=== PATIENT | female | born 1955 | race Caucasian/White ===

== ENCOUNTER 2018-05-15 15:24 | Observation (INO) ==
[2018-05-15 15:41] LABS: Appearance,Urine CLEAR (Clear); Bilirubin,Urine Negative (Negative); Blood, Urine Negative (Negative); Color,Urine YELLOW (Yellow); Glucose,Urine (UA) Negative (Negative); Ketones,Urine Negative (Negative); Leukocyte Esterase,Urine Negative (Negative); Microscopic, Urine URINE MICROSCOPIC (MICROSCOPIC); Protein,Urine Negative (Negative); Specific Gravity, Urine 1.015 (1.005-1.030); Urobilinogen,Urine 0.2 EU/dl (0.2)
[2018-05-15 15:47] LABS: Basophils % 0.1 % (0.1-2.0); Eosinophils % 0.2 % (0.1-12.0); Hematocrit 32.5 % (37.0-47.0); Hemoglobin 9.1 g/dL (12.2-16.2); Lymphocytes # 0.6 K/mm3 (0.7-4.5); Lymphocytes % 2.9 K/mm3 (10-50); Mean Corpuscular HGB Conc 27.9 g/dL (31.8-35.4); Mean Corpuscular Volume 71.8 fl (81-99); Mean Platelet Volume 7.3 fl (7.4-10.4); Monocytes # 0.7 K/mm3 (0.1-1.0); Monocytes % 3.6 % (1.7-9.3); Neutrophils # 17.9 K/mm3 (1.8-7.8); Neutrophils % 93.2 % (37.0-80.0); Platelet Count 335 K/mm3 (142-424); Red Blood Count 4.53 M/mm3 (4.20-5.40); Red Cell Distribution Width 16.5 % (11.5-17.5); White Blood Count 19.2 K/mm3 (4.8-10.8)
[2018-05-15 15:48] LABS: Bacteria,Urine Trace /lpf
[2018-05-15 16:02] LABS: Lymphocytes % 5 % (10-50); Monocytes % 3 % (2-9); Neutrophils % 88 % (42-76); Ovalocytes 1+; Tear Drop Cells 1+; Total Cells Counted 100
[2018-05-15 16:04] LABS: Carbon Dioxide 23 mmol/L (21.0-32.0); Chloride 102 mmol/L (98-107); Creatine Kinase 139 U/L (26-192); Potassium 3.4 mmoL/L (3.5-5.1); Sodium 138 mmol/L (136-145)
[2018-05-15 16:05] LABS: Alanine Aminotransferase 33 U/L (12-78); Albumin Level 4.1 gm/dL (3.4-5.0); Albumin/Globulin Ratio 1.4 (1.1-1.8); Alkaline Phosphatase 112 U/L (46-116); Anion Gap 12.8 mEq/L (5-15); Aspartate Amino Transferase 18 U/L (15-37); Bilirubin,Total 0.6 mg/dL (0.2-1.0); Blood Urea Nitrogen 32 mg/dL (7-18); Calcium 9.4 mg/dL (8.5-10.1); Glucose 183 mg/dL (74-106); Total Protein,Serum 7.1 gm/dL (6.4-8.2)
[2018-05-15 16:20] LABS: Amylase 143 U/L (25-125); Lipase 76 u/L (73-393)
--- NOTE | 2018-05-15 16:56 | Emergency Department Note ---
ED Disposition Clinical Impression: Proctitis, Hypokalemia, Fecal impaction in rectum Anemia Qualifiers: Anemia type: other cause Other causes of anemia: other cause, not classified Qualified Code(s): D64.89 - Other specified anemias Disposition: Admitted As Inpatient Condition on Discharge: Good Time of Disposition: 16:52 - Critical Care Critical Care Time: No Attestation: On 05/15/18, the high probability of a clinically significant, sudden or life threatening deterioration of the following system(s) required my full and direct attention, intervention and personal management. The time I documented below is in addition to time spent performing reported procedures but includes the following listed in this critical care notation. Medical Decision Making - Medical Records Medical records reviewed: Yes: I reviewed the patient's medical records. - Alfred Inquiry Pt receiving controlled substance: No Vital Signs: 05/15/18 15:25 05/15/18 16:54 05/15/18 17:00 Temperature 98.6 F Temperature Source Oral Pulse Rate Pulse Rate [Right Brachial] 103 H 74 69 Respiratory Rate 22 18 18 Blood Pressure Blood Pressure [Right Arm] 128/71 134/84 135/80 Blood Pressure Mean [Right Arm] 90 100 98 Blood Pressure Source Blood Pressure Source [Right Arm] Automatic Cuff Automatic Cuff Automatic Cuff Blood Pressure Position Blood Pressure Position [Right Arm] Sitting Sitting Sitting 02 Sat by Pulse Oximetry 98 98 98 Oxygen Delivery Method Room Air Room Air Room Air 05/15/18 17:21 05/15/18 17:45 05/15/18 18:00 Temperature Temperature Source Pulse Rate Pulse Rate [Right Brachial] 72 70 Respiratory Rate 16 18 Blood Pressure Blood Pressure [Right Arm] 145/89 146/83 Blood Pressure Mean [Right Arm] 107 104 Blood Pressure Source Blood Pressure Source [Right Arm] Automatic Cuff Automatic Cuff Blood Pressure Position Blood Pressure Position [Right Arm] Sitting Supine 02 Sat by Pulse Oximetry 97 97 Oxygen Delivery Method Room Air Room Air Room Air 05/15/18 18:09 Temperature 97.9 F Temperature Source Oral Pulse Rate 72 Pulse Rate [Right Brachial] Respiratory Rate 20 Blood Pressure 169/106 Blood Pressure [Right Arm] Blood Pressure Mean [Right Arm] Blood Pressure Source Automatic Cuff Blood Pressure Source [Right Arm] Blood Pressure Position Sitting Blood Pressure Position [Right Arm] 02 Sat by Pulse Oximetry Oxygen Delivery Method Room Air - Lab Data Lab results reviewed: Yes: I reviewed the patient's lab results. Lab Results 05/15/18 15:38: Urine Color Yellow, Urine Appearance Clear, Urine pH 6.0, Ur Specific [place] 1.015, Urine Protein Negative, Urine Glucose (UA) Negative, Urine Ketones Negative, Urine Blood Negative, Urine Nitrate Negative, Urine Bilirubin Negative, Urine Urobilinogen 0.2, Ur Leukocyte Esterase Negative, Urine Bacteria Trace 05/15/18 15:40: WBC 19.2 H, RBC 4.53, Hgb 9.1 L, Hct 32.5 L, MCV 71.8 L, MCH 20.0 L, MCHC 27.9 L, RDW 16.5, Plt Count 335, MPV 7.3 L, Neut % (Auto) 93.2 H, Lymph % (Auto) 2.9 L, [place] % (Auto) 3.6, Eos % (Auto) 0.2, Baso % (Auto) 0.1, Neut # (Auto) 17.9 H, Lymph # (Auto) 0.6 L, [place] # (Auto) 0.7, Eos # (Auto) 0.0 , Baso # (Auto) 0.0, Total Counted 100, Neutrophils % (Manual) 88 H, Band Neutrophils % 4.0, Lymphocytes % (Manual) 5 L, Monocytes % (Manual) 3, Platelet Estimate Normal, Tear Drop Cells 1+, Ovalocytes 1+, Acanthocytes (Spur) 1+ 05/15/18 15:40: Sodium 138, Potassium 3.4 L, Chloride 102, Carbon Dioxide 23, Anion Gap 12.8, BUN 32 H, Creatinine 1.12 H, Estimated Creat Clear 65, Estimated GFR 49 L, Est GFR ( Amer) 59, Glucose 183 H, Calcium 9.4, Total Bilirubin 0.6, AST 18, ALT 33, Alkaline Phosphatase 112, Total Creatine Kinase 139, CK-MB (CK-2) 5.1 H, CK-MB (CK-2) Rel Index 3.7, Troponin I < 0.02, Total Protein 7.1, Albumin 4.1, Globulin 3.0, Albumin/Globulin Ratio 1.4 05/15/18 15:40: B-Natriuretic Peptide 152 H 05/15/18 15:40: Lactic Acid 4.2 H 05/15/18 15:40: Amylase 143 H, Lipase 76 Result diagrams: 05/15/18 15:40 05/15/18 15:40 Orders (Tests/Meds): ED MEDICATIONS Generic Name Dose Route Start Last Admin Trade Name Bunny PRN Reason Stop Dose Admin Aspirin 81 mg 05/16/18 09:00 Aspirin 81mg Enteric Coated Tablet PO 06/15/18 08:59 DAILY [facility] Clopidogrel Bisulfate 75 mg 05/16/18 09:00 Plavix 75mg Tablet PO 06/15/18 08:59 DAILY [facility] Docusate Sodium 100 mg 05/16/18 09:00 Docusate Sodium 100mg Cap PO 06/15/18 08:59 DAILY MARGARETTE Lactated Ringer's 1,000 mls @ 75 mls/hr 05/15/18 18:59 05/15/18 21:18 Lactated Ringer's 1000 Ml Bag IV 06/14/18 17:15 75 mls/hr .[id number] MARGARETTE Administration Levofloxacin/Dextrose 750 mg in 150 mls @ 100 mls/hr 05/16/18 16:30 Levofloxacin 750mg/150ml Premix IV 05/29/18 16:29 Q24H MARGARETTE Protocol Metronidazole 100 mls @ 100 mls/hr 05/16/18 00:30 05/16/18 00:18 Flagyl 500mg/100ml Ivpb IV 05/29/18 16:29 100 mls/hr Q8H MARGARETTE Administration Protocol Ketorolac Tromethamine 30 mg 05/15/18 19:21 05/15/18 19:22 Toradol 30mg/Ml Vial IV 05/20/18 19:20 30 mg Q6HP PRN Administration .PAIN Lisinopril 10 mg 05/16/18 09:00 Zestril 10mg Tablet PO 06/15/18 08:59 DAILY [facility] Metoprolol Succinate 25 mg 05/15/18 21:00 05/15/18 21:19 Toprol Xl 25mg Tablet PO 06/14/18 20:59 25 mg BID MARGARETTE Administration Niacin 500 mg 05/16/18 09:00 Niacin Xr 500mg Capsule PO 06/15/18 08:59 DAILY [facility] Non-Formulary Medication 80 mg 05/16/18 09:00 Atorvastatin Calcium [Atorvastatin 80mg Tab] PO 06/15/18 08:59 DAILY [facility] Non-Formulary Medication 25 mcg 05/16/18 09:00 Levothyroxine Sodium [Tirosint] PO 06/15/18 08:59 DAILY [facility] Pantoprazole Sodium 40 mg 05/16/18 09:00 Protonix 40mg Tablet PO 06/15/18 08:59 DAILY [facility]TE Potassium Chloride 40 meq 05/15/18 18:59 05/15/18 19:25 Klor-Con 20meq Tablet PO 05/15/18 19:00 40 meq ONCE ONE Administration Sertraline HCl 100 mg 05/16/18 09:00 Zoloft 100mg Tablet PO 06/15/18 08:59 DAILY [facility]ARGAR[facility]TE Discontinued Medications Generic Name Dose Route Start Last Admin Trade Name Freq PRN Reason Stop Dose Admin Levofloxacin/Dextrose 750 mg in 150 mls @ 100 mls/hr 05/15/18 16:30 05/15/18 17:11 Levofloxacin 750mg/150ml Premix IV 05/29/18 16:29 100 mls/hr Q24H MARGARETTE Administration Protocol Metronidazole 100 mls @ 100 mls/hr 05/15/18 16:30 05/15/18 18:02 Flagyl 500mg/100ml Ivpb IV 05/29/18 16:29 100 mls/hr Q8H MARGARETTE Administration Protocol Levofloxacin/Dextrose 750 mg in 150 mls @ 100 mls/hr 05/16/18 16:30 Levofloxacin 750mg/150ml Premix IV 05/29/18 16:29 Q24H MARGARETTE Protocol Metronidazole 100 mls @ 100 mls/hr 05/16/18 00:30 Flagyl 500mg/100ml Ivpb IV 05/29/18 16:29 Q8H MARGARETTE Protocol Lactated Ringer's 1,000 mls @ 75 mls/hr 05/15/18 17:16 Lactated Ringer's 1000 Ml Bag IV 06/14/18 17:15 .[id number] MARGARETTE Sodium Chloride 1,000 mls @ 999 mls/hr 05/15/18 18:00 05/15/18 19:04 Sod Chlor 0.9% 1000ml Bag IV 05/15/18 19:00 999 mls/hr .Q1H1M MARGARETTE Administration Sodium Chloride 1,000 mls @ 999 mls/hr 05/15/18 18:00 05/15/18 19:00 Sod Chlor 0.9% 1000ml Bag IV 05/15/18 19:00 999 mls/hr .Q1H1M MARGARETTE Administration Sodium Phosphate 133 ml 05/15/18 17:26 05/15/18 18:45 Fleet Enema 133ml RC 05/15/18 17:27 Not Given ONCE ONE ORDERS Category Date Time Status Consult to On-Call Gen'l Surgeon [CONS] Routine Cons 05/15/18 17:16 Ordered Blood Culture Stat Micro 05/15/18 15:40 Received - CT Data CT Scan: Abdomen, Pelvis Time Received: 16:[address] Reviewed: Yes: I have reviewed the patient's CT results, I discussed the CT results w/the radiologist, I have viewed the radiologist's interpretation Preliminary Findings: Abnormal Findings Narrative: [address] [facility] [address] [place] [address] [place] Scan Report Signed Patient: Michelle Bauer MR#: [id number] : 1955 Acct:[id number] Age/Sex: 62 / F ADM Date: 05/15/18 Loc: ER Attending Dr: Ordering Physician: Magno Vital MD Date of Service: 05/15/18 Procedure(s): CT abdomen pelvis wo con Accession Number(s): [id number] cc: Blanco Boudreaux ~ CT abdomen pelvis wo con CLINICAL HISTORY: Abdominal pain with symptoms of constipation TECHNIQUE: Axial images obtained with sagittal and coronal reformats. All CT scans at this facility use one or more dose reduction techniques, viz.: automated exposure control; ma/kV adjustment per patient size (including targeted exams where dose is matched to indication; i.e. head) or iterative reconstruction technique. COMPARISON: CT scan abdomen without and with contrast 10/23/2008 PROCEDURE: No oral or IV contrast was used. FINDINGS: Lung bases: Clear, there is no pleural fluid ABDOMEN: Liver: There is a hypodense lesion midportion the right lobe of the liver measuring 2.2 x 2.5 x 1.8 cm. This has somewhat irregular borders and may be a liver cyst but recommend a follow-up ultrasound liver for better evaluation.. Gallbladder: Nondistended. No radio opaque stones. Pancreas: There are few scattered calcifications within the pancreas, is there history of previous pancreatitis? There are no findings to suggest acute pancreatitis.. Spleen: Unremarkable. Adrenals: There is a hypodense mass left adrenal gland with a CT number suggesting an adrenal cyst or possibly adenoma. The right adrenal gland appears normal. Kidneys/ureters: The kidneys are normal size and there are nonobstructing calculi in each kidney. The small hypodense lesion lower pole left kidney measuring 1.6 x 1.7 x 1.5 cm likely a small cortical cyst. PELVIS: Reproductive: The uterus is somewhat small but in the midline. Bladder: A Brady catheter seen in the urinary bladder which is decompressed.. Appendix: I do not definitely identify the appendix but there are no pericecal inflammatory changes. ABDOMEN & PELVIS: Stomach bowel: Nondistended. No obvious mass or thickening. There are surgical clips at the gastroesophageal junction likely for repair previous hiatal hernia. The small bowel appears normal. There is large amount stool in the rectum with uniform thickening of the rectal wall and is prominent perirectal edematous changes the appearance suggesting stercoral proctitis with possible fecal impaction. There is diffuse subcutaneous edematous changes in the perianal region and perineum. Lymph nodes: No enlarged lymph nodes apparent. Vasculature: No evidence of abdominal aortic aneurysm. No retroperitoneal hemorrhage evident. Bones: Unremarkable appearing bony structures. No lytic or blastic changes. No obvious fractures. IMPRESSION: 1. Probable fecal impaction with prominent perirectal edematous and/or inflammatory changes with the findings suggesting stercoral proctitis 2. Hypodense liver lesion as described along with a small hypodense lesion lower pole left kidney and for both reason I would suggest a nonemergent ultrasound the upper abdomen for better evaluation. Dictated By: Blanco Boudreaux Signed By: <Electronically signed by Blanco Boudreaux in OV> 05/15/18 1635 DD/ 1617 - Physician Consults Physician Consulted: Dr De Leon Time: 17:00 Reason -: Admission, Pt condition Comment/Response: Advise of patient's presentation findings, agreeable with admission, plan to continue patient IV antibiotics and consultation with general surgery. Additional Consult: Dr Perdomo Time: 17:10 Reason -: Admission, Pt condition, Gastroenterolgy Eval/Care, Surgical Eval/Care Comment/Response: Advise of the above, agreeable with consultation. Manual disimpaction appears unsafe at this time given the degree of infection in patient's rectum, plan is to try gentle fleets enemas, if that is unsuccessful the next option might be manual disimpaction in the operating room under general anesthesia. General Adult HPI - General Chief complaint: Urogenital-Female Stated complaint: ACUTE ON CHRONIC CONSTIPATION Time Seen by Provider: 05/15/18 15:30 Mode of Arrival: Wheelchair Source of Information: Patient Limitations: No Limitations Description of Symptoms (Recalled from ER Triage Doc. by RN): CONSTIPATION FOR 4 DAYS; NO UOP FOR 4 HOURS - History of Present Illness HPI narrative: Patient is a 62-year-old female patient presented emergency room with pressure in the perineum, stating that she feels like she is "again impacted". Patient is a lifelong history of constipation and fecal impaction, however at this time she feels "different", and thinks she may worse than ever before. Patient has had urinary retention over the past 6 hours, as well. Denies any fever, chills, nausea, vomiting. She has not had any bowel movements in 4 days. Onset (ago): day(s) (4) Location: abdomen Severity: moderate Severity scale (1-10): 5 Quality: stabbing Consistency: constant Relieving factors: none Exacerbating factors: movement Associated symptoms: denies other symptoms Treatments prior to arrival: none - Related Data Home Medications Medication Instructions Recorded Confirmed Aspirin [Aspir 81] 81 mg PO DAILY 05/15/18 05/15/18 Atorvastatin Calcium [Atorvastatin 80 mg PO DAILY 05/15/18 05/15/18 80mg Tab] Clopidogrel Bisulfate [Plavix 75mg 75 mg PO DAILY 05/15/18 05/15/18 Tab] Docusate Sodium 100 mg PO DAILY 05/15/18 05/15/18 Levothyroxine Sodium [Tirosint] 25 mcg PO DAILY 05/15/18 05/15/18 Lisinopril [Lisinopril 10mg Tab] 10 mg PO DAILY 05/15/18 05/15/18 Metoprolol Succinate 25 mg PO BID 05/15/18 05/15/18 Niacin [Niacin Xr 500mg Capsule] 500 mg PO DAILY 05/15/18 05/15/18 Pantoprazole Sodium [Protonix 40mg 40 mg PO DAILY 05/15/18 05/15/18 tablet] Sertraline HCl [Zoloft 100mg 100 mg PO DAILY 05/15/18 05/15/18 tablet] hydroCHLOROthiazide [HCTZ 12.5mg 12.5 mg PO DAILY 05/15/18 05/15/18 cap] Allergies Allergy/AdvReac Type Severity Reaction Status Date / Time No Known Allergies Allergy Unverified 10/19/17 14:26 [facility] History I have reviewed the patient's past medical history: Yes Other Medical History: Reports: Other (Hx of constipation) Amputation: No Fractures: No - Social History Educational Level: Completed High School Smoking Status: Never smoker Alcohol Intake: never - Psychiatric History Expresses thoughts of harming self/others: None Suicide Plan Description: No Plan ROS Obtained: Yes All systems reviewed & no additional complaints, Yes Systems reviewed as appropriate & no additional complaints - Gastrointestinal Gastrointestingal: Reports: system reviewed and no additional complaints, except as docu, as per HPI, abdominal pain (rectal pain) - Genitourinary Female Genitourinary: Reports system reviewed and no additional complaints, except as docu, Reports as per HPI, Reports other (pain in the perineal area) Physical Exam - General General appearance: alert, in distress (moderate) - Head Head exam: atraumatic, normocephalic, normal inspection - Neck Neck exam: Present: normal inspection, full ROM, trachea midline. Absent: meningismus, lymphadenopathy - Chest Chest inspection: Present: normal inspection, symmetric chest wall rise. Absent : tenderness - Respiratory Respiratory exam: Present: normal lung sounds bilaterally. Absent: respiratory distress - Cardiovascular Cardiovascular exam: Present: regular rate, normal rhythm. Absent: JVD - Abdominal Exam Abdominal exam: Present: soft, tenderness (perineal area), normal bowel sounds. Absent: distention, guarding - Extremities Exam Extremities exam: Present: normal inspection, full ROM, normal capillary refill. Absent: calf tenderness - Back Exam Back exam: Present: normal inspection. Absent: tenderness - Neurological Exam Neurological exam: Present: alert, oriented X3 - Psychiatric Psychiatric exam: Present: normal affect, normal mood - Skin Skin exam: Present: warm, dry, intact, normal color - Lymphatic Lymphatic Findings: no adenopathy
--- NOTE | 2018-05-16 08:23 | Consult Report ---
*Admission Date: 05/15/18 *Chief complaint: CONSTIPATION *History of present illness: Patient is a 62-year-old pleasant white female. She does have somewhat of a long-standing history of apparent functional constipation. She states that she had not had a bowel movement over the past 4 days. She began developing some pressure in the perineum and had strained for several hours yesterday an attempt to have a bowel movement without success. She became quite uncomfortable. He had tried some home [id number] regimen without success. She presented to the emergency department. She underwent CT scan of the abdomen pelvis without any contrast whatsoever. This revealed findings of probable fecal impaction within the rectum with some thickening of the rectum and perineal edema. She was admitted for inpatient management and surgical consultation was obtained for potential need for disimpaction under anesthesia. This morning patient states that she has had a good bowel movement. She feels much better. She is essentially without any complaints. Patient does state that she has a history of anemia and she has been taking iron as well as magnesium citrate. She has had previous colonoscopies including colonoscopy about 5 years ago at [facility]. Review of Systems - Review of Systems Review of systems:: pertinent systems reviewed and negative unless documented below [facility] History Medical History: Denies:: Cancer, Diabetes Mellitus Type 1, Diabetes Mellitus Type 2, Internal Pacemaker, MRSA Other Medical History: Reports: Other (Hx of constipation) Other Surgeries: Yes: Cardiac Catheterization. No: Pacemaker Amputation: No Fractures: No - *Social History Educational Level: Completed High School Smoking Status: Never smoker Tobacco Type: cigarettes Alcohol Intake: never Occupational Status: employed Housing: house Household Members: spouse - Psychiatric History Expresses thoughts of harming self/others: None Suicide Plan Description: No Plan *Family Hx:: Coronary Artery Disease, Heart Attack, Hyperlipidemia, Hypertension , Stroke Meds Home Medications Medication Instructions Recorded Confirmed Type Aspirin [Aspir 81] 81 mg PO DAILY 05/15/18 05/15/18 History Atorvastatin Calcium [Atorvastatin 80 mg PO DAILY 05/15/18 05/15/18 History 80mg Tab] Clopidogrel Bisulfate [Plavix 75mg 75 mg PO DAILY 05/15/18 05/15/18 History Tab] Docusate Sodium 100 mg PO DAILY 05/15/18 05/15/18 History Levothyroxine Sodium [Tirosint] 25 mcg PO DAILY 05/15/18 05/15/18 History Lisinopril [Lisinopril 10mg Tab] 10 mg PO DAILY 05/15/18 05/15/18 History Metoprolol Succinate 25 mg PO BID 05/15/18 05/15/18 History Niacin [Niacin Xr 500mg Capsule] 500 mg PO DAILY 05/15/18 05/15/18 History Pantoprazole Sodium [Protonix 40mg 40 mg PO DAILY 05/15/18 05/15/18 History tablet] Sertraline HCl [Zoloft 100mg 100 mg PO DAILY 05/15/18 05/15/18 History tablet] hydroCHLOROthiazide [HCTZ 12.5mg 12.5 mg PO DAILY 05/15/18 05/15/18 History cap] Allergies Allergy/AdvReac Type Severity Reaction Status Date / Time No Known Allergies Allergy Unverified 10/19/17 14:26 Exam Vital signs and Labs for Last 24 Hours: Temp Pulse Resp BP Pulse Ox 98.2 F 75 16 125/71 97 05/16/18 07:48 05/16/18 07:48 05/16/18 07:48 05/16/18 07:48 05/16/18 07:48 Laboratory Results - last 24 hr 05/15/18 15:38: Urine Color Yellow, Urine Appearance Clear, Urine pH 6.0, Ur Specific [place] 1.015, Urine Protein Negative, Urine Glucose (UA) Negative, Urine Ketones Negative, Urine Blood Negative, Urine Nitrate Negative, Urine Bilirubin Negative, Urine Urobilinogen 0.2, Ur Leukocyte Esterase Negative, Urine Bacteria Trace 05/15/18 15:40: WBC 19.2 H, RBC 4.53, Hgb 9.1 L, Hct 32.5 L, MCV 71.8 L, MCH 20.0 L, MCHC 27.9 L, RDW 16.5, Plt Count 335, MPV 7.3 L, Neut % (Auto) 93.2 H, Lymph % (Auto) 2.9 L, [place] % (Auto) 3.6, Eos % (Auto) 0.2, Baso % (Auto) 0.1, Neut # (Auto) 17.9 H, Lymph # (Auto) 0.6 L, [place] # (Auto) 0.7, Eos # (Auto) 0.0 , Baso # (Auto) 0.0, Total Counted 100, Neutrophils % (Manual) 88 H, Band Neutrophils % 4.0, Lymphocytes % (Manual) 5 L, Monocytes % (Manual) 3, Platelet Estimate Normal, Tear Drop Cells 1+, Ovalocytes 1+, Acanthocytes (Spur) 1+ 05/15/18 15:40: Sodium 138, Potassium 3.4 L, Chloride 102, Carbon Dioxide 23, Anion Gap 12.8, BUN 32 H, Creatinine 1.12 H, Estimated Creat Clear 65, Estimated GFR 49 L, Est GFR ( Amer) 59, Glucose 183 H, Calcium 9.4, Total Bilirubin 0.6, AST 18, ALT 33, Alkaline Phosphatase 112, Total Creatine Kinase 139, CK-MB (CK-2) 5.1 H, CK-MB (CK-2) Rel Index 3.7, Troponin I < 0.02, Total Protein 7.1, Albumin 4.1, Globulin 3.0, Albumin/Globulin Ratio 1.4 05/15/18 15:40: B-Natriuretic Peptide 152 H 05/15/18 15:40: Lactic Acid 4.2 H 05/15/18 15:40: Amylase 143 H, Lipase 76 05/15/18 19:45: Lactic Acid Fup @ 4Hr 1.9 I & O for Last 24 hours: Intake & Output 05/13/18 05/14/18 05/15/18 05/16/18 11:59 11:59 11:59 11:59 Intake Total 983 / 983 Output Total 1600 / 1600 Balance -617 / -617 Weight 157 lb 8 oz - Constitutional no acute distress - *Routine Respiratory Exam Present: CTA bilaterally - *Routine Cardiovascular Exam Present: RRR - *Routine Abdominal Exam Present: soft. Absent: tenderness Results - Labs 05/15/18 15:40 05/15/18 15:40 Laboratory Results - last 24 hr 05/15/18 15:38: Urine Color Yellow, Urine Appearance Clear, Urine pH 6.0, Ur Specific [place] 1.015, Urine Protein Negative, Urine Glucose (UA) Negative, Urine Ketones Negative, Urine Blood Negative, Urine Nitrate Negative, Urine Bilirubin Negative, Urine Urobilinogen 0.2, Ur Leukocyte Esterase Negative, Urine Bacteria Trace 05/15/18 15:40: WBC 19.2 H, RBC 4.53, Hgb 9.1 L, Hct 32.5 L, MCV 71.8 L, MCH 20.0 L, MCHC 27.9 L, RDW 16.5, Plt Count 335, MPV 7.3 L, Neut % (Auto) 93.2 H, Lymph % (Auto) 2.9 L, [place] % (Auto) 3.6, Eos % (Auto) 0.2, Baso % (Auto) 0.1, Neut # (Auto) 17.9 H, Lymph # (Auto) 0.6 L, [place] # (Auto) 0.7, Eos # (Auto) 0.0 , Baso # (Auto) 0.0, Total Counted 100, Neutrophils % (Manual) 88 H, Band Neutrophils % 4.0, Lymphocytes % (Manual) 5 L, Monocytes % (Manual) 3, Platelet Estimate Normal, Tear Drop Cells 1+, Ovalocytes 1+, Acanthocytes (Spur) 1+ 05/15/18 15:40: Sodium 138, Potassium 3.4 L, Chloride 102, Carbon Dioxide 23, Anion Gap 12.8, BUN 32 H, Creatinine 1.12 H, Estimated Creat Clear 65, Estimated GFR 49 L, Est GFR ( Amer) 59, Glucose 183 H, Calcium 9.4, Total Bilirubin 0.6, AST 18, ALT 33, Alkaline Phosphatase 112, Total Creatine Kinase 139, CK-MB (CK-2) 5.1 H, CK-MB (CK-2) Rel Index 3.7, Troponin I < 0.02, Total Protein 7.1, Albumin 4.1, Globulin 3.0, Albumin/Globulin Ratio 1.4 05/15/18 15:40: B-Natriuretic Peptide 152 H 05/15/18 15:40: Lactic Acid 4.2 H 05/15/18 15:40: Amylase 143 H, Lipase 76 05/15/18 19:45: Lactic Acid Fup @ 4Hr 1.9 Assessment and Plan - Assessment and plan all Dx Assessment and Plan for all problems:: Symptoms seem to have improved with good bowel function this morning. I will go ahead and start a limited diet at this time. Recommend bowel regimen.
[2018-05-16 08:33] LABS: Basophils % 0.2 % (0.1-2.0); Eosinophils % 0.3 % (0.1-12.0); Lymphocytes # 0.5 K/mm3 (0.7-4.5); Lymphocytes % 5.3 K/mm3 (10-50); Mean Corpuscular HGB Conc 27.7 g/dL (31.8-35.4); Mean Corpuscular Hemoglobin 19.7 pg (27.0-31.2); Mean Corpuscular Volume 71.2 fl (81-99); Mean Platelet Volume 8.6 fl (7.4-10.4); Monocytes # 0.4 K/mm3 (0.1-1.0); Neutrophils # 7.6 K/mm3 (1.8-7.8); Neutrophils % 89.2 % (37.0-80.0); Red Blood Count 3.63 M/mm3 (4.20-5.40); Red Cell Distribution Width 16.6 % (11.5-17.5)
[2018-05-16 08:40] LABS: Anion Gap 10.5 mEq/L (5-15); Potassium 3.5 mmoL/L (3.5-5.1)
[2018-05-16 08:45] LABS: Calcium 8.2 mg/dL (8.5-10.1)
[2018-05-16 08:46] LABS: Hemoglobin 7.3 g/dL (12.2-16.2)
[2018-05-16 08:47] LABS: Platelet Count 234 K/mm3 (142-424); White Blood Count 9.1 K/mm3 (4.8-10.8)
--- NOTE | 2018-05-16 09:09 | History & Physical Report ---
*Admission Date: 05/15/18 *Chief complaint: abdominal pain and constipation *History of present illness: Ms Bauer is a 62-year-old female with a history of cardiac disease, hypertension, and long-standing problems with constipation. She presented to the emergency room yesterday with abdominal pain and inability to get her bowels to move. She also with had been unable to void. Problems began about 4 days ago. She restarted her MiraLAX and quit taking her iron. Yesterday when her bowels have not moved abdominal pain increased she took for glycerin suppositories and gave herself a saline enema. She said the bathroom for 4 hours straining at which time the abdominal pain increased. She thus had her bring her to the emergency room. She denies fever, chest pain, shortness of breath, nausea and vomiting. She describes the pain as more of a pressure which was relieved with pain medicine in the emergency room. With evaluation in the emergency room she underwent CT scan of the abdomen/ pelvis without any contrast. This revealed findings of probable fecal impaction within the rectum with some thickening of the rectum and perineal edema. She was then admitted for inpatient management and surgical consultation was obtained for potential need for disimpaction under anesthesia. This morning patient states that she has had a good bowel movement. She feels much better. She states the pain is gone and is without any complaints. Patient does state that she has a history of anemia and she has been taking iron as well as magnesium citrate. She continues with a Escobar catheter and is n.p.o. for surgical consult. She has had previous colonoscopies including colonoscopy about 5 years ago at [facility]. To note patient has been on 2 different diets for weight loss. She started with high-protein diet and then the Atkins diet. She has been walking 2 miles a day. States she drinks a lot of water daily. [facility] History Medical History: Reports:: Atherosclerotic Heart Disease, Coronary Artery Disease, Depression, Gastroesophageal Reflux Disease(GERD), Hyperlipidemia, Hypertension Denies:: Cancer, Diabetes Mellitus Type 1, Diabetes Mellitus Type 2, Gastrointestinal Bleed, Internal Pacemaker, MRSA Other Medical History: Reports: Anemia, Hypothyroidism, Other (Hx of constipation) Other Surgeries: Yes: Cardiac Catheterization, Coronary Stent. No: Pacemaker Amputation: No Fractures: No - *Social History Educational Level: Completed High School Smoking Status: Never smoker Alcohol Intake: former Occupational Status: employed Housing: house Household Members: spouse - Psychiatric History Expresses thoughts of harming self/others: None Suicide Plan Description: No Plan *Family Hx:: Coronary Artery Disease, Heart Attack, Hyperlipidemia, Hypertension , Stroke Review of Systems - Constitutional Denies chills, Denies fever(s), Denies headache(s) - ENT Denies ear pain, Denies sore throat - *Cardiovascular Denies chest pain, Denies shortness of breath - *Respiratory Denies chest congestion, Denies cough, Denies shortness of breath - *Gastrointestinal Reports abdominal pain, Reports change in bowel habits, Reports change in stools , Reports constipation, Reports nausea, Reports vomiting, Denies coffee ground vomit, Denies heartburn, Denies bright, red blood in stools, Denies black, tarry stools - *Genitourinary Reports difficulty urinating, Denies painful urination - *Musculoskeletal Denies abnormal walking, Denies joint pain - *Neurologic Denies abnormal walking, Denies headache(s) Meds Home Medications Medication Instructions Recorded Confirmed Type Aspirin [Aspir 81] 81 mg PO DAILY 05/15/18 05/15/18 History Atorvastatin Calcium [Atorvastatin 80 mg PO DAILY 05/15/18 05/15/18 History 80mg Tab] Clopidogrel Bisulfate [Plavix 75mg 75 mg PO DAILY 05/15/18 05/15/18 History Tab] Docusate Sodium 100 mg PO DAILY 05/15/18 05/15/18 History Levothyroxine Sodium [Tirosint] 25 mcg PO DAILY 05/15/18 05/15/18 History Niacin [Niacin Xr 500mg Capsule] 500 mg PO DAILY 05/15/18 05/15/18 History Pantoprazole Sodium [Protonix 40mg 40 mg PO DAILY 05/15/18 05/15/18 History tablet] Sertraline HCl [Zoloft 100mg 100 mg PO DAILY 05/15/18 05/15/18 History tablet] hydroCHLOROthiazide [HCTZ 12.5mg 12.5 mg PO DAILY 05/15/18 05/15/18 History cap] Lisinopril [Lisinopril 20mg Tab] 20 mg PO BID 05/16/18 05/16/18 History Metoprolol Tartrate [Lopressor 25 mg PO BID 05/16/18 05/16/18 History 25mg tablet] Potassium Gluconate 99 mg PO DAILY 05/16/18 05/16/18 History Allergies Allergy/AdvReac Type Severity Reaction Status Date / Time No Known Allergies Allergy Unverified 10/19/17 14:26 Exam Vital signs and Labs for Last 24 Hours: Temp Pulse Resp BP Pulse Ox 98.2 F 75 16 125/71 97 05/16/18 07:48 05/16/18 07:48 05/16/18 07:48 05/16/18 07:48 05/16/18 07:48 Laboratory Results - last 24 hr 05/15/18 15:38: Urine Color Yellow, Urine Appearance Clear, Urine pH 6.0, Ur Specific Wallace 1.015, Urine Protein Negative, Urine Glucose (UA) Negative, Urine Ketones Negative, Urine Blood Negative, Urine Nitrate Negative, Urine Bilirubin Negative, Urine Urobilinogen 0.2, Ur Leukocyte Esterase Negative, Urine Bacteria Trace 05/15/18 15:40: WBC 19.2 H, RBC 4.53, Hgb 9.1 L, Hct 32.5 L, MCV 71.8 L, MCH 20.0 L, MCHC 27.9 L, RDW 16.5, Plt Count 335, MPV 7.3 L, Neut % (Auto) 93.2 H, Lymph % (Auto) 2.9 L, [place] % (Auto) 3.6, Eos % (Auto) 0.2, Baso % (Auto) 0.1, Neut # (Auto) 17.9 H, Lymph # (Auto) 0.6 L, [place] # (Auto) 0.7, Eos # (Auto) 0.0 , Baso # (Auto) 0.0, Total Counted 100, Neutrophils % (Manual) 88 H, Band Neutrophils % 4.0, Lymphocytes % (Manual) 5 L, Monocytes % (Manual) 3, Platelet Estimate Normal, Tear Drop Cells 1+, Ovalocytes 1+, Acanthocytes (Spur) 1+ 05/15/18 15:40: Sodium 138, Potassium 3.4 L, Chloride 102, Carbon Dioxide 23, Anion Gap 12.8, BUN 32 H, Creatinine 1.12 H, Estimated Creat Clear 65, Estimated GFR 49 L, Est GFR ( Amer) 59, Glucose 183 H, Calcium 9.4, Total Bilirubin 0.6, AST 18, ALT 33, Alkaline Phosphatase 112, Total Creatine Kinase 139, CK-MB (CK-2) 5.1 H, CK-MB (CK-2) Rel Index 3.7, Troponin I < 0.02, Total Protein 7.1, Albumin 4.1, Globulin 3.0, Albumin/Globulin Ratio 1.4 05/15/18 15:40: B-Natriuretic Peptide 152 H 05/15/18 15:40: Lactic Acid 4.2 H 05/15/18 15:40: Amylase 143 H, Lipase 76 05/15/18 19:45: Lactic Acid Fup @ 4Hr 1.9 05/16/18 08:25: WBC 9.1 D, RBC 3.63 L, Hgb 7.3 L*, Hct 26.0 L, MCV 71.2 L, MCH 19.7 L, MCHC 27.7 L, RDW 16.6, Plt Count 234 D, MPV 8.6, Neut % (Auto) 89.2 H, Lymph % (Auto) 5.3 L, [place] % (Auto) 5.0, Eos % (Auto) 0.3, Baso % (Auto) 0.2, Neut # (Auto) 7.6, Lymph # (Auto) 0.5 L, [place] # (Auto) 0.4, Eos # (Auto) 0.0, Baso # (Auto) 0.0 05/16/18 08:25: Sodium 141, Potassium 3.5, Chloride 109 H, Carbon Dioxide 25, Anion Gap 10.5, BUN 15 D, Creatinine 0.78 D, Estimated Creat Clear 64, Estimated GFR 74, Est GFR ( Amer) 90 D, Glucose 131 H D, Calcium 8.2 L D , Lipase 44 L 05/16/18 08:25: Amylase 35 D I & O for Last 24 hours: Intake & Output 05/13/18 05/14/18 05/15/18 05/16/18 11:59 11:59 11:59 11:59 Intake Total 1083 / 1083 Output Total 1600 / 1600 Balance -517 / -517 Weight 157 lb 8 oz - Constitutional no acute distress Comments: Appears comfortable - *Routine HEENT Exam Eye: Present: PERRL. Absent: conjunctival icterus, scleral injection ENT: Present: mucous membranes moist, oropharynx clear - *Routine Neck Exam Present: supple. Absent: carotid bruit, lymphadenopathy, thyromegaly - *Routine Respiratory Exam Present: CTA bilaterally (Anteriorly and posteriorly) - *Routine Cardiovascular Exam Present: RRR - *Routine Abdominal Exam Present: soft, normoactive bowel sounds. Absent: tenderness, distended, guarding - *Routine Rectal Exam Patient deferred: visual exam, digital exam Visual: Absent: black stool, bloody stool Digital: Present: external hemorrhoid. Absent: mass Comments: watery stool - *Routine Extremities Exam Present: full ROM. Absent: clubbing, edema - *Routine Neurological Exam Present: alert, oriented X3 H&P: Result - Labs Labs: Short CBC 05/15/18 05/16/18 Range/Units 15:40 08:25 WBC 19.2 H 9.1 D (4.8-10.8) K/mm3 Hgb 9.1 L 7.3 L* (12.2-16.2) g/dL Hct 32.5 L 26.0 L (37.0-47.0) % Plt Count 335 234 D (142-424) K/mm3 BMP 05/15/18 05/16/18 15:40 08:25 Sodium 138 141 Potassium 3.4 L 3.5 Chloride 102 109 H Carbon Dioxide 23 25 BUN 32 H 15 D Creatinine 1.12 H 0.78 D Glucose 183 H 131 H D Calcium 9.4 8.2 L D Cardiac Enzymes 05/15/18 Range/Units 15:40 Total Creatine Kinase 139 (26-192) U/L CK-MB (CK-2) 5.1 H (0.0-3.6) ng/ml Troponin I < 0.02 (0.00-0.06) ng/ml Liver Function 05/15/18 Range/Units 15:40 Total Bilirubin 0.6 (0.2-1.0) mg/dL AST 18 (15-37) U/L ALT 33 (12-78) U/L Alkaline Phosphatase 112 (46-116) U/L Albumin 4.1 (3.4-5.0) gm/dL Urine 05/15/18 Range/Units 15:38 Urine Color Yellow (Yellow) Urine Appearance Clear (Clear) Urine pH 6.0 (5.0-8.5) Ur Specific Wallace 1.015 (1.005-1.030) Urine Protein Negative (Negative) Urine Glucose (UA) Negative (Negative) Assessment and Plan (1) Anemia Current visit: Yes Status: Acute Qualifiers: Anemia type: other cause Other causes of anemia: other cause, not classified Qualified Code(s): D64.89 - Other specified anemias Category: Medical Code(s): D64.9 - Anemia, unspecified (2) Fecal impaction in rectum Current visit: Yes Status: Acute Category: Medical Code(s): K56.41 - Fecal impaction (3) Hypokalemia Current visit: Yes Status: Acute Category: Medical Code(s): E87.6 - Hypokalemia (4) Proctitis Current visit: Yes Status: Acute Category: Medical Code(s): K62.89 - Other specified diseases of anus and rectum - Assessment and plan all Dx Assessment and Plan for all problems:: She has had a surgical consult; diet will be advanced; encourage OOB activity; remove escobar
[2018-05-16 09:26] LABS: Lymphocytes % 2 % (10-50); Monocytes % 7 % (2-9); Neutrophils % 88 % (42-76); Total Cells Counted 100
[2018-05-16 09:27] LABS: Ovalocytes 1+
--- NOTE | 2018-05-16 09:28 | Pharmacy Consult Notes ---
[facility] Pharmacy VTE Monitoring - Patient Demographics Admission date: 05/15/18 Report Date: 05/16/18 Time: 09:28 Allergies/Adverse Reactions: Patient Allergies No Known Allergies Allergy (Unverified 10/19/17 14:26) Height: 1.68 m Weight: 71.441 kg Patient Problems: Current Active Problems Proctitis (Acute) Anemia (Acute) Hypokalemia (Acute) Fecal impaction in rectum (Acute) - VTE Risk Labs: VTE Related Lab Results Hgb 7.3 g/dL (12.2-16.2) L* 05/16/18 08:25 Hct 26.0 % (37.0-47.0) L 05/16/18 08:25 Plt Count 234 K/mm3 (142-424) D 05/16/18 08:25 BUN 15 mg/dL (7-18) D 05/16/18 08:25 Creatinine 0.78 mg/dL (0.55-1.02) D 05/16/18 08:25 Estimated Creat Clear 64 mL/min (0-300) 05/16/18 08:25 Was VTE Risk Assessment Performed: Yes VTE Score: 1 VTE Risk Level: Very Low Risk - Prophylaxis VTE Prophylaxis Ordered?: Yes Types of VTE Prophylaxis: TEDS Knee High Location of Applied Device: Bilateral Lower Extremeties - VTE Diagnosis Confirmed Treatment or plan recommended: Continue Current Treatment
[2018-05-16 09:31] LABS: Hypochromasia 3+
[2018-05-16 09:32] LABS: Anisocytosis 1+
--- NOTE | 2018-05-17 07:04 | Progress Note ---
Subjective Patient reports: feels better Narrative: Still without appreciable bowel movements but feels better. Less pressure. No bleeding. Wants some prune juice. Exam Vital signs and Labs for Last 24 Hours: Temp Pulse Resp BP Pulse Ox 98.3 F 69 18 126/77 97 05/17/18 04:00 05/17/18 04:00 05/17/18 04:00 05/17/18 04:00 05/17/18 04:00 Laboratory Results - last 24 hr 05/16/18 08:25: WBC 9.1 D, RBC 3.63 L, Hgb 7.3 L*, Hct 26.0 L, MCV 71.2 L, MCH 19.7 L, MCHC 27.7 L, RDW 16.6, Plt Count 234 D, MPV 8.6, Neut % (Auto) 89.2 H, Lymph % (Auto) 5.3 L, [place] % (Auto) 5.0, Eos % (Auto) 0.3, Baso % (Auto) 0.2, Neut # (Auto) 7.6, Lymph # (Auto) 0.5 L, [place] # (Auto) 0.4, Eos # (Auto) 0.0, Baso # (Auto) 0.0, Total Counted 100, Neutrophils % (Manual) 88 H, Band Neutrophils % 1.0, Lymphocytes % (Manual) 2 L, Monocytes % (Manual) 7, Metamyelocytes % 2.0 H, Differential Comment , Platelet Estimate Normal, Hypochromasia 3+, Anisocytosis 1+, Microcytosis 2+, Ovalocytes 1+ 05/16/18 08:25: Sodium 141, Potassium 3.5, Chloride 109 H, Carbon Dioxide 25, Anion Gap 10.5, BUN 15 D, Creatinine 0.78 D, Estimated Creat Clear 64, Estimated GFR 74, Est GFR ( Amer) 90 D, Glucose 131 H D, Calcium 8.2 L D , Lipase 44 L 05/16/18 08:25: Amylase 35 D I & O for Last 24 hours: Intake & Output 05/14/18 05/15/18 05/16/18 05/17/18 11:59 11:59 11:59 11:59 Intake Total 1183 / 1183 700 / 700 Output Total 1600 / 1600 Balance -417 / -417 700 / 700 Weight 157 lb 8 oz 157 lb 8.007 oz Progress Note: A&P (1) Anemia Status: Acute Current Visit: Yes (2) Fecal impaction in rectum Status: Acute Assessment and plan: Resolving impaction with conservative management. Monitor H&H. Could require transfusion. Would not pursue colonoscopy urgently due to perineal edema and inflammation from straining. Reassuring patient had unremarkable colonoscopy a few years ago in [facility]. Will advance diet. Current Visit: Yes (3) Hypokalemia Status: Acute Current Visit: Yes (4) Proctitis Status: Acute Current Visit: Yes
[2018-05-17 07:44] LABS: Basophils % 0.2 % (0.1-2.0); Eosinophils # 0.1 K/mm3 (0.0-0.4); Eosinophils % 1.3 % (0.1-12.0); Lymphocytes # 0.6 K/mm3 (0.7-4.5); Lymphocytes % 10.1 K/mm3 (10-50); Mean Corpuscular HGB Conc 27.2 g/dL (31.8-35.4); Mean Corpuscular Hemoglobin 19.5 pg (27.0-31.2); Mean Corpuscular Volume 71.8 fl (81-99); Mean Platelet Volume 8.1 fl (7.4-10.4); Monocytes # 0.3 K/mm3 (0.1-1.0); Monocytes % 4.4 % (1.7-9.3); Neutrophils # 5.1 K/mm3 (1.8-7.8); Neutrophils % 83.9 % (37.0-80.0); Platelet Count 228 K/mm3 (142-424); Red Blood Count 3.62 M/mm3 (4.20-5.40); Red Cell Distribution Width 16.5 % (11.5-17.5)
[2018-05-17 08:13] LABS: Hemoglobin 7.1 g/dL (12.2-16.2)
--- NOTE | 2018-05-17 09:00 | Progress Note ---
Internal Medicine - PN: Subj *Date: 05/17/18 *Time: 08:57 Interval history: Patient is feeling better this a.m. States she had several diarrhea stools. She is voiding frequently. She did eat full liquids yesterday without problems. She denies abdominal pain, shortness of breath, and chest pain. She is ambulating to the bathroom without any difficulty. She has discomfort around the rectum. Hemoglobin has decreased to 7.1 today. Exam Vital signs and Labs for Last 24 Hours: Temp Pulse Resp BP Pulse Ox 97.8 F 74 18 135/79 96 05/17/18 08:00 05/17/18 08:00 05/17/18 08:00 05/17/18 08:00 05/17/18 08:00 Laboratory Results - last 24 hr 05/16/18 08:25: Total Counted 100, Neutrophils % (Manual) 88 H, Band Neutrophils % 1.0, Lymphocytes % (Manual) 2 L, Monocytes % (Manual) 7, Metamyelocytes % 2.0 H, Differential Comment , Platelet Estimate Normal, Hypochromasia 3+, Anisocytosis 1+, Microcytosis 2+, Ovalocytes 1+ 05/17/18 07:26: WBC 6.0 D, RBC 3.62 L, Hgb 7.1 L*, Hct 26.0 L, MCV 71.8 L, MCH 19.5 L, MCHC 27.2 L, RDW 16.5, Plt Count 228, MPV 8.1, Neut % (Auto) 83.9 H, Lymph % (Auto) 10.1, [place] % (Auto) 4.4, Eos % (Auto) 1.3, Baso % (Auto) 0.2, Neut # (Auto) 5.1, Lymph # (Auto) 0.6 L, [place] # (Auto) 0.3, Eos # (Auto) 0.1, Baso # (Auto) 0.0 I & O for Last 24 hours: Intake & Output 05/14/18 05/15/18 05/16/18 05/17/18 11:59 11:59 11:59 11:59 Intake Total 1183 / 1183 700 / 700 Output Total 1600 / 1600 480 / 480 Balance -417 / -417 220 / 220 Weight 157 lb 8 oz 157 lb 8.007 oz - Constitutional no acute distress - *Routine Respiratory Exam Present: CTA bilaterally (Anteriorly and posteriorly) - *Routine Cardiovascular Exam Present: RRR - *Routine Abdominal Exam Present: soft, normoactive bowel sounds. Absent: tenderness, distended, guarding - *Routine Extremities Exam Present: full ROM. Absent: edema, calf tenderness - *Routine Neurological Exam Present: alert, oriented X3 Assessment and Plan (1) Anemia Current visit: Yes Status: Acute Qualifiers: Anemia type: other cause Other causes of anemia: other cause, not classified Qualified Code(s): D64.89 - Other specified anemias Category: Medical Code(s): D64.9 - Anemia, unspecified (2) Fecal impaction in rectum Current visit: Yes Status: Acute Category: Medical Code(s): K56.41 - Fecal impaction (3) Hypokalemia Current visit: Yes Status: Acute Category: Medical Code(s): E87.6 - Hypokalemia (4) Proctitis Current visit: Yes Status: Acute Category: Medical Code(s): K62.89 - Other specified diseases of anus and rectum - Assessment and plan all Dx Assessment and Plan for all problems:: We will give her 2 units of packed red blood cells. We will do anemia studies. We will order medication for rectal discomfort.
[2018-05-17 11:51] LABS: Anion Gap 13.5 mEq/L (5-15); Calcium 8.3 mg/dL (8.5-10.1); Potassium 3.5 mmoL/L (3.5-5.1)
[2018-05-17 18:58] LABS: Hematocrit 30.2 % (37.0-47.0)
[2018-05-17 18:59] LABS: Hemoglobin 8.5 g/dL (12.2-16.2)
[2018-05-18 06:55] LABS: Basophils % 0.2 % (0.1-2.0); Eosinophils # 0.1 K/mm3 (0.0-0.4); Hematocrit 30.3 % (37.0-47.0); Hemoglobin 8.8 g/dL (12.2-16.2); Lymphocytes # 0.6 K/mm3 (0.7-4.5); Lymphocytes % 11.3 K/mm3 (10-50); Mean Corpuscular HGB Conc 28.9 g/dL (31.8-35.4); Mean Corpuscular Hemoglobin 21.4 pg (27.0-31.2); Mean Corpuscular Volume 73.8 fl (81-99); Mean Platelet Volume 7.2 fl (7.4-10.4); Monocytes # 0.3 K/mm3 (0.1-1.0); Monocytes % 5.5 % (1.7-9.3); Neutrophils # 4.5 K/mm3 (1.8-7.8); Platelet Count 214 K/mm3 (142-424); Red Cell Distribution Width 18.4 % (11.5-17.5); White Blood Count 5.6 K/mm3 (4.8-10.8)
--- NOTE | 2018-05-18 07:15 | Progress Note ---
Subjective Patient reports: no new complaints Narrative: Patient states that she did not sleep well last night due to multiple episodes of urination. No new bowel movements. Transfused yesterday. Exam Vital signs and Labs for Last 24 Hours: Temp Pulse Resp BP Pulse Ox 98.4 F 72 16 143/97 99 05/18/18 04:00 05/18/18 04:00 05/18/18 04:00 05/18/18 04:00 05/18/18 04:00 Laboratory Results - last 24 hr 05/17/18 07:26: WBC 6.0 D, RBC 3.62 L, Hgb 7.1 L*, Hct 26.0 L, MCV 71.8 L, MCH 19.5 L, MCHC 27.2 L, RDW 16.5, Plt Count 228, MPV 8.1, Neut % (Auto) 83.9 H, Lymph % (Auto) 10.1, [place] % (Auto) 4.4, Eos % (Auto) 1.3, Baso % (Auto) 0.2, Neut # (Auto) 5.1, Lymph # (Auto) 0.6 L, [place] # (Auto) 0.3, Eos # (Auto) 0.1, Baso # (Auto) 0.0 05/17/18 07:26: Sodium 135 L, Potassium 3.5, Chloride 103, Carbon Dioxide 22, Anion Gap 13.5, BUN 6 L D, Creatinine 0.70, Estimated Creat Clear 64, Estimated GFR 84, Est GFR ( Amer) 102, Glucose 154 H, Calcium 8.3 L 05/17/18 09:23: Retic Count (auto) 1.4 05/17/18 09:23: Blood Type O Positive, Antibody Screen Negative, Crossmatch ([facility] ) See Detail 05/17/18 12:35: Blood Type Confirm O Positive 05/17/18 18:44: Hgb 8.5 L D, Hct 30.2 L 05/18/18 06:45: WBC 5.6, RBC 4.10 L, Hgb 8.8 L, Hct 30.3 L, MCV 73.8 L, MCH 21.4 L, MCHC 28.9 L, RDW 18.4 H, Plt Count 214, MPV 7.2 L, Neut % (Auto) 81.0 H , Lymph % (Auto) 11.3, [place] % (Auto) 5.5, Eos % (Auto) 2.0, Baso % (Auto) 0.2, Neut # (Auto) 4.5, Lymph # (Auto) 0.6 L, [place] # (Auto) 0.3, Eos # (Auto) 0.1, Baso # (Auto) 0.0 I & O for Last 24 hours: Intake & Output 05/15/18 05/16/18 05/17/18 05/18/18 11:59 11:59 11:59 11:59 Intake Total 1183 / 1183 2634 / 2634 100 / 100 Output Total 1600 / 1600 480 / 480 Balance -417 / -417 2154 / 2154 100 / 100 Weight 157 lb 8 oz 157 lb 8.007 oz Microbiology Reports for the Last 24 Hours: Microbiology 05/15/18 15:40 Blood Blood Culture - Preliminary NO GROWTH AFTER 48 HOURS 05/15/18 15:40 Blood Blood Culture - Preliminary NO GROWTH AFTER 48 HOURS - *Routine Abdominal Exam Present: soft. Absent: tenderness Progress Note: A&P (1) Anemia Status: Acute Current Visit: Yes (2) Fecal impaction in rectum Status: Acute Assessment and plan: Fecal impaction resolving. Would not due inpatient colonoscopy due to inflammation. Patient had apparently undergone colonoscopy 5 years ago in [facility]. Current Visit: Yes (3) Hypokalemia Status: Acute Current Visit: Yes (4) Proctitis Status: Acute Current Visit: Yes
--- NOTE | 2018-05-18 07:55 | Progress Note ---
<Dana Croft - Last Filed: 05/18/18 07:54> Internal Medicine - PN: Subj *Date: 05/18/18 *Time: 07:54 Interval history: Pt states she is feeling better today. Had some diarrhea so abdominal pain has improved but is still cramping. Passing gas. Slept off and on. Tolerating a diet. H&H stayed stable. Exam Vital signs and Labs for Last 24 Hours: Temp Pulse Resp BP Pulse Ox 98.4 F 72 16 143/97 99 05/18/18 04:00 05/18/18 04:00 05/18/18 04:00 05/18/18 04:00 05/18/18 04:00 Laboratory Results - last 24 hr 05/17/18 07:26: WBC 6.0 D, RBC 3.62 L, Hgb 7.1 L*, Hct 26.0 L, MCV 71.8 L, MCH 19.5 L, MCHC 27.2 L, RDW 16.5, Plt Count 228, MPV 8.1, Neut % (Auto) 83.9 H, Lymph % (Auto) 10.1, [place] % (Auto) 4.4, Eos % (Auto) 1.3, Baso % (Auto) 0.2, Neut # (Auto) 5.1, Lymph # (Auto) 0.6 L, [place] # (Auto) 0.3, Eos # (Auto) 0.1, Baso # (Auto) 0.0 05/17/18 07:26: Sodium 135 L, Potassium 3.5, Chloride 103, Carbon Dioxide 22, Anion Gap 13.5, BUN 6 L D, Creatinine 0.70, Estimated Creat Clear 64, Estimated GFR 84, Est GFR ( Amer) 102, Glucose 154 H, Calcium 8.3 L 05/17/18 09:23: Retic Count (auto) 1.4 05/17/18 09:23: Blood Type O Positive, Antibody Screen Negative, Crossmatch ([facility] ) See Detail 05/17/18 12:35: Blood Type Confirm O Positive 05/17/18 18:44: Hgb 8.5 L D, Hct 30.2 L 05/18/18 06:45: WBC 5.6, RBC 4.10 L, Hgb 8.8 L, Hct 30.3 L, MCV 73.8 L, MCH 21.4 L, MCHC 28.9 L, RDW 18.4 H, Plt Count 214, MPV 7.2 L, Neut % (Auto) 81.0 H , Lymph % (Auto) 11.3, [place] % (Auto) 5.5, Eos % (Auto) 2.0, Baso % (Auto) 0.2, Neut # (Auto) 4.5, Lymph # (Auto) 0.6 L, [place] # (Auto) 0.3, Eos # (Auto) 0.1, Baso # (Auto) 0.0 I & O for Last 24 hours: Intake & Output 05/15/18 05/16/18 05/17/18 05/18/18 11:59 11:59 11:59 11:59 Intake Total 1183 / 1183 2634 / 2634 100 / 100 Output Total 1600 / 1600 480 / 480 Balance -417 / -417 2154 / 2154 100 / 100 Weight 157 lb 8 oz 157 lb 8.007 oz Microbiology Reports for the Last 24 Hours: Microbiology 05/15/18 15:40 Blood Blood Culture - Preliminary NO GROWTH AFTER 48 HOURS 05/15/18 15:40 Blood Blood Culture - Preliminary NO GROWTH AFTER 48 HOURS - Constitutional no acute distress - *Routine Respiratory Exam Present: CTA bilaterally - *Routine Cardiovascular Exam Present: RRR - *Routine Abdominal Exam Present: soft, normoactive bowel sounds, tenderness (bilateral lower quadrants but improved) - *Routine Extremities Exam Absent: edema Assessment and Plan (1) Anemia Current visit: Yes Status: Acute Qualifiers: Anemia type: other cause Other causes of anemia: other cause, not classified Qualified Code(s): D64.89 - Other specified anemias Category: Medical Code(s): D64.9 - Anemia, unspecified (2) Fecal impaction in rectum Current visit: Yes Status: Acute Category: Medical Code(s): K56.41 - Fecal impaction (3) Hypokalemia Current visit: Yes Status: Acute Category: Medical Code(s): E87.6 - Hypokalemia (4) Proctitis Current visit: Yes Status: Acute Category: Medical Code(s): K62.89 - Other specified diseases of anus and rectum - Assessment and plan all Dx Assessment and Plan for all problems:: Possible discharge home today with outpatient c-scope. <Sound,Yessica - Last Filed: 05/18/18 12:08> Internal Medicine - PN: Subj *Date: 05/18/18 *Time: 12:02 Exam Vital signs and Labs for Last 24 Hours: Temp Pulse Resp BP Pulse Ox 97.9 F 84 18 139/88 99 05/18/18 08:00 05/18/18 08:00 05/18/18 08:00 05/18/18 08:00 05/18/18 08:00 Laboratory Results - last 24 hr 05/17/18 07:26: Sodium 135 L, Potassium 3.5, Chloride 103, Carbon Dioxide 22, Anion Gap 13.5, BUN 6 L D, Creatinine 0.70, Estimated Creat Clear 64, Estimated GFR 84, Est GFR ( Amer) 102, Glucose 154 H, Calcium 8.3 L 05/17/18 09:23: Blood Type O Positive, Antibody Screen Negative, Crossmatch ([facility] ) See Detail 05/17/18 12:35: Blood Type Confirm O Positive 05/17/18 18:44: Hgb 8.5 L D, Hct 30.2 L 05/18/18 06:45: WBC 5.6, RBC 4.10 L, Hgb 8.8 L, Hct 30.3 L, MCV 73.8 L, MCH 21.4 L, MCHC 28.9 L, RDW 18.4 H, Plt Count 214, MPV 7.2 L, Neut % (Auto) 81.0 H , Lymph % (Auto) 11.3, [place] % (Auto) 5.5, Eos % (Auto) 2.0, Baso % (Auto) 0.2, Neut # (Auto) 4.5, Lymph # (Auto) 0.6 L, [place] # (Auto) 0.3, Eos # (Auto) 0.1, Baso # (Auto) 0.0 I & O for Last 24 hours: Intake & Output 05/16/18 05/17/18 05/18/18 05/19/18 11:59 11:59 11:59 11:59 Intake Total 1183 / 1183 2634 / 2634 560 / 560 Output Total 1600 / 1600 480 / 480 Balance -417 / -417 2154 / 2154 560 / 560 Weight 157 lb 8 oz 157 lb 8.007 oz Microbiology Reports for the Last 24 Hours: Microbiology 05/15/18 15:40 Blood Blood Culture - Preliminary NO GROWTH AFTER 48 HOURS 05/15/18 15:40 Blood Blood Culture - Preliminary NO GROWTH AFTER 48 HOURS Assessment and Plan (1) Anemia Current visit: Yes Status: Acute Qualifiers: Anemia type: other cause Other causes of anemia: other cause, not classified Qualified Code(s): D64.89 - Other specified anemias Category: Medical Code(s): D64.9 - Anemia, unspecified (2) Fecal impaction in rectum Current visit: Yes Status: Acute Category: Medical Code(s): K56.41 - Fecal impaction (3) Hypokalemia Current visit: Yes Status: Acute Category: Medical Code(s): E87.6 - Hypokalemia (4) Proctitis Current visit: Yes Status: Acute Category: Medical Code(s): K62.89 - Other specified diseases of anus and rectum - Assessment and plan all Dx Assessment and Plan for all problems:: I agree with above and my assessment is as follows Patient doing well and is eager to go home. Gen : AAO x 3 lungs: CTA Heart: RRR Abd: soft, NT, ND, + BS, mild diarrhea Ext: no edema A/P: discharged today. Will give scripts for hydrocortisone, levaquin, and ferrous sulfate upon discharge. Patient to tell Dr. 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
[2018-05-18 08:01] VITALS: BP 139/88
--- NOTE | 2018-05-19 15:58 | Discharge Summary ---
General - General Admission date:: 05/15/18 Discharge date: 05/18/18 HPI HPI: Ms Bauer is a 62-year-old female with a history of cardiac disease, hypertension, and long-standing problems with constipation. She presented to the emergency room yesterday with abdominal pain and inability to get her bowels to move. She also with had been unable to void. Problems began about 4 days ago. She restarted her MiraLAX and quit taking her iron. Yesterday when her bowels had not moved, her abdominal pain increased and she took four glycerin suppositories and gave herself a saline enema. She sat in the bathroom for 4 hours straining at which time the abdominal pain increased. She thus had her bring her to the emergency room. She denies fever, chest pain, shortness of breath, nausea and vomiting. She describes the pain as more of a pressure which was relieved with pain medicine in the emergency room. With evaluation in the emergency room she underwent CT scan of the abdomen/ pelvis without any contrast. This revealed findings of probable fecal impaction within the rectum with some thickening of the rectum and perineal edema. She was then admitted for inpatient management and surgical consultation was obtained for potential need for disimpaction under anesthesia. This morning patient states that she has had a good bowel movement. She feels much better. She states the pain is gone and is without any complaints. Patient does state that she has a history of anemia and she has been taking iron as well as magnesium citrate. She continues with a Escobar catheter and is n.p.o. for surgical consult. She has had previous colonoscopies including colonoscopy about 5 years ago at [facility]. To note patient has been on 2 different diets for weight loss. She started with high-protein diet and then the Atkins diet. She has been walking 2 miles a day. States she drinks a lot of water daily. Hospital Course Hospital Course: Her diet was advanced and her escobar was removed. Dr. Perdomo saw the patient and recommended only a bowel regimen. He did not want to pursue a colonoscopy urgently due to perineal edema and inflammation from straining. She will need one on an outpatient basis. Her hemoglobin did decrease to 7.1 and she required 2 units of PRBC's. Her H&H stayed stable after the transfusion and her iron was found to be low at 12. She tolerated an advanced diet without symptoms and was stable to be discharged home on iron, miralax, and levaquin. She will f/u in the office with Dr. Quezada. Objective Vital signs: Temp Pulse Resp BP Pulse Ox 97.9 F 84 18 139/88 99 05/18/18 08:00 05/18/18 08:00 05/18/18 08:00 05/18/18 08:00 05/18/18 08:00 Narrative: - Constitutional no acute distress Comments: Appears comfortable - *Routine HEENT Exam Eye: Present: PERRL. Absent: conjunctival icterus, scleral injection ENT: Present: mucous membranes moist, oropharynx clear - *Routine Neck Exam Present: supple. Absent: carotid bruit, lymphadenopathy, thyromegaly - *Routine Respiratory Exam Present: CTA bilaterally (Anteriorly and posteriorly) - *Routine Cardiovascular Exam Present: RRR - *Routine Abdominal Exam Present: soft, normoactive bowel sounds. Absent: tenderness, distended, guarding - *Routine Rectal Exam Patient deferred: visual exam, digital exam Visual: Absent: black stool, bloody stool Digital: Present: external hemorrhoid. Absent: mass Comments: watery stool - *Routine Extremities Exam Present: full ROM. Absent: clubbing, edema - *Routine Neurological Exam Present: alert, oriented X3 Results Labs on day of discharge: Labs from last 24 hours 05/17/18 09:23 Iron 12 L TIBC 367 Iron Saturation 3 L Unsaturated IBC 355 Vitamin B12 >2000 H Folate 14.0 Preliminary micro results at discharge 05/15/18 15:40 Blood Culture - Preliminary Blood NO GROWTH AFTER 48 HOURS 05/15/18 15:40 Blood Culture - Preliminary Blood NO GROWTH AFTER 48 HOURS DS: Diagnosis - Discharge Diagnosis (1) Anemia Status: Acute (2) Fecal impaction in rectum Status: Acute (3) Hypokalemia Status: Acute (4) Proctitis Status: Acute Discharge Plan - Patient Discharge Instructions ACTIVITY: Continue current activity DIET: continue same diet Patient Instructions: Constipation - Follow up Plan Follow up with: Mart Quezada MD [Primary Care Provider] - Disposition: Home, Self-Half-Way Medications: Home Medications Medication Instructions Recorded Confirmed Type Aspirin [Aspir 81] 81 mg PO DAILY 05/15/18 05/15/18 History Atorvastatin Calcium [Atorvastatin 80 mg PO DAILY 05/15/18 05/15/18 History 80mg Tab] Clopidogrel Bisulfate [Plavix 75mg 75 mg PO DAILY 05/15/18 05/15/18 History Tab] Docusate Sodium 100 mg PO DAILY 05/15/18 05/15/18 History Levothyroxine Sodium [Tirosint] 25 mcg PO DAILY 05/15/18 05/15/18 History Niacin [Niacin Xr 500mg Capsule] 500 mg PO DAILY 05/15/18 05/15/18 History Pantoprazole Sodium [Protonix 40mg 40 mg PO DAILY 05/15/18 05/15/18 History tablet] Sertraline HCl [Zoloft 100mg 100 mg PO DAILY 05/15/18 05/15/18 History tablet] hydroCHLOROthiazide [HCTZ 12.5mg 12.5 mg PO DAILY 05/15/18 05/15/18 History capsule] Lisinopril [Lisinopril 20mg Tab] 20 mg PO BID 05/16/18 05/16/18 History Metoprolol Tartrate [Lopressor 25 mg PO BID 05/16/18 05/16/18 History 25mg tablet] Potassium Gluconate 99 mg PO DAILY 05/16/18 05/16/18 History Prescriptions/Medication Reconciliation: New Metoprolol Tartrate [Lopressor 25mg tablet] 25 mg PO BID tablet Hydrocortisone [Hydrocortisone 2.5% Cream 28gm Tube] 1 gm TP TID 7 Days #1 tube Polyethylene Glycol 3350 [Miralax 17gm Packet] 17 gm PO DAILY #10 powd.pack Lisinopril [Zestril 10mg Tab] 10 mg PO DAILY tablet levoFLOXacin [Levaquin 750mg tablet] 750 mg PO DAILY #5 tab Ferrous Sulfate [Ferrous Sulfate 325mg Tablet] 325 mg PO DAILY #30 tab Continue hydroCHLOROthiazide [HCTZ 12.5mg capsule] 12.5 mg PO DAILY Clopidogrel Bisulfate [Plavix 75mg Tab] 75 mg PO DAILY Sertraline HCl [Zoloft 100mg tablet] 100 mg PO DAILY Niacin [Niacin Xr 500mg Capsule] 500 mg PO DAILY Levothyroxine Sodium [Tirosint] 25 mcg PO DAILY Docusate Sodium 100 mg PO DAILY Atorvastatin Calcium [Atorvastatin 80mg Tab] 80 mg PO DAILY Aspirin [Aspir 81] 81 mg PO DAILY Metoprolol Tartrate [Lopressor 25mg tablet] 25 mg PO BID Pantoprazole Sodium [Protonix 40mg tablet] 40 mg PO DAILY Lisinopril [Lisinopril 20mg Tab] 20 mg PO BID Potassium Gluconate 99 mg PO DAILY
== END 2018-05-18 12:40 | disposition home or self-care (01) ==
LOC: ER 15:24 → INTOOBSV 17:09 → 2ND 17:09
PROVIDERS: ADMIT Emergency Medicine; ATTEND Family Medicine

== ENCOUNTER → 2018-11-28 13:02 | Outpatient (CLI) | payer MEDICARE, SELFPAY ==
--- NOTE | 2018-11-28 13:11 | XR_ITS ---
XR chest 2V HISTORY: Productive cough and congestion ITS.REASON: BRONCHITIS ORDERING PHYSICIAN: Mart Quezada MD PATIENT AGE: 63 years COMPARISON: 05/15/2018 FINDINGS: There is mild cardiomegaly without failure. No lobar consolidation or collapse is evident. No acute bony findings. IMPRESSION: Cardiomegaly, no change with no acute finding
== END ==
PROVIDERS: Visit Provider Family Medicine
DX: J40 Bronchitis, not specified as acute or chronic (principal)
CPT/HCPCS: 71046

== ENCOUNTER → 2018-12-06 13:09 | Outpatient (CLI) | payer MEDICARE, OTHER, SELFPAY ==
--- NOTE | 2018-12-06 13:20 | CA_ITS ---
PROCEDURE: 2-D M-mode and color Doppler study INDICATIONS FOR THE TEST: Chest pain COPD Heart Murmur Tobacco Smoking Palpitations Fatigue Syncope Edema HypertensionXDiabetes Mellitus Rheumatic Fever SOB LOZANO Obesity HyperlipidemiaX Family History HD Additional History CAD SMALL PERICARDIAL EFF NOTED PATIENT INFORMATION HEIGHT:68 WEIGHT:130 GENDER: Female B/P:139/88 2-D/M-MODE INTERPRETATION: 2-D MEASUREMENTS OBSERVED VALUES IN CMS Right Ventricular Dimension (RVDd) 3.0 Interventricular Septum (Thickness)(IVsd) 1.1 Left Ventricular Internal Dimensions(LVIDd) 5.4 Left Ventricular Posterior Wall (Thickness)(LVPWd) 1.1 Aortic Root 3.5 Aortic Cusp Separation 1.8 Left Atrial Dimensions (LAD) 4.0 2D 1. Left atrium is moderately enlarged, left ventricle is normal size, mild concentric left ventricular hypertrophy, visually estimated ejection fraction 55% with no regional wall motion abnormality. 2. The right atrium and right ventricle normal contractility. 3. Thickened and calcified leaflet continue to display mobility. 4. The mitral and tricuspid valve leaflets are minimally thickened. 5. The pulmonic valve is poorly present. 6. Small Pericardial effusion noted. DOPPLER INTERROGATION: Doppler interrogation of the aortic, mitral and tricuspid valvular presence of mild mitral and tricuspid regurgitation, tricuspid regurgitation jet velocity is inadequate for calculation of the right ventricular systolic pressure, grade 1 diastolic dysfunction seen with tissue Doppler evidence of raised left atrial pressure. CONCLUSION: 1. Moderately enlarged atrium, normal left ventricular size, mild concentric left ventricular hypertrophy, visually estimated ejection fraction 55% with no regional wall motion abnormality, grade 1 diastolic dysfunction seen with tissue Doppler evidence of raised left atrial pressure. 2. Mild mitral and tricuspid regurgitation 3. Small pericardial effusion noted.
== END ==
PROVIDERS: PCP Family Medicine; Visit Provider Family Medicine
DX: I25.10 Atherosclerotic heart disease of native coronary artery without angina pectoris (principal); R53.82 Chronic fatigue, unspecified
CPT/HCPCS: 93306

== ENCOUNTER → 2018-12-12 14:40 | Outpatient (CLI) | payer MEDICARE, OTHER, SELFPAY ==
[2018-12-12 16:13] LABS: Erythrocyte Sedimentation Rate 17 mm/hr (0-30)
[2018-12-12 17:03] LABS: Ferritin 15 ng/mL (8-388); Uric Acid 4.1 mg/dL (2.6-7.2)
[2018-12-14 07:15] LABS: Iron 12 ug/dL (27-139); UIBC 469 ug/dL (118-369)
[2018-12-14 07:45] LABS: Iron Saturation 2 % (15-55)
[2018-12-15 07:46] LABS: Antinuclear Antibodies, IFA Negative (.); CEA 5.4 ng/mL (0.0-4.7); Folate >20.0 ng/mL (>3.0); RA Latex Turbid. <10.0 IU/mL (0.0-13.9); Vitamin B12 >2000 pg/mL (232-1245)
== END ==
PROVIDERS: Visit Provider Family Medicine
DX: D50.8 Other iron deficiency anemias (principal); Z09 Encounter for follow-up examination after completed treatment for conditions other than malignant neoplasm
CPT/HCPCS: 36415; 82378; 82607; 82728; 82746; 83540; 83550; 84550; 85651; 86038; 86431; 86850

== ENCOUNTER 2018-12-13 08:40 | Outpatient (CLI) | payer MEDICARE, OTHER, SELFPAY ==
[2018-12-13] VITALS (20 sets, daily range): BP systolic 109–140; BP diastolic 63–78; PULSE 60–72; RESP 18–20; TEMP 35.9–37.1; O2SAT 95; BMI 24.7
[2018-12-13 14:29] LABS: Hematocrit 29.3 % (37.0-47.0); Hemoglobin 8.8 g/dL (12.2-16.2)
== END 2018-12-13 14:45 | disposition home or self-care (01) ==
LOC: INF 08:40
PROVIDERS: Visit Provider Family Medicine
DX: D50.8 Other iron deficiency anemias (principal)
CPT/HCPCS: 36430; 85014; 85018; P9016

== ENCOUNTER → 2018-12-20 12:51 | Outpatient (CLI) | payer MEDICARE, OTHER, SELFPAY ==
[2018-12-20 13:27] VITALS: BP 151/82; PULSE 64; RESP 18
[2018-12-20 13:55] VITALS: BP 152/84; PULSE 64; RESP 18; O2SAT 98
== END ==
PROVIDERS: PCP Family Medicine; Visit Provider Internal Medicine Medical Oncology
DX: D50.9 Iron deficiency anemia, unspecified (principal); T45.4X5A Adverse effect of iron and its compounds, initial encounter
CPT/HCPCS: 96365; J1439

== ENCOUNTER → 2018-12-26 11:17 | Outpatient (POV) | payer MEDICARE, OTHER, SELFPAY ==
[2018-12-26 13:24] LABS: Alanine Aminotransferase 24 U/L (12-78); Albumin Level 3.9 gm/dL (3.4-5.0); Albumin/Globulin Ratio 1.4 (1.1-1.8); Alkaline Phosphatase 95 U/L (46-116); Anion Gap 14.2 mEq/L (5-15); Aspartate Amino Transferase 12 U/L (15-37); Bilirubin,Total 0.4 mg/dL (0.2-1.0); Blood Urea Nitrogen 20 mg/dL (7-18); Carbon Dioxide 26 mmol/L (21.0-32.0); Chloride 100 mmol/L (98-107); Creatinine,Serum 0.76 mg/dL (0.55-1.02); Estimated Glomerular Filt Rate 76 ml/min (>60); GFR (African American) 92 ML/MIN (>60); Globulin 2.7 gm/dl (1.3-3.2); Glucose 139 mg/dL (74-106); Potassium 4.2 mmoL/L (3.5-5.1); Sodium 136 mmol/L (136-145); Total Protein,Serum 6.6 gm/dL (6.4-8.2)
== END ==
PROVIDERS: Visit Provider Nurse Practitioner Acute Care
DX: D50.9 Iron deficiency anemia, unspecified (principal)
CPT/HCPCS: 36415; 80053

== ENCOUNTER 2018-12-27 12:54 | Outpatient (CLI) | payer MEDICARE, OTHER, SELFPAY ==
[2018-12-27 13:36] LABS: Phosphorous 2.7 mg/dL (2.4-4.9)
[2018-12-27 13:44] VITALS: BP 135/95; PULSE 72; RESP 18; TEMP 36.6; O2SAT 96
[2018-12-27 14:10] VITALS: BP 146/91; PULSE 78; RESP 18; O2SAT 97
[2018-12-27 14:30] VITALS: BP 151/89; PULSE 76; RESP 18; O2SAT 96
== END 2018-12-27 14:30 | disposition home or self-care (01) ==
LOC: INF 12:54
PROVIDERS: Visit Provider Internal Medicine Medical Oncology
DX: D50.9 Iron deficiency anemia, unspecified (principal); T45.4X5A Adverse effect of iron and its compounds, initial encounter
CPT/HCPCS: 84100; 96365; J1439

== ENCOUNTER → 2019-02-23 12:52 | Outpatient (CLI) | payer MEDICARE, OTHER, SELFPAY ==
--- NOTE | 2019-02-23 12:55 | MM_ITS ---
MM Dig screening mamm BI w/CAD ORDERING PHYSICIAN : Mart Quezada MD PATIENT AGE: 63 years GENDER: Female COMPARISON: [facility] mammogram August 2017 & September 2017 INDICATION: ITS.Routine screening mammogram. No hormones. No new complaints. Patient has history of colorectal cancer one month ago has not yet started treatment. TECHNIQUE: Standard CC and MLO images were obtained. R2 CAD reviewed. FINDINGS: . Moderate breast density, breast tissue most evident towards upper-outer quadrant both breast. Vascular calcifications bilaterally RIGHT BREAST: When differences in projection are considered I there are no significant new areas of concern . Follow-up in one year on recommended and should be encouraged to confirm stability LEFT BREAST: No new areas of significant concern . The area of glandular tissue the retroareolar region appears stable if not slightly less evident on today's studies. IMPRESSION: Stable bilateral mammogram. No significant new findings evident. BI-RADS Category: 2 Benign Finding(s) RECOMMENDED FOLLOW-UP: 1YR 1 YEAR FOLLOW-UP (A letter has been sent to the patient regarding results of the study.)
== END ==
PROVIDERS: PCP Family Medicine; Visit Provider Family Medicine
DX: Z12.31 Encounter for screening mammogram for malignant neoplasm of breast (principal)
CPT/HCPCS: 77067

== ENCOUNTER → 2019-10-18 11:25 | Outpatient (CLI) | payer MEDICARE, OTHER, SELFPAY | PROVIDERS: PCP Family Medicine; Visit Provider Family Medicine | DX: R42 Dizziness and giddiness (principal) | CPT/HCPCS: 93225; 93226 ==

== ENCOUNTER → 2019-10-26 08:47 | Outpatient (CLI) | payer MEDICARE, SELFPAY ==
--- NOTE | 2019-10-26 08:50 | CA_ITS ---
APPROVED REPORT Director Internal Audit: Irma Silveira RVT Laterality: Bilateral Study Quality: Excellent Indications: Dizziness and Vertigo Risk Factors Hyperlipidemia Doppler Spectral Velocity Analysis ECA (R) 67.50/6.60 cm/s ECA (L) 49.50/6.90 cm/s dICA (R) 57.60/19.20 cm/s dICA (L) 56.10/22.90 cm/s Alix (R) 23.10/9.50 cm/s Alix (L) 45.50/18.50 cm/s pICA (R) 26.80/7.90 cm/s pICA (L) 26.30/10.60 cm/s dCCA (R) 32.00/7.90 cm/s dCCA (L) 35.50/11.10 cm/s pCCA (R) 36.20/8.80 cm/s pCCA (L) 29.90/9.40 cm/s Vert (R) 28.20/9.80 cm/s Vert (L) 29.80/8.60 cm/s ICA/CCA 1.80 ICA/CCA 1.58 Findings Study suggests no evidence of stenosis in the bilateral internal cartoid arteries. Antegrade flow seen bilateral vertebral arteries. Conclusion Study suggests no evidence of stenosis in the bilateral internal cartoid arteries. Antegrade flow seen bilateral vertebral arteries. Electronically signed by : Yaya Beckford, 10/26/2019 13:20:17
== END ==
PROVIDERS: PCP Family Medicine; Visit Provider Family Medicine
DX: R42 Dizziness and giddiness (principal)
CPT/HCPCS: 93880

== ENCOUNTER → 2019-11-16 13:13 | Outpatient (CLI) | payer MEDICARE, SELFPAY ==
[2019-11-16 14:56] LABS: Blood Urea Nitrogen 14 mg/dL (7-18); Calcium 9.3 mg/dL (8.5-10.1); Carbon Dioxide 28 mmol/L (21.0-32.0); Chloride 92 mmol/L (98-107); Creatinine,Serum 0.81 mg/dL (0.55-1.02); Estimated Glomerular Filt Rate 71 ml/min (>60); GFR (African American) 86 ML/MIN (>60); Glucose 154 mg/dL (74-106); Sodium 131 mmol/L (136-145)
== END ==
PROVIDERS: Visit Provider Family Medicine
DX: E87.1 Hypo-osmolality and hyponatremia (principal)
CPT/HCPCS: 36415; 80048

== ENCOUNTER → 2020-09-04 11:46 | Outpatient (CLI) | payer MEDICARE, SELFPAY ==
[2020-09-04 11:51] LABS: Adenovirus F 40/41, stool Not Detected (NotDetected); Astrovirus Not Detected (NotDetected); Campylobacter Not Detected (NotDetected); Clostridium Difficile A/B, PCR Not Detected (NotDetected); Cryptosporidium Not Detected (NotDetected); Cyclospora Cayetanesis Not Detected (NotDetected); Entamoeba histolytica Not Detected (NotDetected); Enteroaggregative E coli Not Detected (NotDetected); Enteropathogenic E coli Not Detected (NotDetected); Enterotoxigenic E coli Not Detected (NotDetected); Giardia lamblia Not Detected (NotDetected); Norovirus Not Detected (NotDetected); Plesimonas Shigalloides, PCR Not Detected (NotDetected); Rotavirus A Not Detected (NotDetected); Salmonella, PCR Not Detected (NotDetected); Sapovirus Not Detected (NotDetected); Shiga-like toxin E coli Not Detected (NotDetected); Shigella Enterovasive E coli Not Detected (NotDetected); Vibrio Cholerae Not Detected (NotDetected); Vibrio, PCR Not Detected (NotDetected); Yersinia Entercolitica, PCR Not Detected (NotDetected)
== END ==
PROVIDERS: Visit Provider Family Medicine
DX: R19.7 Diarrhea, unspecified (principal)
CPT/HCPCS: 87506

== ENCOUNTER → 2021-06-09 08:19 | Outpatient (CLI) | payer MEDICARE, SELFPAY | PROVIDERS: PCP Family Medicine; Visit Provider Family Medicine | DX: Z20.822 Contact with and (suspected) exposure to COVID-19 (principal) | CPT/HCPCS: U0003 ==

== ENCOUNTER → 2021-10-17 09:05 | Outpatient (CLI) | payer MEDICARE, SELFPAY | PROVIDERS: PCP Family Medicine; Visit Provider Nurse Practitioner Family | DX: G93.40 Encephalopathy, unspecified (principal) | CPT/HCPCS: 94762 ==

== ENCOUNTER → 2021-10-28 10:10 | Outpatient (CLI) | payer MEDICARE, SELFPAY ==
[2021-10-28 10:51] LABS: Basophils # 0.1 K/mm3 (0-0.2); Basophils % 1.6 % (0.1-2.0); Eosinophils # 0.1 K/mm3 (0.0-0.4); Eosinophils % 2.4 % (0.1-12.0); Hematocrit 45.8 % (37.0-47.0); Hemoglobin 15.1 g/dL (12.2-16.2); Lymphocytes % 22.6 % (10-50); Mean Corpuscular Hemoglobin 29.9 pg (27.0-31.2); Mean Corpuscular Volume 90.5 fl (81-99); Mean Platelet Volume 7.6 fl (7.4-10.4); Monocytes # 0.4 K/mm3 (0.1-1.0); Monocytes % 8.6 % (1.7-9.3); Neutrophils # 2.8 K/mm3 (1.8-7.8); Neutrophils % 64.8 % (37.0-80.0); Platelet Count 186 K/mm3 (142-424); Red Blood Count 5.06 M/mm3 (4.20-5.40); Red Cell Distribution Width 14.1 % (11.5-17.5); White Blood Count 4.4 K/mm3 (4.8-10.8)
[2021-10-28 11:17] LABS: Alanine Aminotransferase 21 U/L (12-78); Albumin Level 4.4 g/dl (3.5-5.0); Albumin/Globulin Ratio 1.8 (1.1-1.8); Alkaline Phosphatase 67 U/L (38-126); Anion Gap 11.4 mEq/L (5-15); Aspartate Amino Transferase 27 U/L (14-36); Bilirubin,Total 0.4 mg/dl (0.2-1.3); Blood Urea Nitrogen 15 mg/dl (7-17); Calcium 9.9 mg/dl (8.4-10.2); Carbon Dioxide 31 mmol/L (22.0-30.0); Chloride 95 mmol/L (98-107); Estimated Glomerular Filt Rate 83 ml/min (>60); GFR (African American) 101 ML/MIN (>60); Globulin 2.5 g/dL (1.3-3.2); Glucose 192 mg/dl (74-100); Potassium 4.4 mmoL/L (3.5-5.1); Sodium 133 mmol/L (136-145); Total Protein,Serum 6.9 g/dl (6.3-8.2)
[2021-10-28 11:48] LABS: Thyroid Stimulating Hormone 1.04 uIU/mL (0.465-4.68)
[2021-10-28 12:24] LABS: Vitamin B12 990 pg/mL (239-931)
[2021-10-28 12:27] LABS: Folate 8.62 ng/mL
[2021-10-29 10:29] LABS: Rapid Plasma Reagin Ab Titer Non Reactive (NonRea<1:1)
[2021-11-01 18:08] LABS: Vitamin B1 282.6 nmol/L (66.5-200.0)
[2021-12-19 10:46] LABS: Antinuclear Antibodies (ANA) NEGATIVE
== END ==
PROVIDERS: Visit Provider Nurse Practitioner Family
DX: G93.40 Encephalopathy, unspecified (principal); R41.3 Other amnesia
CPT/HCPCS: 36415; 80053; 82607; 82746; 84425; 84443; 85025; 86038; 86592

== ENCOUNTER → 2021-10-29 16:44 | Outpatient (CLI) | payer MEDICARE, SELFPAY ==
[2021-10-29 17:48] LABS: Hemoglobin A1C 8.1 % (4.0-6.0)
== END ==
PROVIDERS: Nurse Practitioner Family; Visit Provider Specialist
DX: R73.9 Hyperglycemia, unspecified (principal)
CPT/HCPCS: 36415; 83036

== ENCOUNTER → 2021-11-03 07:43 | Outpatient (CLI) | payer MEDICARE, SELFPAY ==
--- NOTE | 2021-11-03 07:58 | MR_ITS ---
FINAL REPORT CLINICAL HISTORY: . memory loss, hx colon cancer FINDINGS: Multiplanar MR imaging of the brain was performed without and with contrast. There is no evidence of intracranial hemorrhage or mass. On the T2 and FLAIR axial images there is rather extensive abnormal signal in the periventricular and subcortical white matter. No abnormal extra-axial fluid collection is seen. The ventricular size is within normal limits. There is no evidence of shift of the midline structures. The posterior fossa and brainstem have an unremarkable appearance. No area of abnormal restricted diffusion is identified. No abnormal contrast enhancement is seen. Normal major vessel vascular flow voids are noted. IMPRESSION: No acute intracranial abnormality identified with no abnormal contrast enhancement. Extensive changes of chronic microvascular ischemia. Reviewed, Interpreted and Dictated by Clifton Yepez MD Transcribed by Radha Rush Authenticated by Clifton Yepez MD on 11/03/2021 10:05:45 AM [facility]
== END ==
PROVIDERS: PCP Family Medicine; Visit Provider Nurse Practitioner Family
DX: G93.40 Encephalopathy, unspecified (principal); Z85.038 Personal history of other malignant neoplasm of large intestine; G47.33 Obstructive sleep apnea (adult) (pediatric); G47.34 Idiopathic sleep related nonobstructive alveolar hypoventilation; R41.3 Other amnesia
CPT/HCPCS: 70553; 95816; A9576; G0399

== ENCOUNTER 2022-03-07 18:01 | Emergency (ER) | payer MEDICARE, SELFPAY ==
[2022-03-07] VITALS (14 sets, daily range): BP systolic 129–219; BP diastolic 74–158; PULSE 53–58; RESP 16–18; TEMP 35.4–36.7; O2SAT 97–98; BMI 27.1
--- NOTE | 2022-03-07 17:59 | HMH.EDNEU ---
ED Disposition Clinical Impression: Cerebrovascular accident Qualifiers: CVA mechanism: occlusion Precerebral and cerebral artery: unspecified cerebral artery Qualified Code(s): I63.50 - Cerebral infarction due to unspecified occlusion or stenosis of unspecified cerebral artery Hypertension Qualifiers: Hypertension type: primary hypertension Qualified Code(s): I10 - Essential (primary) hypertension Disposition: Xfer Short-Term Hosp Condition on Discharge: Critical Referrals: Provider,Referral, MD [Primary Care Provider] - Forms: Transfer Record - ED - Critical Care Critical Care Time: Yes Attestation: On , the high probability of a clinically significant, sudden or life threatening deterioration of the following system(s) required my full and direct attention, intervention and personal management. The time I documented below is in addition to time spent performing reported procedures but includes the following listed in this critical care notation. Total Critical Care Time: 60 Vital system(s) involved:: Central Nervous System My critical care processes included: Assessment & monitoring of V/S, Initial and Re-exams, Data Review/Interpretation, Coordinating Care, Medication Orders and management, Documentation Medical Decision Making - Medical Records Medical records reviewed: Yes: I reviewed the patient's medical records. - Alfred Inquiry Pt receiving controlled substance: No Vital Signs: 03/07/22 17:57 03/07/22 18:30 03/07/22 19:03 Temperature 95.7 F L Temperature Source Rectal Pulse Rate 53 L Pulse Rate [Right Radial] 58 L Respiratory Rate 16 Blood Pressure 186/158 H 198/114 H Blood Pressure [Right Arm] 219/128 H Blood Pressure Mean 128 Blood Pressure Mean [Right Arm] 158 Blood Pressure Source [Right Arm] Automatic Cuff Blood Pressure Position [Right Arm] Sitting 02 Sat by Pulse Oximetry 97 98 Oxygen Delivery Method Room Air Room Air 03/07/22 19:32 03/07/22 19:57 03/07/22 20:00 Temperature Temperature Source Pulse Rate Pulse Rate [Right Radial] Respiratory Rate Blood Pressure 178/105 H 146/86 H 147/86 H Blood Pressure [Right Arm] Blood Pressure Mean 121 130 109 Blood Pressure Mean [Right Arm] Blood Pressure Source [Right Arm] Blood Pressure Position [Right Arm] 02 Sat by Pulse Oximetry Oxygen Delivery Method 03/07/22 20:03 03/07/22 20:06 03/07/22 20:09 Temperature Temperature Source Pulse Rate Pulse Rate [Right Radial] Respiratory Rate Blood Pressure 134/85 138/85 140/85 Blood Pressure [Right Arm] Blood Pressure Mean 101 104 107 Blood Pressure Mean [Right Arm] Blood Pressure Source [Right Arm] Blood Pressure Position [Right Arm] 02 Sat by Pulse Oximetry Oxygen Delivery Method 03/07/22 20:12 03/07/22 20:15 03/07/22 20:21 Temperature Temperature Source Pulse Rate Pulse Rate [Right Radial] Respiratory Rate Blood Pressure 139/82 139/84 129/86 Blood Pressure [Right Arm] Blood Pressure Mean 109 117 95 Blood Pressure Mean [Right Arm] Blood Pressure Source [Right Arm] Blood Pressure Position [Right Arm] 02 Sat by Pulse Oximetry Oxygen Delivery Method 03/07/22 20:24 Temperature Temperature Source Pulse Rate Pulse Rate [Right Radial] Respiratory Rate Blood Pressure 134/74 Blood Pressure [Right Arm] Blood Pressure Mean 85 Blood Pressure Mean [Right Arm] Blood Pressure Source [Right Arm] Blood Pressure Position [Right Arm] 02 Sat by Pulse Oximetry Oxygen Delivery Method - Lab Data Lab results reviewed: Yes: I reviewed the patient's lab results. Lab Results 03/07/22 18:08: WBC 4.1 L, RBC 5.33, Hgb 15.3, Hct 45.7, MCV 85.7, MCH 28.7, MCHC 33.5, RDW 15.2, Plt Count 160, MPV 7.6, Neut % (Auto) 53.5, Lymph % (Auto) 30.3, [place] % (Auto) 11.0 H, Eos % (Auto) 2.2, Baso % (Auto) 2.9 H, Neut # (Auto) 2.2, Lymph # (Auto) 1.2, [place] # (Auto) 0.5, Eos #
--- NOTE | 2022-03-07 18:00 | CT_ITS ---
PROCEDURE INFORMATION: Exam: CT Head Without Contrast Exam date and time: 03/07/2022 5:56 PM Age: 66 years old Clinical indication: Altered mental status/memory loss; Patient HX: AMS, vomitting; Additional info: Nih stroke scale 7 TECHNIQUE: Imaging protocol: Computed tomography of the head without contrast. Radiation optimization: All CT scans at this facility use at least one of these dose optimization techniques: automated exposure control; mA and/or kV adjustment per patient size (includes targeted exams where dose is matched to clinical indication); or iterative reconstruction. Other technique: STROKE PROTOCOL was implemented. COMPARISON: MR HEAD/BRAIN WO/W CON 11/03/2021 8:25 AM FINDINGS: Brain: There is extensive white matter lucency. There is lucency in the basal ganglia bilaterally. No acute infarct is identified. There is no hemorrhage or extra-axial collection. There is no mass. Cerebral ventricles: There is no hydrocephalus. Paranasal sinuses: Visualized sinuses are unremarkable. No fluid levels. Mastoid air cells: Visualized mastoid air cells are well aerated. Dental: Bones/joints: Unremarkable. No acute fracture. Soft tissues: Unremarkable. IMPRESSION: 1. Extensive lucency noted in the white matter and within the basal ganglia could represent severe chronic microvascular disease. The extent of the lucency in the caudate nuclei and the putamen is unusual for small vessel disease and metabolic or neuro degenerative disease should also be considered. This was present on the prior MRI. 2. No acute intracranial lesion or injury. ASSESSMENT: ASPECTS ([place] Stroke Program Early CT Score) is 10.
--- NOTE | 2022-03-07 18:03 | PC.NURSE ---
Stroke alert called at this time
[2022-03-07 18:22] LABS: Microscopic, Urine URINE MICROSCOPIC (MICROSCOPIC)
[2022-03-07 18:25] LABS: Basophils # 0.1 K/mm3 (0-0.2); Basophils % 2.9 % (0.1-2.0); Eosinophils # 0.1 K/mm3 (0.0-0.4); Eosinophils % 2.2 % (0.1-12.0); Hematocrit 45.7 % (37.0-47.0); Hemoglobin 15.3 g/dL (12.2-16.2); Lymphocytes # 1.2 K/mm3 (0.7-4.5); Lymphocytes % 30.3 % (10-50); Mean Corpuscular HGB Conc 33.5 g/dL (31.8-35.4); Mean Corpuscular Hemoglobin 28.7 pg (27.0-31.2); Mean Corpuscular Volume 85.7 fl (81-99); Mean Platelet Volume 7.6 fl (7.4-10.4); Monocytes # 0.5 K/mm3 (0.1-1.0); Neutrophils # 2.2 K/mm3 (1.8-7.8); Neutrophils % 53.5 % (37.0-80.0); Platelet Count 160 K/mm3 (142-424); Red Blood Count 5.33 M/mm3 (4.20-5.40); Red Cell Distribution Width 15.2 % (11.5-17.5); White Blood Count 4.1 K/mm3 (4.8-10.8)
[2022-03-07 18:25] LABS: POC Glucose,Bedside 104 (70-110)
[2022-03-07 18:28] LABS: Chloride 100 mmol/L (98-107)
[2022-03-07 18:29] LABS: Sodium 134 mmol/L (136-145)
--- NOTE | 2022-03-07 18:30 | ECG_ITS ---
APPROVED REPORT Exam: Resting ECG HR:55 bpm ECG Measurements Heart Rate 55 AXES FL 195 P 73 QRSd 93 QRS -2 QT 440 T 56 QTc 428 Conclusion SINUS BRADYCARDIA BORDERLINE ECG UNCONFIRMED REPORT Electronically signed by : Marcellus Avery MD 03/08/2022 08:21:15
[2022-03-07 18:31] LABS: Alanine Aminotransferase 21 U/L (12-78); Albumin Level 4.4 g/dl (3.5-5.0); Albumin/Globulin Ratio 1.5 (1.1-1.8); Alkaline Phosphatase 80 U/L (38-126); Aspartate Amino Transferase 30 U/L (14-36); Bilirubin,Total 0.6 mg/dl (0.2-1.3); Blood Urea Nitrogen 17 mg/dl (7-17); Calcium 10.2 mg/dl (8.4-10.2); Carbon Dioxide 26 mmol/L (22.0-30.0); Estimated Glomerular Filt Rate 83 ml/min (>60); GFR (African American) 101 ML/MIN (>60); Globulin 2.9 g/dL (1.3-3.2); Glucose 135 mg/dl (74-100); Total Protein,Serum 7.3 g/dl (6.3-8.2)
[2022-03-07 18:33] LABS: Activated Partial Thrombo Time 28.7 seconds (22.8-30.6); INR 0.99 (0.9-1.1); Prothrombin Time 11.2 seconds (10.1-12.5)
--- NOTE | 2022-03-07 18:36 | PC.NURSE ---
Called [facility] @ [phone] waiting on SHAHBAZ MELENDEZ to speak with JAMEE MELENDEZ
[2022-03-07 18:44] LABS: Troponin I < 0.01 ng/ml (0.00-0.034)
--- NOTE | 2022-03-07 18:44 | PC.NURSE ---
I called MDs at this time regarding being on hold for so long about a Stroke Alert. Spoke with the call center at this time
--- NOTE | 2022-03-07 18:45 | PC.NURSE ---
After speaking with the call center at [facility] they transferred me over to the transfer center, I spoke with someone and they stated that someone else was already on the other line regarding this same patient so they disconnected my call.
--- NOTE | 2022-03-07 18:46 | PC.NURSE ---
In the meantime, we were able to get Dr. Trinidad the attending Stroke Physician on the phone at and he is speaking with Dr. Gomez at this time.
--- NOTE | 2022-03-07 18:47 | PC.NURSE ---
Dr Gomez got on phone with [facility] stroke team construction mgr @[phone]
[2022-03-07 19:02] LABS: Appearance,Urine CLEAR (Clear); Bilirubin,Urine Negative (Negative); Blood, Urine Negative (Negative); Color,Urine YELLOW (Yellow); Glucose,Urine (UA) Negative (Negative); Ketones,Urine Negative (Negative); Leukocyte Esterase,Urine Negative (Negative); Nitrate,Urine Negative (Negative); Protein,Urine Negative (Negative); Specific Gravity, Urine 1.015 (1.005-1.030); Urobilinogen,Urine 0.2 EU/dl (0.2)
[2022-03-07 19:10] LABS: Squamous Epithelial Cell,Urine Occasional #/hpf (0-5)
[2022-03-07 19:11] LABS: Amorphous Sediment,Urine Trace /lpf
--- NOTE | 2022-03-07 19:14 | PC.NURSE ---
Pt able to now state own name, as well as her and son. Unable to recall where she is at. C/O MCCORD and nausea
--- NOTE | 2022-03-07 19:18 | PC.NURSE ---
[facility] request goal BP of 185/105
--- NOTE | 2022-03-07 19:40 | PC.NURSE ---
SPOKE WITH [facility] REGARDING TPA DOSING.
--- NOTE | 2022-03-07 20:28 | PC.NURSE ---
[facility] is currently in patient room preparing patient for transfer to .
== END 2022-03-07 20:35 | disposition short-term general hospital (02) ==
PROVIDERS: Emergency Provider Emergency Medicine
DX: I63.50 Cerebral infarction due to unspecified occlusion or stenosis of unspecified cerebral artery (principal); R29.707 NIHSS score 7; I10 Essential (primary) hypertension; I25.10 Atherosclerotic heart disease of native coronary artery without angina pectoris; R47.01 Aphasia; E11.9 Type 2 diabetes mellitus without complications; R40.2410 Glasgow coma scale score 13-15, unspecified time; M19.90 Unspecified osteoarthritis, unspecified site; K21.9 Gastro-esophageal reflux disease without esophagitis; E78.5 Hyperlipidemia, unspecified; E03.9 Hypothyroidism, unspecified; I25.2 Old myocardial infarction; D64.9 Anemia, unspecified; F32.A Depression, unspecified
CPT/HCPCS: 70450; 80053; 81001; 82962; 84484; 85025; 85610; 85730; 93005; 96374; 96375; 99284; J2405; J2997

== ENCOUNTER → 2022-07-27 12:49 | Outpatient (CLI) | payer MEDICARE, SELFPAY | PROVIDERS: PCP Family Medicine; Visit Provider Nurse Practitioner Family | DX: G47.33 Obstructive sleep apnea (adult) (pediatric) (principal); G47.34 Idiopathic sleep related nonobstructive alveolar hypoventilation | CPT/HCPCS: 94762 ==

== ENCOUNTER → 2022-07-30 12:06 | Outpatient (CLI) | payer MEDICARE, SELFPAY ==
[2022-07-30 12:27] LABS: MANUAL DIFFERENTIAL MANUAL DIFFERENTIAL (MANUAL DIFF)
[2022-07-30 12:42] LABS: Basophils # 0.1 K/mm3 (0-0.2); Basophils % 1.3 % (0.1-2.0); Eosinophils # 0.1 K/mm3 (0.0-0.4); Eosinophils % 1.4 % (0.1-12.0); Hematocrit 44.4 % (37.0-47.0); Hemoglobin 14.6 g/dL (12.2-16.2); Lymphocytes # 0.9 K/mm3 (0.7-4.5); Lymphocytes % 26.7 % (10-50); Mean Corpuscular HGB Conc 32.8 g/dL (31.8-35.4); Mean Corpuscular Hemoglobin 29.1 pg (27.0-31.2); Mean Corpuscular Volume 88.7 fl (81-99); Mean Platelet Volume 7.8 fl (7.4-10.4); Monocytes # 0.4 K/mm3 (0.1-1.0); Monocytes % 10.2 % (1.7-9.3); Neutrophils # 2.1 K/mm3 (1.8-7.8); Neutrophils % 60.4 % (37.0-80.0); Platelet Count 183 K/mm3 (142-424); Red Blood Count 5.01 M/mm3 (4.20-5.40); Red Cell Distribution Width 14.7 % (11.5-17.5); White Blood Count 3.4 K/mm3 (4.8-10.8)
[2022-07-30 13:05] LABS: Blood Urea Nitrogen 17 mg/dl (7-17); Estimated Glomerular Filt Rate 83 ml/min (>60); GFR (African American) 101 ML/MIN (>60)
[2022-07-30 13:06] LABS: Iron 65 ug/dL (37-170)
[2022-07-30 13:17] LABS: Total Iron Binding Capacity 334 ug/dL (265-497)
[2022-07-30 13:57] LABS: Vitamin B12 920 pg/mL (239-931)
[2022-07-30 14:02] LABS: Eosinophils % 3 % (0-3); Lymphocytes % 28 % (10-50); Monocytes % 6 % (2-9); Neutrophils % 63 % (42-76); Platelet Estimate Normal; RBC Morphology Normal; Total Cells Counted 100
== END ==
PROVIDERS: PCP Family Medicine; Visit Provider Family Medicine
DX: D50.8 Other iron deficiency anemias (principal); R53.82 Chronic fatigue, unspecified
CPT/HCPCS: 36415; 82565; 82607; 83540; 83550; 84520; 85007; 85014; 85018; 85048; 85049

== ENCOUNTER → 2022-08-03 10:43 | Outpatient (CLI) | payer MEDICARE, SELFPAY ==
[2022-08-03 12:19] LABS: Blood Urea Nitrogen 27 mg/dl (7-17); Estimated Glomerular Filt Rate 71 ml/min (>60); GFR (African American) 86 ML/MIN (>60)
[2022-08-04 08:17] LABS: CEA 4.1 ng/mL (0.0-4.7)
== END ==
PROVIDERS: PCP Family Medicine; Visit Provider Family Medicine
DX: C18.9 Malignant neoplasm of colon, unspecified (principal)
CPT/HCPCS: 36415; 82378; 82565; 84520

== ENCOUNTER → 2022-09-14 08:59 | Outpatient (CLI) | payer MEDICARE, SELFPAY ==
--- NOTE | 2022-09-14 09:03 | XR_ITS ---
FINAL REPORT TECHNIQUE: Bone densitometry calculations of the lumbar spine and left hip were obtained. CLINICAL HISTORY: . osteopenia FINDINGS: DEXA BONE DENSITY AXIAL SKELETON Using L1-4, the bone mineral density of the spine is 1.05 g/cm2, corresponding to T-score of 0.1. Note these values may be falsely elevated secondary to degenerative change. Using the left hip, the bone mineral density of the femoral neck is there are 0.618 g/cm2, corresponding to a T-score of -2.1. Using the right hip, the bone mineral density of the femoral neck is there are 0.600 g/cm2, corresponding to a T-score of -2.2. NOTE: T-score: Standard deviation compared with peak bone mass of young adult mean. *Following the recommendations of the International Society of Bone densitometry, classification of hip BMD is based on the lower of two T-scores; total hip or femoral neck. IMPRESSION: Diminished bone mineral density of the lumbar spine and bilateral hips consistent with osteopenia. FRAX 10 year fracture risk is 4.3% for a hip fracture and 20% for a major osteoporotic fracture based on right hip measurements. Reviewed, Interpreted and Dictated by Clifton Yepez MD Transcribed by Elda Henriquez Authenticated and [facility]
== END ==
PROVIDERS: PCP Family Medicine; Visit Provider Family Medicine
DX: M85.89 Other specified disorders of bone density and structure, multiple sites (principal)
CPT/HCPCS: 77080

== ENCOUNTER → 2022-11-18 12:17 | Outpatient (CLI) | payer MEDICARE, SELFPAY ==
--- NOTE | 2022-11-18 12:34 | ECG_ITS ---
APPROVED REPORT Exam: Resting ECG HR:66 bpm ECG Measurements Heart Rate 66 AXES AL 189 P 56 QRSd 97 QRS -27 QT 388 T 31 QTc 401 Conclusion SINUS RHYTHM Late R wave progression ABNORMAL ECG UNCONFIRMED REPORT Electronically signed by : Marcellus Avery MD 11/18/2022 21:31:21
[2022-11-18 14:15] LABS: Blood Urea Nitrogen 18 mg/dl (7-17); Calcium 9.1 mg/dl (8.4-10.2); Carbon Dioxide 30 mmol/L (22.0-30.0); Chloride 97 mmol/L (98-107); Estimated Glomerular Filt Rate 71 ml/min (>60); GFR (African American) 86 ML/MIN (>60); Glucose 112 mg/dl (74-100); Sodium 134 mmol/L (136-145)
[2022-11-18 14:23] LABS: Troponin I < 0.01 ng/ml (0.00-0.034)
== END ==
PROVIDERS: PCP Family Medicine; Visit Provider Family Medicine
DX: I95.0 Idiopathic hypotension (principal)
CPT/HCPCS: 36415; 80048; 84484; 93005

== ENCOUNTER 2023-01-12 08:26 | Day surgery (SDC) | payer MEDICARE, SELFPAY ==
[2023-01-12 08:51] VITALS: BP 123/85; PULSE 73; RESP 18; O2SAT 95
[2023-01-12 09:18] VITALS: O2SAT 95
[2023-01-12 09:19] LABS: POC Glucose,Bedside 108 (70-110)
--- NOTE | 2023-01-12 09:36 | EXP.ANES.CKL ---
[facility] Disclaimer: The information contained in this section may have been updated after the patient was seen, as this information can be updated by other users. Medical History Allergies Colon cancer Depression Diabetes mellitus, type 2 History of anemia History of COVID-19 History of heart attack History of stroke Hypertension Hypothyroid Sleep apnea Sleep apnea Surgical History History of cardiac cath History of colon resection History of repair of hiatal hernia History of surgery Family History Other No significant family history Social History Smoking Status: Never smoker alcohol intake: never substance use type: denies use current occupational status: employed Travel in the last 8 weeks: None household members: spouse housing: house current occupation: [employer] current occupational exposures/hazards: No caffeine: No [facility] Anesthesia Checklist Patient Identification Patient Identification: Arm Band Structural Data Admitted From: Home Planned Operative Procedure/s: colonoscopy Consent for Planned Operative Procedure(s) Verified: Yes Verified Documents: Surgical Consent and History and Physical NPO Status Verified Time NPO: 00:00 Additional verifications Anesthesia Reactions: No Airway Assessment C-Spine Mobility Assessed: Yes TMJ Mobility Assessed: Yes Dentition: Good Dentition Neurological Assessment Level of Consciousness: Awake and Alert Anesthesia Plan Anesthesia Risk discussed: Yes Anesthesia Plan: Verified ASA Class: III Anesthesia Type: MAC
[2023-01-12 09:53] VITALS: BP 109/71; PULSE 67; RESP 16; TEMP 36.4; O2SAT 94
--- NOTE | 2023-01-12 09:58 | HMH.SCOPE ---
Procedure: Date: 01/12/23 Patient Date of :: 1955 Procedure Performed:: Colonoscopy with biopsy Indications:: History of colon cancer (status post extended right colectomy) Performing Provider:: Paul Bautista MD Referring Provider:: . Sedation:: Monitored anesthesia care Procedure:: After informed consent was obtained the patient was taken to the endoscopy suite. Sedation ensued after the patient was transferred to the left lateral decubitus position. Pulse, blood pressure, and oxygen saturation were monitored throughout the procedure. Digital rectal exam revealed no significant abnormality. The colonoscope was placed in position. The entire remaining colon was evaluated. The colonoscope was carefully removed and the patient was transferred to recovery in stable condition. Please see findings and specimens below for detail. Findings:: Bowel preparation moderate Profound lack of relaxation Hemorrhoidal cushions Focal inflammation between 30 and 35 cm Specimens:: Biopsy focal inflammation between 30 and 35 cm Recommendations:: Follow-up pathology Likely repeat colonoscopy in approximately 1 year with extended bowel preparation secondary to history of colon cancer and limitations in visualization. Complications:: No immediate Estimated blood obtained (mL): 1
[2023-01-12 10:03] VITALS: BP 105/70; PULSE 64; RESP 16; O2SAT 93
[2023-01-12 10:13] VITALS: BP 113/64; PULSE 61; RESP 16; O2SAT 94
[2023-01-12 10:23] VITALS: BP 121/85; PULSE 66; RESP 16; TEMP 36.4; O2SAT 96
== END 2023-01-12 10:25 | disposition home or self-care (01) ==
PROVIDERS: PCP Family Medicine; Visit Provider Surgery
PROC: 0DJD8ZZ Inspection of Lower Intestinal Tract, Via Natural or Artificial Opening Endoscopic (ICD-10-PCS; principal; 2023-01-12 09:30)
DX: Z12.11 Encounter for screening for malignant neoplasm of colon (principal); Z85.038 Personal history of other malignant neoplasm of large intestine; Z86.010 Personal history of colon polyps; Z90.49 Acquired absence of other specified parts of digestive tract; D12.6 Benign neoplasm of colon, unspecified; E11.9 Type 2 diabetes mellitus without complications; Z79.899 Other long term (current) drug therapy
CPT/HCPCS: 45380; 82962; 88305

== ENCOUNTER → 2023-02-10 08:05 | Outpatient (CLI) | payer MEDICARE, SELFPAY ==
[2023-02-10 08:17] LABS: Adenovirus F 40/41, stool Not Detected (NotDetected); Astrovirus Not Detected (NotDetected); Campylobacter Not Detected (NotDetected); Clostridium Difficile A/B, PCR Not Detected (NotDetected); Cryptosporidium Not Detected (NotDetected); Cyclospora Cayetanesis Not Detected (NotDetected); Entamoeba histolytica Not Detected (NotDetected); Enteroaggregative E coli Not Detected (NotDetected); Enteropathogenic E coli Not Detected (NotDetected); Enterotoxigenic E coli Not Detected (NotDetected); Giardia lamblia Not Detected (NotDetected); Norovirus Not Detected (NotDetected); Plesimonas Shigalloides, PCR Not Detected (NotDetected); Rotavirus A Not Detected (NotDetected); Salmonella, PCR Not Detected (NotDetected); Sapovirus Not Detected (NotDetected); Shiga-like toxin E coli Not Detected (NotDetected); Shigella Enterovasive E coli Not Detected (NotDetected); Vibrio Cholerae Not Detected (NotDetected); Vibrio, PCR Not Detected (NotDetected); Yersinia Entercolitica, PCR Not Detected (NotDetected)
== END ==
PROVIDERS: PCP Family Medicine; Visit Provider Nurse Practitioner Family
DX: R19.7 Diarrhea, unspecified (principal)
CPT/HCPCS: 87177; 87506

== ENCOUNTER 2023-04-14 12:50 | Emergency (ER) | payer MEDICARE, SELFPAY ==
[2023-04-14] VITALS (9 sets, daily range): BP systolic 95–130; BP diastolic 67–84; PULSE 77–98; RESP 17–20; TEMP 36.7–36.9; O2SAT 94–97; BMI 25.5; BMI 25.4
--- NOTE | 2023-04-14 13:14 | EXP.UTC ---
Discharge Plan Disposition Patient Disposition: Still a Patient Condition: Fair Prescriptions Prescriptions: No Action glimepiride 1 mg tablet 1 mg PO DAILY nifedipine 30 mg tablet extended release 24hr 30 mg PO DAILY valsartan 160 mg tablet 160 mg PO BID potassium chloride 10 mEq capsule, extended release 20 meq PO BID triamterene-hydrochlorothiazid 37.5-25 mg tablet See Rx Instructions PO DAILY Rx Instructions: .50 orally daily; metformin 500 mg tablet 500 mg PO BID sertraline 100 MG tablet 100 mg PO DAILY aspirin 81 MG tablet,delayed release (DR/EC) 81 mg PO DAILY pantoprazole 40 MG tablet,delayed release (DR/EC) 40 mg PO DAILY levothyroxine 25 MCG capsule 25 mcg PO DAILY thiamine HCl (vitamin B1) 100 mg tablet 100 mg PO BID peg 3350-electrolytes [Golytely] 236-22.74-6.74 -5.86 gram recon soln 240 ml PO Q10M Rx Instructions: until fecal effluent is clear Referrals Follow up/Referrals: Mart Quezada MD [Primary Care Provider] - See instructions Discharge ED Provider: Josse Will [facility] [place] HPI General Stated complaint: MCCORD Mode of Arrival: Ambulatory Source of Information: Patient Limitations: No Limitations Time Seen by Provider: 04/14/23 13:15 Description of Symptoms (Recalled from Triage Doc. by RN): PATIENT C/O HEADACHE X 4 DAYS. SHE DESCRIBES HEADACHE INTERMITTEN AND SHARP/STABBING. SHE STATES HEADACHE STARTED TO RIGHT LOWER SIDE OF HEAD BUT IS NOW MAINLY IN RIGHT [place] AREA. DENIES NAUSEA OR VOMITING. SHE DOES STATE SHE HAS A SOME DIZZINESS WITH THE HEADACHE. HEENT Symptoms (Recalled from RN notes): Yes Resp Symptoms (Recalled from RN notes): No Skin Symptoms (Recalled from RN notes): No MS Symptoms (Recalled from RN notes): No Functional Status (Recalled from RN notes): WNL History of Present Illness Provider Complaint: Patient states that she started about 4 days ago with pain on the right side of her head around her ear area States that it felt like and ice pick stabbing into her head States that it would be sharp then ease off and be intermittent States that she has had a little blurry vision and dizziness States that this is not like her other headaches she has had in the past voiced concern due to previous stroke that he says started with a headache. States that she has watched her blood pressure and it has remained in the normal range for her Related Data Home Medications Medication Instructions Recorded Confirmed aspirin 81 mg tablet,delayed 81 mg PO DAILY heart health 05/15/18 01/12/23 release levothyroxine 25 mcg capsule 25 mcg PO DAILY thyroid 05/15/18 01/12/23 pantoprazole 40 mg tablet,delayed 40 mg PO DAILY GERD 05/15/18 01/12/23 release sertraline 100 mg tablet 100 mg PO DAILY Depression 05/15/18 01/12/23 valsartan 160 mg tablet 160 mg PO BID BP 12/02/21 01/12/23 glimepiride 1 mg tablet 1 mg PO DAILY DM 07/08/22 01/12/23 metformin 500 mg tablet 500 mg PO BID DM 07/08/22 01/12/23 nifedipine 30 mg tablet,extended 30 mg PO DAILY BP 07/08/22 01/12/23 release 24 hr potassium chloride 10 mEq 20 meq PO BID Supplement 07/08/22 01/12/23 capsule,extended release triamterene 37.5 See Rx Instructions PO DAILY BP 07/08/22 01/12/23 mg-hydrochlorothiazide 25 mg tablet peg 3350-electrolytes 236 240 ml PO Q10M bowel prep 01/12/23 01/12/23 gram-22.74 gram-6.74 gram-5.86 gram solution (Golytely) thiamine HCl (vitamin B1) 100 mg 100 mg PO BID Supplement 01/12/23 01/12/23 tablet Allergies Allergy/AdvReac Type Severity Reaction Status Date / Time No Known Allergies Allergy Verified 01/11/23 09:41 Worker's Comp Is this a Worker's Comp case?: No [facility] Disclaimer: The information contained in this section may have been updated after the patient was seen, as this information can be updated by other users. Medical History (Reviewed 01/12/23 @ 08:44 by Liya Salas
--- NOTE | 2023-04-14 13:20 | PC.NURSE ---
PATIENT SENT TO ER PER Erik MARROQUIN APRN FOR FURTHER EVALUATION. REPORT GIVEN TO Dionicio BOTELLO RN BY Erik MARROQUIN APRN. PATIENT TRANSPORTED TO ER VIA WHEELCHAIR.
--- NOTE | 2023-04-14 13:41 | CT_ITS ---
FINAL REPORT CLINICAL HISTORY: new onset headache FINDINGS: Axial images of the head were obtained without contrast. Coronal reformatted images were also obtained. This study was performed with techniques to keep radiation doses as low as reasonably achievable (ALARA). Individualized dose reduction techniques using automated exposure control or adjustment of mA and/or kV according to the patient's size were employed. There is generalized age-appropriate atrophy. Periventricular low-attenuation areas are seen consistent with moderate chronic ischemic changes. There is no evidence of intracranial hemorrhage or mass. There is no evidence of acute infarct. There is no evidence of shift of the midline structures. No skull abnormality is seen on the bone window images. IMPRESSION: Atrophy and moderate periventricular chronic ischemic changes. No acute intracranial abnormality identified. Reviewed, Interpreted and Dictated by Yifan Brewer III, MD Transcribed by Kristine Enriquez Authenticated and [facility]
--- NOTE | 2023-04-14 13:43 | HMH.EDGENADL ---
Discharge Plan Disposition Patient Disposition: Home, Self-Care Condition: Fair Prescriptions Prescriptions: New prochlorperazine maleate 10 mg tablet 10 mg PO Q6H 2 Days Qty: 8 0RF No Action nifedipine 30 mg tablet extended release 24hr 30 mg PO DAILY metformin 500 mg tablet 500 mg PO BID potassium chloride 10 mEq capsule, extended release 10 meq PO DAILY sertraline 100 mg tablet 100 mg PO HS levothyroxine 25 mcg tablet 25 mcg PO DAILY glimepiride 1 mg tablet 1 mg PO DAILY pantoprazole 40 mg tablet,delayed release (DR/EC) 40 mg PO DAILY triamterene-hydrochlorothiazid 37.5-25 mg tablet 1 tab PO DAILY raloxifene 60 mg tablet 60 mg PO DAILY valsartan 160 mg tablet 160 mg PO BID Referrals Follow up/Referrals: Mart Quezada MD [Primary Care Provider] - See instructions Activity Restrictions/Add. Instructions Additional Instructions/Restrictions: Follow-up with your primary care doctor next week to get repeat liver function tests Clinical Impressions Clinical Impression: Headache, Transaminitis Instructions Patient Instructions: DI for Headache Discharge ED Provider: Josse Will General Adult HPI General Chief complaint: Headache Stated complaint: MCCORD Time Seen by Provider: 04/14/23 13:15 Mode of Arrival: Ambulatory Source of Information: Patient Limitations: No Limitations Description of Symptoms (Recalled from ER Triage Doc. by RN): PATIENT C/O HEADACHE X 4 DAYS. SHE DESCRIBES HEADACHE INTERMITTEN AND SHARP/STABBING. SHE STATES HEADACHE STARTED TO RIGHT LOWER SIDE OF HEAD BUT IS NOW MAINLY IN RIGHT [place] AREA. DENIES NAUSEA OR VOMITING. SHE DOES STATE SHE HAS A SOME DIZZINESS WITH THE HEADACHE. History of Present Illness HPI narrative: This is a 67-year-old female with multiple medical problems who presents to the emergency room with 4 days of a right-sided headache patient describes the pain as sharp and stabbing lasting only a couple seconds at a time. Nonprovoked self-limited. No blurry vision double vision no scotoma no fevers or chills no chest pain pressure no photophobia or phonophobia. There is no unilateral weakness or numbness. Patient says that this is not sudden nor severe and not the worst headache of her life Related Data Home Medications Medication Instructions Recorded Confirmed glimepiride 1 mg tablet 1 mg PO DAILY Diabetes 04/14/23 04/14/23 levothyroxine 25 mcg tablet 25 mcg PO DAILY Thyroid 04/14/23 04/14/23 metformin 500 mg tablet 500 mg PO BID Diabetes 04/14/23 04/14/23 nifedipine 30 mg tablet,extended 30 mg PO DAILY High blood pressure 04/14/23 04/14/23 release 24 hr pantoprazole 40 mg tablet,delayed 40 mg PO DAILY Acid reflux 04/14/23 04/14/23 release potassium chloride 10 mEq 10 meq PO DAILY Supplement 04/14/23 04/14/23 capsule,extended release raloxifene 60 mg tablet 60 mg PO DAILY Osteoporosis 04/14/23 04/14/23 sertraline 100 mg tablet 100 mg PO HS Mood 04/14/23 04/14/23 triamterene 37.5 1 tab PO DAILY High blood pressure 04/14/23 04/14/23 mg-hydrochlorothiazide 25 mg tablet valsartan 160 mg tablet 160 mg PO BID High blood pressure 04/14/23 04/14/23 Previous Rx's Medication Instructions Recorded prochlorperazine maleate 10 mg 10 mg PO Q6H 48 hours #8 tabs 04/14/23 tablet Allergies Allergy/AdvReac Type Severity Reaction Status Date / Time No Known Allergies Allergy Verified 01/11/23 09:41 [facility] Disclaimer: The information contained in this section may have been updated after the patient was seen, as this information can be updated by other users. Medical History (Updated 04/14/23 @ 17:16 by Josse Will MD) Allergies Colon cancer Depression Diabetes mellitus, type 2 History of anemia History of COVID-19 History of heart attack History of stroke Hypertension Hypothyroid Sleep apnea Sleep apnea Surgical History (Reviewed 04/14/23 @ 13:25 by
[2023-04-14 14:16] LABS: Basophils % 0.3 % (0.1-2.0); Eosinophils # 0.1 K/mm3 (0.0-0.4); Eosinophils % 2.2 % (0.1-12.0); Hematocrit 42.9 % (37.0-47.0); Hemoglobin 13.7 g/dL (12.2-16.2); Lymphocytes # 0.7 K/mm3 (0.7-4.5); Lymphocytes % 14.2 % (10-50); Mean Corpuscular Volume 87.4 fl (81-99); Mean Platelet Volume 7.4 fl (7.4-10.4); Monocytes # 0.4 K/mm3 (0.1-1.0); Monocytes % 8.3 % (1.7-9.3); Neutrophils # 3.7 K/mm3 (1.8-7.8); Platelet Count 245 K/mm3 (142-424); Red Cell Distribution Width 15.3 % (11.5-17.5)
[2023-04-14 14:18] LABS: Chloride 95 mmol/L (98-107); Potassium 4.2 mmoL/L (3.5-5.1); Sodium 133 mmol/L (136-145)
[2023-04-14 14:21] LABS: Alanine Aminotransferase 144 U/L (12-78); Albumin/Globulin Ratio 1.1 (1.1-1.8); Alkaline Phosphatase 248 U/L (38-126); Anion Gap 14.2 mEq/L (5-15); Aspartate Amino Transferase 98 U/L (14-36); Bilirubin,Total 0.9 mg/dl (0.2-1.3); Blood Urea Nitrogen 19 mg/dl (7-17); Carbon Dioxide 28 mmol/L (22.0-30.0); Creatinine Clearance Estimated 57 mL/min (50-200); Estimated Glomerular Filt Rate 71 ml/min (>60); GFR (African American) 86 ML/MIN (>60); Globulin 3.5 g/dL (1.3-3.2); Total Protein,Serum 7.5 g/dl (6.3-8.2)
[2023-04-14 14:22] LABS: Calcium 8.9 mg/dl (8.4-10.2); Glucose 112 mg/dl (74-100)
[2023-04-14 14:24] LABS: Activated Partial Thrombo Time 27.9 seconds (22.8-30.6); Prothrombin Time 10.8 seconds (10.1-12.5)
[2023-04-14 14:55] LABS: Erythrocyte Sedimentation Rate 57 mm/hr (0-30)
[2023-04-16 16:13] LABS: HBsAg Screen Negative (Negative); HCV Ab Non Reactive (Non Reactive); Hep A Ab, IGM Negative (Negative); Hep B Core Ab, IgM Negative (Negative)
== END 2023-04-14 17:30 | disposition home or self-care (01) ==
LOC: UTC 12:53 → ER 13:15
PROVIDERS: Emergency Provider Emergency Medicine; PCP Family Medicine
DX: R51.9 Headache, unspecified (principal); E11.9 Type 2 diabetes mellitus without complications; I10 Essential (primary) hypertension; E03.9 Hypothyroidism, unspecified; I25.2 Old myocardial infarction; G47.30 Sleep apnea, unspecified; F32.A Depression, unspecified; Z86.73 Personal history of transient ischemic attack (TIA), and cerebral infarction without residual deficits
CPT/HCPCS: 70450; 80053; 80074; 85025; 85610; 85651; 85730; 96361; 96374; 96375; 99284; 99285

== ENCOUNTER → 2023-04-15 13:21 | Outpatient (CLI) | payer MEDICARE, SELFPAY | PROVIDERS: PCP Family Medicine; Visit Provider Family Medicine | DX: I25.10 Atherosclerotic heart disease of native coronary artery without angina pectoris (principal); R53.83 Other fatigue | CPT/HCPCS: 93306 ==

== ENCOUNTER → 2023-04-16 07:51 | Outpatient (CLI) | payer MEDICARE, SELFPAY ==
--- NOTE | 2023-04-16 07:56 | US_ITS ---
FINAL REPORT CLINICAL HISTORY: ELEVATED LIVER FUNCTION TEST COMPARISON: None FINDINGS: Sonographic images of the right upper quadrant were obtained. The pancreas is partially obscured. There is a 3.2 x 3.1 cm hyperechoic hepatic mass which may represent hemangioma. Small echogenic foci along the gallbladder wall which may represent cholesterolosis. There is no evidence of biliary ductal dilatation.The common duct measures 3 mm. Limited images of the right kidney are unremarkable. IMPRESSION: Hyperechoic hepatic mass may represent hemangioma. Possible cholesterolosis. Reviewed, Interpreted and Dictated by Yifan Brewer III, MD Transcribed by Liya Quiroz Authenticated and [facility]
== END ==
PROVIDERS: PCP Family Medicine; Visit Provider Nurse Practitioner Family
DX: R10.11 Right upper quadrant pain (principal); R79.89 Other specified abnormal findings of blood chemistry; R94.5 Abnormal results of liver function studies
CPT/HCPCS: 76705

== ENCOUNTER 2023-04-19 03:08 | Emergency (ER) | payer MEDICARE, SELFPAY ==
[2023-04-19 03:10] VITALS: BP 132/92; PULSE 72; RESP 18; TEMP 36.7; O2SAT 97; BMI 23.0
[2023-04-19 03:16] VITALS: BP 132/92; PULSE 74; O2SAT 97
[2023-04-19 03:26] VITALS: BMI 23.0
--- NOTE | 2023-04-19 03:26 | CT_ITS ---
PROCEDURE INFORMATION: Exam: CT Head Without Contrast Exam date and time: 04/19/2023 3:48 AM Age: 67 years old Clinical indication: Dizziness and visual disturbance; Additional info: Dizziness/vision alteration TECHNIQUE: Imaging protocol: Computed tomography of the head without contrast. Radiation optimization: All CT scans at this facility use at least one of these dose optimization techniques: automated exposure control; mA and/or kV adjustment per patient size (includes targeted exams where dose is matched to clinical indication); or iterative reconstruction. REPORTING DATA: Count of CT and Cardiac NM exams in prior 12 months: This patient has received [address] and 0 known cardiac nuclear medicine studies in the 12 months prior to the current study. COMPARISON: CT HEAD/BRAIN WO CON 04/14/2023 2:06 PM FINDINGS: Brain: There is diffuse prominence of the cerebral sulci, cisterns, and ventricles consistent with atrophy. No intra or extra-axial fluid collections are noted. No mass or mass effect is seen. Periventricular white matter hypoattenuation is seen consistent with small vessel chronic ischemic changes. Cerebral ventricles: No ventriculomegaly. Paranasal sinuses: Visualized sinuses are unremarkable. No fluid levels. Mastoid air cells: Visualized mastoid air cells are well aerated. Bones/joints: Unremarkable. No acute fracture. Soft tissues: Unremarkable. IMPRESSION: No acute process noted.
--- NOTE | 2023-04-19 03:26 | XR_ITS ---
PROCEDURE INFORMATION: Exam: XR Chest Exam date and time: 04/19/2023 3:34 AM Age: 67 years old Clinical indication: Pain; Chest pressure; Additional info: Chest pain TECHNIQUE: Imaging protocol: Radiologic exam of the chest. Views: 2 views. COMPARISON: CR CXR2V XR chest 2V 11/28/2018 1:24 PM FINDINGS: Lungs: Unremarkable. No consolidation. Pleural spaces: Unremarkable. No pleural effusion. No pneumothorax. Heart/Mediastinum: Unremarkable. No cardiomegaly. Bones/joints: Unremarkable. IMPRESSION: No acute findings.
--- NOTE | 2023-04-19 03:29 | ECG_ITS ---
APPROVED REPORT Exam: Resting ECG HR:70 bpm ECG Measurements Heart Rate 70 AXES AZ 169 P 63 QRSd 97 QRS -6 QT 393 T 31 QTc 413 Conclusion SINUS RHYTHM NORMAL ECG UNCONFIRMED REPORT Electronically signed by : Marcellus Avery MD 04/19/2023 07:46:44
[2023-04-19 03:36] LABS: Basophils % 0.4 % (0.1-2.0); Eosinophils % 0.7 % (0.1-12.0); Hematocrit 40.3 % (37.0-47.0); Hemoglobin 13.2 g/dL (12.2-16.2); Lymphocytes # 0.7 K/mm3 (0.7-4.5); Mean Corpuscular HGB Conc 32.7 g/dL (31.8-35.4); Mean Corpuscular Hemoglobin 27.8 pg (27.0-31.2); Mean Corpuscular Volume 85.1 fl (81-99); Mean Platelet Volume 7.4 fl (7.4-10.4); Monocytes # 0.4 K/mm3 (0.1-1.0); Monocytes % 7.6 % (1.7-9.3); Neutrophils # 4.3 K/mm3 (1.8-7.8); Neutrophils % 78.2 % (37.0-80.0); Platelet Count 275 K/mm3 (142-424); Red Blood Count 4.74 M/mm3 (4.20-5.40); Red Cell Distribution Width 15.2 % (11.5-17.5); White Blood Count 5.5 K/mm3 (4.8-10.8)
--- NOTE | 2023-04-19 03:38 | PC.NURSE ---
Dr. Deras at
--- NOTE | 2023-04-19 03:39 | HMH.EDHA ---
Discharge Plan Disposition Patient Disposition: Home, Self-Care Chief Complaint: Headache Prescriptions Prescriptions: No Action methylprednisolone 4 mg tablet 4 mg PO DIRECTED Nurtec ODT 75 mg tablet,disintegrating 75 mg PO Q OTHER DAY aspirin [Adult Low Dose Aspirin] 81 mg tablet,delayed release (DR/EC) 81 mg PO DAILY Qty: 30 5RF carvedilol [Coreg] 3.125 mg tablet 3.125 mg PO BID Qty: 60 3RF Rx Instructions: must administer with a meal/food nifedipine 30 mg tablet extended release 24hr 30 mg PO DAILY metformin 500 mg tablet 500 mg PO BID potassium chloride 10 mEq capsule, extended release 10 meq PO DAILY sertraline 100 mg tablet 100 mg PO HS levothyroxine 25 mcg tablet 25 mcg PO DAILY glimepiride 1 mg tablet 1 mg PO DAILY pantoprazole 40 mg tablet,delayed release (DR/EC) 40 mg PO DAILY triamterene-hydrochlorothiazid 37.5-25 mg tablet 1 tab PO DAILY raloxifene 60 mg tablet 60 mg PO DAILY valsartan 160 mg tablet 160 mg PO BID Referrals Follow up/Referrals: Mart Quezada MD [Primary Care Provider] - See instructions Clinical Impressions Clinical Impression: Headache Instructions Patient Instructions: DI for Headache Discharge ED Provider: Braeden (ED)Yossi Headache HPI General Chief Complaint: Headache Stated Complaint: MCCORD,Vision blurred,body aches Time Seen by Provider: 04/19/23 03:30 Mode of Arrival: Wheelchair Source of Information: Patient, Spouse and Medical Record Limitations: No Limitations Description of Symptoms (Recalled from ER Triage Doc. by RN): pt reports that she has an ongoing gheadache since last wednesday the pt states that she was in the hospital previously this week for the same issue and that she has been weak with some vision issues. pt states that she is having a heart cath today at 10am History of Present Illness HPI Narrative: has mccord and diff vision over the last week - has ht cath today Complaint: headache Onset (ago): day(s) Onset description: gradual Location: diffuse Severity: moderate Related Data Home Medications Medication Instructions Recorded Confirmed glimepiride 1 mg tablet 1 mg PO DAILY Diabetes 04/14/23 04/16/23 levothyroxine 25 mcg tablet 25 mcg PO DAILY Thyroid 04/14/23 04/16/23 metformin 500 mg tablet 500 mg PO BID Diabetes 04/14/23 04/16/23 nifedipine 30 mg tablet,extended 30 mg PO DAILY High blood pressure 04/14/23 04/16/23 release 24 hr pantoprazole 40 mg tablet,delayed 40 mg PO DAILY Acid reflux 04/14/23 04/16/23 release potassium chloride 10 mEq 10 meq PO DAILY Supplement 04/14/23 04/16/23 capsule,extended release raloxifene 60 mg tablet 60 mg PO DAILY Osteoporosis 04/14/23 04/16/23 sertraline 100 mg tablet 100 mg PO HS Mood 04/14/23 04/16/23 triamterene 37.5 1 tab PO DAILY High blood pressure 04/14/23 04/16/23 mg-hydrochlorothiazide 25 mg tablet valsartan 160 mg tablet 160 mg PO BID High blood pressure 04/14/23 04/16/23 methylprednisolone 4 mg tablet 4 mg PO DIRECTED 04/16/23 04/16/23 rimegepant 75 mg disintegrating 75 mg PO Q OTHER DAY 04/16/23 04/16/23 tablet (Nurtec ODT) Previous Rx's Medication Instructions Recorded aspirin 81 mg tablet,delayed 81 mg PO DAILY #30 tabs 04/16/23 release (Adult Low Dose Aspirin) carvedilol 3.125 mg tablet (Coreg) 3.125 mg PO BID #60 tabs 04/16/23 Allergies Allergy/AdvReac Type Severity Reaction Status Date / Time [id number] Reductase AdvReac Mild myalgia Verified 04/16/23 10:35 Inhibitor [facility] History Hepatitis A Screen Attestation statement:: This patient has been screened for Hepatitis A risk factors. I have reviewed the patient's past medical history: Yes Medical History: Reports: Atherosclerotic Heart Disease, Cancer, Coronary Artery Disease, Depression, Diabetes Mellitus Type 2, Gastroesophageal Reflux Disease(GERD), Hiatal Hernia, Hyperlipidemia, Hyperte
[2023-04-19 03:40] LABS: Chloride 96 mmol/L (98-107)
[2023-04-19 03:41] LABS: Potassium 4.2 mmoL/L (3.5-5.1); Sodium 132 mmol/L (136-145)
[2023-04-19 03:43] LABS: Alanine Aminotransferase 133 U/L (12-78); Aspartate Amino Transferase 80 U/L (14-36); Blood Urea Nitrogen 16 mg/dl (7-17); Creatinine Clearance Estimated 56 mL/min (50-200); Estimated Glomerular Filt Rate 83 ml/min (>60); GFR (African American) 100 ML/MIN (>60)
[2023-04-19 03:44] LABS: Albumin Level 3.6 g/dl (3.5-5.0); Albumin/Globulin Ratio 1.1 (1.1-1.8); Alkaline Phosphatase 252 U/L (38-126); Anion Gap 15.2 mEq/L (5-15); Bilirubin,Total 0.4 mg/dl (0.2-1.3); Calcium 8.4 mg/dl (8.4-10.2); Carbon Dioxide 25 mmol/L (22.0-30.0); Globulin 3.4 g/dL (1.3-3.2); Glucose 169 mg/dl (74-100)
[2023-04-19 03:50] LABS: C-Reactive Protein 40.7 mg/L (0-4)
[2023-04-19 03:56] LABS: NT Pro Brain Natriuretic Pep. 2100 pg/mL (0-125)
[2023-04-19 03:59] LABS: Troponin I < 0.01 ng/ml (0.00-0.034)
[2023-04-19 04:00] LABS: Erythrocyte Sedimentation Rate 64 mm/hr (0-30)
[2023-04-19 04:04] LABS: T4 (Thyroxine) 9.1 ug/dl (5.53-11.0)
[2023-04-19 04:17] LABS: Thyroid Stimulating Hormone 1.37 uIU/mL (0.465-4.68)
[2023-04-19 06:07] VITALS: BP 139/90; PULSE 73; O2SAT 97
--- NOTE | 2023-04-19 06:07 | PC.NURSE ---
Rounded on pt. Pt resting. Visitor remains at BS. No needs voiced at this time.
--- NOTE | 2023-04-19 06:20 | PC.NURSE ---
Dr. Damien mora
--- NOTE | 2023-04-19 06:22 | PC.NURSE ---
Dr. Deras speaking with Dr. Quezada
[2023-04-19 06:30] VITALS: BP 128/83; PULSE 68; O2SAT 93
[2023-04-19 07:01] LABS: Appearance,Urine CLEAR (Clear); Bilirubin,Urine Negative (Negative); Blood, Urine Negative (Negative); Color,Urine YELLOW (Yellow); Glucose,Urine (UA) Negative (Negative); Ketones,Urine Negative (Negative); Leukocyte Esterase,Urine Negative (Negative); Microscopic, Urine URINE MICROSCOPIC (MICROSCOPIC); Nitrate,Urine Negative (Negative); Protein,Urine Negative (Negative); Specific Gravity, Urine <= 1.005 (1.005-1.030); Urobilinogen,Urine 0.2 EU/dl (0.2)
[2023-04-19 07:20] LABS: Troponin I < 0.01 ng/ml (0.00-0.034)
[2023-04-19 07:21] LABS: Bacteria,Urine Trace /lpf; Squamous Epithelial Cell,Urine Occasional #/hpf (0-5); WBC,Urine Occasional #/hpf (0-3)
[2023-04-19 08:50] VITALS: BP 114/81; PULSE 66; RESP 16; TEMP 36.7; O2SAT 94
== END 2023-04-19 08:50 | disposition home or self-care (01) ==
PROVIDERS: Emergency Provider Emergency Medicine; PCP Family Medicine
DX: R51.9 Headache, unspecified (principal); R53.1 Weakness; H53.8 Other visual disturbances; I25.119 Atherosclerotic heart disease of native coronary artery with unspecified angina pectoris; E11.9 Type 2 diabetes mellitus without complications; I10 Essential (primary) hypertension; E03.9 Hypothyroidism, unspecified; F32.A Depression, unspecified
CPT/HCPCS: 70450; 71046; 80053; 81001; 83880; 84436; 84443; 84484; 85025; 85651; 86140; 93005; J0131; J2405

== ENCOUNTER 2023-04-19 08:52 | Day surgery (SDC) | payer MEDICARE, SELFPAY ==
[2023-04-19] VITALS (11 sets, daily range): BP systolic 114–138; BP diastolic 75–84; PULSE 66–83; RESP 14–19; TEMP 36.6; O2SAT 93–98; BMI 23.1
--- NOTE | 2023-04-19 07:15 | IR_ITS ---
APPROVED REPORT Patient Location: Outpatient PROCEDURES Left heart catheterization Left ventriculogram Selective coronary angiogram INDICATION Known coronary artery disease, Angina pectoris, Abnormal Myoview Informed consent was obtained prior to the procedure. COMPLICATIONS None Estimated Blood Loss: Less than 10 mls TECHNIQUE One percent lidocaine used to anesthetize the right anterior aspect of the wrist. The right radial artery was accessed via the Seldinger technique. A 6 Afghan sheath was placed in the right radial artery. 150 mg magnesium sulfate, 800 mcg of nitroglycerin, 1mg Lidocaine and 5000 U Heparin were given through the arterial sheath. The papa catheter was also used to perform left heart catheterization, left ventriculogram and selective coronary angiogram. At the end of the procedure the sheath was removed good hemostasis was achieved using Traclet band, patient was transferred to the postop holding area in stable condition. ANGIOGRAPHIC RESULTS The left main artery Normal The left anterior descending artery Is proximally normal and has mild 20 to 30% stenoses along tortuous bends. Large first diagonal artery has a proximal eccentric 20 to 30% stenosis The circumflex artery Small nondominant and has 40% stenosis in proximal small obtuse marginal artery The right coronary artery Is dominant and patent in the proximal mid segment however occluded distally and a stent. Right to right and [id number] collaterals fill the distal segment The AUGUST ventriculogram reveals Normal 65% The left ventricular end-diastolic pressure 10 mmHg IMPRESSION Chronically occluded right coronary artery with adequate right to right and [id number] collateralization as described above Normal ejection fraction Normal left ventricular end-diastolic pressure Nonflow limiting coronary disease in the remaining vessels PLAN 1. Continue risk factor modification 2. Continue medical management for chronically occluded right coronary Electronically signed by : Marco Celaya MD 04/19/2023 14:03:00
== END 2023-04-19 12:30 | disposition home or self-care (01) ==
PROVIDERS: PCP Family Medicine; Visit Provider Internal Medicine
DX: E11.9 Type 2 diabetes mellitus without complications (principal); I10 Essential (primary) hypertension; I25.10 Atherosclerotic heart disease of native coronary artery without angina pectoris; I25.2 Old myocardial infarction; I63.50 Cerebral infarction due to unspecified occlusion or stenosis of unspecified cerebral artery; R06.00 Dyspnea, unspecified; R42 Dizziness and giddiness; R74.8 Abnormal levels of other serum enzymes; Z86.73 Personal history of transient ischemic attack (TIA), and cerebral infarction without residual deficits; Z95.5 Presence of coronary angioplasty implant and graft
CPT/HCPCS: 70450; 71046; 80053; 81001; 83880; 84436; 84443; 84484; 85025; 85651; 86140; 93005; 99152; C1725; C1769; J1644; Q9967

== ENCOUNTER 2023-04-22 14:12 | Inpatient (IN) | payer MEDICARE, SELFPAY ==
[2023-04-22] VITALS (11 sets, daily range): BP systolic 111–164; BP diastolic 52–103; PULSE 68–77; RESP 16–20; TEMP 36.4–36.7; O2SAT 97–99; BMI 23.7; BMI 23.6
--- NOTE | 2023-04-22 14:37 | PC.NURSE ---
spoke with care management-okayed for pt to have MRI- spoke with Cherelle. spoke with Steph in MRI, notified of of MRI request per ER
[2023-04-22 14:40] LABS: Basophils % 0.7 % (0.1-2.0); Chloride 91 mmol/L (98-107); Eosinophils # 0.1 K/mm3 (0.0-0.4); Eosinophils % 0.9 % (0.1-12.0); Hematocrit 39.6 % (37.0-47.0); Hemoglobin 12.7 g/dL (12.2-16.2); Lymphocytes # 0.8 K/mm3 (0.7-4.5); Lymphocytes % 13.4 % (10-50); Mean Corpuscular HGB Conc 32.2 g/dL (31.8-35.4); Mean Corpuscular Hemoglobin 27.3 pg (27.0-31.2); Mean Corpuscular Volume 84.9 fl (81-99); Mean Platelet Volume 7.2 fl (7.4-10.4); Monocytes # 0.4 K/mm3 (0.1-1.0); Neutrophils # 4.5 K/mm3 (1.8-7.8); Platelet Count 223 K/mm3 (142-424); Red Blood Count 4.66 M/mm3 (4.20-5.40); Red Cell Distribution Width 15.2 % (11.5-17.5); White Blood Count 5.8 K/mm3 (4.8-10.8)
[2023-04-22 14:41] LABS: Potassium 3.9 mmoL/L (3.5-5.1); Sodium 126 mmol/L (136-145)
[2023-04-22 14:43] LABS: Alanine Aminotransferase 90 U/L (12-78); Albumin Level 3.5 g/dl (3.5-5.0); Albumin/Globulin Ratio 1.1 (1.1-1.8); Alkaline Phosphatase 250 U/L (38-126); Anion Gap 14.9 mEq/L (5-15); Aspartate Amino Transferase 49 U/L (14-36); Bilirubin,Total 0.5 mg/dl (0.2-1.3); Blood Urea Nitrogen 14 mg/dl (7-17); Carbon Dioxide 24 mmol/L (22.0-30.0); Creatinine Clearance Estimated 56 mL/min (50-200); Estimated Glomerular Filt Rate 71 ml/min (>60); GFR (African American) 86 ML/MIN (>60); Globulin 3.3 g/dL (1.3-3.2); Total Protein,Serum 6.8 g/dl (6.3-8.2)
[2023-04-22 14:44] LABS: Calcium 8.4 mg/dl (8.4-10.2); Glucose 145 mg/dl (74-100)
--- NOTE | 2023-04-22 15:03 | MR_ITS ---
PROCEDURE INFORMATION: Exam: MRA Head Without Contrast; Arteriography Exam date and time: 04/22/2023 4:18 PM Age: 67 years old Clinical indication: Dizziness and giddiness; Additional info: Mra brain. Dizziness TECHNIQUE: Imaging protocol: Magnetic resonance angiography head without contrast. [id number] (TOF) technique was utilized for this exam. Exam focused on the arteries. COMPARISON: CT HEAD/BRAIN WO CON 04/19/2023 3:48 AM FINDINGS: ANTERIOR CIRCULATION: Right internal carotid artery: Intracranial segment is patent with no significant stenosis. No aneurysm. Right middle cerebral artery: No occlusion or significant stenosis. No aneurysm. Right anterior cerebral artery: No occlusion or significant stenosis. No aneurysm. Left internal carotid artery: Intracranial segment is patent with no significant stenosis. No aneurysm. Left middle cerebral artery: No occlusion or significant stenosis. No aneurysm. Left anterior cerebral artery: No occlusion or significant stenosis. No aneurysm. POSTERIOR CIRCULATION: Right vertebral artery: No occlusion or significant stenosis. No aneurysm. Left vertebral artery: No occlusion or significant stenosis. No aneurysm. Basilar artery: No occlusion or significant stenosis. No aneurysm. Right posterior cerebral artery: No occlusion or significant stenosis. No aneurysm. Left posterior cerebral artery: No occlusion or significant stenosis. No aneurysm. IMPRESSION: No stenosis or occlusion.
--- NOTE | 2023-04-22 15:12 | MR_ITS ---
PROCEDURE INFORMATION: Exam: MR Head Without and With Contrast Exam date and time: 04/22/2023 4:18 PM Age: 67 years old Clinical indication: Other: Headaches; Additional info: Recurrent headaches TECHNIQUE: Imaging protocol: Magnetic resonance imaging of the head without and with contrast. Contrast material: PROHANCE; Contrast volume: 13 ml; Contrast route: IV; COMPARISON: CT HEAD/BRAIN WO CON 04/19/2023 3:48 AM FINDINGS: Brain: Chronic lacunar infarct in the left cerebellum noted.There are scattered T2 hyperintensities in the pontine periventricular and subcortical white matter. The appearance is nonspecific, but most likely represents chronic small vessel disease in a person of this age. No abnormal parenchymal or meningeal enhancement. There is symmetric T2 hyperintensity involving the caudate nuclei and the putamina. No correlate on the diffusion-weighted images. Cerebral ventricles: The ventricles, sulci and cisterns are normal in size and configuration. No hydrocephalus or midline structure shift Bones/joints: Unremarkable. Paranasal sinuses: Normal as visualized. No acute sinusitis. Mastoid air cells: Normal as visualized. No mastoid effusion. Orbital cavities: Unremarkable. Vasculature: Flow voids of the major vascular structures are intact. Soft tissues: Unremarkable. IMPRESSION: There is symmetric T2 hyperintensity involving the caudate nuclei and the putamina. No correlate on the diffusion-weighted images or abnormal enhancement. Findings are nonspecific and differential considerations include metabolic (such as osmotic demyelination syndrome), infectious (encephalitis), vascular/vasculitis.
--- NOTE | 2023-04-22 15:12 | HMH.EDNEU ---
Discharge Plan Disposition Patient Disposition: Home, Self-Care Chief Complaint: Neuro Symptoms/Deficit Prescriptions Prescriptions: No Action aspirin [Adult Low Dose Aspirin] 81 mg tablet,delayed release (DR/EC) 81 mg PO DAILY carvedilol [Coreg] 3.125 mg tablet 3.125 mg PO BID Rx Instructions: must administer with a meal/food nifedipine 30 mg tablet extended release 24hr 30 mg PO DAILY metformin 500 mg tablet 500 mg PO BID Hold Instructions: Resume on 04/22/23. potassium chloride 10 mEq capsule, extended release 10 meq PO DAILY sertraline 100 mg tablet 100 mg PO HS levothyroxine 25 mcg tablet 25 mcg PO DAILY glimepiride 1 mg tablet 1 mg PO DAILY pantoprazole 40 mg tablet,delayed release (DR/EC) 40 mg PO DAILY triamterene-hydrochlorothiazid 37.5-25 mg tablet 1 tab PO DAILY raloxifene 60 mg tablet 60 mg PO DAILY valsartan 160 mg tablet 160 mg PO BID Discharge ED Provider: Lazarus Staton Neuro HPI General Chief Complaint: Neuro Symptoms/Deficit Stated Complaint: Phys ref, blurred vision, dizzy Time Seen by Provider: 04/22/23 14:35 Mode of Arrival: Ambulatory Source of Information: Patient Limitations: No Limitations Description of Symptoms (Recalled from ER Triage Doc. by RN): pt to the ED with intermitten blurred vision and headaches x 10 days, left facial droop and an episode of expressive aphagia yesterday afternoon that resolved after a nap. on assessment pt has no unilateral weakness or loss of sensation. History of Present Illness HPI Narrative: 67-year-old white female patient has had a dull headache for several days and has had 2 CAT scans recently. But has never had a she has had an echocardiogram and recently had a heart catheterization. She does have diabetes hypertension hypercholesterolemia and coronary artery disease. She had an episode yesterday of confusion during which she had difficulty locating the name for words. During that episode she was not tested for glucose level. She has never had an evaluation for tickborne diseases despite having sustained several tick bites. Related Data Home Medications Medication Instructions Recorded Confirmed glimepiride 1 mg tablet 1 mg PO DAILY Diabetes 04/14/23 04/22/23 levothyroxine 25 mcg tablet 25 mcg PO DAILY Thyroid 04/14/23 04/22/23 metformin 500 mg tablet 500 mg PO BID Diabetes 04/14/23 04/22/23 nifedipine 30 mg tablet,extended 30 mg PO DAILY High blood pressure 04/14/23 04/22/23 release 24 hr pantoprazole 40 mg tablet,delayed 40 mg PO DAILY Acid reflux 04/14/23 04/22/23 release potassium chloride 10 mEq 10 meq PO DAILY Supplement 04/14/23 04/22/23 capsule,extended release raloxifene 60 mg tablet 60 mg PO DAILY Osteoporosis 04/14/23 04/22/23 sertraline 100 mg tablet 100 mg PO HS Mood 04/14/23 04/22/23 triamterene 37.5 1 tab PO DAILY High blood pressure 04/14/23 04/22/23 mg-hydrochlorothiazide 25 mg tablet valsartan 160 mg tablet 160 mg PO BID High blood pressure 04/14/23 04/22/23 aspirin 81 mg tablet,delayed 81 mg PO DAILY Heart disease 04/19/23 04/22/23 release (Adult Low Dose Aspirin) carvedilol 3.125 mg tablet (Coreg) 3.125 mg PO BID High blood pressure 04/19/23 04/22/23 Allergies Allergy/AdvReac Type Severity Reaction Status Date / Time [id number] Reductase AdvReac Mild myalgia Verified 04/19/23 09:11 Inhibitor Stroke Alert/NIH Score LOC Stroke Alert: No PFSH PFS Disclaimer: The information contained in this section may have been updated after the patient was seen, as this information can be updated by other users. Medical History Allergies Atypical angina Colon cancer Coronary artery disease Depression Diabetes mellitus, type 2 Dizziness Dyspnea Elevated liver enzymes Fatigue History of anemia History of COVID-19 History of heart attack History of stroke
--- NOTE | 2023-04-22 15:15 | PC.NURSE ---
Steph in MRI states she has one pt here now she is going to do MRI on then and then will be down to transport this pt to MRI.
--- NOTE | 2023-04-22 15:19 | CT_ITS ---
FINAL REPORT CLINICAL HISTORY: dizziness, headaches FINDINGS: CT angiography of the neck: RIGHT CAROTID: No significant stenosis is seen of the cervical common or internal carotid artery. LEFT CAROTID: No significant stenosis seen of the cervical common or internal carotid artery. VERTEBRALS: The vertebrals are patent and codominant. No significant stenosis is present. IMPRESSION: No significant arterial abnormality. Reviewed, Interpreted and Dictated by Clifton Yepez MD Transcribed by Rola Vargas Authenticated and [facility]
--- NOTE | 2023-04-22 15:31 | PC.NURSE ---
pt to CT
--- NOTE | 2023-04-22 15:39 | PC.NURSE ---
per rad staff pt being transported from CT to MRI
--- NOTE | 2023-04-22 16:13 | PC.NURSE ---
JAMEE MELENDEZ speaking with Dr. Avery who is publications designer for Dr. Quezada.
[2023-04-22 17:25] LABS: Coronavirus 19, PCR Not Detected (NotDetected); Influenza A, PCR Not Detected (NotDetected); Influenza B, PCR Not Detected (NotDetected)
--- NOTE | 2023-04-22 17:51 | PC.NURSE ---
report called to GISELE Whitaker
--- NOTE | 2023-04-22 17:52 | PC.NURSE ---
report received from Chilo Frey RN
--- NOTE | 2023-04-22 18:02 | PC.NURSE ---
Supper trays ordered for patient and her
[2023-04-22 21:06] LABS: POC Glucose,Bedside 271 (70-110)
[2023-04-23 04:00] VITALS: BP 136/78; PULSE 76; RESP 18; TEMP 36.9; O2SAT 96; BMI 24.3
--- NOTE | 2023-04-23 04:27 | PC.NURSE ---
Patient has rested through the night. Has had multiple BM. Spoke to [employer] and home medications were not started back for the time being and sliding scale was started due to high sugars. no other issues were stated by patient
[2023-04-23 06:06] LABS: POC Glucose,Bedside 143 (70-110)
[2023-04-23 06:20] LABS: Basophils % 0.6 % (0.1-2.0); Hematocrit 40.4 % (37.0-47.0); Hemoglobin 12.7 g/dL (12.2-16.2); Lymphocytes # 0.5 K/mm3 (0.7-4.5); Lymphocytes % 13.1 % (10-50); Mean Corpuscular HGB Conc 31.5 g/dL (31.8-35.4); Mean Corpuscular Hemoglobin 26.9 pg (27.0-31.2); Mean Corpuscular Volume 85.4 fl (81-99); Mean Platelet Volume 7.8 fl (7.4-10.4); Monocytes # 0.4 K/mm3 (0.1-1.0); Monocytes % 9.4 % (1.7-9.3); Neutrophils # 3.1 K/mm3 (1.8-7.8); Neutrophils % 75.8 % (37.0-80.0); Platelet Count 197 K/mm3 (142-424); Red Blood Count 4.73 M/mm3 (4.20-5.40); Red Cell Distribution Width 15.1 % (11.5-17.5); White Blood Count 4.1 K/mm3 (4.8-10.8)
[2023-04-23 06:34] LABS: Chloride 95 mmol/L (98-107); Potassium 4.1 mmoL/L (3.5-5.1); Sodium 129 mmol/L (136-145)
[2023-04-23 06:37] LABS: Alanine Aminotransferase 70 U/L (12-78); Albumin Level 3.2 g/dl (3.5-5.0); Alkaline Phosphatase 240 U/L (38-126); Anion Gap 14.1 mEq/L (5-15); Aspartate Amino Transferase 38 U/L (14-36); Bilirubin,Total 0.3 mg/dl (0.2-1.3); Blood Urea Nitrogen 10 mg/dl (7-17); Calcium 8.1 mg/dl (8.4-10.2); Carbon Dioxide 24 mmol/L (22.0-30.0); Creatinine Clearance Estimated 57 mL/min (50-200); Estimated Glomerular Filt Rate 71 ml/min (>60); GFR (African American) 86 ML/MIN (>60); Globulin 3.3 g/dL (1.3-3.2); Glucose 136 mg/dl (74-100); Total Protein,Serum 6.5 g/dl (6.3-8.2)
[2023-04-23 06:38] LABS: Magnesium 1.7 mg/dl (1.6-2.3)
[2023-04-23 07:35] VITALS: PULSE 86; O2SAT 95
--- NOTE | 2023-04-23 07:35 | HMH.PHAINT1 ---
Pharmacy Intervention Comments: MEDICATION RECONCILIATION COMPLETED ON PATIENT USING EXTERNAL FILL HISTORY FROM PHARMACY AND LIST FROM CARDIOLOGY OFFICE. -HALI MARTE, HEIDYD
[2023-04-23 07:41] VITALS: BP 140/80; PULSE 86; RESP 17; TEMP 36.8; O2SAT 95
[2023-04-23 07:54] LABS: Hemoglobin A1C 6.5 % (4.0-6.0)
[2023-04-23 08:14] LABS: Thyroid Stimulating Hormone 1.04 uIU/mL (0.465-4.68)
--- NOTE | 2023-04-23 08:29 | PC.NURSE ---
COURTESY TECH NOTE; ROUNDED ON PT 0740, PT DENIED NEED FOR DRINK, ASSISTANCE WITH RESTROOM, AND NEED TO REPOSITION IN BED. CALL LIGHT WITHIN REACH, NO FURTHER REQUESTS AT THIS TIME TWIN SMITH
--- NOTE | 2023-04-23 08:44 | EXP.HP ---
History of Present Illness *Admission Date: 04/23/23 *Reason for visit:: headache, confusion, abnormal eye exam *History of present illness: Ms. Bauer is a 67yo female who began having dizziness along with fatigue and chest pain around April 01. Of note, she had had approximately a 6-month history of diarrhea prior to this. She had thought it was her metformin, but after stopping it, the diarrhea continued. She did have a diarrhea panel done which was negative. She had labs done the beginning of April and her liver tests were elevated. She had these repeated on April 09 and they had improved slightly. She had a hepatitis panel which was negative. The dizziness persisted as did her fatigue. She did have a right upper quadrant ultrasound on 04/09/23 due to her elevated liver enzymes and it showed a hyperechoic hepatic mass likely representing a hemangioma. She also had an echo which showed an EF of 55 to 60% with grade 1 diastolic dysfunction. She then presented back in the office on 04/15/2023 after an ER visit for headache which had been present for 4 days. She stated it started out as a stabbing pain on the right side of her head and after being given medication in the ER, it was a dull pain but was persistent. She also complained of some exertional shortness of breath that would get better with rest and her extreme fatigue had continued. She and her were both concerned with her heart as she had felt this way before when she needed a stent. An appointment was made for with cardiology the next day and an MRI of the head was ordered due to her persistent headache. She was started on a steroid Dosepak and was given a sample of Nurtec for her migraine. She was seen by cardiology and had a heart cath, but no stents needed to be placed. 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 She states the numbers were all blurry. She had someone take her home and when her called her, he said she was not making any sense and was very confused. She laid down and took a nap and when she woke up, she was feeling better. She had no weakness or facial drooping but stated she just could not form sentences. All of this resolved after she woke up from her nap except for persistent blurry vision. Her took her to see an eye doctor yesterday and after an abnormal eye exam, they presented to the emergency room. Upon evaluation in the ER, she was found to have hyponatremia. Her head MRA and her neck CTA showed nothing acute. Her brain MRI showed symmetric T2 hyperdensities involving the caudate nuclei in the putamina. Radiology felt a differential would include osmotic demyelination syndrome, encephalitis, versus vasculitis. She was admitted for observation. This morning she is feeling better. She states she is still having some problems with her eyes and things are blurry. She is able to form sentences and does not feel confused. She is complaining of some swelling of her lips. She thinks she bit her lip at some point on Wednesday and is unsure why. She also had blisters in her mouth on Wednesday that have since resolved. She has continued with diarrhea, which has been present for the past 6 months. 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 They were also concerned with Lyme disease as she has had multiple tick bites. [facility] Disclaimer: The information contained in this section may have been updated after the patient was seen, as this information can be updated by other users. Medical History Allergies Atypical angina Colon cancer Coronary artery disease Depression Diabetes mellitus, type 2 Dizziness Dyspnea Elevated liver enzymes Fatigue History of anemia History of COVID-19 History of heart attack History of stroke Hyperten
[2023-04-23 12:04] LABS: POC Glucose,Bedside 161 (70-110)
[2023-04-23 14:35] VITALS: BMI 20.7
[2023-04-23 15:30] VITALS: BP 137/81; PULSE 85; RESP 17; TEMP 37.1; O2SAT 93
--- NOTE | 2023-04-23 16:22 | PC.NURSE ---
Pt has appeared relaxed throughout the shift. nad noted. pt left sided patient droop has persisted, but has not worsened. pt has slight weakness noted on right side of body. lungs are clear throughout. bowel sounds are active in all quads. pt is aware that stool specimen is needed if she continues to have diarrhea. pt family is at bedside. pt uses call light appropriately.
[2023-04-23 17:45] LABS: POC Glucose,Bedside 250 (70-110)
--- NOTE | 2023-04-23 18:41 | PC.NURSE ---
COURTESY TECH NOTE; ROUNDED ON PT, PT DENIED NEED FOR DRINK, ASSISTANCE WITH RESTROOM, AND NEED TO REPOSITION IN BED. CALL LIGHT WITHIN REACH, NO FURTHER REQUESTS AT THIS TIME TWIN SMITH
[2023-04-23 19:46] VITALS: BP 120/75; PULSE 79; RESP 18; TEMP 37.1; O2SAT 94
[2023-04-23 20:56] LABS: POC Glucose,Bedside 177 (70-110)
[2023-04-24 04:00] VITALS: BP 143/82; PULSE 70; RESP 16; TEMP 36.7; O2SAT 96; BMI 20.9
[2023-04-24 06:15] LABS: POC Glucose,Bedside 188 (70-110)
[2023-04-24 08:00] VITALS: BP 150/93; PULSE 73; RESP 17; TEMP 36.8; O2SAT 97
[2023-04-24 11:30] LABS: POC Glucose,Bedside 162 (70-110)
--- NOTE | 2023-04-24 12:22 | EXP.ACUTE.PN ---
Subjective *Date: 04/24/23 *Time: 12:22 Interval history: She feels considerably better. Her vision is somewhat better. She still has some difficulty finding some words though this is subtle. Her left facial droop is still present as is her strabismus but the strabismus looks improved. Medical Exam Vital signs and Labs for Last 24 Hours: Vital Signs Temp Pulse Resp BP Pulse Ox 04/24/23 08:00 97 04/24/23 08:00 98.3 F 73 17 150/93 H 97 04/24/23 04:00 98.1 F 70 16 143/82 H 96 04/23/23 19:46 98.8 F 79 18 120/75 94 L 04/23/23 15:30 98.8 F 85 17 137/81 93 L Intake and Output 04/24/23 04/24/23 04/24/23 03:59 11:59 19:59 Intake Total 792 / 1272 240 / 240 Output Total 0 / 0 0 / 0 Balance 0 / 1272 792 / 1272 240 / 240 Intake: Intake, Oral Amount 240 / 720 240 / 240 Intake, Total IV Amount 552 / 552 0.9 % Sodium Chloride 1000ML 1, 552 / 552 000 ml @ 75 mls/hr IV .[id number] [facility] Rx#:[id number] Output: Output, Urine Amount 0 / 0 0 / 0 Other: Number of Unmeasured Voids 1 1 Number of Bowel Movements 1 Weight 130 lb 6.4 oz Laboratory Results - last 24 hr 04/23/23 17:29: POC Glucose 250 H 04/23/23 20:34: POC Glucose 177 H 04/24/23 06:07: POC Glucose 188 H 04/24/23 11:20: POC Glucose 162 H I & O for Labs for Last 24 Hours: Intake & Output 04/22/23 04/23/23 04/24/23 04/25/23 11:59 11:59 11:59 11:59 Intake Total 240 / 240 1272 / 1272 240 / 240 Output Total 400 / 400 0 / 0 Balance -160 / -160 1272 / 1272 240 / 240 Weight 151 lb 2 oz 130 lb 6.4 oz Constitutional: Present no acute distress Head: Present normocephalic Eyes: Present change in vision; Absent eye pain ENT: Absent normal exam (Left nasolabial droop) Neck: Present normal inspection Respiratory: Present CTA bilaterally Cardiac: Present Reg Rate and Rhythm GI: Present soft; Absent tenderness Rectal (female): Present deferred (female): Present deferred Extremities: Absent edema Skin: Present intact Neuro: Present Motor Function Intact, Sensory Function Intact, alert, oriented x 3 and moves all extremities; Absent Cranial Nerve 2-12 Intact (OS strabismus, somewhat improved. Drooping of the left nasolabial fold) or Essential Tremor Assessment and Plan *Assessment and plan (1) Facial asymmetry: Status: Acute Category: Medical Code(s): Q67.0 - Congenital facial asymmetry (2) Strabismic amblyopia, left eye: Status: Acute Category: Medical Code(s): H53.032 - Strabismic amblyopia, left eye (3) Abnormal brain MRI: Status: Acute Category: Medical Code(s): R90.89 - Other abnormal findings on diagnostic imaging of central nervous system (4) Hypertension: Status: Chronic Qualifiers: Hypertension type: primary hypertension Qualified Code(s): I10 - Essential (primary) hypertension Category: Medical Code(s): I10 - Essential (primary) hypertension (5) Diabetes mellitus, type 2: Status: Acute Qualifiers: Diabetes mellitus termite helper insulin use: without senior living use Diabetes mellitus complication status: without complication Qualified Code(s): E11.9 - Type 2 diabetes mellitus without complications Category: Medical Code(s): E11.9 - Type 2 diabetes mellitus without complications (6) History of coronary artery stent placement: Status: Acute Category: Surgical Code(s): Z95.5 - Presence of coronary angioplasty implant and graft (7) Acute hyponatremia: Status: Acute Category: Medical Code(s): E87.1 - Hypo-osmolality and hyponatremia (8) Vasculitis: Status: Acute Category: Medical Code(s): I77.6 - Arteritis, unspecified Plan Continue steroids. Saline lock IV. Likely I will have her here through the weekend receiving IV steroids. Wednesday we need to make arrangements for evaluation by neurology.
[2023-04-24 13:03] LABS: Chloride 96 mmol/L (98-107)
[2023-04-24 13:04] LABS: Potassium 4.5 mmoL/L (3.5-5.1); Sodium 132 mmol/L (136-145)
[2023-04-24 13:06] LABS: Alanine Aminotransferase 63 U/L (12-78); Aspartate Amino Transferase 38 U/L (14-36); Blood Urea Nitrogen 17 mg/dl (7-17); Creatinine Clearance Estimated 50 mL/min (50-200); Estimated Glomerular Filt Rate 71 ml/min (>60); GFR (African American) 86 ML/MIN (>60)
[2023-04-24 13:07] LABS: Albumin Level 3.7 g/dl (3.5-5.0); Alkaline Phosphatase 234 U/L (38-126); Anion Gap 15.5 mEq/L (5-15); Bilirubin,Total 0.3 mg/dl (0.2-1.3); Calcium 8.7 mg/dl (8.4-10.2); Carbon Dioxide 25 mmol/L (22.0-30.0); Globulin 3.6 g/dL (1.3-3.2); Glucose 155 mg/dl (74-100); Total Protein,Serum 7.3 g/dl (6.3-8.2)
--- NOTE | 2023-04-24 13:32 | PC.NURSE ---
Report given to Elliott Sanches RN who assumes care of patient at this time.
[2023-04-24 15:23] VITALS: BP 123/78; PULSE 70; RESP 17; TEMP 36.5; O2SAT 95
[2023-04-24 17:00] LABS: POC Glucose,Bedside 210 (70-110)
--- NOTE | 2023-04-24 18:21 | PC.NURSE ---
no issues since receiving report on pt. pt independent ambulating, no weakness noted. rt sided facial drooping and pt states shes still having diplopia. pt has no questions or concerns at this time. and son at bs.
[2023-04-24 19:23] VITALS: BP 141/86; PULSE 71; RESP 16; TEMP 37.2; O2SAT 95
[2023-04-24 19:35] LABS: Lyme Ab CIA Positive (Negative); Lyme Ab IgM CIA Positive (Negative); Lyme IgG CIA Positive (Negative)
[2023-04-24 21:25] LABS: POC Glucose,Bedside 168 (70-110)
[2023-04-25 03:53] VITALS: BP 145/86; PULSE 72; RESP 16; TEMP 37; O2SAT 94; BMI 21.1
[2023-04-25 06:45] LABS: POC Glucose,Bedside 160 (70-110)
[2023-04-25 07:48] VITALS: BP 128/91; PULSE 67; RESP 17; TEMP 36.9; O2SAT 98
[2023-04-25 08:24] LABS: Chloride 93 mmol/L (98-107); Potassium 4.1 mmoL/L (3.5-5.1); Sodium 132 mmol/L (136-145)
[2023-04-25 08:27] LABS: Anion Gap 15.1 mEq/L (5-15); Blood Urea Nitrogen 17 mg/dl (7-17); Calcium 8.7 mg/dl (8.4-10.2); Carbon Dioxide 28 mmol/L (22.0-30.0); Creatinine Clearance Estimated 50 mL/min (50-200); Estimated Glomerular Filt Rate 71 ml/min (>60); GFR (African American) 86 ML/MIN (>60); Glucose 134 mg/dl (74-100)
--- NOTE | 2023-04-25 09:53 | EXP.ACUTE.PN ---
Subjective *Date: 04/25/23 *Time: 09:53 Interval history: She feels worse this morning. Her feels that she is not doing as well. She seems to be having more speech difficulty. Her vision is still an issue and causes her difficulty and moving about. Her sodium is improved at 132 but still low. Her states that if she went home she would probably be back this evening. I am reluctant to send her home with her feeling worse. I am hoping that we can discharge her in the morning and get her over to neurology to see Dr. Santana. Medical Exam Vital signs and Labs for Last 24 Hours: Vital Signs Temp Pulse Resp BP Pulse Ox 04/25/23 07:48 98.5 F 67 17 128/91 H 98 04/25/23 03:53 98.6 F 72 16 145/86 H 94 L 04/24/23 19:23 98.9 F 71 16 141/86 H 95 04/24/23 15:23 97.7 F 70 17 123/78 95 Intake and Output 04/24/23 04/25/23 04/25/23 19:59 03:59 11:59 Intake Total 480 / 720 240 / 720 Output Total 0 / 0 0 / 0 0 / 0 Balance 480 / 720 0 / 720 240 / 720 Intake: Intake, Oral Amount 480 / 720 240 / 720 Output: Output, Urine Amount 0 / 0 0 / 0 0 / 0 Other: Number of Unmeasured Voids 1 1 1 Weight 131 lb 6.4 oz Patient Weight 04/25/23 11:59 Weight 131 lb 6.4 oz Laboratory Results - last 24 hr 04/23/23 05:53: Lyme Disease Antibody Positive, Lyme Disease IgG Ab Positive, Lyme Disease IgM Ab Positive, Lyme Ab Interpretation Comment A 04/24/23 11:20: POC Glucose 162 H 04/24/23 12:38: Sodium 132 L, Potassium 4.5, Chloride 96 L, Carbon Dioxide 25, Anion Gap 15.5 H, BUN 17 D, Creatinine 0.80, Estimated Creat Clear 50, Estimated GFR 71, Est GFR ( Amer) 86, Glucose 155 H, Calcium 8.7, Total Bilirubin 0.3, AST 38 H, ALT 63, Alkaline Phosphatase 234 H, Total Protein 7.3, Albumin 3.7 D, Globulin 3.6 H, Albumin/Globulin Ratio 1.0 L 04/24/23 16:46: POC Glucose 210 H 04/24/23 21:12: POC Glucose 168 H 04/25/23 06:16: POC Glucose 160 H 04/25/23 07:40: Sodium 132 L, Potassium 4.1, Chloride 93 L, Carbon Dioxide 28, Anion Gap 15.1 H, BUN 17, Creatinine 0.80, Estimated Creat Clear 50, Estimated GFR 71, Est GFR ( Amer) 86, Glucose 134 H, Calcium 8.7 I & O for Labs for Last 24 Hours: Intake & Output 04/22/23 04/23/23 04/24/23 04/25/23 11:59 11:59 11:59 11:59 Intake Total 240 / 240 1272 / 1272 720 / 720 Output Total 400 / 400 0 / 0 0 / 0 Balance -160 / -160 1272 / 1272 720 / 720 Weight 151 lb 2 oz 130 lb 6.4 oz 131 lb 6.4 oz Head: Present normocephalic Neck: Present normal inspection Respiratory: Present CTA bilaterally Cardiac: Present Reg Rate and Rhythm GI: Present soft; Absent tenderness Rectal (female): Present deferred (female): Present deferred Extremities: Absent edema Skin: Present intact Neuro: Present Cranial Nerve 2-12 Intact (Strabismus of the left eye.), Other (She speaks slowly and carefully), alert and oriented x 3 Assessment and Plan *Assessment and plan (1) Vasculitis: Status: Acute Category: Medical Code(s): I77.6 - Arteritis, unspecified (2) Facial asymmetry: Status: Acute Category: Medical Code(s): Q67.0 - Congenital facial asymmetry (3) Strabismic amblyopia, left eye: Status: Acute Category: Medical Code(s): H53.032 - Strabismic amblyopia, left eye (4) Abnormal brain MRI: Status: Acute Category: Medical Code(s): R90.89 - Other abnormal findings on diagnostic imaging of central nervous system (5) Aphasia: Status: Acute Category: Medical Code(s): R47.01 - Aphasia (6) Acute hyponatremia: Status: Acute Category: Medical Code(s): E87.1 - Hypo-osmolality and hyponatremia Plan Continuing IV steroids and observation. Assistance with movement and activities of daily living. Plan discharge tomorrow for neurologic evaluation.
[2023-04-25 11:14] LABS: POC Glucose,Bedside 159 (70-110)
[2023-04-25 15:33] VITALS: BP 119/78; PULSE 73; RESP 18; TEMP 36.5; O2SAT 94
--- NOTE | 2023-04-25 15:37 | PC.NURSE ---
Pt. requesting enema. Dr. Arriaga paged for order.
[2023-04-25 19:44] VITALS: BP 155/89; PULSE 65; RESP 18; TEMP 36.9; O2SAT 94
[2023-04-25 21:10] LABS: POC Glucose,Bedside 104 (70-110)
[2023-04-26 04:00] VITALS: BP 119/72; PULSE 67; RESP 16; TEMP 36.8; O2SAT 97; BMI 21.7
[2023-04-26 06:42] LABS: POC Glucose,Bedside 153 (70-110)
--- NOTE | 2023-04-26 07:51 | EXP.ACUTE.PN ---
Subjective *Date: 04/26/23 *Time: 07:51 Interval history: is with her. They both state that she slept well last night. She was able to eat some breakfast. She has difficulty with chewing her food and fine she pockets on the left. She is sitting in a recliner in the sun by the window. She actually made her own bed this AM. Her feels she is much better and able to ambulate with less difficulty. She is voiding QS. She denies headache, chest pain or shortness of breath. She does have some periodic nausea and vomiting. Her big concern is her bowels. She states they have not moved since she has been here. She is passing gas. She is receiving daily MiraLAX. Vision is still an issue with seeing triple and double. Medical Exam Vital signs and Labs for Last 24 Hours: Vital Signs Temp Pulse Resp BP Pulse Ox 04/26/23 04:00 98.3 F 67 16 119/72 97 04/25/23 19:44 98.4 F 65 18 155/89 H 94 L 04/25/23 15:33 97.7 F 73 18 119/78 94 L Intake and Output 04/25/23 04/26/23 04/26/23 19:59 03:59 11:59 Intake Total 0 / 0 240 / 240 Output Total 0 / 0 0 / 0 0 / 0 Balance 0 / 0 240 / 240 0 / 240 Intake: Intake, Oral Amount 0 / 0 240 / 240 Output: Output, Urine Amount 0 / 0 0 / 0 0 / 0 Other: Number of Unmeasured Voids 1 1 1 Number of Bowel Movements 1 Weight 134 lb 12.8 oz Patient Weight 04/26/23 11:59 Weight 134 lb 12.8 oz Laboratory Results - last 24 hr 04/25/23 07:40: Sodium 132 L, Potassium 4.1, Chloride 93 L, Carbon Dioxide 28, Anion Gap 15.1 H, BUN 17, Creatinine 0.80, Estimated Creat Clear 50, Estimated GFR 71, Est GFR ( Amer) 86, Glucose 134 H, Calcium 8.7 04/25/23 11:04: POC Glucose 159 H 04/25/23 21:02: POC Glucose 104 04/26/23 06:34: POC Glucose 153 H I & O for Labs for Last 24 Hours: Intake & Output 04/23/23 04/24/23 04/25/2326/23 11:59 11:59 11:59 11:59 Intake Total 240 / 240 1272 / 1272 720 / 720 240 / 240 Output Total 400 / 400 0 / 0 0 / 0 0 / 0 Balance -160 / -160 1272 / 1272 720 / 720 240 / 240 Weight 151 lb 2 oz 130 lb 6.4 oz 131 lb 6.4 oz 134 lb 12.8 oz Constitutional: Present no acute distress Comment:: Conversant. Difficulty with pronunciation of words. Head: Present atraumatic, normocephalic and other Eyes: Present change in vision Respiratory: Present CTA bilaterally (Anteriorly and posteriorly) Cardiac: Present Reg Rate and Rhythm GI: Present soft and normal bowel sounds; Absent distention, tenderness or guarding Extremities: Present full ROM; Absent tenderness or edema Neuro: Present Coordination Normal, alert, oriented x 3 and moves all extremities; Absent Cranial Nerve 2-12 Intact (Facial asymmetry) Comment:: Cognition and memory intact Assessment and Plan *Assessment and plan (1) Vasculitis: Status: Acute Category: Medical Code(s): I77.6 - Arteritis, unspecified (2) Facial asymmetry: Status: Acute Category: Medical Code(s): Q67.0 - Congenital facial asymmetry (3) Strabismic amblyopia, left eye: Status: Acute Category: Medical Code(s): H53.032 - Strabismic amblyopia, left eye (4) Abnormal brain MRI: Status: Acute Category: Medical Code(s): R90.89 - Other abnormal findings on diagnostic imaging of central nervous system (5) Aphasia: Status: Acute Category: Medical Code(s): R47.01 - Aphasia (6) Acute hyponatremia: Status: Acute Category: Medical Code(s): E87.1 - Hypo-osmolality and hyponatremia (7) Constipation: Status: Acute Category: Medical Code(s): K59.00 - Constipation, unspecified Plan Plan is for patient to see neurology today. Both patient and are adamant about seeing Dr. Santana today or another neurologist. Continue with steroids. Continue with MiraLAX for constipation.
[2023-04-26 07:59] VITALS: BP 139/80; PULSE 71; RESP 18; TEMP 36.7; O2SAT 98
[2023-04-26 12:05] LABS: POC Glucose,Bedside 190 (70-110)
--- NOTE | 2023-04-26 23:39 | EXP.DC.SUM ---
General Admission date:: 04/22/23 Discharge date: 04/26/23 HPI HPI HPI: Ms. Bauer is a 67yo female who began having dizziness along with fatigue and chest pain around April 01. Of note, she had had approximately a 6-month history of diarrhea prior to this. She had thought it was her metformin, but after stopping it, the diarrhea continued. She did have a diarrhea panel done which was negative. She had labs done the beginning of April and her liver tests were elevated. She had these repeated on April 09 and they had improved slightly. She had a hepatitis panel which was negative. The dizziness persisted as did her fatigue. She did have a right upper quadrant ultrasound on 04/09/23 due to her elevated liver enzymes and it showed a hyperechoic hepatic mass likely representing a hemangioma. She also had an echo which showed an EF of 55 to 60% with grade 1 diastolic dysfunction. She then presented back in the office on 04/15/2023 after an ER visit for headache which had been present for 4 days. She stated it started out as a stabbing pain on the right side of her head and after being given medication in the ER, it was a dull pain but was persistent. She also complained of some exertional shortness of breath that would get better with rest and her extreme fatigue had continued. She and her were both concerned with her heart as she had felt this way before when she needed a stent. An appointment was made for with cardiology the next day and an MRI of the head was ordered due to her persistent headache. She was started on a steroid Dosepak and was given a sample of Nurtec for her migraine. She was seen by cardiology and had a heart cath, but no stents needed to be placed. On Wednesday of this week, her stated she was trying to work at his [employer] and, while reading numbers on a paper, became very fatigued. She states the numbers were all blurry. She had someone take her home and when her called her, he said she was not making any sense and was very confused. She laid down and took a nap and when she woke up, she was feeling better. She had no weakness or facial drooping but stated she just could not form sentences. All of this resolved after she woke up from her nap except for persistent blurry vision. Her took her to see an eye doctor yesterday and after an abnormal eye exam, they presented to the emergency room. Upon evaluation in the ER, she was found to have hyponatremia. Her head MRA and her neck CTA showed nothing acute. Her brain MRI showed symmetric T2 hyperdensities involving the caudate nuclei in the putamina. Radiology felt a differential would include osmotic demyelination syndrome, encephalitis, versus vasculitis. She was admitted for observation. This morning she is feeling better. She states she is still having some problems with her eyes and things are blurry. She is able to form sentences and does not feel confused. She is complaining of some swelling of her lips. She thinks she bit her lip at some point on Wednesday and is unsure why. She also had blisters in her mouth on Wednesday that have since resolved. She has continued with diarrhea, which has been present for the past 6 months. 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 They were also concerned with Lyme disease as she has had multiple tick bites. Hospital Course Hospital Course Hospital Course: Dr. Quezada was initially concerned with giant cell arteritis. He ordered Solu-Medrol and felt neurology would likely need to be involved. Her sodium did improve slightly. By 04/24/2023, she felt considerably better. Her vision had improved. She did have some difficulty finding words though it was subtle. Her left facial droop was still present as was her strabismus. By 04/25/2023 she began feeling worse. She was having more speech difficulty and her vision was causing her difficulty m
--- NOTE | 2023-04-28 12:59 | CARE MANAGER ---
Spoke with patient's as patient is currently admitted to the hospital in [place] being treated for Lyme Disease.
== END 2023-04-26 10:25 | disposition home or self-care (01) | DRG 546 ==
LOC: ER 14:39 → 2ND 16:33
PROVIDERS: Physician Assistant; Admitting Provider Family Medicine; Emergency Provider Emergency Medicine; PCP Family Medicine; Visit Provider Family Medicine
DX: I77.6 Arteritis, unspecified (principal); E87.1 Hypo-osmolality and hyponatremia; I25.2 Old myocardial infarction; Z95.5 Presence of coronary angioplasty implant and graft; Z86.16 Personal history of COVID-19; I10 Essential (primary) hypertension; E78.00 Pure hypercholesterolemia, unspecified; H53.8 Other visual disturbances; R42 Dizziness and giddiness; H53.032 Strabismic amblyopia, left eye; R51.9 Headache, unspecified; Q67.0 Congenital facial asymmetry; G47.33 Obstructive sleep apnea (adult) (pediatric); R74.01 Elevation of levels of liver transaminase levels; I25.10 Atherosclerotic heart disease of native coronary artery without angina pectoris; E11.9 Type 2 diabetes mellitus without complications; K59.00 Constipation, unspecified; Z79.4 Long term (current) use of insulin
CPT/HCPCS: 36415; 70450; 70498; 70544; 70553; 71046; 80048; 80053; 81001; 82962; 83036; 83735; 83880; 84100; 84436; 84443; 84484; 85025; 85651; 86140; 86618; 87636; 93005; 93458; 99152; 99285; A9576; C1725; C1769; C9803; J1644; Q9967; U0003; U0005

== ENCOUNTER → 2023-09-24 08:16 | Outpatient (CLI) | payer MEDICARE, SELFPAY ==
--- NOTE | 2023-09-24 08:19 | XR_ITS ---
FINAL REPORT CLINICAL HISTORY: POST MENOPAUSAL COMPARISON: 09/14/2022 FINDINGS: Using L1-4, the bone mineral density of the spine is 1.078 g/cm2, corresponding to T-score of 0.3, within normal limits but likely falsely elevated secondary to hypertrophic changes. Previously 1.053 g/cm? with T-score of 0.1. Using the left hip, the bone mineral density of the femoral neck is 0.608 g/cm2, corresponding to a T-score of -2.2, consistent with low bone density. Previously 0.618 g/cm? with a T-score of -2.1. Using the right hip, the bone mineral density of the femoral neck is 0.646 g/cm2, corresponding to a T-score of -1.8, consistent with low bone density. Previously 0.600 g/cm? with T-score of -2.2. FRAX 10 year fracture risk is 8.0% for a hip fracture and 24% for a major osteoporotic fracture. NOTE: T-score: Standard deviation compared with peak bone mass of young adult mean. *Following the recommendations of the International Society of Bone densitometry, classification of hip BMD is based on the lower of two T-scores; total hip or femoral neck. IMPRESSION: Diminished bone mineral density consistent with low bone density. Reviewed, Interpreted and Dictated by Yifan Brewer III, MD Transcribed by Liya Quiroz Authenticated and . [facility]
--- NOTE | 2023-09-24 08:20 | MM_ITS ---
PROCEDURE INFORMATION: Exam: MG Bilateral Screening 3D Mammography Exam date and time: 09/24/2023 8:21 AM Age: 67 years old Clinical indication: Screening examination TECHNIQUE: Imaging protocol: Bilateral Screening tomosynthesis and 2D mammography including computer-aided detection (CAD) when performed. COMPARISON: MG SCBI MM Dig screening mamm BI w/CAD 02/23/2019 1:19 PM FINDINGS: MAMMOGRAPHY: Breast composition: There are scattered areas of fibroglandular density. Mass: Questionable 1.3 cm mass in the immediate left retroareolar region Architectural distortion: None. Calcifications: No suspicious calcifications. Asymmetric density: None. Skin thickening: None. Axillary adenopathy: None. IMPRESSION: Patient to be recalled for spot compression views of the left breast in the CC and MLO projections, a full 90 degree lateral view, and left breast ultrasound for further evaluation of a left breast mass. ASSESSMENT: BI-RADS Category 0: Incomplete- Need Additional Imaging Evaluation and/or Prior Mammograms for Comparison
== END ==
PROVIDERS: PCP Family Medicine; Visit Provider Family Medicine
DX: Z12.31 Encounter for screening mammogram for malignant neoplasm of breast; Z13.820 Encounter for screening for osteoporosis; Z78.0 Asymptomatic menopausal state
CPT/HCPCS: 77063; 77067; 77080

== ENCOUNTER → 2023-10-12 13:52 | Outpatient (CLI) | payer MEDICARE, SELFPAY ==
--- NOTE | 2023-10-12 13:59 | US_ITS ---
PROCEDURE INFORMATION: Exam: US Left Breast, Complete MG Left Diagnostic Breast Tomosynthesis Exam date and time: 10/12/2023 2:52 PM Age: 67 years old Clinical indication: Patient recalled on the basis of a screening mammogram for further evaluation; Left breast; mass TECHNIQUE: Imaging protocol: Complete ultrasound of all four quadrants of the left breast and the retroareolar regions, including ultrasound of the axilla when performed. Left Diagnostic tomosynthesis and 2D mammography including computer-aided detection (CAD) when performed. Unilateral or bilateral exam. COMPARISON: MG MM DIG MAMM DX UNILAT LT CAD 10/12/2023 1:59 PM FINDINGS: MAMMOGRAPHY: Digital diagnostic spot compression views of the left breast and 90 degree lateral view of the left breast does not demonstrate any definitive mass or focal asymmetry. Dense nonspecific somewhat nodular breast tissue is noted ULTRASOUND: Sonographic images of the left breast including the retroareolar region, all 4 quadrants and the axilla do not demonstrate any solid masses. This is with particular attention to the retroareolar region. Incidental 0.5 cm cyst in the upper outer quadrant. No architectural distortion or acoustical shadowing. No skin thickening or axillary adenopathy. IMPRESSION: Nonspecific dense somewhat nodular parenchyma in the immediate left retroareolar region. A precautionary six-month follow-up diagnostic left mammogram is recommended to ensure stability of the pattern identified ASSESSMENT: BI-RADS Category 3: Probably benign
== END ==
PROVIDERS: PCP Family Medicine; Visit Provider Physician Assistant
DX: R92.8 Other abnormal and inconclusive findings on diagnostic imaging of breast (principal)
CPT/HCPCS: 76641; 77061; 77065; G0279

== ENCOUNTER 2024-04-07 10:22 | Outpatient (CLI) | payer MEDICARE, SELFPAY ==
--- NOTE | 2024-04-07 10:29 | MM_ITS ---
PROCEDURE INFORMATION: Exam: MG Left Diagnostic Breast Tomosynthesis Exam date and time: 04/07/2024 10:28 AM Age: 68 years old Clinical indication: Short-term radiographic followup; Left breast; nodularity TECHNIQUE: Imaging protocol: Left Diagnostic tomosynthesis and 2D mammography including computer-aided detection (CAD) when performed. Unilateral or bilateral exam. COMPARISON: 1. MG MM DIG MAMM DX UNILAT LT CAD 10/12/2023 1:59 PM 2. MG MM DIG SCREENING MAMM BI W/CAD 09/24/2023 8:21 AM FINDINGS: MAMMOGRAPHY: Breast composition: There are scattered areas of fibroglandular density. Breast mammogram findings: There is no stellate mass, architectural distortion or suspicious microcalcifications to suggest malignancy. No significant persistent nodular parenchyma in the retroareolar region. No skin thickening or axillary adenopathy. IMPRESSION: No mammographic evidence of malignancy. Annual bilateral mammographic screening is recommended in September 2024 unless otherwise clinically indicated. ASSESSMENT: BI-RADS Category 1: Negative
== END 2024-04-07 23:59 | disposition home or self-care (01) ==
LOC: RAD 10:22
PROVIDERS: PCP Physician Assistant; Visit Provider Physician Assistant
DX: R92.8 Other abnormal and inconclusive findings on diagnostic imaging of breast (principal)
CPT/HCPCS: 77061; 77065; G0279

== ENCOUNTER 2024-10-30 07:52 | Outpatient (CLI) | payer MEDICARE, SELFPAY ==
[2024-10-30 07:59] LABS: MANUAL DIFFERENTIAL MANUAL DIFFERENTIAL (MANUAL DIFF)
--- NOTE | 2024-10-30 08:06 | MR_ITS ---
FINAL REPORT TECHNIQUE: Multiplanar and multisequence imaging of the brain was obtained before and after contrast injection. 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 There are stable foci of periventricular and subcortical white matter when compared to the prior exam. There is abnormal T2 signal in the basal ganglia and ricardo, also unchanged when compared to the prior exam. No hydrocephalus. The cerebellum and brainstem have a normal appearance. There are no areas of restricted diffusion on diffusion weighted images to suggest acute infarct. Soft tissues are without acute abnormality. Post contrast images reveal no pathologic contrast enhancement. IMPRESSION: No acute intracranial abnormalities are identified, and no abnormal contrast-enhancement is present. The overall appearance is stable when compared to the prior exam of 11/03/2021 Reviewed, Interpreted and Dictated by Dixie Lopez MD Transcribed by Rola Vargas Authenticated and . [facility]
[2024-10-30 08:17] LABS: Hematocrit 40.5 % (37.0-47.0); Hemoglobin 13.6 g/dL (12.2-16.2); Lymphocytes # 1.2 K/mm3 (0.7-4.5); Lymphocytes % 41.1 % (10-50); Mean Corpuscular HGB Conc 33.6 g/dL (31.8-35.4); Mean Corpuscular Volume 86.4 fl (81-99); Mean Platelet Volume 9.3 fl (7.4-10.4); Monocytes # 0.4 K/mm3 (0.1-1.0); Monocytes % 14.3 % (1.7-9.3); Neutrophils # 0.9 K/mm3 (1.8-7.8); Neutrophils % 32.8 % (37.0-80.0); Platelet Count 117 K/mm3 (142-424); Red Blood Count 4.69 M/mm3 (4.20-5.40); Red Cell Distribution Width 14.5 % (11.5-17.5); White Blood Count 2.9 K/mm3 (4.8-10.8)
[2024-10-30 08:26] LABS: Chloride 101 mmol/L (98-107)
[2024-10-30 08:27] LABS: Albumin Level 4.1 g/dl (3.5-5.0); Potassium 3.7 mmoL/L (3.5-5.1); Sodium 136 mmol/L (136-145)
[2024-10-30 08:29] LABS: Blood Urea Nitrogen 22 mg/dl (7-17); Estimated Glomerular Filt Rate 55 ml/min (>60); GFR (African American) 66 ML/MIN (>60)
[2024-10-30 08:30] LABS: Alanine Aminotransferase 27 U/L (12-78); Albumin/Globulin Ratio 1.8 (1.1-1.8); Alkaline Phosphatase 51 U/L (38-126); Anion Gap 12.7 mEq/L (5-15); Aspartate Amino Transferase 39 U/L (14-36); Bilirubin,Total 0.5 mg/dl (0.2-1.3); Calcium 8.9 mg/dl (8.4-10.2); Carbon Dioxide 26 mmol/L (22.0-30.0); Globulin 2.3 g/dL (1.3-3.2); Glucose 214 mg/dl (74-100); Total Protein,Serum 6.4 g/dl (6.3-8.2)
[2024-10-30] MEDS: GADOTERIDOL INJ 20ML SYRINGE 14 ML IV (09:01)
[2024-10-30] MEDS: SODIUM CHLORIDE 0.9% 10ML SYR (RAD ONLY) 10 ML IV (09:01)
[2024-10-30 09:58] LABS: Vitamin B12 953 pg/mL (239-931)
[2024-10-30 10:48] LABS: Lymphocytes % 58 % (10-50); Monocytes % 4 % (2-9); Neutrophils % 38 % (42-76); Total Cells Counted 50
[2024-10-30 10:49] LABS: Platelet Estimate Slight Decrease; RBC Morphology Normal
[2024-10-31 13:12] LABS: Antinuclear Antibodies (ANA) Negative (Negative)
[2024-11-02 16:33] LABS: IgG P18 Ab. Absent (.); IgG P23 Ab. Absent (.); IgG P28 Ab. Absent (.); IgG P30 Ab. Absent (.); IgG P39 Ab. Present (.); IgG P41 Ab. Present (.); IgG P45 Ab. Present (.); IgG P58 Ab. Present (.); IgG P66 Ab. Absent (.); IgG P93 Ab. Absent (.); IgM P23 Ab. Absent (.); IgM P39 Ab. Absent (.); IgM P41 Ab. Absent (.); Lyme IgG WB Interp. Negative (.); Lyme IgM WB Interp. Negative (.)
== END 2024-10-30 23:59 | disposition home or self-care (01) ==
PROVIDERS: PCP Family Medicine; Visit Provider Specialist
DX: G31.84 Mild cognitive impairment of uncertain or unknown etiology (principal); G47.30 Sleep apnea, unspecified; G51.0 Bell's palsy; R76.8 Other specified abnormal immunological findings in serum; H53.8 Other visual disturbances; R53.83 Other fatigue; E11.9 Type 2 diabetes mellitus without complications; I10 Essential (primary) hypertension
CPT/HCPCS: 36415; 70553; 80053; 82607; 82746; 84443; 85007; 85014; 85018; 85048; 85049; 86038; 86617; A9576

== ENCOUNTER 2024-11-16 16:12 | Outpatient (CLI) | payer MEDICARE, SELFPAY ==
[2024-11-16 16:33] LABS: Basophils % 0.3 % (0.1-2.0); Eosinophils % 0.9 % (0.1-12.0); Hematocrit 41.8 % (37.0-47.0); Hemoglobin 13.8 g/dL (12.2-16.2); Lymphocytes % 30.7 % (10-50); Mean Corpuscular Hemoglobin 28.4 pg (27.0-31.2); Mean Platelet Volume 9.5 fl (7.4-10.4); Monocytes # 0.3 K/mm3 (0.1-1.0); Monocytes % 9.8 % (1.7-9.3); Neutrophils # 1.4 K/mm3 (1.8-7.8); Neutrophils % 42.8 % (37.0-80.0); Platelet Count 122 K/mm3 (142-424); Red Blood Count 4.86 M/mm3 (4.20-5.40); Red Cell Distribution Width 14.2 % (11.5-17.5); White Blood Count 3.2 K/mm3 (4.8-10.8)
== END 2024-11-16 23:59 | disposition home or self-care (01) ==
LOC: LAB 16:13
PROVIDERS: PCP Family Medicine; Visit Provider Internal Medicine Medical Oncology
DX: D69.6 Thrombocytopenia, unspecified (principal)
CPT/HCPCS: 85025

== ENCOUNTER 2024-11-24 06:26 | Outpatient (CLI) | payer MEDICARE, SELFPAY | END 2024-11-24 23:59 | disposition home or self-care (01) | LOC: LAB 06:27 | PROVIDERS: PCP Specialist; Visit Provider Specialist | DX: G47.30 Sleep apnea, unspecified (principal); G31.84 Mild cognitive impairment of uncertain or unknown etiology; G51.0 Bell's palsy; I10 Essential (primary) hypertension; H53.8 Other visual disturbances; R53.83 Other fatigue ==

== ENCOUNTER → 2024-11-27 07:24 | Outpatient (CLI) | payer MEDICARE, SELFPAY | LOC: SL 07:24 | PROVIDERS: PCP Specialist; Visit Provider Specialist | DX: G47.30 Sleep apnea, unspecified (principal); G51.0 Bell's palsy; R53.83 Other fatigue; H53.8 Other visual disturbances; G31.84 Mild cognitive impairment of uncertain or unknown etiology; I10 Essential (primary) hypertension | CPT/HCPCS: G0399 ==

== ENCOUNTER 2024-11-29 08:17 | Observation (INO) | payer MEDICARE, SELFPAY ==
[2024-11-29] VITALS (9 sets, daily range): BP systolic 106–120; BP diastolic 54–80; PULSE 70–90; RESP 16–18; TEMP 36.5–36.9; O2SAT 94–99; BMI 25.0; BMI 23.1
--- NOTE | 2024-11-29 08:25 | ECG_ITS ---
APPROVED REPORT Exam: Resting ECG HR:80 bpm ECG Measurements Heart Rate 80 AXES DE 170 P 75 QRSd 97 QRS -51 QT 399 T 63 QTc 435 Conclusion SINUS RHYTHM LEFT AXIS DEVIATION [QRS AXIS < -30] ABNORMAL ECG UNCONFIRMED REPORT Electronically signed by : Mindy Hernandez, 12/01/2024 07:10:01
[2024-11-29 08:36] LABS: Coronavirus 19, PCR Not Detected (NotDetected); Influenza B, PCR Not Detected (NotDetected)
--- NOTE | 2024-11-29 08:37 | PC.NURSE ---
dr sow at bedside
--- NOTE | 2024-11-29 08:44 | XR_ITS ---
FINAL REPORT CLINICAL HISTORY: SOA COMPARISON: 04/19/2023 FINDINGS: SINGLE VIEW CHEST The heart is normal in size. The mediastinum is unremarkable. The lungs are clear. There is no pneumothorax. There is thoracic scoliosis convex to the left and secondary thoracolumbar curvature convex to the right. IMPRESSION: No acute process. Reviewed, Interpreted and Dictated by Clifton Yepez MD Transcribed by Kristine Enriquez Authenticated and [facility]
--- NOTE | 2024-11-29 08:44 | PC.NURSE ---
pt given warm blanket for comfort. at bedside. Call-light within reach for pt.
--- NOTE | 2024-11-29 08:47 | PC.NURSE ---
XR AT BEDSIDE
[2024-11-29] MEDS: RINGERS SOLUTION,LACTATED 500 ML 999 ML IV (08:50)
[2024-11-29 08:54] LABS: Eosinophils % 0.5 % (0.1-12.0); Hematocrit 39.8 % (37.0-47.0); Hemoglobin 13.8 g/dL (12.2-16.2); Lymphocytes # 0.9 K/mm3 (0.7-4.5); Lymphocytes % 46.8 % (10-50); Mean Corpuscular HGB Conc 34.7 g/dL (31.8-35.4); Mean Corpuscular Hemoglobin 28.6 pg (27.0-31.2); Mean Corpuscular Volume 82.4 fl (81-99); Mean Platelet Volume 9.8 fl (7.4-10.4); Monocytes # 0.4 K/mm3 (0.1-1.0); Neutrophils # 0.6 K/mm3 (1.8-7.8); Neutrophils % 31.2 % (37.0-80.0); Platelet Count 67 K/mm3 (142-424); Red Blood Count 4.83 M/mm3 (4.20-5.40); Red Cell Distribution Width 13.6 % (11.5-17.5); White Blood Count 1.9 K/mm3 (4.8-10.8)
--- NOTE | 2024-11-29 08:56 | HMH.EDGENADL ---
Discharge Plan Disposition Patient Disposition: Admitted Condition: Fair Prescriptions Prescriptions: No Action amlodipine 2.5 mg tablet 2.5 mg PO DAILY thiamine HCl (vitamin B1) 250 mg tablet 250 mg PO DAILY Qty: 30 0RF aspirin [Adult Low Dose Aspirin] 81 mg tablet,delayed release (DR/EC) 81 mg PO NEEDED PRN (Reason: takes when needed) potassium chloride 10 mEq capsule, extended release 10 meq PO BID sertraline 100 mg tablet 100 mg PO HS levothyroxine 25 mcg tablet 25 mcg PO DAILY glimepiride 1 mg tablet 1 mg PO DAILY pantoprazole 40 mg tablet,delayed release (DR/EC) 40 mg PO DAILY triamterene-hydrochlorothiazid 37.5-25 mg tablet 1 tab PO DAILY raloxifene 60 mg tablet 60 mg PO DAILY valsartan 160 mg tablet 160 mg PO BID metformin 500 mg tablet 500 mg PO BIDWMEAL Referrals Follow up/Referrals: Mart Quezada MD [Primary Care Provider] - See instructions Clinical Impressions Clinical Impression: Influenza A, Acute hyponatremia, Thrombocytopenia Leukopenia Qualifiers: Leukopenia type: neutropenia Neutropenia type: due to infection Qualified Code(s): D70.3 - Neutropenia due to infection Print Language Print Language: Colombian Discharge ED Provider: Mindy Hernandez Adult HPI General Chief complaint: Weakness Stated complaint: v/d body aches Time Seen by Provider: 11/29/24 08:23 Mode of Arrival: Wheelchair Source of Information: Patient Limitations: No Limitations Description of Symptoms (Recalled from ER Triage Doc. by RN): PT REPORTS FEVER, SHORTNESS OF BREATH, COUGH, HEADACHE, NAUSEA, FATIGUE AND DECREASED PO INTAKE SINCE WEDNESDAY. History of Present Illness HPI narrative: Patient is a 69-year-old female presenting with multiple complaints. Patient is accompanied by her at bedside who provides additional history. states that patient was in her normal state of health on Wednesday and on Wednesday developed a cough, myalgias, chills, nausea. He notes she has barely eaten and has had decreased fluid intake since then. Patient complains of a sore throat, dry cough and significant nasal congestion. Patient has not measured a temperature at home. Patient has history of hypertension and cardiac stents. This morning after taking her shower, she felt generally weak. Related Data Home Medications ?Medication ?Instructions ?Recorded ?Confirmed glimepiride 1 mg tablet 1 mg PO DAILY Diabetes 04/14/23 11/29/24 levothyroxine 25 mcg tablet 25 mcg PO DAILY Thyroid 04/14/23 11/29/24 pantoprazole 40 mg tablet,delayed 40 mg PO DAILY Acid reflux 04/14/23 11/29/24 release potassium chloride 10 mEq 10 meq PO BID Supplement 04/14/23 11/29/24 capsule,extended release raloxifene 60 mg tablet 60 mg PO DAILY Osteoporosis 04/14/23 11/29/24 sertraline 100 mg tablet 100 mg PO HS Mood 04/14/23 11/29/24 triamterene 37.5 1 tab PO DAILY Fluid 04/14/23 11/29/24 mg-hydrochlorothiazide 25 mg tablet valsartan 160 mg tablet 160 mg PO BID Hypertension 04/14/23 11/29/24 aspirin 81 mg tablet,delayed 81 mg PO NEEDED PRN takes when 04/19/23 11/29/24 release (Adult Low Dose Aspirin) needed metformin 500 mg tablet 500 mg PO BIDWMEAL Diabetes 04/23/23 11/29/24 amlodipine 2.5 mg tablet 2.5 mg PO DAILY 06/07/24 11/29/24 Previous Rx's ?Medication ?Instructions ?Recorded thiamine HCl (vitamin B1) 250 mg 250 mg PO DAILY #30 tabs 10/09/24 tablet Allergies Allergy/AdvReac Type Severity Reaction Status Date / Time No Known Allergies Allergy Verified 11/29/24 08:37 [facility] Disclaimer: The information contained in this section may have been updated after the patient was seen, as this information can be updated by other users. Medical History (Updated 11/29/24 @ 10:09 by Mindy Hernandez MD) Diabetes Aphasia Vasculitis Fatigue Atypical angina Elevated liver enzymes Coronary artery disease Dizziness Dyspnea Transaminitis Headache Depression Colon cancer Sleep apnea History of COVID-19 History of stroke Hypothyroid Diabetes mellitus, type 2 Allergies Hypertension History of heart attack History of anemia Memory loss Excessive drinking alcohol Nocturnal hypoxemia Cerebrovascular accident Fecal impaction in rectum Hypokalemia Anemia Proctitis Surgical History History of coronary artery stent placement History of cardiac cath History of surgery History of repair of hiatal hernia History of colon resection Family History Other Coronary artery disease Dementia Hypertension No significant family history Stroke Social History (Updated 11/29/24 @ 08:36 by Lashanda Linn RN) Smoking Status: Never smoker alcohol intake: never substance use type: denies use current occupational status: employed Travel in the last 8 weeks: None household members: spouse housing: house current occupation: [employer] current occupational exposures/hazards: No caffeine: No Have you lived/traveled outside US in past 30 days?: No Contact w/someone who lives/traveled outside US past 30 days?: No Exposure to someone with infectious disease in past 14 days?: No Do you have a fever (greater than 100.4 F or 38 C)?: No Have you tested positive for COVID-19: No Exposed to someone with COVID-19 in past 14 days?: No Do you have a sore throat?: No Do you have a cough?: Yes Do you have any weakness?: Yes Do you have any diarrhea?: No Are you experiencing any unusual bleeding?: No Do you have any muscle aches/pain?: Yes Do you have any abdominal pain?: No Are you experiencing loss of taste or smell?: No Other Medical History Have you received the Flu Vaccine for this season: No Have you received the Pneumonia Vaccine: No ROS Obtained: Yes All systems reviewed & no additional complaints except as documented Physical Exam General General appearance: alert and in no apparent distress Head Head exam: atraumatic Eye Eye exam: Present EOMI; Absent scleral icterus ENT ENT exam: Present mucous membranes moist, normal external ear exam and other (nasal congestion) Neck Neck exam: Present full ROM Chest Chest inspection: Present normal inspection Respiratory Respiratory exam: Present normal lung sounds bilaterally Cardiovascular Cardiovascular exam: Present regular rate and normal rhythm Abdominal Exam Abdominal exam: Present soft; Absent distention or tenderness Extremities Exam Extremities exam: Present full ROM; Absent tenderness or edema Back Exam Back exam: Present full ROM Neurological Exam Neurological exam: Present alert and oriented X3 Psychiatric Psychiatric exam: Present normal mood Skin Skin exam: Present warm and dry Medical Decision Making Medical Records Medical records reviewed: Yes I reviewed the patient's medical records. Screening: Per USPSTF and CDC recommendations, given the prevalence of disease in our region, it is our hospital?s policy to screen for HIV and viral Hepatitis for all patients aged 18 and over and those with ongoing risk factors. Alfred Inquiry Pt receiving controlled substance: No Vital Signs: 11/29/24 08:18 11/29/24 08:30 11/29/24 09:00 Temperature 97.9 F Temperature Source Oral Pulse Rate 72 90 Pulse Rate [Radial] 84 Respiratory Rate 18 Blood Pressure 110/80 106/74 L Blood Pressure [Left Arm] 112/75 Blood Pressure Mean 93 84 Blood Pressure Mean [Left Arm] 87 Blood Pressure Source [Left Arm] Automatic Cuff Blood Pressure Position [Left Arm] Sitting 02 Sat by Pulse Oximetry 99 95 95 Oxygen Delivery Method Room Air Room Air Room Air 11/29/24 09:30 11/29/24 10:00 Temperature Temperature Source Pulse Rate 70 77 Pulse Rate [Radial] Respiratory Rate Blood Pressure 120/74 114/78 Blood Pressure [Left Arm] Blood Pressure Mean 90 92 Blood Pressure Mean [Left Arm] Blood Pressure Source [Left Arm] Blood Pressure Position [Left Arm] 02 Sat by Pulse Oximetry Oxygen Delivery Method Room Air Room Air Lab Data Lab results reviewed: Yes I reviewed the patient's lab results. Lab Results 11/29/24 08:27: SARS-CoV-2 (PCR) Not detected, Influenza A Untype (PCR) Detected A, Influenza Type B (PCR) Not detected 11/29/24 08:34: WBC 1.9 L*, RBC 4.83, Hgb 13.8, Hct 39.8, MCV 82.4, MCH 28.6, MCHC 34.7, RDW 13.6, Plt Count 67 L, MPV 9.8, Neut % (Auto) 31.2 L, Lymph % (Auto) 46.8, Crisp % (Auto) 21.0 H, Eos % (Auto) 0.5, Baso % (Auto) 0.0 L, Neut # (Auto) 0.6 L*, Lymph # (Auto) 0.9, Crisp # (Auto) 0.4, Eos # (Auto) 0.0, Baso # (Auto) 0.0, Sodium 125 L, Potassium 3.8, Chloride 93 L, Carbon Dioxide 21 L, Anion Gap 14.8, BUN 10, Creatinine 0.80, Estimated Creat Clear 57, Estimated GFR 71, Est GFR ( Amer) 86, Glucose 146 H, Calcium 8.1 L 11/29/24 : HIV Ag/Ab Combo Qual Negative 11/29/24 08:34 11/29/24 08:34 Orders (Tests/Meds): ED MEDICATIONS Discontinued Medications Generic Name Dose Route Start Last Admin Trade Name Bunny PRShalonda Reason Stop Dose Admin Acetaminophen 650 mg 11/29/24 09:59 11/29/24 10:04 Acetaminophen 325mg Tab PO 11/29/24 10:00 650 mg ONCE ONE Administration Lactated Ringer's 500 mls @ 999 mls/hr 11/29/24 08:45 11/29/24 08:50 Lactated Ringer's 500ml IV 11/29/24 09:15 999 mls/hr .Q31M ONE Administration ORDERS Category Date Time Status CXR --portable [XR chest portable] Stat Exams 11/29/24 08:44 Taken BMP [Basic Metabolic Panel] Stat Lab 11/29/24 08:34 Completed CBC w/Auto Diff [Complete Blood Count Auto Diff] Stat Lab 11/29/24 08:34 Results HIV Combo Stat Lab 11/29/24 Completed Hepatitis C Ab Qual. W/ RFX Stat Lab 11/29/24 08:33 Ordered Rapid PCR Covid and Flu A/B Stat Lab 11/29/24 08:27 Completed Medical Decision Narrative: In summary, this is a 69-year-old female with flu symptoms. Differential diagnosis includes but is not limited to, flu, COVID, viral URI, bacterial pneumonia, electrolyte abnormality, among others. Based on patient's symptoms and presentation, a viral URI is currently the most likely diagnosis. Patient will be evaluated with CBC, BMP, COVID/flu swab and CXR. Initial management consists of IV fluids and Tylenol. On evaluation of patient's labs, she is leukopenic to 1.9, thrombocytopenic with platelets 67, without anemia. BMP significant for hyponatremia at 125, chloride 93 and slight hyperglycemia at 146. Renal function within normal limits. CXR personally reviewed by me negative for acute consolidation, pleural effusion. Patient positive for influenza A and negative for COVID and influenza B. I discussed the positive influenza test with the patient and her at bedside and decision to admit was made. Patient had decreased oral intake and has significant laboratory derangements in the setting of a flu diagnosis. Dr. Arriaga is currently taking call for Dr. Quezada and was in agreement with admitting patient for further management. Given patient's age and comorbidities, will give Tamiflu and additional liter IV fluids. Patient admitted in stable condition. Mindy Hernandez MD PGY-3, Emergency Medicine Critical Care Critical Care Time Critical Care Time: No
[2024-11-29 09:08] LABS: Chloride 93 mmol/L (98-107); Potassium 3.8 mmoL/L (3.5-5.1); Sodium 125 mmol/L (136-145)
--- NOTE | 2024-11-29 09:08 | PC.NURSE ---
Pt given another warm blanket and lights dimmed for comfort. Updated we are awaiting swab and cxr results.
[2024-11-29 09:11] LABS: Anion Gap 14.8 mEq/L (5-15); Blood Urea Nitrogen 10 mg/dl (7-17); Calcium 8.1 mg/dl (8.4-10.2); Carbon Dioxide 21 mmol/L (22.0-30.0); Creatinine Clearance Estimated 57 mL/min (50-200); Estimated Glomerular Filt Rate 71 ml/min (>60); GFR (African American) 86 ML/MIN (>60); Glucose 146 mg/dl (74-100)
[2024-11-29 09:40] LABS: Influenza A, PCR Detected (NotDetected)
[2024-11-29 09:45] LABS: MANUAL DIFFERENTIAL MANUAL DIFFERENTIAL (MANUAL DIFF)
--- NOTE | 2024-11-29 09:45 | PC.NURSE ---
NOTIFIED OF WBC AND NA, FLU +, NO NEW ORDERS
--- NOTE | 2024-11-29 09:48 | PC.NURSE ---
Called radiology to check on status of xr reads, Danuta states the images are locked and being read. notified of this.
[2024-11-29 09:52] LABS: HIV Combo NEGATIVE (Negative)
--- NOTE | 2024-11-29 09:56 | PC.NURSE ---
DR ROBB AT BEDSIDE TO UPDATE PT AND FAMILY
--- NOTE | 2024-11-29 10:01 | PC.NURSE ---
DR ROBB SPEAKING WITH DR WHITAKER FOR ADMISSION
[2024-11-29] MEDS: ACETAMINOPHEN 325MG TAB 650 MG PO ×2 (10:04→16:27)
--- NOTE | 2024-11-29 10:05 | PC.NURSE ---
hs aware of admission
--- NOTE | 2024-11-29 10:06 | PC.NURSE ---
Rounded on the PT. The PT voices that she does not need anything at this time. is present at the bedside.
--- NOTE | 2024-11-29 10:20 | PC.NURSE ---
Preliminary XR read result received and given to DR Hernandez
--- NOTE | 2024-11-29 10:22 | PC.NURSE ---
REPORT CALLED TO GISELE GIFFORD
--- NOTE | 2024-11-29 10:40 | PC.NURSE ---
arrived by w/c from ED
[2024-11-29 11:00] LABS: Lymphocytes % 54 % (10-50); Monocytes % 12 % (2-9); Neutrophils % 34 % (42-76); Platelet Estimate Marked Decrease; RBC Morphology Normal; Total Cells Counted 50
--- NOTE | 2024-11-29 11:02 | P.HP_ITS ---
History of Present Illness *Admission Date: 11/29/24 *Reason for visit:: Weakness, fever *History of present illness: This is a 69-year-old female who presented with multiple complaints. states that patient was in her normal state of health on Wednesday and on Wednesday developed a cough, myalgias, chills, nausea. He notes she has barely eaten and has had decreased fluid intake since then. Patient complains of an initial sore throat, dry cough and significant nasal congestion. Patient has not measured a temperature at home. Patient has history of hypertension and cardiac stents. Past history of partial colectomy for colon carcinoma. This morning after taking her shower, she felt generally weak. On evaluation in the ER she is leukopenic to 1.9, thrombocytopenic with platelets 67, without anemia. BMP is significant for hyponatremia at 125, chloride 93 and slight hyperglycemia at 146. Renal function is within normal limits. CXR appears negative for acute consolidation, pleural effusion. Patient is positive for influenza A and negative for COVID and influenza B. With decreased oral intake and significant laboratory derangements in the setting of a flu diagnosis she was admitted. [facility] Disclaimer: The information contained in this section may have been updated after the patient was seen, as this information can be updated by other users. Medical History (Updated 11/29/24 @ 11:17 by Mart Quezada MD) Hypothyroidism (acquired) Carcinoma of colon Diabetes Aphasia Vasculitis Fatigue Atypical angina Elevated liver enzymes Coronary artery disease Dizziness Dyspnea Transaminitis Headache Depression Colon cancer Sleep apnea History of COVID-19 History of stroke Hypothyroid Diabetes mellitus, type 2 Allergies Hypertension History of heart attack History of anemia Memory loss Excessive drinking alcohol Nocturnal hypoxemia Cerebrovascular accident Fecal impaction in rectum Hypokalemia Anemia Proctitis Surgical History (Updated 11/29/24 @ 11:16 by Mart Quezada MD) History of partial colectomy History of coronary artery stent placement History of cardiac cath History of surgery History of repair of hiatal hernia History of colon resection Family History Other Coronary artery disease Dementia Hypertension No significant family history Stroke Social History (Updated 11/29/24 @ 08:36 by Lashanda Linn RN) Smoking Status: Never smoker alcohol intake: never substance use type: denies use current occupational status: employed Travel in the last 8 weeks: None household members: spouse housing: house current occupation: [employer] current occupational exposures/hazards: No caffeine: No Have you lived/traveled outside [place] in past 30 days?: No Contact w/someone who lives/traveled outside US past 30 days?: No Exposure to someone with infectious disease in past 14 days?: No Do you have a fever (greater than 100.4 F or 38 C)?: No Have you tested positive for COVID-19: No Exposed to someone with COVID-19 in past 14 days?: No Do you have a sore throat?: No Do you have a cough?: Yes Do you have any weakness?: Yes Do you have any diarrhea?: No Are you experiencing any unusual bleeding?: No Do you have any muscle aches/pain?: Yes Do you have any abdominal pain?: No Are you experiencing loss of taste or smell?: No Other Medical History Have you received the Flu Vaccine for this season: No Have you received the Pneumonia Vaccine: No Meds Home Medications and Allergies Home Medications ?Medication ?Instructions ?Recorded ?Confirmed ?Type glimepiride 1 mg tablet 1 mg PO DAILY Diabetes 04/14/23 11/29/24 History levothyroxine 25 mcg tablet 25 mcg PO DAILY Thyroid 04/14/23 11/29/24 History pantoprazole 40 mg tablet,delayed 40 mg PO DAILY Acid reflux 04/14/23 11/29/24 History release potassium chloride 10 mEq 10 meq PO BID 04/14/23 11/29/24 History capsule,extended release raloxifene 60 mg tablet 60 mg PO DAILY Osteoporosis 04/14/23 11/29/24 History sertraline 100 mg tablet 100 mg PO HS 04/14/23 11/29/24 History triamterene 37.5 1 tab PO DAILY Fluid 04/14/23 11/29/24 History mg-hydrochlorothiazide 25 mg tablet valsartan 160 mg tablet 160 mg PO BID Hypertension 04/14/23 11/29/24 History aspirin 81 mg tablet,delayed 81 mg PO DAILY 04/19/23 11/29/24 History release (Adult Low Dose Aspirin) metformin 500 mg tablet 500 mg PO BIDWMEAL 04/23/23 11/29/24 History amlodipine 2.5 mg tablet 2.5 mg PO DAILY 06/07/24 11/29/24 History thiamine HCl (vitamin B1) 250 mg 250 mg PO DAILY #30 tabs 10/09/24 11/29/24 Rx tablet New Prescriptions to Start Prescriptions: Allergies Allergy/AdvReac Type Severity Reaction Status Date / Time No Known Allergies Allergy Verified 11/29/24 08:37 Exam Data for Last 24 hours Vital signs and Labs for Last 24 Hours: Temp Pulse Resp BP Pulse Ox O2 Del Method 98.5 F 80 16 114/78 95 Room Air 11/29/24 10:20 11/29/24 10:20 11/29/24 10:20 11/29/24 10:20 11/29/24 09:00 11/29/24 10:20 Laboratory Results - last 24 hr 11/29/24 08:27: SARS-CoV-2 (PCR) Not detected, Influenza A Untype (PCR) Detected A, Influenza Type B (PCR) Not detected 11/29/24 08:34: WBC 1.9 L*, RBC 4.83, Hgb 13.8, Hct 39.8, MCV 82.4, MCH 28.6, MCHC 34.7, RDW 13.6, Plt Count 67 L, MPV 9.8, Neut % (Auto) 31.2 L, Lymph % (Auto) 46.8, [place] % (Auto) 21.0 H, Eos % (Auto) 0.5, Baso % (Auto) 0.0 L, Neut # (Auto) 0.6 L*, Lymph # (Auto) 0.9, [place] # (Auto) 0.4, Eos # (Auto) 0.0, Baso # (Auto) 0.0, Total Counted 50, Neutrophils % (Manual) 34 L, Lymphocytes % ( Manual) 54 H, Monocytes % (Manual) 12 H, Platelet Estimate Marked decrease, RBC Morphology Normal, Sodium 125 L, Potassium 3.8, Chloride 93 L, Carbon Dioxide 21 L, Anion Gap 14.8, BUN 10, Creatinine 0.80, Estimated Creat Clear 57, Estimated GFR 71, Est GFR ( Amer) 86, Glucose 146 H, Calcium 8.1 L 11/29/24 : HIV Ag/Ab Combo Qual Negative I & O for Last 24 hours: Intake & Output 11/26/24 11/27/24 11/28/24 11/29/24 11:59 11:59 11:59 11:59 Weight 155 lb Constitutional Constitutional: mild distress and cooperative *Routine HEENT Exam Head: Present normocephalic Eye: Present PERRL ENT: Present mucous membranes moist *Routine Neck Exam Neck: Absent JVD Routine Chest/Breast/Axilla Exam Chest wall: Absent tenderness *Routine Respiratory Exam Respiratory: Present CTA bilaterally and able to speak in complete sentences; Absent rhonchi, stridor or wheezes *Routine Cardiovascular Exam Cardiovascular: Present RRR *Routine Abdominal Exam Abdominal: Present soft; Absent tenderness *Routine Rectal Exam Rectal:: deferred *Routine Genitalia Exam Genitalia:: deferred *Routine Extremities Exam Extremities: Absent cyanosis, clubbing or edema Routine Back/Spine/Pelvis Exam Back/Spine: Absent CVA tenderness *Routine Skin Exam Skin: Present intact; Absent urticaria, jaundice or rash *Routine Neurological Exam Neurological: Present alert, oriented X3 and CN II-XII intact; Absent altered mental status Routine Psychiatric Exam Psychiatric: Present normal affect and normal thought process Assessment and Plan *Assessment and plan (1) Influenza A: Status: Acute Category: Medical Code(s): J10.1 - Influenza due to other identified influenza virus with other respiratory manifestations (2) Acute hyponatremia: Status: Acute Category: Medical Code(s): E87.1 - Hypo-osmolality and hyponatremia (3) Diabetes mellitus, type 2: Status: Chronic Qualifiers: Diabetes mellitus skilled nursing insulin use: without remote computer terminal operator use Diabetes mellitus complication status: without complication Qualified Code(s): E11.9 - Type 2 diabetes mellitus without complications Category: Medical Code(s): E11.9 - Type 2 diabetes mellitus without complications (4) Leukopenia: Status: Acute Qualifiers: Leukopenia type: neutropenia Neutropenia type: due to infection Qualified Code(s): D70.3 - Neutropenia due to infection Category: Medical Code(s): D72.819 - Decreased white blood cell count, unspecified (5) Thrombocytopenia: Status: Acute Category: Medical Code(s): D69.6 - Thrombocytopenia, unspecified (6) Hypertension: Status: Chronic Qualifiers: Hypertension type: primary hypertension Qualified Code(s): I10 - Essential (primary) hypertension Category: Medical Code(s): I10 - Essential (primary) hypertension (7) History of coronary artery stent placement: Status: Chronic Category: Surgical Code(s): Z95.5 - Presence of coronary angioplasty implant and graft (8) History of partial colectomy: Status: Acute Category: Surgical Code(s): Z90.49 - Acquired absence of other specified parts of digestive tract (9) Hypothyroidism (acquired): Status: Acute Category: Medical Code(s): E03.9 - Hypothyroidism, unspecified Plan IV fluids. Tamiflu.
--- NOTE | 2024-11-29 11:10 | HMH.PHAINT1 ---
Pharmacy Intervention Comments: MEDICATION RECONCILIATION COMPLETED ON PATIENT USING EXTERNAL FILL HISTORY FROM PHARMACY. -HALI MARTE, HEIDYD
[2024-11-29] MEDS: OSELTAMIVIR 75MG CAPSULE 75 MG PO ×2 (11:27→20:18)
[2024-11-29] MEDS: 0.9 % SODIUM CHLORIDE 1000ML 1,000 ML 125 ML IV ×2 (11:27→22:09)
[2024-11-29] MEDS: POTASSIUM CHLORIDE 10MEQ CAPSULE.ER 10 MEQ PO ×2 (13:16→20:18)
[2024-11-29] MEDS: SERTRALINE 100MG TABLET 100 MG PO (13:17)
[2024-11-29] MEDS: LEVOTHYROXINE 25MCG (0.025MG) TAB 25 MCG PO (13:17)
[2024-11-29 14:07] LABS: Hepatitis C Ab Qual. W/ RFX NEGATIVE (Negative)
--- NOTE | 2024-11-29 16:17 | PC.NURSE ---
Pt admitted today for hyponatremia and flu A positive. fluids and Tamiflu started. Pt tolerating small portions of meals and fluids. She has been resting in bed most of the shift. She is on RA and afebrile. She c/o headache and was give tylenol per DEC. has been at bedside. She is ambulating independently in room. Will continue to monitor. Call parkinson in reach.
[2024-11-29] MEDS: METFORMIN 500MG TABLET 500 MG PO (16:30)
--- NOTE | 2024-11-29 19:48 | PC.NURSE ---
A new, 20G IV was inserted into the right anterior forearm at this time. It is intact, patent, and pink with normal saline infusing at 125 mL/hr. Patient requested to move her current IV (20G in the right antecubital) due to setting the IV pump off every 15 to 20 minutes. Previous IV site removed.
--- NOTE | 2024-11-29 20:07 | PC.NURSE ---
Addendum entered by Brenda Pinto RN 11/29/24 20:11: Dr Arriaga called back at this time. He was informed about the patient's hypotensive blood pressures (earlier this evening she was 107/68, currently she is 110/72) because she has Irbesartan 150 mg PO ordered for tonight. Dr Arriaga stated to hold the blood pressure medication for now due to the low readings. Original Note: Composition Board Press Operator was paged to contact Dr Arriaga. Waiting for his call back at this time.
[2024-11-29] MEDS: FAMOTIDINE 20MG TABLET 20 MG PO (20:18)
[2024-11-30 03:25] VITALS: BP 116/71; PULSE 68; RESP 16; O2SAT 95
[2024-11-30 04:00] VITALS: BMI 24.2
--- NOTE | 2024-11-30 04:31 | PC.NURSE ---
Patient is alert and oriented. Patient was noticed to occasionally but mildly struggle with words/speech (baseline due to history of CVA, Fuentes's palsy, aphasia, etc.). She was observed to have eyes closed, respirations even and unlabored on room air, and no apparent distress for the majority of the night. Patient has not had any complaints of pain, nausea/vomiting, or discomfort, but she has complained of having frequently loose stools this shift. She also stated that she tries to avoid coughing, but her cough is still intermittently present. She also reports passing lots of gas. Auscultation of her heart, bowels, and lungs were within normal findings. Abdomen is soft and non-tender with palpation. Irbesartan was held this shift (see prior note) due to low blood pressures; other scheduled medications were administered per DEC. Normal saline infusion has been running at 125 mL/hr. Patient refused a bedtime snack this shift. Not much of an appetite was exhibited. Patient has been ambulating in her room/to the bathroom with supervision by her /staff members as needed; the patient ambulates independently without difficulties. Vital signs stable with soft blood pressures. At this time, the patient is resting in bed without any further complaints. No acute changes noted thus far. Call light within reach. Contact/droplet precautions ongoing due to Influenza A (Untype) + neutropenic precautions on behalf of critically low WBCs and neutrophil count.
[2024-11-30] MEDS: 0.9 % SODIUM CHLORIDE 1000ML 1,000 ML 125 ML IV (06:00)
[2024-11-30] MEDS: LEVOTHYROXINE 25MCG (0.025MG) TAB 25 MCG PO (06:04)
[2024-11-30] MEDS: GLIMEPIRIDE 2 MG TABLET 1 MG PO (06:04)
[2024-11-30 06:33] LABS: Eosinophils % 1.5 % (0.1-12.0); Lymphocytes # 0.8 K/mm3 (0.7-4.5); Lymphocytes % 56.9 % (10-50); Mean Corpuscular HGB Conc 34.2 g/dL (31.8-35.4); Mean Corpuscular Hemoglobin 28.1 pg (27.0-31.2); Mean Corpuscular Volume 82.2 fl (81-99); Mean Platelet Volume 10.5 fl (7.4-10.4); Monocytes # 0.2 K/mm3 (0.1-1.0); Monocytes % 16.1 % (1.7-9.3); Neutrophils # 0.2 K/mm3 (1.8-7.8); Neutrophils % 17.5 % (37.0-80.0); Platelet Count 58 K/mm3 (142-424); Red Blood Count 4.38 M/mm3 (4.20-5.40); Red Cell Distribution Width 13.7 % (11.5-17.5); White Blood Count 1.4 K/mm3 (4.8-10.8)
[2024-11-30 06:46] LABS: Hemoglobin 12.3 g/dL (12.2-16.2); MANUAL DIFFERENTIAL MANUAL DIFFERENTIAL (MANUAL DIFF)
[2024-11-30 07:31] VITALS: BP 123/75; PULSE 70; RESP 17; TEMP 36.8; O2SAT 95
[2024-11-30 07:45] LABS: Alanine Aminotransferase 20 U/L (12-78); Albumin Level 3.1 g/dl (3.5-5.0); Albumin/Globulin Ratio 1.3 (1.1-1.8); Alkaline Phosphatase 53 U/L (38-126); Anion Gap 10.8 mEq/L (5-15); Aspartate Amino Transferase 33 U/L (14-36); Bilirubin,Total 0.4 mg/dl (0.2-1.3); Blood Urea Nitrogen 8 mg/dl (7-17); Calcium 7.7 mg/dl (8.4-10.2); Carbon Dioxide 21 mmol/L (22.0-30.0); Chloride 105 mmol/L (98-107); Creatinine Clearance Estimated 56 mL/min (50-200); Estimated Glomerular Filt Rate 82 ml/min (>60); GFR (African American) 100 ML/MIN (>60); Globulin 2.3 g/dL (1.3-3.2); Glucose 102 mg/dl (74-100); Potassium 3.8 mmoL/L (3.5-5.1); Sodium 133 mmol/L (136-145); Total Protein,Serum 5.4 g/dl (6.3-8.2)
[2024-11-30 07:54] LABS: Lymphocytes % 59 % (10-50); Monocytes % 12 % (2-9); Neutrophils % 28 % (42-76); Platelet Estimate Marked Decrease; RBC Morphology Normal; Total Cells Counted 100
[2024-11-30] MEDS: POTASSIUM CHLORIDE 10MEQ CAPSULE.ER 10 MEQ PO (08:03)
[2024-11-30] MEDS: AMLODIPINE 2.5MG TABLET 2.5 MG PO (08:04)
[2024-11-30] MEDS: IRBESARTAN 150MG TAB 150 MG PO (08:04)
[2024-11-30] MEDS: OSELTAMIVIR 75MG CAPSULE 75 MG PO (08:04)
[2024-11-30] MEDS: FAMOTIDINE 20MG TABLET 20 MG PO (08:04)
[2024-11-30] MEDS: METFORMIN 500MG TABLET 500 MG PO (08:04)
[2024-11-30] MEDS: SERTRALINE 100MG TABLET 100 MG PO (08:04)
--- NOTE | 2024-11-30 08:21 | P.PN_ITS ---
Subjective *Date: 11/30/24 *Time: 08:21 Interval history: Patient is feeling a little better this am. She is still congested and weak. She denies any pain. She is able to eat this am. Medical Exam Vital signs and Labs for Last 24 Hours: Vital Signs Temp Pulse Pulse Resp BP BP Pulse Ox 11/30/24 07:31 98.2 F 70 17 123/75 95 11/30/24 06:40 11/30/24 05:00 11/30/24 03:25 68 16 116/71 95 11/30/24 03:00 11/30/24 01:00 11/29/24 23:00 11/29/24 21:00 11/29/24 20:00 74 16 96 11/29/24 20:00 97.7 F 74 16 110/72 96 11/29/24 19:00 11/29/24 17:00 11/29/24 16:00 98.3 F 85 16 107/68 L 94 L 11/29/24 15:00 11/29/24 13:00 11/29/24 11:04 98.1 F 74 16 117/54 L 99 11/29/24 11:00 11/29/24 10:22 11/29/24 10:20 98.5 F 80 16 114/78 11/29/24 10:00 77 114/78 11/29/24 09:30 70 120/74 11/29/24 09:00 90 106/74 L 95 11/29/24 08:30 72 110/80 95 O2 Del Method 11/30/24 07:31 Room Air 11/30/24 06:40 Room Air 11/30/24 05:00 Room Air 11/30/24 03:25 Room Air 11/30/24 03:00 Room Air 11/30/24 01:00 Room Air 11/29/24 23:00 Room Air 11/29/24 21:00 Room Air 11/29/24 20:00 Room Air 11/29/24 20:00 Room Air 11/29/24 19:00 Room Air 11/29/24 17:00 Room Air 11/29/24 16:00 Room Air 11/29/24 15:00 Room Air 11/29/24 13:00 Room Air 11/29/24 11:04 11/29/24 11:00 Room Air 11/29/24 10:22 Room Air 11/29/24 10:20 Room Air 11/29/24 10:00 Room Air 11/29/24 09:30 Room Air 11/29/24 09:00 Room Air 11/29/24 08:30 Room Air Intake and Output 11/29/24 11/30/24 11/30/24 19:59 03:59 11:59 Intake Total 240 / 1599 1359 / 1599 Output Total 350 / 350 0 / 350 0 / 350 Balance -110 / 1249 1359 / 1249 0 / 1249 Intake: Intake, Oral Amount 240 / 390 150 / 390 Infusion Intake 1209 / 1209 0.9 % Sodium Chloride 1000ML 1, 1209 / 1209 000 ml @ 125 mls/hr IV .Q8H [facility] Rx#:[id number] Output: Output, Urine Amount 350 / 350 0 / 350 0 / 350 Other: Number of Voids 0 Number of Unmeasured Voids 1 1 Number of Bowel Movements 1 Weight 150 lb 14.4 oz Patient Weight 11/30/24 11:59 Weight 150 lb 14.4 oz Laboratory Results - last 24 hr 11/29/24 08:27: SARS-CoV-2 (PCR) Not detected, Influenza A Untype (PCR) Detected A, Influenza Type B (PCR) Not detected 11/29/24 08:34: WBC 1.9 L*, RBC 4.83, Hgb 13.8, Hct 39.8, MCV 82.4, MCH 28.6, MCHC 34.7, RDW 13.6, Plt Count 67 L, MPV 9.8, Neut % (Auto) 31.2 L, Lymph % (Auto) 46.8, [place] % (Auto) 21.0 H, Eos % (Auto) 0.5, Baso % (Auto) 0.0 L, Neut # (Auto) 0.6 L*, Lymph # (Auto) 0.9, [place] # (Auto) 0.4, Eos # (Auto) 0.0, Baso # (Auto) 0.0, Total Counted 50, Neutrophils % (Manual) 34 L, Lymphocytes % (Manual) 54 H, Monocytes % (Manual) 12 H, Platelet Estimate Marked decrease, RBC Morphology Normal, Sodium 125 L, Potassium 3.8, Chloride 93 L, Carbon Dioxide 21 L, Anion Gap 14.8, BUN 10, Creatinine 0.80, Estimated Creat Clear 57, Estimated GFR 71, Est GFR ( Amer) 86, Glucose 146 H, Calcium 8.1 L, HCV Ab DULCE w/Rflx PCR Qn Negative 11/29/24 : HIV Ag/Ab Combo Qual Negative 11/30/24 06:11: WBC 1.4 L* D, RBC 4.38, Hgb 12.3 D, Hct 36.0 L, MCV 82.2, MCH 28.1, MCHC 34.2, RDW 13.7, Plt Count 58 L, MPV 10.5 H, Neut % (Auto) 17.5 L, Lymph % (Auto) 56.9 H, [place] % (Auto) 16.1 H, Eos % (Auto) 1.5, Baso % (Auto) 0.0 L, Neut # (Auto) 0.2 L*, Lymph # (Auto) 0.8, [place] # (Auto) 0.2, Eos # (Auto) 0.0, Baso # (Auto) 0.0, Total Counted 100, Neutrophils % (Manual) 28 L, Lymphocytes % (Manual) 59 H, Monocytes % (Manual) 12 H, Basophils % (Manual) 1.0, Platelet Estimate Marked decrease, RBC Morphology Normal, Sodium 133 L, Potassium 3.8, Chloride 105, Carbon Dioxide 21 L, Anion Gap 10.8, BUN 8, Creatinine 0.70, Estimated Creat Clear 56, Estimated GFR 82, Est GFR ( Amer) 100, Glucose 102 H D, Calcium 7.7 L, Total Bilirubin 0.4, AST 33, ALT 20, Alkaline Phosphatase 53, Total Protein 5.4 L, Albumin 3.1 L, Globulin 2.3, Albumin/Globulin Ratio 1.3 I & O for Labs for Last 24 Hours: Intake & Output 11/27/24 11/28/24 11/29/24 11/30/24 11:59 11:59 11:59 11:59 Intake Total 1599 / 1599 Output Total 350 / 350 Balance 1249 / 1249 Weight 143 lb 12.8 oz 150 lb 14.4 oz Constitutional: Present no acute distress Respiratory: Present CTA bilaterally Cardiac: Present Reg Rate and Rhythm GI: Present soft; Absent distention or tenderness Extremities: Absent edema Skin: Present intact Neuro: Present alert, awake and oriented x 3 Assessment and Plan *Assessment and plan (1) Influenza A: Status: Acute Category: Medical Code(s): J10.1 - Influenza due to other identified influenza virus with other respiratory manifestations (2) Acute hyponatremia: Status: Acute Category: Medical Code(s): E87.1 - Hypo-osmolality and hyponatremia (3) Diabetes mellitus, type 2: Status: Chronic Qualifiers: Diabetes mellitus nursing home insulin use: without petroleum terminal plant operator use Diabetes mellitus complication status: without complication Qualified Code(s): E11.9 - Type 2 diabetes mellitus without complications Category: Medical Code(s): E11.9 - Type 2 diabetes mellitus without complications (4) Leukopenia: Status: Acute Qualifiers: Leukopenia type: neutropenia Neutropenia type: due to infection Qualified Code(s): D70.3 - Neutropenia due to infection Category: Medical Code(s): D72.819 - Decreased white blood cell count, unspecified (5) Thrombocytopenia: Status: Acute Category: Medical Code(s): D69.6 - Thrombocytopenia, unspecified (6) Hypertension: Status: Chronic Qualifiers: Hypertension type: primary hypertension Qualified Code(s): I10 - Essential (primary) hypertension Category: Medical Code(s): I10 - Essential (primary) hypertension (7) History of coronary artery stent placement: Status: Chronic Category: Surgical Code(s): Z95.5 - Presence of coronary angioplasty implant and graft (8) History of partial colectomy: Status: Acute Category: Surgical Code(s): Z90.49 - Acquired absence of other specified parts of digestive tract (9) Hypothyroidism (acquired): Status: Acute Category: Medical Code(s): E03.9 - Hypothyroidism, unspecified Plan WBC is lower today but sodium has improved. Will discuss further care with Dr. Quezada.
--- NOTE | 2024-12-01 10:00 | SW/DCPLANNER ---
Spoke with patient on the phone. Patient stated that she is doing well. Patient stated that she is aware of her upcoming appointment with her primary care provider. Patient stated that she was able to get her [facility]. Patient stated that she has no concerns or questions at this time. Carmela Velarde
--- NOTE | 2024-12-04 23:36 | EXP.DC.SUM ---
General Admission date:: 11/29/24 Discharge date: 11/30/24 HPI HPI HPI: This is a 69-year-old female who presented with multiple complaints. states that patient was in her normal state of health on Wednesday and on Wednesday developed a cough, myalgias, chills, nausea. He notes she has barely eaten and has had decreased fluid intake since then. Patient complains of an initial sore throat, dry cough and significant nasal congestion. Patient has not measured a temperature at home. Patient has history of hypertension and cardiac stents. Past history of partial colectomy for colon carcinoma. This morning after taking her shower, she felt generally weak. On evaluation in the ER she is leukopenic to 1.9, thrombocytopenic with platelets 67, without anemia. BMP is significant for hyponatremia at 125, chloride 93 and slight hyperglycemia at 146. Renal function is within normal limits. CXR appears negative for acute consolidation, pleural effusion. Patient is positive for influenza A and negative for COVID and influenza B. With decreased oral intake and significant laboratory derangements in the setting of a flu diagnosis she was admitted. Hospital Course Hospital Course Hospital Course: The patient was admitted and started on IV fluids and Tamiflu. By 11/30/2024 she was feeling better and wanted to go home. Her white blood cell count was still low but her sodium had improved. She was stable to be discharged home on potassium tid and Tamiflu. She will follow-up in the office of [facility]. Exam Data for Last 24 hours Vital signs and Labs for Last 24 Hours: Temp Pulse Resp BP Pulse Ox O2 Del Method 98.2 F 70 17 123/75 95 Room Air 11/30/24 07:31 11/30/24 07:31 11/30/24 07:31 11/30/24 07:31 11/30/24 07:31 11/30/24 13:00 Narrative: Constitutional Constitutional: mild distress and cooperative *Routine HEENT Exam Head: Present normocephalic Eye: Present PERRL ENT: Present mucous membranes moist *Routine Neck Exam Neck: Absent JVD Routine Chest/Breast/Axilla Exam Chest wall: Absent tenderness *Routine Respiratory Exam Respiratory: Present CTA bilaterally and able to speak in complete sentences; Absent rhonchi, stridor or wheezes *Routine Cardiovascular Exam Cardiovascular: Present RRR *Routine Abdominal Exam Abdominal: Present soft; Absent tenderness *Routine Rectal Exam Rectal:: deferred *Routine Genitalia Exam Genitalia:: deferred *Routine Extremities Exam Extremities: Absent cyanosis, clubbing or edema Routine Back/Spine/Pelvis Exam Back/Spine: Absent CVA tenderness *Routine Skin Exam Skin: Present intact; Absent urticaria, jaundice or rash *Routine Neurological Exam Neurological: Present alert, oriented X3 and CN II-XII intact; Absent altered mental status Routine Psychiatric Exam Psychiatric: Present normal affect and normal thought process DS: Diagnosis Discharge Diagnosis (1) Influenza A: Status: Acute Code(s): J10.1 - Influenza due to other identified influenza virus with other respiratory manifestations (2) Acute hyponatremia: Status: Acute Code(s): E87.1 - Hypo-osmolality and hyponatremia (3) Diabetes mellitus, type 2: Status: Chronic Code(s): E11.9 - Type 2 diabetes mellitus without complications Qualifiers: Diabetes mellitus care home insulin use: without care home use Diabetes mellitus complication status: without complication Qualified Code(s): E11.9 - Type 2 diabetes mellitus without complications (4) Leukopenia: Status: Acute Code(s): D72.819 - Decreased white blood cell count, unspecified Qualifiers: Leukopenia type: neutropenia Neutropenia type: due to infection Qualified Code(s): D70.3 - Neutropenia due to infection (5) Thrombocytopenia: Status: Acute Code(s): D69.6 - Thrombocytopenia, unspecified (6) Hypertension: Status: Chronic Code(s): I10 - Essential (primary) hypertension Qualifiers: Hypertension type: primary hypertension Qualified Code(s): I10 - Essential (primary) hypertension (7) History of coronary artery stent placement: Status: Inactive Code(s): Z95.5 - Presence of coronary angioplasty implant and graft (8) History of partial colectomy: Status: Acute Code(s): Z90.49 - Acquired absence of other specified parts of digestive tract (9) Hypothyroidism (acquired): Status: Acute Code(s): E03.9 - Hypothyroidism, unspecified Meds Home Medications and Allergies Home Medications ?Medication ?Instructions ?Recorded ?Confirmed ?Type glimepiride 1 mg tablet 1 mg PO DAILY 04/14/23 12/04/24 History levothyroxine 25 mcg tablet 25 mcg PO DAILY 04/14/23 12/04/24 History pantoprazole 40 mg tablet,delayed 40 mg PO DAILY 04/14/23 12/04/24 History release raloxifene 60 mg tablet 60 mg PO DAILY 04/14/23 12/04/24 History sertraline 100 mg tablet 100 mg PO HS 04/14/23 12/04/24 History triamterene 37.5 1 tab PO DAILY 04/14/23 12/04/24 History mg-hydrochlorothiazide 25 mg tablet valsartan 160 mg tablet 160 mg PO BID 04/14/23 12/04/24 History aspirin 81 mg tablet,delayed 81 mg PO DAILY 04/19/23 12/04/24 History release (Adult Low Dose Aspirin) metformin 500 mg tablet 500 mg PO BIDWMEAL 04/23/23 12/04/24 History amlodipine 2.5 mg tablet 2.5 mg PO DAILY 06/07/24 12/04/24 History potassium chloride 10 mEq 10 meq PO TID #90 caps 11/30/24 12/04/24 Rx capsule,extended release New Prescriptions to Start Prescriptions: potassium chloride Mart Quezada Allergies Allergy/AdvReac Type Severity Reaction Status Date / Time No Known Allergies Allergy Verified 12/04/24 10:12 Discharge Plan Disposition Patient Disposition: Home, Self-Care Condition: Fair Follow up Plan Follow up with: Mart Quezada MD [Primary Care Provider] - 12/11/24 10:45 am Prescriptions/Medication Reconciliation: New potassium chloride 10 mEq Capsule, Extended Release 10 meq PO TID Qty: 90 2RF Continued amlodipine 2.5 mg tablet 2.5 mg PO DAILY aspirin [Adult Low Dose Aspirin] 81 mg tablet,delayed release (DR/EC) 81 mg PO DAILY sertraline 100 mg tablet 100 mg PO HS levothyroxine 25 mcg tablet 25 mcg PO DAILY glimepiride 1 mg tablet 1 mg PO DAILY pantoprazole 40 mg tablet,delayed release (DR/EC) 40 mg PO DAILY triamterene-hydrochlorothiazid 37.5-25 mg tablet 1 tab PO DAILY raloxifene 60 mg tablet 60 mg PO DAILY valsartan 160 mg tablet 160 mg PO BID metformin 500 mg tablet 500 mg PO BIDWMEAL Discontinued potassium chloride 10 mEq capsule, extended release 10 meq PO BID Problem Reconciliation Problems Reviewed?: Yes Patient Discharge Instructions ACTIVITY: Limited activity DIET: diabetic diet Patient Instructions: Influenza, DI for Influenza -- Adult, DI for Hyponatremia, Hyponatremia-Adult Print Language: [place] Providers Primary Care Provider: Mart Quezdaa Admit Provider: Henrry Arriaga Attending Provider: Mart Quezada
== END 2024-11-30 13:46 | disposition home or self-care (01) ==
LOC: ER 10:09 → 2ND 10:25
PROVIDERS: Admitting Provider Family Medicine; Emergency Provider Student in an Organized Health Care Education/Training Program; PCP Family Medicine; Visit Provider Family Medicine
DX: J10.1 Influenza due to other identified influenza virus with other respiratory manifestations (principal); E11.9 Type 2 diabetes mellitus without complications; I10 Essential (primary) hypertension; E03.9 Hypothyroidism, unspecified; I25.10 Atherosclerotic heart disease of native coronary artery without angina pectoris; D72.819 Decreased white blood cell count, unspecified; E87.1 Hypo-osmolality and hyponatremia; D69.6 Thrombocytopenia, unspecified; Z95.5 Presence of coronary angioplasty implant and graft; Z79.890 Hormone replacement therapy; Z79.84 Long term (current) use of oral hypoglycemic drugs; Z85.030 Personal history of malignant carcinoid tumor of large intestine; Z79.82 Long term (current) use of aspirin; Z86.73 Personal history of transient ischemic attack (TIA), and cerebral infarction without residual deficits
CPT/HCPCS: 36415; 71045; 80048; 80053; 85007; 85025; 86803; 87389; 87636; 93005; 99285; G0378; J7030; J7120

== ENCOUNTER 2024-12-04 08:19 | Observation (INO) | payer MEDICARE, SELFPAY ==
[2024-12-04] VITALS (12 sets, daily range): BP systolic 107–150; BP diastolic 78–90; PULSE 64–73; RESP 12–20; TEMP 36.5–36.8; O2SAT 94–100; BMI 25.0; BMI 24.7
--- NOTE | 2024-12-04 08:40 | XR_ITS ---
FINAL REPORT TECHNIQUE: Chest PA & Lateral CLINICAL HISTORY: cough productive, weakness, body aches COMPARISON: 04/19/2023 FINDINGS: 2 views of the chest were performed. The heart size is normal. There is unfolded aorta. The lungs are clear. There is no pneumothorax. The bony thorax appears intact. IMPRESSION: No acute cardiopulmonary process. Reviewed, Interpreted and Dictated by Clifton Yepez MD Transcribed by Ana Mistry Authenticated and [facility]
--- NOTE | 2024-12-04 08:51 | HMH.EDGENADL ---
Discharge Plan Disposition Patient Disposition: Home, Self-Care Chief Complaint: Weakness Prescriptions Prescriptions: No Action amlodipine 2.5 mg tablet 2.5 mg PO DAILY thiamine HCl (vitamin B1) 250 mg tablet 250 mg PO DAILY Qty: 30 0RF aspirin [Adult Low Dose Aspirin] 81 mg tablet,delayed release (DR/EC) 81 mg PO DAILY sertraline 100 mg tablet 100 mg PO HS levothyroxine 25 mcg tablet 25 mcg PO DAILY glimepiride 1 mg tablet 1 mg PO DAILY pantoprazole 40 mg tablet,delayed release (DR/EC) 40 mg PO DAILY triamterene-hydrochlorothiazid 37.5-25 mg tablet 1 tab PO DAILY raloxifene 60 mg tablet 60 mg PO DAILY valsartan 160 mg tablet 160 mg PO BID metformin 500 mg tablet 500 mg PO BIDWMEAL potassium chloride 10 mEq Capsule, Extended Release 10 meq PO TID Qty: 90 2RF oseltamivir [Tamiflu] 75 mg Capsule 75 mg PO BID Qty: 8 0RF Referrals Follow up/Referrals: Mart Quezada MD [Primary Care Provider] - See instructions Clinical Impressions Clinical Impression: Pneumonia involving left lung, Leukopenia, Weakness, Neutropenia Print Language Print Language: [place] Discharge ED Provider: Toby Da Silva General Adult HPI General Chief complaint: Weakness Stated complaint: vomiting, on and off fever, Body aches, headache Time Seen by Provider: 12/04/24 08:25 Mode of Arrival: Wheelchair Source of Information: Patient and Spouse Limitations: No Limitations Description of Symptoms (Recalled from ER Triage Doc. by RN): pt was seen here last week with flu and low sodium admitted for 24 hours, pt complains of low appetite and weakness, stable upon triage History of Present Illness HPI narrative: Please note that above description of symptoms, in this electronic medical record under categorization of recalled from ER triage doctor by RN are reflective of an initial nursing assessment, however, is not reflective of my full history and physical exam that was personally taken and clarified. Consequentially, this preceding description of symptoms, which may include the patient's categorized chief complaint in the EMR, do not reflect my personal clinical impression, and the ultimate description of history of present illness and patient stated complaints should be deferred to this section of the note. Unless stated otherwise or congruent with this section of the note, additional signs, symptoms, or incongruence should be interpreted as inaccurate with my clinical impression. Related Data Home Medications ?Medication ?Instructions ?Recorded ?Confirmed glimepiride 1 mg tablet 1 mg PO DAILY Diabetes 04/14/23 12/04/24 levothyroxine 25 mcg tablet 25 mcg PO DAILY 04/14/23 12/04/24 pantoprazole 40 mg tablet,delayed 40 mg PO DAILY Acid reflux 04/14/23 12/04/24 release raloxifene 60 mg tablet 60 mg PO DAILY Osteoporosis 04/14/23 12/04/24 sertraline 100 mg tablet 100 mg PO HS 04/14/23 12/04/24 triamterene 37.5 1 tab PO DAILY 04/14/23 12/04/24 mg-hydrochlorothiazide 25 mg tablet valsartan 160 mg tablet 160 mg PO BID 04/14/23 12/04/24 aspirin 81 mg tablet,delayed 81 mg PO DAILY 04/19/23 12/04/24 release (Adult Low Dose Aspirin) metformin 500 mg tablet 500 mg PO BIDWMEAL 04/23/23 12/04/24 amlodipine 2.5 mg tablet 2.5 mg PO DAILY 06/07/24 12/04/24 Previous Rx's ?Medication ?Instructions ?Recorded thiamine HCl (vitamin B1) 250 mg 250 mg PO DAILY #30 tabs 10/09/24 tablet oseltamivir 75 mg capsule (Tamiflu) 75 mg PO BID #8 caps 11/30/24 potassium chloride 10 mEq 10 meq PO TID #90 caps 11/30/24 capsule,extended release Allergies Allergy/AdvReac Type Severity Reaction Status Date / Time No Known Allergies Allergy Verified 12/04/24 10:12 [facility] Disclaimer: The information contained in this section may have been updated after the patient was seen, as this information can be updated by other users. 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 Constipation Strabismic amblyopia, left eye Abnormal brain MRI Hypothyroidism (acquired) Carcinoma of colon Diabetes Vasculitis Fatigue Atypical angina Elevated liver enzymes Coronary artery disease Dizziness Dyspnea Transaminitis Headache Depression Colon cancer Sleep apnea History of COVID-19 History of stroke Hypothyroid Diabetes mellitus, type 2 Allergies History of heart attack History of anemia Memory loss Excessive drinking alcohol Nocturnal hypoxemia Cerebrovascular accident Fecal impaction in rectum Hypokalemia Anemia Proctitis Surgical History History of partial colectomy History of coronary artery stent placement History of cardiac cath History of surgery History of repair of hiatal hernia History of colon resection Family History Other Coronary artery disease Dementia Hypertension No significant family history Stroke Social History Smoking Status: Never smoker alcohol intake: never substance use type: denies use current occupational status: employed Travel in the last 8 weeks: None household members: spouse housing: house current occupation: [employer] current occupational exposures/hazards: No caffeine: No Have you lived/traveled outside [place] in past 30 days?: No Contact w/someone who lives/traveled outside US past 30 days?: No Exposure to someone with infectious disease in past 14 days?: No Do you have a fever (greater than 100.4 F or 38 C)?: No Have you tested positive for COVID-19: No Exposed to someone with COVID-19 in past 14 days?: No Do you have a sore throat?: No Do you have a cough?: No Do you have any weakness?: No Do you have any diarrhea?: No Are you experiencing any unusual bleeding?: No Do you have any muscle aches/pain?: No Do you have any abdominal pain?: No Are you experiencing loss of taste or smell?: No Other Medical History Have you received the Flu Vaccine for this season: No Have you received the Pneumonia Vaccine: No ROS Obtained: Yes All systems reviewed & no additional complaints except as documented Physical Exam General General appearance: alert and in no apparent distress Head Head exam: atraumatic and normocephalic Eye Eye exam: Present normal appearance, PERRL and EOMI Neck Neck exam: Present normal inspection, full ROM and trachea midline Respiratory Respiratory exam: Present normal lung sounds bilaterally; Absent respiratory distress, wheezes, stridor, accessory muscle use or prolonged expiratory phase Cardiovascular Cardiovascular exam: Present regular rate, normal rhythm and other (Pulses equal symmetric in upper and lower extremities) Abdominal Exam Abdominal exam: Present soft; Absent distention, tenderness, guarding, rebound, rigidity or pulsatile mass Extremities Exam Extremities exam: Absent edema Neurological Exam Neurological exam: Present alert, oriented X3, CN II-XII intact and normal gait; Absent motor sensory deficit Skin Skin exam: Present warm and dry; Absent diaphoresis or erythema Medical Decision Making Medical Records Medical records reviewed: Yes I reviewed the patient's medical records. Screening: Per USPSTF and CDC recommendations, given the prevalence of disease in our region, it is our hospital?s policy to screen for HIV and viral Hepatitis for all patients aged 18 and over and those with ongoing risk factors. Alfred Inquiry Pt receiving controlled substance: No Alfred was queried for this patient: No Vital Signs: 12/04/24 08:20 12/04/24 08:26 12/04/24 08:30 Temperature 97.7 F Temperature Source Oral Pulse Rate 73 69 Pulse Rate [Left Radial] 73 Respiratory Rate 20 19 Blood Pressure 119/85 107/78 L Blood Pressure [Right Arm] 119/85 Blood Pressure Mean [Right Arm] 96 02 Sat by Pulse Oximetry 100 100 99 Oxygen Delivery Method Room Air Room Air Room Air 12/04/24 09:00 12/04/24 09:30 12/04/24 10:01 Temperature Temperature Source Pulse Rate 69 64 67 Pulse Rate [Left Radial] Respiratory Rate 12 13 15 Blood Pressure 132/82 137/81 147/87 H Blood Pressure [Right Arm] Blood Pressure Mean [Right Arm] 02 Sat by Pulse Oximetry 100 100 100 Oxygen Delivery Method Room Air Room Air Room Air 12/04/24 10:30 Temperature Temperature Source Pulse Rate 69 Pulse Rate [Left Radial] Respiratory Rate 13 Blood Pressure 125/84 Blood Pressure [Right Arm] Blood Pressure Mean [Right Arm] 02 Sat by Pulse Oximetry 100 Oxygen Delivery Method Room Air Lab Data Lab Results 12/04/24 08:45: WBC 1.8 L*, RBC 5.02, Hgb 14.1, Hct 40.8, MCV 81.3, MCH 28.1, MCHC 34.6, RDW 13.4, Plt Count 101 L, MPV 9.6, Neut % (Auto) 38.0, Lymph % (Auto) 44.0, Vigo % (Auto) 15.9 H, Eos % (Auto) 0.5, Baso % (Auto) 0.5, Neut # (Auto) 0.7 L*, Lymph # (Auto) 0.8, Vigo # (Auto) 0.3, Eos # (Auto) 0.0, Baso # (Auto) 0.0, PT 10.2, INR 0.92, APTT 28.2, Sodium 131 L, Potassium 4.5, Chloride 97 L, Carbon Dioxide 23, Anion Gap 15.5 H, BUN 14, Creatinine 0.80, Estimated Creat Clear 57, Estimated GFR 71, Est GFR ( Amer) 86, Glucose 123 H, Calcium 9.3, Magnesium 1.6, Total Bilirubin 1.0, AST 38 H, ALT 22, Alkaline Phosphatase 58, Total Creatine Kinase 36, Troponin I < 0.01, NT-Pro-B Natriuret Pep 205 H, Total Protein 7.0 D, Albumin 4.4, Globulin 2.6, Albumin/Globulin Ratio 1.7, Lipase 29 12/04/24 09:01: VBG pH 7.45 H, VBG pCO2 32.1 L, VBG pO2 22.3 L, VBG HCO3 21.6 L, VBG Total CO2 22.6 L, VBG O2 Saturation 45.6 L, VBG Base Excess -2.4, VBG Lactic Acid 1.5 12/04/24 08:45 12/04/24 08:45 Orders (Tests/Meds): ED MEDICATIONS Generic Name Dose Route Start Last Admin Trade Name Freq PRN Reason Stop Dose Admin Cefepime HCl 2 gm/ Sodium 100 mls @ 200 mls/hr 12/04/24 10:21 Chloride IV 12/04/24 10:50 ONCE ONE Discontinued Medications Generic Name Dose Route Start Last Admin Trade Name Freq PRN Reason Stop Dose Admin Sodium Chloride 1,000 mls @ 999 mls/hr 12/04/24 08:55 12/04/24 09:15 Sod Chlor 0.9% 1000ml Bag IV 12/04/24 09:55 999 mls/hr .Q1H1M ONE Administration Azithromycin 500 mg/ Sodium 250 mls @ 250 mls/hr 12/04/24 10:21 Chloride IV 12/04/24 10:22 ONCE ONE Ondansetron HCl 4 mg 12/04/24 08:55 12/04/24 09:14 Ondansetron 4mg/2ml Vial IV 12/04/24 08:56 4 mg ONCE ONE Administration ORDERS Category Date Time Status CXR 2 view (NOT portable) [XR chest 2V] Stat Exams 12/04/24 08:40 Completed POCUS Point of Care (ER Only) Stat Exams 12/04/24 08:42 Completed CBC Man Diff [Complete Blood Count Man Dif] Stat Lab 12/04/24 10:31 Ordered CBC w/Auto Diff [Complete Blood Count Auto Diff] Stat Lab 12/04/24 08:45 Completed CK [Creatine Kinase] Stat Lab 12/04/24 08:45 Completed CMP [Comprehensive Metabolic Panel] Stat Lab 12/04/24 08:45 Completed Lipase Stat Lab 12/04/24 08:45 Completed Magnesium Stat Lab 12/04/24 08:45 Completed NT Pro Brain Natriuretic Pep. Stat Lab 12/04/24 08:45 Completed PT INR [Prothrombin Time INR] Stat Lab 12/04/24 08:45 Completed PTT [Activated Partial Thrombo Time] Stat Lab 12/04/24 08:45 Completed Peripheral Smear Review Stat Lab 12/04/24 10:31 Ordered Troponin I Q3H Lab 12/04/24 11:45 Ordered Troponin I Q3H Lab 12/04/24 14:45 Ordered Troponin I Stat Lab 12/04/24 08:45 Completed UA [Urinalysis and Microscopic] Stat Lab 12/04/24 08:40 Ordered Blood Culture Stat Micro 12/04/24 08:50 Received VBG [Venous Blood Gas] Stat RT 12/04/24 09:01 Completed HEART Score History (anamnesis): Slightly suspicious ECG: Non-specific disturbance Age: >65 years Risk factors: 3 or more risk factors Troponin: </= normal limit HEART Score: 5 Medical Decision Narrative: 69-year-old female history of hypertension, hyperlipidemia, diabetes, CAD and GA status post stenting, hypothyroidism, CVA, hiatal hernia repair presenting with weakness, body aches, cough. Patient was diagnosed with the flu last week and was admitted for 1 day here at [facility]. States that she was discharged home, was initially feeling better, however she is feeling short of breath, weak, dizzy, etc. States that she has a cough is productive of dark green, thick sputum that does not feel like its gotten any worse. Decreased appetite and nausea without vomiting. Has been having bowel movements, last bowel movement today, but it was watery, nonbloody, not mucousy. No neurologic deficits. History was obtained via conversation with patient and . On arrival, patient hemodynamically stable, alert, oriented x4, appropriate, GCS 15, moving all extremities spontaneously, pupils equal and reactive to light. Full physical exam performed and significant for well-appearing patient no acute distress. Speaking full sentences, alert and oriented, very clinically well-appearing. Normotensive, nontachycardic, lungs are clear, cardiac exam normal. No lower extremity edema. Abdomen soft, nontender, nondistended. Mucous membranes are moist. Incredibly unremarkable physical exam. Differential includes pneumonia, urinary tract infection, gastritis, enteritis, gastroenteritis, PUD, cholecystitis, symptomatic nephrolithiasis symptomatic Marlin lithiasis, dehydration, sepsis, among others. Patient placed on continuous cardiac monitoring and continuous pulse ox with initial blood pressure 119/85, heart rate 73, saturation 100% on room air. Independent interpretation of EKG shows sinus rhythm 77 bpm with WI 197, QRS 82, QTc 434. Slight ST depression with no reciprocal elevations. Normal axis. Patient was given NS and Zofran for symptomatic management and correction of underlying abnormalities. Workup independently interpreted and significant for leukopenia 1.8 with relative neutropenia. Gas largely nonactionable. Negative lactate. She is mildly hyponatremic 131. Troponin negative, BNP nonactionable. Lipase negative. On independent interpretation of imaging, patient has new left hilar pneumonia from previous study. Heart score5 On reevaluation, patient resting comfortably. Cefepime and azithromycin were administered.. I consulted patient's primary care provider and he came to see patient in the emergency department. Agreeable to admission. Manual differential and peripheral smear were also ordered. Given patient presentation, workup, history, this most likely represents pneumonia in the neutropenia. because patient high risk for clinical decompensation, deemed appropriate for inpatient admission. Results were relayed to patient who voiced understanding and patient was agreeable to inpatient admission and management. Patient was admitted to the hospital for further definitive management. [employer] Operator disclaimer Much of this encounter note is an electronic speech and drama teacher spoken language to printed text. Electronic speech and drama teacher of the spoken language may permit errors. Although I have reviewed the note, some errors may still exist. Critical Care Critical Care Time Critical Care Time: No
--- NOTE | 2024-12-04 08:57 | ECG_ITS ---
APPROVED REPORT Exam: Resting ECG HR:77 bpm ECG Measurements Heart Rate 77 AXES IA 197 P 74 QRSd 82 QRS -14 QT 402 T 55 QTc 434 Conclusion Sinus rhythm Electronically signed by : ZOHRA PIKE, 12/04/2024 13:20:00
--- NOTE | 2024-12-04 09:02 | PC.NURSE ---
PT RESTING IN BED NO NEEDS AT THIS TIME AT BS AND CALL LIGHT IN REACH
--- NOTE | 2024-12-04 09:03 | PC.NURSE ---
PT IS GOING TO XRAY VIA WHEELCHAIR AT THIS TIME
[2024-12-04 09:08] LABS: Lactate Venous 1.5 mmol/L (0.4-2.0); VBG Base Excess -2.4 mmol/L (-2.4-2.3); VBG HCO3 21.6 mmol/L (23-30); VBG Oxygen Saturation 45.6 % (50-70); VBG PCO2 32.1 mmol/L (35-51); VBG PH 7.45 mmol/L (7.31-7.41); VBG PO2 22.3 mmol/L (28-40); VBG Total CO2 22.6 mmol/L (23-27)
--- NOTE | 2024-12-04 09:08 | PC.NURSE ---
PT BACK TO ROOM FROM XRAY
[2024-12-04] MEDS: ONDANSETRON 4MG/2ML VIAL 4 MG IV (09:14)
[2024-12-04] MEDS: 0.9 % SODIUM CHLORIDE 1000ML 1,000 ML 999 ML IV (09:15)
--- NOTE | 2024-12-04 09:17 | PC.NURSE ---
PT WAS GIVEN TWO WARM BLANKETS AND TURNED LIGHT OFF SO SHE COULD TAKE A NAP, AT BS AND CALL LIGHT IN REACH
[2024-12-04 09:18] LABS: Alanine Aminotransferase 22 U/L (12-78); Albumin Level 4.4 g/dl (3.5-5.0); Albumin/Globulin Ratio 1.7 (1.1-1.8); Alkaline Phosphatase 58 U/L (38-126); Anion Gap 15.5 mEq/L (5-15); Aspartate Amino Transferase 38 U/L (14-36); Blood Urea Nitrogen 14 mg/dl (7-17); Calcium 9.3 mg/dl (8.4-10.2); Carbon Dioxide 23 mmol/L (22.0-30.0); Chloride 97 mmol/L (98-107); Creatine Kinase 36 U/L (30-135); Creatinine Clearance Estimated 57 mL/min (50-200); Estimated Glomerular Filt Rate 71 ml/min (>60); GFR (African American) 86 ML/MIN (>60); Globulin 2.6 g/dL (1.3-3.2); Glucose 123 mg/dl (74-100); Potassium 4.5 mmoL/L (3.5-5.1); Sodium 131 mmol/L (136-145)
[2024-12-04 09:22] LABS: Activated Partial Thrombo Time 28.2 seconds (22.5-28.5)
[2024-12-04 09:27] LABS: Lipase 29 U/L (23-300); Magnesium 1.6 mg/dl (1.6-2.3)
[2024-12-04 09:31] LABS: Troponin I < 0.01 ng/ml (0.00-0.034)
[2024-12-04 09:36] LABS: NT Pro Brain Natriuretic Pep. 205 pg/mL (0-125)
--- NOTE | 2024-12-04 09:41 | PC.NURSE ---
pt is sleepnig and has known dx of sleep apnea, pt dropped to 86% and rn applied two liters via nasal cannula, pt resting with no concerns at this time
--- NOTE | 2024-12-04 09:50 | PC.NURSE ---
DR PIKE AT BEDSIDE TO UPDATE PT AND SPOUSE
[2024-12-04 09:51] LABS: INR 0.92 (0.9-1.1); Prothrombin Time 10.2 seconds (9.2-12.1)
--- NOTE | 2024-12-04 10:10 | PC.NURSE ---
Called Dr. Quezada's office for Dr. Da Silva, he is unavailable and registration will page him to [phone]
--- NOTE | 2024-12-04 10:22 | PC.NURSE ---
AT BEDSIDE SPEAKING WITH PT AND AT THIS TIME
--- NOTE | 2024-12-04 10:28 | PC.NURSE ---
SPOKE WITH IN NURSE STATION WITH STUDENT AT SIDE
--- NOTE | 2024-12-04 10:34 | PC.NURSE ---
IS BACK AT BS SPEAKING WITH PT AND
[2024-12-04 10:39] LABS: MANUAL DIFFERENTIAL MANUAL DIFFERENTIAL (MANUAL DIFF)
[2024-12-04] MEDS: CEFEPIME HCL 2 GM in 0.9 % SODIUM CHLORIDE 100 ML IV (10:39)
[2024-12-04 10:40] LABS: Eosinophils % 0.5 % (0.1-12.0); Hematocrit 40.4 % (37.0-47.0); Hemoglobin 13.9 g/dL (12.2-16.2); Lymphocytes # 0.8 K/mm3 (0.7-4.5); Lymphocytes % 44.1 % (10-50); Mean Corpuscular HGB Conc 34.4 g/dL (31.8-35.4); Mean Corpuscular Hemoglobin 27.7 pg (27.0-31.2); Mean Corpuscular Volume 80.6 fl (81-99); Mean Platelet Volume 9.9 fl (7.4-10.4); Monocytes # 0.3 K/mm3 (0.1-1.0); Neutrophils # 0.7 K/mm3 (1.8-7.8); Neutrophils % 35.1 % (37.0-80.0); Platelet Count 104 K/mm3 (142-424); Red Blood Count 5.01 M/mm3 (4.20-5.40); Red Cell Distribution Width 13.5 % (11.5-17.5); White Blood Count 1.9 K/mm3 (4.8-10.8)
[2024-12-04] MEDS: AZITHROMYCIN 500 MG in 0.9 % SODIUM CHLORIDE 250 ML 250 MG IV (10:44)
--- NOTE | 2024-12-04 10:59 | HMH.PHAINT1 ---
Pharmacy Intervention Comments: HOME MEDICATION LIST VERIFIED USING LIST FROM OUTPATIENT PHARMACY AND PT INTERVIEW
--- NOTE | 2024-12-04 11:08 | P.HP_ITS ---
History of Present Illness *Admission Date: 12/04/24 *Reason for visit:: weakness, post influenza *History of present illness: 69-year-old female with recent hospitalization for the flu returns to ER feeling weak. She has a history of colon cancer with partial colectomy, hypertension, hype rlipidemia, diabetes, CAD and CO status post stenting, hypothyroidism, CVA, hiatal hernia repair. Today she presents with weakness, body aches, cough. Patient was diagnosed with the flu last week and was admitted for 1 day here at [facility]. She was discharged home, and was initially feeling better, however today she is feeling short of breath, weak and dizzy. States that she has a cough that is productive of dark green, thick sputum. She c/o decreased appetite and nausea without vomiting. Has been having bowel movements, last bowel movement today, but it was watery, nonbloody, not mucousy. She has no neurologic deficits. On ER arrival, patient was hemodynamically stable, alert, oriented x4, appropriate, GCS 15, moving all extremities spontaneously, pupils equal and reactive to light. She was ormotensive, nontachycardic. In the ER she was placed on continuous cardiac monitoring and continuous pulse ox with initial blood pressure 119/85, heart rate 73, saturation 100% on room air. EKG showed sinus rhythm 77 bpm with OH 197, QRS 82, QTc 434. Slight ST depression with no reciprocal elevations. Normal axis. Patient was given NS and Zofran for symptomatic management and correction of underlying abnormalities. Workup independently interpreted and significant for leukopenia 1.8 with relative neutropenia. Gas largely nonactionable. Negative lactate. She is mildly hyponatremic 131 and has been recently hyponatremic. She is on KCL 10 meq tid. Troponin negative, BNP nonactionable. Lipase negative. The ER MD felt there was evidence of left hilar pneumonia compared to previous study, but radiology read does not confirm this. Cefepime and azithromycin were administered in ER. Dr. Quezada saw the in the emergency department. The patient herself felt the need for admission. A manual differential and peripheral smear were also ordered in recognition of the persistant leukopenia. Because patient high risk for clinical decompensation, deemed appropriate for inpatient admission. [facility] Disclaimer: The information contained in this section may have been updated after the patient was seen, as this information can be updated by other users. 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 Constipation Strabismic amblyopia, left eye Abnormal brain MRI Hypothyroidism (acquired) Carcinoma of colon Diabetes Vasculitis Fatigue Atypical angina Elevated liver enzymes Coronary artery disease Dizziness Dyspnea Transaminitis Headache Depression Colon cancer Sleep apnea History of COVID-19 History of stroke Hypothyroid Diabetes mellitus, type 2 Allergies History of heart attack History of anemia Memory loss Excessive drinking alcohol Nocturnal hypoxemia Cerebrovascular accident Fecal impaction in rectum Hypokalemia Anemia Proctitis Surgical History History of partial colectomy History of coronary artery stent placement History of cardiac cath History of surgery History of repair of hiatal hernia History of colon resection Family History Other Coronary artery disease Dementia Hypertension No significant family history Stroke Social History Smoking Status: Never smoker alcohol intake: never substance use type: denies use current occupational status: employed Travel in the last 8 weeks: None household members: spouse housing: house current occupation: [employer] current occupational exposures/hazards: No caffeine: No Other Medical History Have you received the Flu Vaccine for this season: No Have you received the Pneumonia Vaccine: No Review of Systems Constitutional Constitutional: Reports as per HPI, Denies fever(s) and Reports weakness Eyes Eyes: Reports system reviewed and no additional complaints, except as documented ENT Ears, Nose, Mouth, and Throat: Reports system reviewed and no additional complaints, except as documented and Reports vertigo *Cardiovascular Cardiovascular: Reports as per HPI *Respiratory Respiratory: Reports as per HPI *Gastrointestinal Gastrointestinal: Reports as per HPI *Genitourinary Genitourinary: Reports system reviewed and no additional complaints, except as documented *Musculoskeletal Musculoskeletal: Reports muscle weakness and Reports myalgias Integumentary/Breasts Skin/Breast: Reports system reviewed and no additional complaints, except as documented *Neurologic Neurologic: Reports memory loss, Reports vertigo and Reports weakness Psychiatric Psychiatric: Reports system reviewed and no additional complaints, except as documented, Reports anxiety and Reports memory loss Endocrine Endocrine: Reports system reviewed and no additional complaints, except as documented Hematologic/Lymphatic Hematologic/Lymphatic: Reports as per HPI (Leukopenia. , Followed by Dr. Lim, oncology hematology) Allergic/Immunologic Allergic/Immunologic: Reports system reviewed and no additional complaints, exc ept as documented Meds Home Medications and Allergies Home Medications ?Medication ?Instructions ?Recorded ?Confirmed ?Type glimepiride 1 mg tablet 1 mg PO DAILY 04/14/23 12/04/24 History levothyroxine 25 mcg tablet 25 mcg PO DAILY 04/14/23 12/04/24 History pantoprazole 40 mg tablet,delayed 40 mg PO DAILY 04/14/23 12/04/24 History release raloxifene 60 mg tablet 60 mg PO DAILY 04/14/23 12/04/24 History sertraline 100 mg tablet 100 mg PO HS 04/14/23 12/04/24 History triamterene 37.5 1 tab PO DAILY 04/14/23 12/04/24 History mg-hydrochlorothiazide 25 mg tablet valsartan 160 mg tablet 160 mg PO BID 04/14/23 12/04/24 History aspirin 81 mg tablet,delayed 81 mg PO DAILY 04/19/23 12/04/24 History release (Adult Low Dose Aspirin) metformin 500 mg tablet 500 mg PO BIDWMEAL 04/23/23 12/04/24 History amlodipine 2.5 mg tablet 2.5 mg PO DAILY 06/07/24 12/04/24 History thiamine HCl (vitamin B1) 250 mg 250 mg PO DAILY #30 tabs 10/09/24 12/04/24 Rx tablet oseltamivir 75 mg capsule (Tamiflu) 75 mg PO BID #8 caps 11/30/24 12/04/24 Rx potassium chloride 10 mEq 10 meq PO TID #90 caps 11/30/24 12/04/24 Rx capsule,extended release New Prescriptions to Start Prescriptions: Allergies Allergy/AdvReac Type Severity Reaction Status Date / Time No Known Allergies Allergy Verified 12/04/24 10:12 Exam Data for Last 24 hours Vital signs and Labs for Last 24 Hours: Temp Pulse Resp BP Pulse Ox O2 Del Method 97.7 F 69 13 125/84 100 Room Air 12/04/24 08:20 12/04/24 10:30 12/04/24 10:30 12/04/24 10:30 12/04/24 10:30 12/04/24 10:30 Laboratory Results - last 24 hr 12/04/24 08:45: WBC Cancelled 12/04/24 08:45: WBC 1.9 L*, Corrected WBC Cancelled, RBC Cancelled 12/04/24 08:45: RBC 5.01, Hgb Cancelled 12/04/24 08:45: Hgb 13.9, Hct Cancelled 12/04/24 08:45: Hct 40.4, MCV Cancelled 12/04/24 08:45: MCV 80.6 L, MCH Cancelled 12/04/24 08:45: MCH 27.7, MCHC Cancelled 12/04/24 08:45: MCHC 34.4, RDW Cancelled 12/04/24 08:45: RDW 13.5, Plt Count Cancelled 12/04/24 08:45: Plt Count 104 L, MPV Cancelled 12/04/24 08:45: MPV 9.9, Neut % (Auto) Cancelled 12/04/24 08:45: Neut % (Auto) 35.1 L, Lymph % (Auto) Cancelled 12/04/24 08:45: Lymph % (Auto) 44.1, [place] % (Auto) Cancelled 12/04/24 08:45: [place] % (Auto) 16.0 H, Eos % (Auto) Cancelled 12/04/24 08:45: Eos % (Auto) 0.5, Baso % (Auto) Cancelled 12/04/24 08:45: Baso % (Auto) 0.0 L, Neut # (Auto) Cancelled 12/04/24 08:45: Neut # (Auto) 0.7 L*, Lymph # (Auto) Cancelled 12/04/24 08:45: Lymph # (Auto) 0.8, [place] # (Auto) Cancelled 12/04/24 08:45: [place] # (Auto) 0.3, Eos # (Auto) Cancelled 12/04/24 08:45: Eos # (Auto) 0.0, Baso # (Auto) Cancelled 12/04/24 08:45: Baso # (Auto) 0.0, PT 10.2, INR 0.92, APTT 28.2, Sodium 131 L, Potassium 4.5, Chloride 97 L, Carbon Dioxide 23, Anion Gap 15.5 H, BUN 14, Creatinine 0.80, Estimated Creat Clear 57, Estimated GFR 71, Est GFR ( Amer) 86, Glucose 123 H, Calcium 9.3, Magnesium 1.6, Total Bilirubin 1.0, AST 38 H, ALT 22, Alkaline Phosphatase 58, Total Creatine Kinase 36, Troponin I < 0.01, NT-Pro-B Natriuret Pep 205 H, Total Protein 7.0 D, Albumin 4.4, Globulin 2.6, Albumin/Globulin Ratio 1.7, Lipase 29 12/04/24 09:01: VBG pH 7.45 H, VBG pCO2 32.1 L, VBG pO2 22.3 L, VBG HCO3 21.6 L, VBG Total CO2 22.6 L, VBG O2 Saturation 45.6 L, VBG Base Excess -2.4, VBG Lactic Acid 1.5 I & O for Last 24 hours: Intake & Output 12/01/24 12/02/24 12/03/24 12/04/24 11:59 11:59 11:59 11:59 Weight 155 lb *Routine HEENT Exam Head: Present normocephalic Eye: Present PERRL and normal accommodation; Absent nystagmus ENT: Present mucous membranes dry *Routine Neck Exam Neck: Present full ROM; Absent JVD Routine Chest/Breast/Axilla Exam Chest wall: Absent tenderness *Routine Respiratory Exam Respiratory: Present CTA bilaterally *Routine Cardiovascular Exam Cardiovascular: Present RRR *Routine Abdominal Exam Abdominal: Present soft; Absent tenderness or distended *Routine Rectal Exam Rectal:: deferred *Routine Genitalia Exam Genitalia:: deferred *Routine Extremities Exam Extremities: Absent edema Routine Back/Spine/Pelvis Exam Back/Spine: Present kyphosis; Absent CVA tenderness *Routine Skin Exam Skin: Present intact and dry *Routine Neurological Exam Neurological: Present alert, oriented X3 and normal speech Routine Psychiatric Exam Psychiatric: Present normal affect and normal thought process Assessment and Plan *Assessment and plan (1) Influenza A: Status: Acute Category: Medical Code(s): J10.1 - Influenza due to other identified influenza virus with other respiratory manifestations (2) Dehydration: Status: Acute Category: Medical Code(s): E86.0 - Dehydration (3) Weakness: Status: Acute Category: Medical Code(s): R53.1 - Weakness (4) Leukopenia: Status: Acute Category: Medical Code(s): D72.819 - Decreased white blood cell count, unspecified (5) Hypothyroidism (acquired): Status: Acute Category: Medical Code(s): E03.9 - Hypothyroidism, unspecified (6) History of partial colectomy: Status: Acute Category: Surgical Code(s): Z90.49 - Acquired absence of other specified parts of digestive tract (7) Thrombocytopenia: Status: Acute Category: Medical Code(s): D69.6 - Thrombocytopenia, unspecified (8) Hypertension: Status: Chronic Qualifiers: Hypertension type: primary hypertension Qualified Code(s): I10 - Essential (primary) hypertension Category: Medical Code(s): I10 - Essential (primary) hypertension (9) Coronary artery disease: Status: Acute Qualifiers: Coronary Disease-Associated Artery/Lesion type: [place] artery [place] vs. transplanted heart: [place] heart Associated angina: with other forms of angina Qualified Code(s): I25.118 - Atherosclerotic heart disease of [place] coronary artery with other forms of angina pectoris Category: Medical Code(s): I25.10 - Atherosclerotic heart disease of [place] coronary artery without angina pectoris (10) Diabetes mellitus, type 2: Status: Chronic Qualifiers: Diabetes mellitus snf insulin use: without snf use Diabetes mellitus complication status: without complication Qualified Code(s): E11.9 - Type 2 diabetes mellitus without complications Category: Medical Code(s): E11.9 - Type 2 diabetes mellitus without complications Plan The patient is admitted for observation. She will receive IV fluids with attention to the hyponatremia. I will increase her potassium dose. She received antibiotics in the emergency room. IV Rocephin will be continued.
--- NOTE | 2024-12-04 11:12 | PC.NURSE ---
CALLED REPORT TO KYLE DAVIS RN ON 2ND FLOOR AND ANSWERED ALL QUESTIONS
--- NOTE | 2024-12-04 11:30 | PC.NURSE ---
PT RESTING IN BED NO NEEDS AT THIS TIME, AT BS THEY ARE WAITING TO GO TO [facility] TO THERE ROOM AT THIS TIME
[2024-12-04 11:34] LABS: Eosinophils % 2 % (0-3); Lymphocytes % 46 % (10-50); Microcytosis 1+; Monocytes % 16 % (2-9); Neutrophils % 36 % (42-76); Platelet Estimate Moderate Decrease; Total Cells Counted 50
[2024-12-04] MEDS: POTASSIUM CHLORIDE 20MEQ TAB 20 MEQ PO ×2 (12:21→20:14)
[2024-12-04] MEDS: SODIUM CHLORIDE 0.45 % 1,000 ML 100 ML IV ×3 (12:22→22:09)
[2024-12-04 12:24] LABS: Microscopic, Urine URINE MICROSCOPIC (MICROSCOPIC)
[2024-12-04 12:26] LABS: Troponin I < 0.01 ng/ml (0.00-0.034)
[2024-12-04 12:32] LABS: Appearance,Urine CLEAR (Clear); Bilirubin,Urine Negative (Negative); Blood, Urine Negative (Negative); Color,Urine YELLOW (Yellow); Glucose,Urine (UA) Negative (Negative); Ketones,Urine Negative (Negative); Leukocyte Esterase,Urine Negative (Negative); Nitrate,Urine Negative (Negative); PH,Urine 7.5 (5.0-8.5); Protein,Urine Negative (Negative); Urobilinogen,Urine 0.2 EU/dl (0.2)
[2024-12-04 12:42] LABS: Bacteria,Urine Trace /lpf; WBC,Urine Occasional #/hpf (0-3)
[2024-12-04] MEDS: ACETAMINOPHEN 325MG TAB 650 MG PO (15:20)
[2024-12-04 15:23] LABS: Troponin I < 0.01 ng/ml (0.00-0.034)
--- NOTE | 2024-12-04 17:37 | PC.NURSE ---
Pt is seating up in bed eating dinner. She states that her appetite is better. She is on RA with O2 sats mid 90s. BP trending up. Other VSS. Pt has c/o a headache. Medicated per dec. Call light within reach. at bedside.
[2024-12-05] VITALS: BP 146/86; PULSE 66; RESP 16; TEMP 36.9; O2SAT 94
[2024-12-05] MEDS: SODIUM CHLORIDE 0.45 % 1,000 ML 100 ML IV (00:54)
[2024-12-05] MEDS: ACETAMINOPHEN 325MG TAB 650 MG PO (00:59)
[2024-12-05 03:46] VITALS: BP 135/76; PULSE 75; RESP 16; TEMP 36.9; O2SAT 95; BMI 24.9
--- NOTE | 2024-12-05 03:58 | PC.NURSE ---
Pt. alert and orientated x 4. Pt. on room air. receiving IV fluids. Pt. states that she feels better than when she came into the ED. Pt. resting well. Up to bathroom with standby assist. Pt. c/o headach 02/08, medicated with Tylenol for pain. Tylenol decreased pain to 11/10. Pt. sleeping well. Pt's is at bedside. VSS. Peronal items and call parkinson in reach.
[2024-12-05 06:48] LABS: Basophils % 0.7 % (0.1-2.0); Eosinophils % 1.3 % (0.1-12.0); Hematocrit 36.4 % (37.0-47.0); Lymphocytes # 0.7 K/mm3 (0.7-4.5); Lymphocytes % 47.4 % (10-50); Mean Corpuscular HGB Conc 34.1 g/dL (31.8-35.4); Mean Corpuscular Volume 82.2 fl (81-99); Mean Platelet Volume 8.8 fl (7.4-10.4); Monocytes # 0.3 K/mm3 (0.1-1.0); Monocytes % 17.1 % (1.7-9.3); Neutrophils # 0.3 K/mm3 (1.8-7.8); Neutrophils % 21.7 % (37.0-80.0); Platelet Count 107 K/mm3 (142-424); Red Blood Count 4.43 M/mm3 (4.20-5.40); Red Cell Distribution Width 13.4 % (11.5-17.5); White Blood Count 1.5 K/mm3 (4.8-10.8)
[2024-12-05] MEDS: METFORMIN 500MG TABLET 500 MG PO (06:58)
[2024-12-05] MEDS: LEVOTHYROXINE 25MCG (0.025MG) TAB 25 MCG PO (06:58)
[2024-12-05] MEDS: GLIMEPIRIDE 2 MG TABLET 1 MG PO (06:59)
[2024-12-05 07:01] LABS: Hemoglobin 12.5 g/dL (12.2-16.2)
[2024-12-05 07:26] LABS: Albumin Level 3.5 g/dl (3.5-5.0); Chloride 105 mmol/L (98-107); Sodium 134 mmol/L (136-145)
[2024-12-05 07:28] LABS: Blood Urea Nitrogen 8 mg/dl (7-17); Creatinine Clearance Estimated 57 mL/min (50-200); Estimated Glomerular Filt Rate 82 ml/min (>60); GFR (African American) 100 ML/MIN (>60)
[2024-12-05 07:29] LABS: Alanine Aminotransferase 21 U/L (12-78); Alkaline Phosphatase 54 U/L (38-126); Aspartate Amino Transferase 33 U/L (14-36); Bilirubin,Total 0.5 mg/dl (0.2-1.3); Calcium 8.4 mg/dl (8.4-10.2); Carbon Dioxide 23 mmol/L (22.0-30.0); Glucose 106 mg/dl (74-100)
[2024-12-05 07:32] LABS: Albumin/Globulin Ratio 1.4 (1.1-1.8); Globulin 2.5 g/dL (1.3-3.2)
[2024-12-05 08:00] VITALS: BP 148/87; PULSE 67; RESP 16; TEMP 36.6; O2SAT 97
[2024-12-05] MEDS: IRBESARTAN 150MG TAB 150 MG PO (08:09)
[2024-12-05] MEDS: SERTRALINE 100MG TABLET 100 MG PO (08:09)
[2024-12-05] MEDS: AMLODIPINE 2.5MG TABLET 2.5 MG PO (08:09)
[2024-12-05] MEDS: ASPIRIN EC 81MG TABLET 81 MG PO (08:09)
[2024-12-05] MEDS: POTASSIUM CHLORIDE 20MEQ TAB 20 MEQ PO (08:10)
--- NOTE | 2024-12-05 08:33 | P.PN_ITS ---
Subjective *Date: 12/05/24 *Time: 08:33 Interval history: Patient states she slept little during the night. She continues with a congested cough. who stayed with her throughout the night says she coughs frequently. She has no appetite. She has not been drinking fluids. Her bowels did move this morning and she is voiding QS. Repeat labs this morning show white blood cell count of 1500, hemoglobin of 12.5 hematocrit 36.4. Platelet count is 107,000. Labs with improved sodium of 134 and potassium is 4. Liver function studies are normal.Chest x-ray on admission showed no acute cardiopulmonary process Medical Exam Vital signs and Labs for Last 24 Hours: Vital Signs Temp Pulse Pulse Resp BP BP Pulse Ox 12/05/24 07:00 12/05/24 05:00 12/05/24 03:46 98.4 F 75 16 135/76 95 12/05/24 03:00 12/05/24 01:00 12/05/24 00:00 98.4 F 66 16 146/86 H 94 L 12/04/24 23:00 12/04/24 21:00 12/04/24 20:00 12/04/24 20:00 97.9 F 70 16 150/86 H 97 12/04/24 19:00 12/04/24 17:00 12/04/24 16:00 97.9 F 70 16 150/90 H 94 L 12/04/24 15:00 12/04/24 13:00 12/04/24 12:03 98 F 70 19 134/85 100 12/04/24 12:03 12/04/24 11:12 98.2 F 70 20 141/84 H 12/04/24 11:00 70 14 141/84 H 100 12/04/24 10:30 69 13 125/84 100 12/04/24 10:01 67 15 147/87 H 100 12/04/24 09:30 64 13 137/81 100 12/04/24 09:00 69 12 132/82 100 O2 Del Method O2 Flow Rate 12/05/24 07:00 Room Air, Nasal Cannula 12/05/24 05:00 Room Air 12/05/24 03:46 Room Air 12/05/24 03:00 Room Air 12/05/24 01:00 Room Air 12/05/24 00:00 Room Air 12/04/24 23:00 Room Air 12/04/24 21:00 Room Air 12/04/24 20:00 Room Air 12/04/24 20:00 Room Air 12/04/24 19:00 Room Air 12/04/24 17:00 Room Air 12/04/24 16:00 12/04/24 15:00 Room Air 12/04/24 13:00 Room Air 12/04/24 12:03 12/04/24 12:03 Room Air 12/04/24 11:12 Nasal Cannula 2 12/04/24 11:00 Room Air 12/04/24 10:30 Room Air 12/04/24 10:01 Room Air 12/04/24 09:30 Room Air 12/04/24 09:00 Room Air Intake and Output 12/04/24 12/05/24 12/05/24 19:59 03:59 11:59 Intake Total 640 / 640 800 / 1440 Output Total 0 / 0 0 / 0 Balance 640 / 640 800 / 1440 0 / 1440 Intake: Intake, Oral Amount 360 / 360 Intake, Total IV Amount 280 / 280 800 / 1080 Ceftriaxone Sodium 1 gm In 0.9 50 / 50 % Sodium Chloride 50 ml @ 100 mls/hr IV Q24H MARGARETTE Rx#:[id number] Sodium Chloride 0.45 % 1,000 ml 280 / 280 750 / 1030 @ 100 mls/hr IV .Q10H MARGARETTE Rx#: [id number] Output: Output, Urine Amount 0 / 0 0 / 0 Other: Number of Unmeasured Voids 1 1 Weight 154 lb 155 lb Patient Weight 12/05/24 11:59 Weight 155 lb Laboratory Results - last 24 hr 12/04/24 08:45: WBC Cancelled 12/04/24 08:45: WBC 1.9 L*, Corrected WBC Cancelled, RBC Cancelled 12/04/24 08:45: RBC 5.01, Hgb Cancelled 12/04/24 08:45: Hgb 13.9, Hct Cancelled 12/04/24 08:45: Hct 40.4, MCV Cancelled 12/04/24 08:45: MCV 80.6 L, MCH Cancelled 12/04/24 08:45: MCH 27.7, MCHC Cancelled 12/04/24 08:45: MCHC 34.4, RDW Cancelled 12/04/24 08:45: RDW 13.5, Plt Count Cancelled 12/04/24 08:45: Plt Count 104 L, MPV Cancelled 12/04/24 08:45: MPV 9.9, Neut % (Auto) Cancelled 12/04/24 08:45: Neut % (Auto) 35.1 L, Lymph % (Auto) Cancelled 12/04/24 08:45: Lymph % (Auto) 44.1, [place] % (Auto) Cancelled 12/04/24 08:45: [place] % (Auto) 16.0 H, Eos % (Auto) Cancelled 12/04/24 08:45: Eos % (Auto) 0.5, Baso % (Auto) Cancelled 12/04/24 08:45: Baso % (Auto) 0.0 L, Neut # (Auto) Cancelled 12/04/24 08:45: Neut # (Auto) 0.7 L*, Lymph # (Auto) Cancelled 12/04/24 08:45: Lymph # (Auto) 0.8, [place] # (Auto) Cancelled 12/04/24 08:45: [place] # (Auto) 0.3, Eos # (Auto) Cancelled 12/04/24 08:45: Eos # (Auto) 0.0, Baso # (Auto) Cancelled 12/04/24 08:45: Baso # (Auto) 0.0, Total Counted 50, Neutrophils % (Manual) 36 L , Lymphocytes % (Manual) 46, Monocytes % (Manual) 16 H, Eosinophils % (Manual) 2, Platelet Estimate Moderate decrease, Microcytosis 1+, PT 10.2, INR 0.92, APTT 28.2, Sodium 131 L, Potassium 4.5, Chloride 97 L, Carbon Dioxide 23, Anion Gap 15.5 H, BUN 14, Creatinine 0.80, Estimated Creat Clear 57, Estimated GFR 71, Est GFR ( Amer) 86, Glucose 123 H, Calcium 9.3, Magnesium 1.6, Total Bilirubin 1.0, AST 38 H, ALT 22, Alkaline Phosphatase 58, Total Creatine Kinase 36, Troponin I < 0.01, NT-Pro-B Natriuret Pep 205 H, Total Protein 7.0 D, Albumin 4.4, Globulin 2.6, Albumin/Globulin Ratio 1.7, Lipase 29 12/04/24 09:01: VBG pH 7.45 H, VBG pCO2 32.1 L, VBG pO2 22.3 L, VBG HCO3 21.6 L, VBG Total CO2 22.6 L, VBG O2 Saturation 45.6 L, VBG Base Excess -2.4, VBG Lactic Acid 1.5 12/04/24 11:50: Troponin I < 0.01 12/04/24 12:19: Urine Color Yellow, Urine Appearance Clear, Urine pH 7.5, Ur Specific [place] 1.020, Urine Protein Negative, Urine Glucose (UA) Negative, Urine Ketones Negative, Urine Blood Negative, Urine Nitrate Negative, Urine Bilirubin Negative, Urine Urobilinogen 0.2, Ur Leukocyte Esterase Negative, Urine RBC None, Urine WBC Occasional, Urine Bacteria Trace 12/04/24 14:40: Troponin I < 0.01 12/05/24 06:17: WBC 1.5 L*, RBC 4.43, Hgb 12.5 D, Hct 36.4 L, MCV 82.2, MCH 28.0, MCHC 34.1, RDW 13.4, Plt Count 107 L, MPV 8.8, Neut % (Auto) 21.7 L, Lymph % (Auto) 47.4, [place] % (Auto) 17.1 H, Eos % (Auto) 1.3, Baso % (Auto) 0.7, Neut # (Auto) 0.3 L*, Lymph # (Auto) 0.7, [place] # (Auto) 0.3, Eos # (Auto) 0.0, Baso # (Auto) 0.0, Sodium 134 L, Potassium 4.0, Chloride 105, Carbon Dioxide 23, Anion Gap 10.0, BUN 8 D, Creatinine 0.70, Estimated Creat Clear 57, Estimated GFR 82, Est GFR ( Amer) 100, Glucose 106 H, Calcium 8.4, Total Bilirubin 0.5, AST 33, ALT 21, Alkaline Phosphatase 54, Total Protein 6.0 L, Albumin 3.5 D, Globulin 2.5, Albumin/Globulin Ratio 1.4 I & O for Labs for Last 24 Hours: Intake & Output 12/02/24 12/03/24 12/04/24 12/05/24 11:59 11:59 11:59 11:59 Intake Total 1440 / 1440 Output Total 0 / 0 Balance 1440 / 1440 Weight 155 lb 155 lb Constitutional: Present no acute distress Comment:: Patient awaken for exam she is able to lie flat for sleep without cough. Coughed only when taking deep breaths with exam. Respiratory: Present rhonchi (Posteriorly) and wheezes (Posteriorly) Cardiac: Present Reg Rate and Rhythm GI: Present soft and normal bowel sounds; Absent distention or tenderness Extremities: Absent tenderness, edema or calf tenderness Neuro: Present alert, awake and oriented x 3 Assessment and Plan *Assessment and plan (1) Influenza A: Status: Acute Category: Medical Code(s): J10.1 - Influenza due to other identified influenza virus with other respiratory manifestations (2) Dehydration: Status: Acute Category: Medical Code(s): E86.0 - Dehydration (3) Weakness: Status: Acute Category: Medical Code(s): R53.1 - Weakness (4) Leukopenia: Status: Acute Category: Medical Code(s): D72.819 - Decreased white blood cell count, unspecified (5) Hypothyroidism (acquired): Status: Acute Category: Medical Code(s): E03.9 - Hypothyroidism, unspecified (6) History of partial colectomy: Status: Acute Category: Surgical Code(s): Z90.49 - Acquired absence of other specified parts of digestive tract (7) Thrombocytopenia: Status: Acute Category: Medical Code(s): D69.6 - Thrombocytopenia, unspecified (8) Hypertension: Status: Chronic Qualifiers: Hypertension type: primary hypertension Qualified Code(s): I10 - Essential (primary) hypertension Category: Medical Code(s): I10 - Essential (primary) hypertension (9) Coronary artery disease: Status: Acute Qualifiers: Coronary Disease-Associated Artery/Lesion type: [place] artery [place] vs. transplanted heart: [place] heart Associated angina: with other forms of angina Qualified Code(s): I25.118 - Atherosclerotic heart disease of [place] coronary artery with other forms of angina pectoris Category: Medical Code(s): I25.10 - Atherosclerotic heart disease of [place] coronary artery without angina pectoris (10) Diabetes mellitus, type 2: Status: Chronic Qualifiers: Diabetes mellitus watermaster insulin use: without watermaster use Diabetes mellitus complication status: without complication Qualified Code(s): E11.9 - Type 2 diabetes mellitus without complications Category: Medical Code(s): E11.9 - Type 2 diabetes mellitus without complications Plan Home meds have been ordered. Will also add cough medicine. Continue with antibiotics and add DuoNebs.
[2024-12-05 09:56] VITALS: PULSE 72; RESP 15
[2024-12-05] MEDS: SODIUM CHLORIDE 3% 15ML NEB 3 ML IH (10:02)
[2024-12-05 12:00] VITALS: BP 138/77; PULSE 74; RESP 16; TEMP 36.6; O2SAT 94
[2024-12-05] MEDS: CEFTRIAXONE SODIUM 1 GM in 0.9 % SODIUM CHLORIDE 50 ML IV (12:05)
[2024-12-05] MEDS: IPRATROPIUM/ALBUTEROL 3 ML NEB IH (13:53)
[2024-12-05 13:55] VITALS: PULSE 77; PULSE 80
--- NOTE | 2024-12-06 10:36 | SW/DCPLANNER ---
Spoke with patient on the phone. Patient stated that she isnt doing too well. Patient stated that she is aware of her upcoming appointment with her primary care provider. 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 Patient stated that she has no concerns or questions at this time. Carmela Velarde
[2024-12-06 10:37] LABS: Peripheral Smear Review Scanned Result
--- NOTE | 2024-12-10 22:47 | EXP.DC.SUM ---
General Admission date:: 12/04/24 Discharge date: 12/05/24 HPI HPI HPI: 69-year-old female with recent hospitalization for the flu returns to ER feeling weak. She has a history of colon cancer with partial colectomy, hypertension, hyperlipidemia, diabetes, CAD and [place] status post stenting, hypothyroidism, CVA, hiatal hernia repair. Today she presents with weakness, body aches, cough. Patient was diagnosed with the flu last week and was admitted for 1 day here at [facility]. She was discharged home, and was initially feeling better, however today she is feeling short of breath, weak and dizzy. States that she has a cough that is productive of dark green, thick sputum. She c/o decreased appetite and nausea without vomiting. Has been having bowel movements, last bowel movement today, but it was watery, nonbloody, not mucousy. She has no neurologic deficits. On ER arrival, patient was hemodynamically stable, alert, oriented x4, appropriate, GCS 15, moving all extremities spontaneously, pupils equal and reactive to light. She was ormotensive, nontachycardic. In the ER she was placed on continuous cardiac monitoring and continuous pulse ox with initial blood pressure 119/85, heart rate 73, saturation 100% on room air. EKG showed sinus rhythm 77 bpm with NC 197, QRS 82, QTc 434. Slight ST depression with no reciprocal elevations. Normal axis. Patient was given NS and Zofran for symptomatic management and correction of underlying abnormalities. Workup independently interpreted and significant for leukopenia 1.8 with relative neutropenia. Gas largely nonactionable. Negative lactate. She is mildly hyponatremic 131 and has been recently hyponatremic. She is on KCL 10 meq tid. Troponin negative, BNP nonactionable. Lipase negative. The ER MD felt there was evidence of left hilar pneumonia compared to previous study, but radiology read does not confirm this. Cefepime and azithromycin were administered in ER. Dr. Quezada saw the in the emergency department. The patient herself felt the need for admission. A manual differential and peripheral smear were also ordered in recognition of the persistant leukopenia. Because patient high risk for clinical decompensation, deemed appropriate for inpatient admission. Hospital Course Hospital Course Hospital Course: The patient was admitted for observation. She was started on IV fluids with attention to her hyponatremia. Her potassium dose was increased. She received antibiotics in the ER and IV Rocephin was continued. By 12/05/2024, she continued with a congestive cough. Her sodium had improved and her potassium was normal. Chest x-ray on admission showed no acute cardiopulmonary process. DuoNebs were added. She was doing better by the afternoon and was stable to be discharged home with follow-up with Dr. Quezada. Exam Data for Last 24 hours Vital signs and Labs for Last 24 Hours: Temp Pulse Resp BP Pulse Ox O2 Del Method O2 Flow Rate 98 F 80 16 138/77 94 L Room Air 2 12/05/24 12:00 12/05/24 13:55 12/05/24 12:00 12/05/24 12:00 12/05/24 12:00 12/05/24 15:00 12/04/24 11:12 Narrative: *Routine HEENT Exam Head: Present normocephalic Eye: Present PERRL and normal accommodation; Absent nystagmus ENT: Present mucous membranes dry *Routine Neck Exam Neck: Present full ROM; Absent JVD Routine Chest/Breast/Axilla Exam Chest wall: Absent tenderness *Routine Respiratory Exam Respiratory: Present CTA bilaterally *Routine Cardiovascular Exam Cardiovascular: Present RRR *Routine Abdominal Exam Abdominal: Present soft; Absent tenderness or distended *Routine Rectal Exam Rectal:: deferred *Routine Genitalia Exam Genitalia:: deferred *Routine Extremities Exam Extremities: Absent edema Routine Back/Spine/Pelvis Exam Back/Spine: Present kyphosis; Absent CVA tenderness *Routine Skin Exam Skin: Present intact and dry *Routine Neurological Exam Neurological: Present alert, oriented X3 and normal speech Routine Psychiatric Exam Psychiatric: Present normal affect and normal thought process DS: Diagnosis Discharge Diagnosis (1) Influenza A: Status: Acute Code(s): J10.1 - Influenza due to other identified influenza virus with other respiratory manifestations (2) Dehydration: Status: Resolved Code(s): E86.0 - Dehydration (3) Weakness: Status: Acute Code(s): R53.1 - Weakness (4) Leukopenia: Status: Acute Code(s): D72.819 - Decreased white blood cell count, unspecified (5) Hypothyroidism (acquired): Status: Acute Code(s): E03.9 - Hypothyroidism, unspecified (6) History of partial colectomy: Status: Acute Code(s): Z90.49 - Acquired absence of other specified parts of digestive tract (7) Thrombocytopenia: Status: Acute Code(s): D69.6 - Thrombocytopenia, unspecified (8) Hypertension: Status: Chronic Code(s): I10 - Essential (primary) hypertension Qualifiers: Hypertension type: primary hypertension Qualified Code(s): I10 - Essential (primary) hypertension (9) Coronary artery disease: Status: Acute Code(s): I25.10 - Atherosclerotic heart disease of [place] coronary artery without angina pectoris Qualifiers: Coronary Disease-Associated Artery/Lesion type: [place] artery [place] vs. 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 chcf use Diabetes mellitus complication status: without complication Qualified Code(s): E11.9 - Type 2 diabetes mellitus without complications Meds Home Medications and Allergies Home Medications ?Medication ?Instructions ?Recorded ?Confirmed ?Type glimepiride 1 mg tablet 1 mg PO DAILY 04/14/23 12/04/24 History levothyroxine 25 mcg tablet 25 mcg PO DAILY 04/14/23 12/04/24 History pantoprazole 40 mg tablet,delayed 40 mg PO DAILY 04/14/23 12/04/24 History release raloxifene 60 mg tablet 60 mg PO DAILY 04/14/23 12/04/24 History sertraline 100 mg tablet 100 mg PO HS 04/14/23 12/04/24 History triamterene 37.5 1 tab PO DAILY 04/14/23 12/04/24 History mg-hydrochlorothiazide 25 mg tablet valsartan 160 mg tablet 160 mg PO BID 04/14/23 12/04/24 History aspirin 81 mg tablet,delayed 81 mg PO DAILY 04/19/23 12/04/24 History release (Adult Low Dose Aspirin) metformin 500 mg tablet 500 mg PO BIDWMEAL 04/23/23 12/04/24 History amlodipine 2.5 mg tablet 2.5 mg PO DAILY 06/07/24 12/04/24 History potassium chloride 10 mEq 10 meq PO TID #90 caps 11/30/24 12/04/24 Rx capsule,extended release albuterol sulfate 90 mcg/actuation 2 puff inhalation QID PRN 12/05/24 Rx aerosol inhaler shortness of breath or wheezing #8.5 grams cefdinir 300 mg capsule 300 mg PO BID #14 caps 12/05/24 Rx New Prescriptions to Start Prescriptions: albuterol sulfate Mart Quezada cefdinir Mart Quezada Allergies Allergy/AdvReac Type Severity Reaction Status Date / Time No Known Allergies Allergy Verified 12/04/24 10:12 Discharge Plan Disposition Patient Disposition: Home, Self-Care Follow up Plan Follow up with: Mart Quezada MD [Primary Care Provider] - 12/08/24 11:45 am Prescriptions/Medication Reconciliation: New cefdinir 300 mg capsule 300 mg PO BID Qty: 14 0RF albuterol sulfate 90 mcg/actuation HFA aerosol inhaler 2 puff inhalation QID PRN (Reason: shortness of breath or wheezing) Qty: 8.5 2RF Continued amlodipine 2.5 mg tablet 2.5 mg PO DAILY aspirin [Adult Low Dose Aspirin] 81 mg tablet,delayed release (DR/EC) 81 mg PO DAILY sertraline 100 mg tablet 100 mg PO HS levothyroxine 25 mcg tablet 25 mcg PO DAILY glimepiride 1 mg tablet 1 mg PO DAILY pantoprazole 40 mg tablet,delayed release (DR/EC) 40 mg PO DAILY triamterene-hydrochlorothiazid 37.5-25 mg tablet 1 tab PO DAILY raloxifene 60 mg tablet 60 mg PO DAILY valsartan 160 mg tablet 160 mg PO BID metformin 500 mg tablet 500 mg PO BIDWMEAL potassium chloride 10 mEq Capsule, Extended Release 10 meq PO TID Qty: 90 2RF Problem Reconciliation Problems Reviewed?: Yes Patient Discharge Instructions ACTIVITY: Ambulate as tolerated Patient Instructions: DI for Influenza -- Adult, DI for Neutropenia Print Language: Swedish Providers Primary Care Provider: Mart Quezada Admit Provider: Mart Quezada Attending Provider: Mart Quezada
== END 2024-12-05 14:56 | disposition home or self-care (01) ==
LOC: ER 10:41 → 2ND 10:46
PROVIDERS: Admitting Provider Family Medicine; Emergency Provider Emergency Medicine; PCP Family Medicine; Visit Provider Family Medicine
DX: J10.1 Influenza due to other identified influenza virus with other respiratory manifestations (principal); E87.1 Hypo-osmolality and hyponatremia; D72.819 Decreased white blood cell count, unspecified; E03.9 Hypothyroidism, unspecified; D69.6 Thrombocytopenia, unspecified; I10 Essential (primary) hypertension; I25.118 Atherosclerotic heart disease of native coronary artery with other forms of angina pectoris; I25.2 Old myocardial infarction; E11.9 Type 2 diabetes mellitus without complications; Z79.890 Hormone replacement therapy; Z79.82 Long term (current) use of aspirin; Z79.84 Long term (current) use of oral hypoglycemic drugs; Z86.73 Personal history of transient ischemic attack (TIA), and cerebral infarction without residual deficits; Z79.899 Other long term (current) drug therapy; Z90.49 Acquired absence of other specified parts of digestive tract
CPT/HCPCS: 36415; 71046; 80053; 81001; 82550; 82803; 83690; 83735; 83880; 84484; 85007; 85014; 85018; 85025; 85048; 85049; 85610; 85730; 87040; 87070; 87205; 93005; 94640; 99285; G0378; J0456; J0696; J2405; J7030; J7050; J7620

== ENCOUNTER 2025-01-15 16:05 | Outpatient (CLI) | payer MEDICARE, SELFPAY ==
--- NOTE | 2025-01-15 16:09 | MM_ITS ---
PROCEDURE INFORMATION: Exam: MG Bilateral Screening 3D Mammography Exam date and time: 01/15/2025 4:10 PM Age: 69 years old Clinical indication: Screening examination TECHNIQUE: Imaging protocol: Bilateral Screening tomosynthesis and 2D mammography including computer-aided detection (CAD) when performed. COMPARISON: 1. MG MM DIG MAMM DX UNILAT LT CAD 04/07/2024 10:28 AM 2. MG MM DIG MAMM DX UNILAT LT CAD 10/12/2023 1:[address] HEAD/BRAIN WO CON 04/19/2023 3:48 AM FINDINGS: MAMMOGRAPHY: Breast composition: There are scattered areas of fibroglandular density. Mass: No suspicious masses. Architectural distortion: None. Calcifications: No suspicious calcifications. Asymmetric density: None. Skin thickening: None. Axillary adenopathy: None. IMPRESSION: No mammographic evidence of malignancy. Annual screening is recommended unless otherwise clinically indicated. ASSESSMENT: BI-RADS Category 1: Negative.
== END 2025-01-15 23:59 | disposition home or self-care (01) ==
LOC: RAD 16:06
PROVIDERS: PCP Family Medicine; Visit Provider Family Medicine
DX: Z12.31 Encounter for screening mammogram for malignant neoplasm of breast (principal)
CPT/HCPCS: 77063; 77067

== ENCOUNTER 2025-01-17 12:19 | Outpatient (CLI) | payer MEDICARE, SELFPAY ==
[2025-01-17 12:29] LABS: MANUAL DIFFERENTIAL MANUAL DIFFERENTIAL (MANUAL DIFF)
[2025-01-17 13:53] LABS: Basophils % 0.3 % (0.1-2.0); Eosinophils % 1.2 % (0.1-12.0); Hematocrit 37.3 % (37.0-47.0); Hemoglobin 12.3 g/dL (12.2-16.2); Lymphocytes # 1.4 K/mm3 (0.7-4.5); Lymphocytes % 40.2 % (10-50); Mean Platelet Volume 10.4 fl (7.4-10.4); Monocytes # 0.6 K/mm3 (0.1-1.0); Monocytes % 15.9 % (1.7-9.3); Neutrophils % 29.7 % (37.0-80.0); Platelet Count 123 K/mm3 (142-424); Red Blood Count 4.39 M/mm3 (4.20-5.40); Red Cell Distribution Width 14.6 % (11.5-17.5); White Blood Count 3.5 K/mm3 (4.8-10.8)
[2025-01-17 15:11] LABS: Lymphocytes % 49 % (10-50); Monocytes % 3 % (2-9); Neutrophils % 48 % (42-76); Platelet Estimate Normal; RBC Morphology Normal; Total Cells Counted 100
== END 2025-01-17 23:59 | disposition home or self-care (01) ==
LOC: LAB 12:21
PROVIDERS: PCP Family Medicine; Visit Provider Specialist
DX: D61.818 Other pancytopenia (principal)
CPT/HCPCS: 36415; 85007; 85014; 85018; 85048; 85049

== ENCOUNTER 2025-04-26 14:18 | Outpatient (CLI) | payer MEDICARE, SELFPAY ==
--- OUTSIDE RECORDS SUMMARY | 2025-04-26 14:23 | XMS_ITS | Encounter Summary ---
Author Organization Healthcare Address [address] [place] [address] Care Team Providers Care Litigator Name Role Phone Lazarus Quezada MD Primary Care Provider Encounter Details Date Type Department Care Team (Late st Contact Info) Description 04/28/[address] [facility] [address] [place] [address] Irwin Farias MD [address] [place] [address] Social History Tobacco Use Types Packs/Day Years Used Date Smoking Tobacco: Former Smokeless Tobacco: Never Alcohol Use Standard Drinks/Week Comments Yes 1 (1 standard drink = 0.6 oz pur e alcohol) Bottle daily CAGE ASSESSMENT Answer Date Recorded Cage unable to access Not on file 04/27/2023 Maximum number of drinks you had on a given occasion in the last month? 0 drinks 04/27/2023 How many alcoholic Beverages do you typically drink in a week? 0 - 7 per week 04/27/2023 Have you ever felt you should CUT down on your d rinking? 0 04/27/2023 Have you been ANNOYED by peo ple criticizing your drinking? 0 04/27/2023 Have you felt GUILTY about your drinking? 0 04/27/2023 Have you had a drink first t yenni in the morning (EYE-SENIOR CLINICAL STUDY MANAGER) to steady your nerves or to get rid of a hangover? 0 04/27/2023 CAGE Questionnaire Score 0 023 Comments Unknown Sex and Gender Information Value Date Recorded Sex Assigned at Not on file Legal Sex Female 7:47 PM EDT Gender Identity Not on file Sexual Orientation Not on file documented as of this encounter Plan of Treatment Not on file documented as of this encounter Goals Goal Patient Goal Type Associated Problems Recent Progress Patient-Stated? Author Consistently take Medications as Prescribed General On track( 022 2:56 PM EDT) Yes Coreen Agosto RN documented as of this encounter Visit Diagnoses Not on filedocumented in this encounter Additional Health Concerns Infection Onset Date Last Indicated Resolved Time Lyme disease 04/27/2023 04/27/2023 documented as of this encounter Care Teams Litigator Relationship Specialty Start Date End Date Lazarus Quezada MD [address] [place] [address] PCP - General 03/14/21 documented as of this encounter
--- OUTSIDE RECORDS SUMMARY | 2025-04-26 14:23 | XMS_ITS | Clinical Summary ---
Author Organization Healthcare Address [address] [place] [address] Care Team Providers Care Provider Network Manager Name Role Phone Lazarus Quezada MD Primary Care Provider [phone] Allergies No known active allergies Medications glimepiride (Amaryl) 1 MG tablet Take 1 tablet (1 mg) by mouth 1 (one) time each day before breakfast. Active levothyroxine (Synthroid, Levoxyl) 25 MCG tablet Take 1 tablet (25 mcg) by mouth 1 (one) time each day before breakfast. Active pantoprazole (Protonix) 40 MG EC tablet Take 1 tablet (40 mg) by mouth 1 (one) time each day before breakfast. Do not crush, chew, or split. Active potassium chloride ER (Micro-K) 10 MEQ ER capsule Take 1 capsule (10 mEq) by mouth 2 (two) times a day. Do not crush or chew. Active sertraline (Zoloft) 100 MG tablet Take 1 tablet (100 mg) by mouth 1 (one) time each day. Active thiamine (Vitamin B-1) 100 MG tablet Take 2 tablets (200 mg) by mouth 1 (one) time each day. Active triamterene-hydr ochlorothiazide (Maxzide-25) 37.5-25 MG tablet Take 0.5 tablets by mouth 1 (one) time each day. Active metFORMIN (Glucophage) 500 MG tablet Take 1 tablet (500 mg) by mouth 2 (two) times a day with meals. Active aspirin 81 MG EC tablet Take 1 tablet (81 mg) by mouth 1 (one) time each day. Active valsartan (Diovan) 160 MG tablet Take 1 tablet (160 mg) by mouth 2 (two) times a day. Active atorvastatin (Lipitor) 80 MG tablet Take 1 tablet (80 mg total) by mouth 1 (one) time each day. 30 tablet 11 2 Active Additional Information Patient not taking.Reason: Side effects (gives patient aches), Reported on 04/27/2023 NIFEdipine XL (Procardia XL) 30 MG 24 hr tablet Take 1 tablet (30 mg total) by mouth 1 (one) time each day. Do not crush, chew, or split. 30 tablet 2 Active White Petrolatum-[place] al Oil (artificial tears) ophthalmic ointment Apply 1 Application to left eye every night. 3.5 g 3 Active Additional Information Patient not taking.Reported on 05/18/2023 carboxymethylcel lulose sod PF (Refresh Celluvisc) 1 % ophthalmic solution dropperette Apply 1 drop to both eyes 4 (four) times a day. 1 each 3 Active Additional Information Patient not taking.Reported on 05/18/2023 raloxifene (Evista) 60 MG tablet 1 tablet (60 mg). 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 Altered mental status, unspe cified altered mental status type 04/27/2023 Essential hypertension 03/08/2022 Mixed hyperlipidemia 03/08/2022 Coronary artery disease invo lving [place] coronary artery of [place] heart without angina pectoris 03/08/2022 History of coronary artery stent placement 03/08 Alcohol use disorder, mild, abuse 03/08/2022 History of colon cancer 03/08/2022 Diabetes 03/08/2022 Overweight (BMI 25.0-29.9) 03/08/2022 Status post administration o f tPA (rtPA) in a different facility within the last 24 hours prior to admission to current facility 03/08/2022 Thrombocytopenia 03/08/2022 Hyponatremia 03/08/2022 Hyperglycemia due to type 1 diabetes mellitus Hypertriglyceridemia 03/08/2022 Suspected stroke patient las t known to be well 3 to 4.5 hours ago 03/07/2022 Cerebrovascular accident (CVA) Resolved Problems Problem Noted Date Diagnosed Date Resolved Date Hypertensive encephalopathy 03/10/2022 03/10/2022 Carotid atherosclerosis, bilateral 03/08/2022 03/10/2022 Intracranial atherosclerosis 03/08/2022 03/10/2022 Acute encephalopathy 03/08/2022 022 Hypomagnesemia 03/08/2022 03/10/2022 Family History Medical History Relation Name Comments Cardiac disorder Brother 1 Diabetes Brother 2 Cardiac disorder Mother Diabetes Sister Hypertension Sister Relation Name Status Comments Brother 1 Brother 2 Mother Sister Social History Tobacco Use Types Packs/Day Years Used Date Smoking Tobacco: Former Smokeless Tobacco: Never Tobacco Cessation:Counseling Given: Not Answered Alcohol Use Standard Drinks/Week Comments Yes 1 [...] drink first t yenni in the morning (EYE-GALLERY INTERN) to steady your nerves or to get rid of a hangover? 0 04/27/2023 CAGE Questionnaire Score 0 023 Comments Unknown Sex and Gender Information Value Date Recorded Sex Assigned at Not on file Legal Sex Female 7:47 PM EDT Gender Identity Not on file Sexual Orientation Not on file Last Filed Vital Signs Vital Sign Reading Time Taken Comments Blood Pressure 119/80 05/18/2023 12:22 PM EDT Pulse 86 05/18/2023 12:22 PM EDT Temperature 36.9 C (98.4 F) 05/18/2023 12:22 PM EDT Respiratory Rate 16 05/18/2023 12:22 PM EDT Oxygen Saturation 99% 05/18/2023 12:22 PM EDT RA Inhaled Oxygen Concentration - - Weight 67 kg (147 lb 12.8 oz) 05/18/2023 12:22 P M EDT Height 171 cm (5' 7.32 ) 04/27/2023 11:09 AM EDT Body Mass Index 22.93 04/27/2023 11:09 AM EDT Plan of Treatment Health Maintenance Due Date Last Done Comments [facility]-Bone Density Scan 1953 [facility]-Depression Screening 1953 [facility]-Medicare Annual Wellness (AWV) 1955 [facility]-Infant/Child/Adol SDOH Screenings 1953 Diabetes: Dental Exam 1963 [facility]- SDOH Screenings 1971 [facility]-Adult SDOH Screenings 1971 CT Colonography 1998 Colonoscopy 1998 FIT-DNA 1998 FIT 1998 FOBT 1998 Sigmoidoscopy 1998 [facility]-Colorectal Cancer Screening 1998 [facility]-Breast Cancer Screening 2003 [facility]-RSV Vaccine: 60+ Years o r (1 - Risk 60-74 years 1-dose series) 2013 [facility]-Zoster Vaccines (2 of 3) 11/24/2016 09/29/2016 [facility]-Pneumococcal Vaccine: 50 + Years (2 of 2 - PPSV23) 02/13/2019 12/19/2018 [facility]-Diabetes: Hemoglobin A1C 09/04/2022 03/07/2022 [id number] Vaccine ( season) 2024 10/20/2021, 02/05/2021, 01/08/2021 [facility]-Influenza Vaccine ([place] n Ended) 2025 09/29/2016 [facility]-DTaP,Tdap,and Td Vaccine s (2 - Td or Tdap) 12/19/2028 12/19/2018, 01/08/1997 [facility]-Hepatitis C Screening Completed 2022, 03/07/2022, 01/04/2020 HPV Vaccines Aged Out No longer eligi ble based on patient's age to complete this topic [facility]-HIB Vaccines Aged Out No longer e ligible based on patient's age to complete this topic [facility]-Hepatitis A Vaccines Aged Out No longer eligible based on patient's age to complete this topic [facility]-IPV Vaccines Aged Out No longer e ligible based on patient's age to complete this topic [facility]-Rotavirus Vaccines Aged Out No lo nger eligible based on patient's age to complete this topic Goals Goal Patient Goal Type Associated Problems Recent Progress Patient-Stated? Author Consistently take Medications as Prescribed General On track( 022 2:56 PM EDT) Yes Coreen Agosto RN Procedures Procedure Name Priority Date/Time Associated Diagnosis Comments HEPATITIS C ANTIBODY - ED W/REFLEX TO HCV QUANT PCR STAT 04/27/2023 12:25 PM EDT HEMOGLOBIN A1C Add-On 03/07/2022 9:21 PM EDT from Last 3 Months or Most Recently Relevant to Health Maintenance Results * Hepatitis C Antibody - ED (04/27/2023 12:25 PM EDT) Hepatitis C Antibody Negative Negative 04/27/2023 1:38 PM EDT [facility] Blood Venous blood specimen / Unknown Venipuncture / Unknown 04/27/2023 12:25 PM EDT 04/27/2023 12:56 PM EDT Dann Quintero MD LAB BLOOD ORDERABLES Final Re sult [facility] [address] [place] [address] * (ABNORMAL) Hemoglobin A1c (03/07/2022 9:21 PM EDT) Hemoglobin A1c 7.0(H) <5.7 % 03/07/2022 11:44 PM EDT [facility] Blood Venous blood specimen / Unknown Venipuncture / Unknown 03/07/2022 9:21 PM EDT 03/07/2022 9:31 PM EDT Narrative [facility] - 03/07/2022 11:44 PM EDT HA1C Interpretive Data: Diagnosis of Diabetes: Diabetic > or = 6.5% Pre-diabetic 5.7 to 6.4% Non-diabetic < or = 5.6% Glycemic Targets for Type I and Type II Diabetics: Non- Adults <7.0% Adults <6.0% Children and Adolescents <7.5% Source: [place] [employer]. Standards of medical care in diabetes,2017. Diabetes Care.2017:40 (suppl 1):S1-S135. HbA1c assay performed by an ion-exchange chromatography method that is certified traceable to the DCCT. Ruslan Amato MD LAB BLOOD ORDERABLES Final Result [facility] [address] [place] [address] from Last 3 Months or Most Recently Relevant to Health Maintenance Additional Health Concerns Infection Onset Date Last Indicated Lyme disease 04/27/2023 04/27/2023 [place] [address] [employer] Advance Directives * Full Code (Latest Code Status on File) Date Activated Date Inactivated Comments 04/27/2023 4:03 PM 04/29/2023 6:29 PM Question Answer Comments Patient has decision-making capacity? Yes Care Teams Provider Network Manager Relationship Specialty Start Date End Date Lazarus Quezada MD [address] [place] [id number] PCP - General 03/14/21
[2025-04-26 14:38] LABS: Basophils % 0.3 % (0.1-2.0); Eosinophils % 0.6 % (0.1-12.0); Hemoglobin 12.8 g/dL (12.2-16.2); Immature Granulocytes # 0.01 10^3uL; Immature Granulocytes % 0.3 %; Lymphocytes # 1.4 K/mm3 (0.7-4.5); Lymphocytes % 42.3 % (10-50); Mean Corpuscular Hemoglobin 26.4 pg (27.0-31.2); Mean Corpuscular Volume 82.5 fl (81-99); Mean Platelet Volume 9.6 fl (7.4-10.4); Monocytes # 0.4 K/mm3 (0.1-1.0); Monocytes % 11.3 % (1.7-9.3); Neutrophils # 1.5 K/mm3 (1.8-7.8); Neutrophils % 45.2 % (37.0-80.0); Nucleated Red Blood Cells # 0 10^3/uL; Nucleated Red Blood Cells % 0 %; Platelet Count 101 K/mm3 (142-424); Red Blood Count 4.85 M/mm3 (4.20-5.40); Red Cell Distribution Width 14.6 % (11.5-17.5); White Blood Count 3.4 K/mm3 (4.8-10.8)
== END 2025-04-26 23:59 | disposition home or self-care (01) ==
LOC: LAB 14:19
PROVIDERS: PCP Family Medicine; Visit Provider Internal Medicine Medical Oncology
DX: D69.6 Thrombocytopenia, unspecified (principal)
CPT/HCPCS: 36415; 85025

== ENCOUNTER 2025-05-10 08:39 | Outpatient (CLI) | payer MEDICARE, SELFPAY ==
--- OUTSIDE RECORDS SUMMARY | 2025-01-08 09:00 | XMS_ITS ---
Author Organization [facility] Address [address] [facility] [address] [place] [id number] Care Team Providers Care Nutritional Assistant Name Role Phone Abhishek Quezada Primary Care Provider Allergies No Known Allergies REASON FOR VISIT [...] orally once a day Active Vital Signs Weight 151.8 lbs 01/08/2025 Blood pressure systolic 130 mm Hg 01/09/20 25 Blood pressure diastolic 90 mm Hg 025 Heart Rate 75 /min 01/08/2025 Height 65.25 in 01/08/2025 BMI 25.06 kg/m2 01/08/2025 Encounters Encounter Location Date Provider Diagnosis [facility] 36 [facility] [address] [place] [phone] 01/08/2025 Abhishek Quezada Type 2 diabetes mellitus [...] 2 Months, Reason: Provider Name:Abhishek Hooker , 06/11/2025 01:00:00 PM, [address] [facility] 36 [facility], [address], [place], [phone], Progress Notes * ANGELINA CADET:[birth year] (69 yo F)Acc No.[id number]:01/08/2025 Progress Notes Patient: MILTON POWELL Provider: Abhishek Quezada M.D. :1955 A ge:69 Y S ex:Female Date:01/08/2025 Address:[address] [place] [address], [phone] Subjective: * Chief Complaints: * 1 . [...] Heart Stent x 1 2015, Hernia Repair- [facility] , Colectomy 12/2018, DE stent mRCA 2016, Colonoscopy 01/12/2023. * Hospitalization/Major Diagno stic Procedure: C onstipation, Low Iron- [facility] 05/15-. * Family History: F ather: , heart disease, htn, stroke. M other: alive, osteoporosis, dementia.?2 brother(s) , 2 sister(s) - healthy. 2 son(s) - healthy. . * Social History: C affeine: yes, frequency:1-2/week. Exercise: yes, pilates. Home smoke detector use: yes. Marital Status: . New since last visit: none. 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 Past smoking status: no. [...] * Images: Billing Information: * Visit Code: 19605 Office Visit, Est Pt., Level 3. * Procedure Codes: G2211 Complex e/m visit add on. G8752 MOST RECENT SYSTOLIC BP < 140MM HG. G8754 MOST RECENT DIASTOLIC BP < 90MM HG. * Electronic signature of Abhishek Quezada MD on 05/10/2025 at 08:43 AM EDT Sign off status: Pending * Provider: Abhishek Quezada M.D. Date: 01/08/2025 Generated for Williei irene/Misty/eTransmitting on: 0 05/10/2025 08:43 AM EDT History and Physical Notes * HPI [...]
--- OUTSIDE RECORDS SUMMARY | 2025-01-12 06:30 | XMS_ITS ---
Author Organization [facility] Address [address] [facility] 36 [facility] [address] [place] [phone] Care Team Providers Care Mobile Home Lot Utility Worker Name Role Phone Abhishek Quezada Primary Care Provider REASON FOR VISIT 4 week f/u Encounters Encounter Location Date Provider Diagnosis [facility] [facility] 36 [facility] [address] [place] [phone] 01/12/2025 Abhishek Quezada Plan Of Treatment Next Appt Details Provider Name:Abhishek Hooker er, 06/11/2025 01:00:00 PM, [address] [facility] 36 [facility], [address], [place], [place], [phone], Progress Notes * MILTON CADETDOB:[birth year] (69 yo F)Acc No.[id number]:01/12/2025 Patient: Ryanne MILTON VILLALOBOS Provider: Abhishek Quezada M.D. :1955 A ge:69 Y S ex:Female Date:01/12/2025 Address:[address] [facility] [address], [id number] Subjective: * Chief Complaints: * 1 . 4 week f/u. * Medical History: Objective: * Vitals: Assessment: Plan: * Treatment: * Images: Billing Information: * Visit Code: * Procedure Codes: * Electronic signature of Abhishek Quezada MD on 05/10/2025 at 08:44 AM EDT Sign off status: Pending * Provider: Abhishek Quezada M.D. Date: 0 01/12/2025 Generated for Ligia bonilla/Misty/Tiana on: 0 05/10/2025 08:44 AM EDT
--- OUTSIDE RECORDS SUMMARY | 2025-03-12 09:15 | XMS_ITS ---
Author Organization [facility] Address [address] [facility] [address] [place] [id number] Care Team Providers Care Supervisor Inventory Merchandising Name Role Phone Abhishek Quezada Primary Care Provider [phone] Allergies No Known Allergies Results Component Value [...] Interpretation:satisfactory Performing Lab: Notes/Report: Test performed by [facility] , [address], [place] [address] Da Borrero MD, Umbrella Finisher CLIA: [id number] Sodium 137 135-145 mmol/L Potassium 4.1 3.5-5.3 [...] Interpretation:Normal Performing Lab: Notes/Report: Test performed by [facility] [address] [place] [address] , [address], [place] [address] Da Borrero MD, Umbrella Finisher CLIA: [id number] Albumin/Creatinine Ratio, Urine <8.28 0-30 ug/m g Microalbumin, Urine, Random <0.3 Creatinine, Urine 36.2 Reason For Referral Reason hx colon carcinoma w ith partial colectomy, tubular adenoma Diagnosis 1 History of partial c olectomy (Z90.49) Referral Organization [facility] Referring Provider First Name Abhishek Gibson Referring Provider Last Name Damien Referring Provider Speciality [facility] ctice Referred Provider Specialty Gastroentero logy [...] HCl 500 mg TAKE 1 TABLET BY [facility] ONCE A DAY; Duration: 28 Active [...] day; Duration: 30 days Active Vital Signs Weight 157.4 lbs 03/12/2025 Blood pressure systolic 134 mm Hg 03/12/20 25 Blood pressure diastolic 86 mm Hg 025 Heart Rate 62 /min 03/12/2025 Height 65.25 in 03/12/2025 BMI 25.99 kg/m2 03/12/2025 Encounters Encounter Location Date Provider Diagnosis [facility] [address] [facility] [address] [place], [place] [id number] 03/12/2025 Abhishek Quezada History of partial colectomy [...] 3 Months, Reason: Provider Name:Abhishek Hooker er, 06/11/2025 01:00:00 PM, [address] [facility] 36 [facility], [address], [place], [place], [id number], Progress Notes * MILTON CADETDOB:[birth year] (69 yo F)Acc No.[id number]:03/12/2025 Progress Notes Patient: Ryanne WILFREDO [place] Provider: Abhishek Quezada M.D. :1955 A ge:69 Y S ex:Female Date:03/12/2025 Address:[address] [place] [address], [place], [id number] Subjective: * Chief Complaints: * 1 . [...] for colonoscopy. Last was per Dr. Bautista, [facility], tubular adenoma. * ROS: D ERMATOLOGY: [...] Heart Stent x 1 2015, Hernia Repair- [facility] , Colectomy 12/2018, DE stent mRCA 2016, Colonoscopy, [facility], Dr. Bautista. 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 * Hospitalization/Major Diagno stic Procedure: C onstipation, Low Iron- [facility] 05/15-. * Family History: F ather: , heart disease, htn, stroke. M other: alive, osteoporosis, dementia.?2 brother(s) , 2 sister(s) - healthy. 2 son(s) - healthy. . * Social History: C affeine: yes, frequency:1-2/week. Exercise: yes, pilates. Home smoke detector use: yes. Marital Status: . New since last visit: none. 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 Past smoking status: no. [...] G 2211 Complex e/[place], [address] CBC WITH AUTO DIFF, 06897 GLYCATED HEMOGLOBIN TEST, Modifiers: QW , 3044F HG A1C LEVEL LT 7.0%, G8420 BMI<30 AND >=22 CALC & DOCU, G8752 MOST RECENT SYSTOLIC BP < 140MM HG, G8754 MOST RECENT DIASTOLIC BP < 90MM HG * Follow Up: 3 Months * Images: Billing Information: * Visit Code: 48886 Office Visit, Est Pt., Level 4. * Procedure Codes: G2211 Complex e/[place]. [address] CBC WITH AUTO DIFF. 41205 GLYCATED HEMOGLOBIN TEST. Modifiers: QW 3044F HG [...] 03/12/2025 Generated for Williei irene/Misty/eTransmitting on: 0 05/10/2025 08:43 AM EDT History and Physical Notes * HPI (History of Present Illness) Category Sub-Category Detail Notes Category Not es Cardiology Short of Breath with exertion Chest Pain Palpitations Dizziness Gastroenterology She is due for colonoscopy. Last was per Dr. Bautista, [facility], tubular adenoma. Examination Category Sub-Category Detail [...]
--- OUTSIDE RECORDS SUMMARY | 2025-05-10 08:44 | XMS_ITS | Clinical Summary ---
Author Organization Healthcare Address [address] [place] [address] Care Team Providers Care Psychological Anthropologist Name Role Phone Lazarus Quezada MD Primary Care Provider [phone] Allergies No known active allergies Medications [...] or split. 30 tablet 2 Active White Petrolatum-[place] al Oil (artificial tears) ophthalmic ointment Apply [...] hyperlipidemia 03/08/2022 Coronary artery disease invo [place]ving [place] coronary artery of [place] heart without angina pectoris 03/08/2022 History of [...] drink first t yenni in the morning (EYE-INFECTION CONTROL RN) to steady your nerves or to get [...] 02/13/2019 12/19/2018 [facility]-Diabetes: Hemoglobin A1C 09/04/2022 03/07/2022 [id number] Vaccine ( season) 2024 10/20/2021, 02/05/2021, 01/08/2021 [facility]-Influenza Vaccine (#1) 2025 09/29/2016 [facility]-DTaP,Tdap,and Td Vaccine s (2 [...] take Medications as Prescribed General On track( 2:56 PM EDT) Yes Coreen Agosto RN [...] 12:25 PM EDT 04/27/2023 12:56 PM EDT us Dann Quintero MD LAB BLOOD ORDERABLES Final Re sult [facility] [address] [place] [address] * (ABNORMAL) Hemoglobin A1c (03/07/2022 9:21 PM [...] Adults <6.0% Children and Adolescents <7.5% Source: [place] [employer]. Standards of medical care in diabetes,2017. Diabetes Care.2017:40 (suppl 1):S1-S135. HbA1c assay performed by an ion-exchange chromatography method that is certified traceable to the DCCT. Ruslan Amato MD LAB BLOOD ORDERABLES Final Result [facility] [address] [place] [address] from Last 3 Months or Most Recently Relevant to Health Maintenance Additional Health Concerns Infection Onset Date Last Indicated Lyme disease 04/27/2023 04/27/2023 Insurance MEDICARE [employer] Advance Directives * Full Code (Latest Code Status on File) Date Activated Date Inactivated Comments 04/27/2023 4:03 PM 04/29/2023 6:29 PM Question Answer Comments Patient has decision-making capacity? Yes Care Teams Psychological Anthropologist Relationship Specialty Start Date End Date Lazarus Quezada MD [address] [place] [id number] PCP - General 03/14/21
--- OUTSIDE RECORDS SUMMARY | 2025-05-10 08:44 | XMS_ITS | Encounter Summary ---
Author Organization Healthcare Address [address] 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
--- OUTSIDE RECORDS SUMMARY | 2025-05-10 08:44 | XMS_ITS | Patient Health Record ---
[facility] Organization [facility] Address [address] [facility] [address] [place] [id number] Care Team Providers Care Cafeteria Helper Name Role Phone Abhishek Quezada Primary Care Provider Allergies No Known Allergies Results Component Value Reference Range Notes H-Sputum Culture with Gram S ham Reviewed date:12/06/2024 11:05:13 AM Interpretation: Performing Lab: Notes/Report: Comment: Induce w/3ml NS neb tx if necessary GS Gram Stain: GS <10 White Blood Cells/LPF GS <10 Epithelial Cells / LPF GS Moderate Gram Positi ve Cocci in Clusters GS Few Gram Positive Co cci IN TETRADS CUSPU FUNGUS ISOLATED. CON TACT LAB IF FURTHER IDENTIFICATION IS CUSPU NEEDED. CBC Fingerstick (in house) Reviewed date:12/15/2024 12:45:10 PM Interpretation: Performing Lab: Notes/Report: wbc 2.7 3.5 - 10 lym 25.0% 15 - 50 mid 7.2% 2 - 15 gran 67.8% 35 - 80 rbc 4.42 3.5 - 5.5 hgb 12.4 11.5 - 16.5 hct 36.2 35 - 55 mcv 82.0 75 - 100 mch 28.0 25 - 35 mchc 34.2 31 - 38 plat 120 100 - 400 P-Comprehensive Metabolic Pa kole (CMP) Reviewed date:07/17/2024 10:20:35 AM Interpretation:gluc 126 Performing Lab: Notes/Report: Test performed by [facility], [employer] [address] [place] [address] , [address], [place] [address] Da Borrero MD, Courtroom Reporter CLIA: [id number] Sodium 138 135-145 mmol/L Potassium 4.0 3.5-5.3 mmol/L Chloride 101 97-108 mmol/L CO2 25 22-32 mmol/L Glucose 126 65-99 mg/dL BUN 23 8-23 mg/dL Creatinine 0.94 0.50-1.00 mg/dL Calcium 9.6 8.6-10.4 mg/dL eGFR by Creatinine 65 >59 mL/min/1.73m2 Protein 6.5 6.0-8.3 g/dL Albumin 4.2 3.5-5.3 g/dL Alkaline Phosphatase 51 35-121 IU/L ALT (SGPT) 14 <5-47 IU/L AST (SGOT) 17 <5-40 IU/L Bilirubin, Total 0.2 <0.2-1.2 mg/dL A/G Ratio 1.8 1.1-2.5 H-CMP Reviewed date:12/05/2024 08:44:10 AM Interpretation: Performing Lab: Notes/Report: NA 134 136-145 mmol/L K 4.0 3.5-5.1 mmoL/L CL 105 98-107 mmol/L CO2 23 22.0-30.0 mmol/L GAP 10.0 5-15 mEq/L BUN 8 7-17 mg/dl Delta: 14 on 12/04/24 CREATT 0.70 0.52-1.04 mg/dl CRCLE 57 50-200 mL/min GFRAA 100 >60 ML/MIN EGFR 82 >60 ml/min GLU 106 74-100 mg/dl CA 8.4 8.4-10.2 mg/dl BILIT 0.5 0.2-1.3 mg/dl AST 33 14-36 U/L ALT 21 12-78 U/L TP 6.0 6.3-8.2 g/dl ALB 3.5 3.5-5.0 g/dl Delta: 4.4 on 12/04/24 GLOB 2.5 1.3-3.2 g/dL AGRATIO 1.4 1.1-1.8 ALP 54 38-126 U/L H-CBC Reviewed date:12/05/2024 08:44:09 AM Interpretation: Performing Lab: Notes/Report: WBC 1.5 4.8-10.8 K/mm3 RBC 4.43 4.20-5.40 M/mm3 HGB 12.5 12.2-16.2 g/dL Delta: 13.9 o n 12/04/24-45 HCT 36.4 37.0-47.0 % MCV 82.2 81-99 fl MCH 28.0 27.0-31.2 pg MCHC 34.1 31.8-35.4 g/dL RDW 13.4 11.5-17.5 % PLT 107 142-424 K/mm3 MPV 8.8 7.4-10.4 fl NE% 21.7 37.0-80.0 % LY% 47.4 10-50 % MO% 17.1 1.7-9.3 % EO% 1.3 0.1-12.0 % BA% 0.7 0.1-2.0 % NE# 0.3 1.8-7.8 K/mm3 LY# 0.7 0.7-4.5 K/mm3 MO# 0.3 0.1-1.0 K/mm3 EO# 0.0 0.0-0.4 K/mm3 BA# 0.0 0-0.2 K/mm3 P-Basic Metabolic Panel (BMP ) Reviewed date:12/11/2024 06:06:57 PM Interpretation:satisfactory Performing Lab: Notes/Report: Test performed by [facility], [address] , [address], [place] [address] Da Borrero MD, Courtroom Reporter CLIA: [id number] Sodium 134 135-145 mmol/L Potassium 3.9 3.5-5.3 mmol/L Chloride 98 97-108 mmol/L CO2 22 22-32 mmol/L Glucose 74 65-99 mg/dL BUN 18 8-23 mg/dL Creatinine 0.99 0.50-1.00 mg/dL Calcium 9.4 8.6-10.4 mg/dL eGFR by Creatinine 61 >59 mL/min/1.73m2 CBC Fingerstick (in house) Reviewed date:12/08/2024 01:11:32 PM Interpretation: Performing Lab: Notes/Report: wbc 3.2 3.5 - 10 lym 26.7% 15 - 50 mid 5.7% 2 - 15 gran 67.6% 35 - 80 rbc 5.16 3.5 - 5.5 hgb 14.5 11.5 - 16.5 hct 43.4 35 - 55 mcv 84.0 75 - 100 mch 28.0 25 - 35 mchc 33.4 31 - 38 plat 108 100 - 400 CBC Venipuncture (in house) Reviewed date:03/12/2025 04:37:25 [...] Interpretation:satisfactory Performing Lab: Notes/Report: Test performed by [facility] [address] [place] [address] , [address], [place] [address] Da Borrero MD, Courtroom Reporter CLIA: [id number] Sodium 137 135-145 mmol/L Potassium 4.1 3.5-5.3 [...] Interpretation:Normal Performing Lab: Notes/Report: Test performed by [facility] [address] [place] [address] , [address], [place] [address] Da Borrero MD, Courtroom Reporter CLIA: [id number] Albumin/Creatinine Ratio, Urine <8.28 0-30 ug/mg Microalbumin, Urine, Random <0.3 Creatinine, Urine 36.2 Mammogram Reviewed date:02/28/2025 12:13:58 PM Interpretation:Negative Performing Lab: Notes/Report: Negative H-CBC Reviewed date:11/30/2024 08:36:51 AM Interpretation: Performing Lab: Notes/Report: WBC 1.4 4.8-10.8 K/mm3 Delta: 1.9 on 11/29/24 RBC 4.38 4.20-5.40 M/mm3 HGB 12.3 12.2-16.2 g/dL Delta: 13.8 o n 11/29/24 HCT 36.0 37.0-47.0 % MCV 82.2 81-99 fl MCH 28.1 27.0-31.2 pg MCHC 34.2 31.8-35.4 g/dL RDW 13.7 11.5-17.5 % PLT 58 142-424 K/mm3 MPV 10.5 7.4-10.4 fl NE% 17.5 37.0-80.0 % LY% 56.9 10-50 % MO% 16.1 1.7-9.3 % EO% 1.5 0.1-12.0 % BA% 0.0 0.1-2.0 % NE# 0.2 1.8-7.8 K/mm3 LY# 0.8 0.7-4.5 K/mm3 MO# 0.2 0.1-1.0 K/mm3 EO# 0.0 0.0-0.4 K/mm3 BA# 0.0 0-0.2 K/mm3 H-DIFF Reviewed date:11/30/2024 08:36:51 AM Interpretation: Performing Lab: Notes/Report: MICHELLE MANUAL DIFFERENTIAL MANUAL DIFF TCC 100 NEUT%M 28 42-76 % LYMPH%M 59 10-50 % MONO%M 12 2-9 % BASO%M 1.0 0-1 PLTE Marked Decrease RM Normal H-CMP Reviewed date:11/30/2024 08:36:51 AM Interpretation: Performing Lab: Notes/Report: NA 133 136-145 mmol/L K 3.8 3.5-5.1 mmoL/L CL 105 98-107 mmol/L CO2 21 22.0-30.0 mmol/L GAP 10.8 5-15 mEq/L BUN 8 7-17 mg/dl CREATT 0.70 0.52-1.04 mg/dl CRCLE 56 50-200 mL/min GFRAA 100 >60 ML/MIN EGFR 82 >60 ml/min GLU 102 74-100 mg/dl Delta: 146 on 11/29/24-0834 CA 7.7 8.4-10.2 mg/dl BILIT 0.4 0.2-1.3 mg/dl AST 33 14-36 U/L ALT 20 12-78 U/L TP 5.4 6.3-8.2 g/dl ALB 3.1 3.5-5.0 g/dl GLOB 2.3 1.3-3.2 g/dL AGRATIO 1.3 1.1-1.8 ALP 53 38-126 U/L Medications Medication SIG (Take, Route, Frequency, Duration) Notes Start Date End Date Status Fluticasone Propionate 50 MCG/ACT 1 spray in each nostril Nasally once daily; Duration: 30 day(s) 12/15/2024 Active Ondansetron 4 MG 1 tablet on the tong ue and allow to dissolve Orally three times a day as needed; Duration: 20 day(s) 12/08/2024 Active Evista 60 MG 1 tab(s) orally once a day; Duration: 90 days Active Glimepiride 1 mg 1 tablet orally once daily; Duration: 30 days Active Valsartan 160 MG 1 tablet Orally once daily; Duration: 90 days 02/20/2025 Active MiraLax 17 GM/SCOOP as directed Orally Not-Taking amLODIPine Besylate 2.5 MG 1 tablet Orally Once a day; Duration: 30 days Active Potassium Chloride ER 10 mEq 1 capsule by mouth 3 times a day; Duration: 90 days Active Align 4 MG 1 cap(s) orally once a day 09/04/2020 Active Levothyroxine Sodium 25 MCG 1 tab(s) orally once a day; Duration: 30 days Active Nitroglycerin 0.4 MG 1 tab(s) sublingual ly every 5 minutes as needed 11/23/2022 Active Pantoprazole Sodium 40 MG 1 tab(s) orall y once a day; Duration: 30 days Active Aspirin Adult Low Dose 81 MG 1 tab(s) orally once a day Active Triamterene-HCTZ 37.5-25 MG 1 tab orally once a day; Duration: 30 days Active Thiamine HCl 250 MG as directed Orally o nce daily Active Sertraline HCl 100 MG 1 tablet Orally On ce a day; Duration: 30 days Active metFORMIN HCl 500 mg TAKE 1 TABLET BY MO UT ONCE A DAY; Duration: 28 Active Immunizations Vaccine Route Administration Date Status Comme nts COVID 19 Moderna Unknown 10/20/2021 Administered COVID 19 Pfizer Unknown 01/08/2021 Administered COVID 19 Pfizer Unknown 02/05/2021 Administered DT, 7 YEARS OR OLDER Unknown 01/08/1997 Administered Fluzone Quad (6months&older) IM Intramuscular 09/12/2018 Administered Prevnar (PCV13) IM Intramuscular 12/19/2018 Administered Prevnar (PCV13) Unknown 12/19/2018 Administered Tetanus Tdap-Adacel (over 7yrs) IM Intramuscular 12/19/2018 Administered xAdministration of injection Unknown 09/29/2016 Administered xAdministration of injection Unknown 09/29/2016 Administered xFlu shot- 6months-36 months of spz-SJLR-IGVM-trivalent Unknown 09/29/2016 Administered Problems Problem Type SNOMED Code ICD Code Onset Dates Problem Status W/U Status Risk Notes Problem Hyponatremia (61430998) Hyponatremia (E87.1) Active confirmed Problem Aphasia (48700831) Aphasia (R47.01) Active conf irmed Problem Essential hypertension (67079765) Essential hypertension (I10) Active confirmed Problem Arthropathy (406749927) Arthropathy (M12.9) Active confirmed Problem History of anemia (848256400) History of anemia (Z86.2) Active confirmed Problem Memory loss (84658814) Memory loss (R41.3) Active confirmed Problem Hearing loss (27492993) Hearing loss (H91.90) Active confirmed Problem Urinary tract infectious disease (disorder) (38025914) Urinary tract infection, site not specified (N39.0) Active confirmed Problem Infection caused by Escherichia coli (18111343) Unspecified Escherichia coli [E. coli] as the cause of diseases classified elsewhere (B96.20) Active confirmed Problem Idiopathic hypotension (857145970) Idiopathic hypotension (I95.0) Active confirmed Problem Chronic rhinitis (47991890) Chronic rhinitis (J31.0) Active confirmed Problem Localized, primary osteoarthritis of the hand (709738211) Primary osteoarthritis, right hand (M19.041) Active confirmed Problem Lack of coordination (896493443) Other lack of coordination (R27.8) Active confirmed Problem Constipation (98538881) Constipation, unspecified constipation type (K59.00) Active confirmed Problem Acquired hypothyroidism (248877088) Acquired hypothyroidism (E03.9) Active confirmed Problem Bilateral tinnitus (6142040574014) Tinnitus of both ears (H93.13) Active confirmed Problem Hypothyroidism (72550494) Hypothyroidism (E03.9) Active confirmed Problem Chronic fatigue syndrome (45643521) Chronic fatigue (R53.82) Active confirmed Problem Thrombocytopenia (525016042) Thrombocytopenia (D69.6) Active confirmed Problem Atherosclerotic heart disease of [place] coronary artery without angina pectoris (843981606861150) Coronary artery disease involving [place] coronary artery of [place] heart without angina pectoris (I25.10) Active confirmed Problem Type II diabetes mellitus without complication (821706010) T2DM (type 2 diabetes mellitus) (E11.9) Active confirmed Problem Iron deficiency anemia due to chronic blood loss (024574372) Iron deficiency anemia due to chronic blood loss (D50.0) Active confirmed Problem Neutropenia (055499349) Neutropenia (D70.9) Active confirmed Problem Dysphagia (42616675) Pharyngoesophageal dysphagia (R13.14) Active confirmed Problem Type II diabetes mellitus without complication (387508576) Type 2 diabetes mellitus without complication, without long-term current use of insulin (E11.9) Active confirmed Problem Leukopenia (54659133) Leukopenia, unspecified type (D72.819) Active confirmed Problem Localized, primary osteoarthritis of the hand (430748909) Primary osteoarthritis of left hand (M19.042) Active confirmed Problem H/O heart artery stent (Z95.5) Active confirmed Problem Iron deficiency anemia secondary to inadequate dietary iron intake (999522790) Iron deficiency anemia secondary to inadequate dietary iron intake (D50.8) Active confirmed Problem Osteopenia (705845436) Osteopenia, unspecified location (M85.80) Active confirmed Problem Malignant neoplasm of colon (023345977) Colon carcinoma (C18.9) Active confirmed Problem Sensorineural hearing loss, bilateral (391480431) Sensorineural hearing loss (SNHL) of both ears (H90.3) Active confirmed Problem Abnormal gait (71202736) Gait instability (R26.81) Active confirmed Problem Seasonal allergic rhinitis (694323307) Seasonal allergic rhinitis, unspecified trigger (J30.2) Active confirmed Problem Vasculitis (92662059) Vasculitis (I77.6) Active confirmed Problem History of partial resection of colon (167942177) History of partial colectomy (Z90.49) Active confirmed Problem Primary hypertension (96528521) Primary hypertension (I10) Active confirmed Problem Cerebral infarction (113215704) Small vessel cerebrovascular accident (CVA) (I63.9) Active confirmed Problem Cough (finding) (45958764) Cough, unspecified type (R05.9) Active confirmed Vital Signs Heart Rate 62 /min 03/12/2025 Blood pressure diastolic 86 mm Hg 03/12/2025 Height 65.25 in 03/12/2025 Blood pressure systolic 134 mm Hg 03/12/2025 Weight 157.4 lbs 03/12/2025 BMI 25.99 kg/m2 03/12/2025 Encounters Encounter Location Date Provider Diagnosis [facility] [address] [facility] [address] [place] [id number] 05/29/2024 Abhishek Quezada Essential hypertensi on I10 ; Acquired hypothyroidism E03.9 ; H/O heart artery stent Z95.5 ; Cough, unspecified type R05.9 and Memory change R41.3 [facility] [address] [facility] [address] [place] [id number] 07/10/2024 Abhishek Quezada Essential hypertensi on I10 ; Type 2 diabetes mellitus without complication, without long-term current use of insulin E11.9 and H/O heart artery stent Z95.5 [facility] [address] [facility] [address] [place], [place] [id number] 12/08/2024 Abhishek Quezada History of influenza Z87.09 ; Acute cough R05.1 ; Hyponatremia E87.1 and Nausea R11.0 [facility] [address] [facility] [address] [place], [place] [id number] 12/15/2024 Abhishek Quezada Influenza A J10.1 ; Cough, unspecified type R05.9 ; H/O heart artery stent Z95.5 and Chronic rhinitis J31.0 [facility] [address] [place], [place] [id number] 01/08/2025 Abhishek Quezada Type 2 diabetes maddy itus without complication, without long-term current use of insulin E11.9 ; Primary hypertension I10 ; H/O heart artery stent Z95.5 and Leukopenia, unspecified type D72.819 [facility] [address] [place], [place] [id number] 03/12/2025 Abhishek Quezada History of partial colectomy Z90.49 ; History of anemia Z86.2 ; Type 2 diabetes mellitus without complication, without long-term current use of insulin E11.9 ; Memory loss R41.3 ; History of colon polyps Z86.0100 ; Essential hypertension I10 and BMI 25.0-25.9,adult Z68.25 [facility] [address] [facility] [address] [place] [id number] 07/17/2024 Abhishek Quezada [facility] [address] [facility] [address] [place], [place] [id number] 12/04/2024 Abhishek Quezada [facility] [address] [facility] [address] [place], [place] [id number] 02/20/2025 Abhishek Quezada [facility] [address] [facility] [address] [place], [place] [id number] 05/09/2025 Abhishek Quezada Essential hypertensi on I10 Assessments Encounter Date Diagnosis (ICD Code) Assessment Notes Treatment Notes Treatment Clinical Notes Section Notes 05/29/2024 Essential hypertension (ICD-10 - I10) 05/29/2024 Acquired hypothyroidism (ICD-10 - E03.9) 07/10/2024 Essential hypertension (ICD-10 - I10) 07/10/2024 Type 2 diabetes mellitus without complication, without long-term current use of insulin (ICD-10 - E11.9) 12/08/2024 Acute cough (ICD-10 - R05.1) 12/08/2024 History of influenza (ICD-10 - Z87.09) 12/15/2024 Influenza A (ICD-10 - J10.1) 12/15/2024 Cough, unspecified type (ICD-10 - R05.9) 01/08/2025 Type 2 diabetes mellitus without complication, without long-term current use of insulin (ICD-10 - E11.9) continue current therapy 01/08/2025 Primary hypertension (ICD-10 - I10) 03/12/2025 History of anemia (ICD-10 - Z86.2) 03/12/2025 History of partial colectomy (ICD-10 - Z90.49) 05/09/2025 Essential hypertension (ICD-10 - I10) 01/08/2025 H/O heart artery stent (ICD-10 - Z95.5) 03/12/2025 Type 2 diabetes mellitus without complication, without long-term current use of insulin (ICD-10 - E11.9) 12/15/2024 H/O heart artery stent (ICD-10 - Z95.5) 05/29/2024 H/O heart artery stent (ICD-10 - Z95.5) 07/10/2024 H/O heart artery stent (ICD-10 - Z95.5) 12/08/2024 Hyponatremia (ICD-10 - E87.1) 12/08/2024 Nausea (ICD-10 - R11.0) 05/29/2024 Cough, unspecified type (ICD-10 - R05.9) 12/15/2024 Chronic rhinitis (ICD-10 - J31.0) 01/08/2025 Leukopenia, unspecified type (ICD-10 - D72.819) 03/12/2025 Memory loss (ICD-10 - R41.3) 03/12/2025 History of colon polyps (ICD-10 - Z86.0100) 05/29/2024 Memory change (ICD-10 - R41.3) 03/12/2025 Essential hypertension (ICD-10 - I10) 03/12/2025 BMI 25.0-25.9,adult (ICD-10 - Z68.25) 12/08/2024 Other Discharge summary with available lab/diagnosti c imaging results obtained and reviewed. Plan Of Treatment Next Appt Details Provider Name:Abhishek Yeageruli er, 06/11/2025 01:00:00 PM, [address], [address], [place], [place], [id number], Insurance Providers Payer Name Payer Address Payer Phone Subscriber Number Group Number Insured Name Patient Relationship to Insured Coverage Start Date Coverage End Date MEDICARE PART B [address] [address] [place] [address] [phone] [id number] MILTON LEBLANC Self - patient is the insured AET MEDICARE [address] [place] [address] [phone] [id number] MILTON LEBLANC Self - patient is the insured Medical (General) History Medical History History ICD Code Hypertension Hiatal Hernia Seasonal Allergies Depression Out patient transfusion 2 units PRBC 201 9 Pfizer covid vaccine x2 Dec/Jan Type 2 Diabetes dx 10/21/2021, A1c=8.1 CVA left occipital lobe and right thalam us 03/07/2022 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 Bautista. tubular maikel pieter 01/12/2023 Hospitalization History Reason Date(Month/Year) Constipation, Low Iron- [facility] 05/15- 8
--- NOTE | 2025-05-10 08:45 | CT_ITS ---
FINAL REPORT TECHNIQUE: After the administration of IV contrast, axial images was performed through the abdomen by computed tomography. Reformatted images were obtained and reviewed. This study was performed with techniques to keep radiation doses as low as reasonably achievable, (ALARA). Individualized dose reduction techniques using automated exposure control or adjustment of mA and/or kV according to the patient's size were employed. CLINICAL HISTORY: splenomegaly, abnormal lab work FINDINGS: The lung bases are clear. There is a large, peripherally enhancing mass in the mid right lobe of the liver measuring 4.3 x 3.6 cm, probably related to a large hemangioma. The mass demonstrates central enhancement on the later phase images. The spleen appears unremarkable. 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 There is a left adrenal mass measuring 2.2 x 1.5 cm. There are some low-attenuation areas in the kidneys. There is dense vascular calcification of the abdominal aorta, iliac vessels, and the origin of the renal arteries. There is a lumbar scoliosis convex to the right measuring about 25 degrees. There are calcifications throughout the pancreas, probably due to chronic pancreatitis. IMPRESSION: Large hemangioma in the right lobe of the liver. 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 Left adrenal mass favored to represent an adenoma. Reviewed, Interpreted and Dictated by Clifton Yepez MD Transcribed by Kristine Enriquez Authenticated and [facility]
[2025-05-10 09:18] LABS: Hematocrit 39.0 % (37.0-47.0); Hemoglobin 12.5 g/dL (12.2-16.2); Immature Granulocytes % 7.8 %; Mean Corpuscular HGB Conc 32.1 g/dL (31.8-35.4); Mean Corpuscular Hemoglobin 26.4 pg (27.0-31.2); Mean Corpuscular Volume 82.5 fl (81-99); Nucleated Red Blood Cells % 0 %; Platelet Count 115 K/mm3 (142-424); Red Blood Count 4.73 M/mm3 (4.20-5.40); Red Cell Distribution Width-SD 43.6 fL; White Blood Count 2.8 K/mm3 (4.8-10.8)
[2025-05-10 09:29] LABS: Blood Urea Nitrogen 16 mg/dl (7-17); Creatinine,Serum 0.80 mg/dl (0.52-1.04); Estimated Glomerular Filt Rate 71 ml/min (>60); GFR (African American) 86 ML/MIN (>60)
[2025-05-10] MEDS: IOPAMIDOL-370 (76%);100ML BOTTLE 75 ML IV (09:46)
[2025-05-10] MEDS: SODIUM CHLORIDE 0.9% 10ML SYR (RAD ONLY) 10 ML IV (09:46)
[2025-05-10 10:00] LABS: Total Cells Counted 100
[2025-05-10 10:02] LABS: Hypochromasia 1+
== END 2025-05-10 23:59 | disposition home or self-care (01) ==
LOC: RAD 08:41
PROVIDERS: PCP Family Medicine; Visit Provider Internal Medicine Medical Oncology
DX: D18.03 Hemangioma of intra-abdominal structures (principal); R93.5 Abnormal findings on diagnostic imaging of other abdominal regions, including retroperitoneum; D61.818 Other pancytopenia; D69.6 Thrombocytopenia, unspecified; R16.1 Splenomegaly, not elsewhere classified
CPT/HCPCS: 36415; 74160; 82565; 84520; 85007; 85025; 85027; Q9967

== ENCOUNTER 2025-07-26 14:33 | Outpatient (CLI) | payer MEDICARE, SELFPAY ==
--- OUTSIDE RECORDS SUMMARY | 2025-01-08 09:00 | XMS_ITS ---
Author Organization [facility] Address [address] [facility] [address] [place] [id number] Care Team Providers Care Finishing And Shipping Supervisor Name Role Phone Abhishek Quezada Primary Care Provider [phone] Allergies No Known Allergies REASON FOR VISIT 6 Month Check Up, Needs diabetic eye exam Medications Medication SIG (Take, Route, Frequency, Duration) Notes Start Date End Date Status metFORMIN HCl 500 MG 1 tab(s) orally claritza ly; Duration: 90 days Active Valsartan 160 MG 1/2 orally twice a day Active MiraLax 17 GM/SCOOP as directed Orally Not-Taking amLODIPine Besylate 2.5 MG 1 tablet Orally Once a day; Duration: 90 days Active Sertraline HCl 100 MG TAKE ONE TABLET BY MOUTH ONCE A DAY; Duration: 90 days Active Potassium Chloride ER 10 MEQ 1 capsule with food Orally Twice a day Active Glimepiride 1 MG 1 tab(s) orally once a day; Duration: 30 days Active Pantoprazole Sodium 40 MG 1 tab(s) orall y once a day; Duration: 90 days Active Fluticasone Propionate 50 MCG/ACT 1 spray in each nostril Nasally once daily; Duration: 30 day(s) 12/15/2024 Active Ondansetron 4 MG 1 tablet on the tong ue and allow to dissolve Orally three times a day as needed; Duration: 20 day(s) 12/08/2024 Active Nitroglycerin 0.4 MG 1 tab(s) sublingual ly every 5 minutes as needed 11/23/2022 Active Levothyroxine Sodium 25 MCG 1 tab(s) orally once a day; Duration: 90 days Active Triamterene-HCTZ 37.5-25 MG 1 tab orally once a day; Duration: 90 days Active Evista 60 MG 1 tab(s) orally once a day; Duration: 90 days Active Align 4 MG 1 cap(s) orally once a day 09/04/2020 Active Aspirin Adult Low Dose 81 MG 1 tab(s) orally once a day Active Vital Signs Blood pressure systolic 130 mm Hg 01/09/20 25 Blood pressure diastolic 90 mm Hg 025 Heart Rate 75 /min 01/08/2025 Height 65.25 in 01/08/2025 Weight 151.8 lbs 01/08/2025 BMI 25.06 kg/m2 01/08/2025 Encounters Encounter Location Date Provider Diagnosis [facility] 36 [facility] [address] [place] [id number] 01/08/2025 Abhishek Quezada Type 2 diabetes mellitus without complication, without long-term current use of insulin E11.9 ; Primary hypertension I10 ; H/O heart artery stent Z95.5 and Leukopenia, unspecified type D72.819 Assessments Encounter Date Diagnosis (ICD Code) Assessment Notes Treatment Notes Treatment Clinical Notes Section Notes 01/08/2025 Type 2 diabetes mellitus without complication, without long-term current use of insulin (ICD-10 - E11.9) continue current therapy 01/08/2025 Primary hypertension (ICD-10 - I10) 01/08/2025 H/O heart artery stent (ICD-10 - Z95.5) 01/08/2025 Leukopenia, unspecified type (ICD-10 - D72.819) Plan Of Treatment Treatment Notes Assessment Notes Type 2 diabetes mellitus wit hout complication, without long-term current use of insulin continue current therapy Next Appt Details Follow Up: 2 Months, Reason: Provider Name:Abhishek Hooker , 12/13/2025 01:45:00 PM, [address] [facility] 36 [facility], [address], [place], [id number], Progress Notes * ANGELINA CADET:[birth year] (69 yo F)Acc No.[id number]:01/08/2025 Progress Notes Patient: MILTON POWELL Provider: Abhishek Quezada M.D. :1955 A ge:69 Y S ex:Female Date:01/08/2025 Address:[address] [place] [address], [id number] Subjective: * Chief Complaints: * 1 . 6 Month Check Up. 2. Needs diabetic eye exam. * HPI: C ardiology: The patient is here for a check up on Hypertension, Hyperlipidemia, and Diabetes. Pt states she is doing better. Pt states she is still having a little fatigue. Pt is not fasting. She has decreased the Valsartan to 1/2 pill twice a day. 69 year old female presents with c/o Short of Breath w ith exertion. c/o Fatigue. Denies : Chest Pain. D enies : Dizziness. D enies : Palpitations. E NT/respiratory: using CPaP, but used it for a week before she realized it was NOT PLUGGED IN! She thinks it is helping her. * ROS: D ERMATOLOGY: no R elliott. n o H shahriar. G ASTROENTEROLOGY: no N ausea. n o V omiting. n o D iarrhea.? U ROLOGY: no D ifficulty urinating. n o B lood in urine. 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 * Surgical History: H eart Stent x 2 2014, Heart Stent x 1 2015, Hernia Repair- [facility] , Colectomy 12/2018, DE stent mRCA 2016, Colonoscopy 01/12/2023. * Hospitalization/Major Diagno stic Procedure: C onstipation, Low Iron- [facility] 05/15-. * Family History: F ather: , heart disease, htn, stroke. M other: alive, osteoporosis, dementia.?2 brother(s) , 2 sister(s) - healthy. 2 son(s) - healthy. . * Social History: C affeine: yes, frequency:1-2/week. Exercise: yes, pilates. Home smoke detector use: yes. Marital Status: . New since last visit: none. 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 Past smoking status: no. Occup. exposure: none. Recreational drug use: no. Alcohol: socially, Type:wine , Frequency: daily ,Years: , Determination:. Travel ouside [place]: no. * Medications: T aking Aspirin Adult Low Dose 81 MG Tablet Delayed Release 1 tab(s) orally once a day , Taking Nitroglycerin 0.4 MG Tablet Sublingual 1 tab(s) sublingually every 5 minutes as needed , Taking Align 4 MG Capsule 1 cap(s) orally once a day , Taking Evista 60 MG Tablet 1 tab(s) orally once a day , Taking Triamterene-HCTZ 37.5-25 MG Tablet 1 tab orally once a day , Taking Levothyroxine Sodium 25 MCG Tablet 1 tab(s) orally once a day , Taking Pantoprazole Sodium 40 MG Tablet Delayed Release 1 tab(s) orally once a day , Taking Glimepiride 1 MG Tablet 1 tab(s) orally once a day , Taking Potassium Chloride ER 10 MEQ Capsule Extended Release 1 capsule with food Orally Twice a day , Taking Ondansetron 4 MG Tablet Disintegrating 1 tablet on the tongue and allow to dissolve Orally three times a day as needed , Taking Fluticasone Propionate 50 MCG/ACT Suspension 1 spray in each nostril Nasally once daily , Taking Valsartan 160 MG Tablet 1/2 orally twice a day , Taking metFORMIN HCl 500 MG Tablet 1 tab(s) orally daily , Taking Sertraline HCl 100 MG Tablet TAKE ONE TABLET BY MOUTH ONCE A DAY , Taking amLODIPine Besylate 2.5 MG Tablet 1 tablet Orally Once a day , Not-Taking MiraLax 17 GM/SCOOP Powder as directed Orally , Medication List reviewed and reconciled with the patient * Allergies: N .K.D.A. Objective: * Vitals: W t:151.8, Temp:97.7, BP:130/90, HR:75, O2 Sat:98% on RA, Nurse:PHILIP, Ht: 65.25, Repeat BP:126/74, BMI:25.06. * Examination: G eneral Examination: General Appearance: N AD. H EENT: u nremarkable.?Oral cavity: n o lesions, mucosa moist and WNL, no erythema. N kellie: s upple, no lymphadenopathy. C hest: n ormal shape and expansion. H eart: R SR. L ungs: c lear to auscultation, rattling cough. A bdomen: soft and nontender, no organomegaly or masses. N eurologic Exam: I ntact, gait normal. S kin: n ormal, no rash. P eripheral pulses: n ormal (2+) bilaterally. B ack: mild dorsal kyphosis. E xtremities: n o leg edema. Assessment: * Assessment: 1. T ype 2 diabetes mellitus without complication, without long-term current use of insulin - E11.9 (Primary) 2 . P rimary hypertension - I10 3 . H /O heart artery stent - Z95.5 4 . L eukopenia, unspecified type - D72.819 ? Plan: * Treatment: * Procedure Codes: G 2211 Complex e/m visit add on, G8752 MOST RECENT SYSTOLIC BP < 140MM HG, G8754 MOST RECENT DIASTOLIC BP < 90MM HG * Follow Up: 2 Months * Images: Billing Information: * Visit Code: 41975 Office Visit, Est Pt., Level 3. * Procedure Codes: G2211 Complex e/m visit add on. G8752 MOST RECENT SYSTOLIC BP < 140MM HG. G8754 MOST RECENT DIASTOLIC BP < 90MM HG. * Electronic signature of Abhishek Quezada MD on 07/26/2025 at 02:56 PM EDT Sign off status: Pending * Provider: Abhishek Quezada M.D. Date: 01/08/2025 Generated for Williei irene/Misty/eTransmitting on: 0 07/26/2025 02:56 PM EDT History and Physical Notes * HPI (History of Present Illness) Category Sub-Category Detail Notes Category Not es Cardiology Short of Breath with exertion Chest Pain Palpitations Dizziness Fatigue Examination Category Sub-Category Detail Notes Category Not es General Examination HEENT: unremarkable Heart: RSR Lungs: clear to auscultatio n, rattling cough Abdomen: soft and nontender, no organomegaly or masses Extremities: no leg edema General Appearance: NAD Skin: normal, no rash Neurologic Exam: Intact, gait normal Neck: supple, no lymphaden opathy Oral cavity: no lesions, mucosa m oist and WNL, no erythema Peripheral pulses: normal (2+) bilatera lly Back: mild dorsal kyphosis Chest: normal shape and exp ansion
--- OUTSIDE RECORDS SUMMARY | 2025-01-12 06:30 | XMS_ITS ---
Author Organization [facility] Address [address] [facility] [address] [place] [phone] Care Team Providers Care Accounts Payable Administrator Name Role Phone Abhishek Quezada Primary Care Provider REASON FOR VISIT 4 week f/u Encounters Encounter Location Date Provider Diagnosis [facility] [address] [place] [phone] 01/12/2025 Abhishek Quezada Plan Of Treatment Next Appt Details Provider Name:Abhishek Hooker er, 12/13/2025 01:45:00 PM, [address] [facility] [address], [address], [place], [place], [phone], Progress Notes * MILTON CADETDOB:[birth year] (69 [...] of Abhishek Quezada MD on 07/26/2025 at 02:57 PM EDT Sign off status: Pending * Provider: Abhishek Quezada M.D. Date: 0 01/12/2025 Generated for Ligia bonilla/Misty/Tiana on: 0 07/26/2025 02:57 PM EDT
--- OUTSIDE RECORDS SUMMARY | 2025-03-12 09:15 | XMS_ITS ---
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 Name Role Phone Abhishek Quezada Primary Care Provider [phone] Allergies No Known Allergies Results Component Value Reference Range Notes CBC Venipuncture (in house) Reviewed date:03/12/2025 04:37:25 PM Interpretation: Performing Lab: Notes/Report: wbc 3.3 3.5 - 10 lymph 41.5% 15 - 50 mid 9.9% 2 - 15 gran 48.6% 35 - 80 rbc 4.84 3.5 - 5.5 hgb 13.4 11.5 - 16.5 hct 40.2 35 - 55 mcv 82.9 75 - 100 mch 27.6 25 - 35 mchc 33.3 31 - 38 platlet 114 100 - 400 Glycohemoglobin A1c (in hous e) Reviewed date:03/12/2025 04:37:36 PM Interpretation: Performing Lab: Notes/Report: glycohemoglobin 6.6% 5 - 6.5 % P-Comprehensive Metabolic Pa kole (CMP) Reviewed date:03/16/2025 03:55:44 PM Interpretation:satisfactory Performing Lab: Notes/Report: Test performed by [employer] [facility] [place]0 [facility] , [address], [place] [address] Da Borrero MD, Real Estate Subagent CLIA: [id number] Sodium 137 135-145 mmol/L Potassium 4.1 3.5-5.3 mmol/L Chloride 100 97-108 mmol/L CO2 27 22-32 mmol/L Glucose 112 65-99 mg/dL BUN 17 8-23 mg/dL Creatinine 0.93 0.50-1.00 mg/dL Calcium 9.8 8.6-10.4 mg/dL eGFR by Creatinine 66 >59 mL/min/1.73m2 Protein 6.7 6.0-8.3 g/dL Albumin 4.3 3.5-5.3 g/dL Alkaline Phosphatase 51 35-121 IU/L ALT (SGPT) 15 <5-47 IU/L AST (SGOT) 19 <5-40 IU/L Bilirubin, Total 0.3 <0.2-1.2 mg/dL A/G Ratio 1.8 1.1-2.5 P-Microalbumin/Creatinine, R andom Urine Sample Reviewed date:03/16/2025 03:55:44 PM Interpretation:Normal Performing Lab: Notes/Report: Test performed by [facility] [address] [place] [address] , [address], [place] [address] Da Borrero MD, Real Estate Subagent CLIA: [id number] Albumin/Creatinine Ratio, Urine <8.28 0-30 ug/m g Microalbumin, Urine, Random <0.3 Creatinine, Urine 36.2 Reason For Referral Reason hx colon carcinoma w ith partial colectomy, tubular adenoma Diagnosis 1 History of partial c olectomy (Z90.49) Referral Organization [facility] Referring Provider First Name Abhishek Gibson Referring Provider Last Name Damien Referring Provider Speciality [facility] ctice Referred Provider Specialty Gastroentero logy General Notes Mary Jo Campos 2024 08:50:03 AM > faxed referral to Dr. Sheldon office, Mary Jo Campos 03/19/2025 03:51:33 PM > spoke with Ellen in Dr. Sheldon office; referral received Referral Priority Routine REASON FOR VISIT 2 month ckup Medications Medication SIG (Take, Route, Frequency, Duration) Notes Start Date End Date Status Glimepiride 1 mg TAKE ONE TABLET BY MOUTH ONCE A DAY; Duration: 28 Active Fluticasone Propionate 50 MCG/ACT 1 spray in each nostril Nasally once daily; Duration: 30 day(s) 12/15/2024 Active metFORMIN HCl 500 mg TAKE 1 TABLET BY [facility] ONCE A DAY; Duration: 28 Active Potassium Chloride ER 10 mEq TAKE ONE CAPSULE BY MOUTH 3 TIMES A DAY; Duration: 28 Active Evista 60 MG 1 tab(s) orally once a day; Duration: 90 days Active Ondansetron 4 MG 1 tablet on the tong ue and allow to dissolve Orally three times a day as needed; Duration: 20 day(s) 12/08/2024 Active Align 4 MG 1 cap(s) orally once a day 09/04/2020 Active Nitroglycerin 0.4 MG 1 tab(s) sublingual ly every 5 minutes as needed 11/23/2022 Active Aspirin Adult Low Dose 81 MG 1 tab(s) orally once a day Active Thiamine HCl 250 MG as directed Orally o nce daily Active Valsartan 160 MG 1 tablet Orally once daily; Duration: 90 days 02/20/2025 Active MiraLax 17 GM/SCOOP as directed Orally Not-Taking amLODIPine Besylate 2.5 MG 1 tablet Orally Once a day; Duration: 30 days Active Levothyroxine Sodium 25 MCG 1 tab(s) orally once a day; Duration: 30 days Active Pantoprazole Sodium 40 MG 1 tab(s) orall y once a day; Duration: 30 days Active Triamterene-HCTZ 37.5-25 MG 1 tab orally once a day; Duration: 30 days Active Sertraline HCl 100 MG 1 tablet Orally On ce a day; Duration: 30 days Active Vital Signs Blood pressure systolic 134 mm Hg 03/12/20 25 Blood pressure diastolic 86 mm Hg 025 Heart Rate 62 /min 03/12/2025 Height 65.25 in 03/12/2025 Weight 157.4 lbs 03/12/2025 BMI 25.99 kg/m2 03/12/2025 Encounters Encounter Location Date Provider Diagnosis [facility] [address] [facility] [address] [place], [place] [id number] 03/12/2025 Abhishek Quezada History of partial colectomy Z90.49 ; History of anemia Z86.2 ; Type 2 diabetes mellitus without complication, without long-term current use of insulin E11.9 ; Memory loss R41.3 ; History of colon polyps Z86.0100 ; Essential hypertension I10 and BMI 25.0-25.9,adult Z68.25 Assessments Encounter Date Diagnosis (ICD Code) Assessment Notes Treatment Notes Treatment Clinical Notes Section Notes 03/12/2025 History of partial colectomy (ICD-10 - Z90.49) 03/12/2025 History of anemia (ICD-10 - Z86.2) 03/12/2025 Type 2 diabetes mellitus without complication, without long-term current use of insulin (ICD-10 - E11.9) 03/12/2025 Memory loss (ICD-10 - R41.3) 03/12/2025 History of colon polyps (ICD-10 - Z86.0100) 03/12/2025 Essential hypertension (ICD-10 - I10) 03/12/2025 BMI 25.0-25.9,adult (ICD-10 - Z68.25) Plan Of Treatment Medication Medication Name Sig Start Date Stop Date Notes Valsartan 160 MG 1 tablet Orally once daily; Duration: 90 days 02/20/2025 Referrals Referral Date Details 03/12/2025 03/12/2025, hx colon carcinoma with partial colectomy, tubular adenoma Next Appt Details Follow Up: 3 Months, Reason: Provider Name:Abhishek Hooker er, 12/13/2025 01:45:00 PM, [address] [facility] 36 [facility], [address], [place], [place], [id number], Progress Notes * MILTON CADETDOB:[birth year] (69 yo F)Acc No.[id number]:03/12/2025 Progress Notes Patient: Ryanne WILFREDO [place] Provider: Abhishek Quezada M.D. :1955 A ge:69 Y S ex:Female Date:03/12/2025 Address:[address] [place] [address], [place], [id number] Subjective: * Chief Complaints: * 1 . 2 month ckup. * HPI: C ardiology: The patient is here for a check up on Hypertension and Diabetes. Pt states she is doing good except for a lot of gas. Pt is not fasting. 69 year old female presents with c/o Short of Breath w ith exertion. Denies : Chest Pain. D enies : Dizziness. D enies : Palpitations. G astroenterology: She is due for colonoscopy. Last was per Dr. Bautista, [facility], tubular adenoma. * ROS: D ERMATOLOGY: no R elliott. n o H shahriar. G ASTROENTEROLOGY: no N ausea. n o V omiting. n o D iarrhea.? U ROLOGY: no D ifficulty urinating. n o B lood in urine. 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 * Surgical History: H eart Stent x 2 2014, Heart Stent x 1 2015, Hernia Repair- [facility] , Colectomy 12/2018, DE stent mRCA 2016, Colonoscopy, [facility], Dr. Bautista. 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 * Hospitalization/Major Diagno stic Procedure: C onstipation, Low Iron- [facility] 05/15-. * Family History: F ather: , heart disease, htn, stroke. M other: alive, osteoporosis, dementia.?2 brother(s) , 2 sister(s) - healthy. 2 son(s) - healthy. . * Social History: C affeine: yes, frequency:1-2/week. Exercise: yes, pilates. Home smoke detector use: yes. Marital Status: . New since last visit: none. 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 Past smoking status: no. Occup. exposure: none. Recreational drug use: no. Alcohol: socially, Type:wine , Frequency: daily ,Years: , Determination:. Travel ouside [place]: no. * Medications: T aking Thiamine HCl 250 MG Tablet as directed Orally once daily , Taking Aspirin Adult Low Dose 81 MG Tablet Delayed Release 1 tab(s) orally once a day , Taking Nitroglycerin 0.4 MG Tablet Sublingual 1 tab(s) sublingually every 5 minutes as needed , Taking Align 4 MG Capsule 1 cap(s) orally once a day , Taking Ondansetron 4 MG Tablet Disintegrating 1 tablet on the tongue and allow to dissolve Orally three times a day as needed , Taking Fluticasone Propionate 50 MCG/ACT Suspension 1 spray in each nostril Nasally once daily , Taking Glimepiride 1 mg Tablet TAKE ONE TABLET BY MOUTH ONCE A DAY , Taking Evista 60 MG Tablet 1 tab(s) orally once a day , Taking Potassium Chloride ER 10 mEq Capsule Extended Release TAKE ONE CAPSULE BY MOUTH 3 TIMES A DAY , Taking Valsartan 160 MG Tablet 1/2 tablet Orally Two times a day , Taking metFORMIN HCl 500 mg Tablet TAKE 1 TABLET BY MOUTH ONCE A DAY , Taking Sertraline HCl 100 MG Tablet 1 tablet Orally Once a day , Taking Triamterene- HCTZ 37.5-25 MG Tablet 1 tab orally once a day , Taking Pantoprazole Sodium 40 MG Tablet Delayed Release 1 tab(s) orally once a day , Taking Levothyroxine Sodium 25 MCG Tablet 1 tab(s) orally once a day , Taking amLODIPine Besylate 2.5 MG Tablet 1 tablet Orally Once a day , Not-Taking MiraLax 17 GM/SCOOP Powder as directed Orally , Medication List reviewed and reconciled with the patient * Allergies: N .K.D.A. Objective: * Vitals: W t: 157.4, Temp: 98.2, BP: 134/86, HR: 62, O2 Sat: 99% on RA, Nurse: PHILIP, Ht: 65.25, BMI:25.99. * Examination: G eneral Examination: General Appearance: [...] no rash. P eripheral pulses: n ormal . B ack: mild dorsal kyphosis. E xtremities: n o leg edema, legs with blotchy appearance bilaterally. Assessment: * Assessment: 1. H istory of anemia - Z86.2 2 . H istory of partial colectomy - Z90.49? 3. T ype 2 diabetes mellitus without complication, without long-term current use of insulin - E11.9 4 . M annie loss - R41.3 5 . H istory of colon polyps - Z86.0100 6 . E ssential hypertension - I10 7 .?BMI 25.0-25.9,adult - Z68.25 Plan: * Treatment: Value Reference Range w bc 3.3 3.5 - 10 * l ymph 41.5% 15 - 50 * m id 9.9% 2 - 15 * g ran 48.6% 35 - 80 * r bc 4.84 3.5 - 5.5 * h gb 13.4 11.5 - 16.5 * h ct 40.2 35 - 55 * m cv 82.9 75 - 100 * m ch 27.6 25 - 35 * m chc 33.3 31 - 38 * p latlet 114 100 - 400 * Becky Recinos 03/12/2025 01 :40:14 PM > Provider reviewed results while patient in office. 2.?History of partial colectomy? Referral To:Gastroenterology ?Reason:hx coloncarcinoma with partial colectomy, tubular adenoma 3.?Type 2 diabetes mellitus without complication, without long-term current use of insulin?LAB: P-Microalbumin/Creatinine, Random Urine Sample (Collection Date & Time - 03/12/2025 01:34 PM)?Normal* Value Reference Range A lbumin/Creatinine Ratio, Urine <8.28 0-30 - ug /mg * C reatinine, Urine 36.2 - mg/dL * M icroalbumin, Urine, Random <0.3 - mg/dL * Becky Recinos 03/16/2025 03 :55:30 PM > Left voicemail informing of normal lab results ?LAB: Glycohemoglobin A1c (in house) (Collection Date & Time - 03/12/2025)* Value Reference Range g lycohemoglobin 6.6% 5 - 6.5 % * Becky Recinos 03/12/2025 01 :40:31 PM > Provider reviewed results while patient in office. 4.?Essential hypertension? Refill Valsartan Tablet, 160 MG, 1 tablet, Orally, once daily, 90 days, 90, Refills 1.?LAB: P-Comprehensive Metabolic Panel (CMP) (Collection Date & Time - 03/12/2025 01:34 PM)?satisfactory* Value Reference Range A /G Ratio 1.8 1.1-2.5 - * A lbumin 4.3 3.5-5.3 - g/dL * A lkaline Phosphatase 51 35-121 - IU/L * A LT (SGPT) 15 <5-47 - IU/L * A ST (SGOT) 19 <5-40 - IU/L * B ilirubin, Total 0.3 <0.2-1.2 - mg/dL * B UN 17 8-23 - mg/dL * C alcium 9.8 8.6-10.4 - mg/dL * C hloride 100 97-108 - mmol/L * C O2 27 22-32 - mmol/L * C reatinine 0.93 0.50-1.00 - mg/dL * G lucose 112 H 65-99 - mg/dL * P otassium 4.1 3.5-5.3 - mmol/L * S odium 137 135-145 - mmol/L * P rotein 6.7 6.0-8.3 - g/dL * e GFR by Creatinine 66 >59 - mL/min/1.73m2 * Becky Recinos 03/16/2025 03 :55:30 PM > Left voicemail informing of normal lab results ?LAB: CBC Venipuncture (in house) (Collection Date & Time - 03/12/2025)* Value Reference Range w bc 3.3 3.5 - 10 * l ymph 41.5% 15 - 50 * m id 9.9% 2 - 15 * g ran 48.6% 35 - 80 * r bc 4.84 3.5 - 5.5 * h gb 13.4 11.5 - 16.5 * h ct 40.2 35 - 55 * m cv 82.9 75 - 100 * m ch 27.6 25 - 35 * m chc 33.3 31 - 38 * p latlet 114 100 - 400 * Becky Recinos 03/12/2025 01 :40:14 PM > Provider reviewed results while patient in office. * Procedure Codes: G 2211 Complex e/[place] [address] CBC WITH AUTO DIFF, 15490 GLYCATED HEMOGLOBIN TEST, Modifiers: QW , 3044F HG A1C LEVEL LT 7.0%, G8420 BMI<30 AND >=22 CALC & DOCU, G8752 MOST RECENT SYSTOLIC BP < 140MM HG, G8754 MOST RECENT DIASTOLIC BP < 90MM HG * Follow Up: 3 Months * Images: Billing Information: * Visit Code: 53234 Office Visit, Est Pt., Level 4. * Procedure Codes: G2211 Complex e/[place]. [address] CBC WITH AUTO DIFF. 07285 GLYCATED HEMOGLOBIN TEST. Modifiers: QW 3044F HG A1C LEVEL LT 7.0%. G8420 BMI<30 AND >=22 CALC & DOCU. G8752 MOST RECENT SYSTOLIC BP < 140MM HG. G8754 MOST RECENT DIASTOLIC BP < 90MM HG. * Electronic signature of Abhishek Quezada MD on 07/26/2025 at 02:57 PM EDT Sign off status: Pending * Provider: Abhishek Quezada M.D. Date: 0 03/12/2025 Generated for Williei irene/Misty/eTransmitting on: 0 07/26/2025 02:57 PM EDT History and Physical Notes * HPI (History of Present Illness) Category Sub-Category Detail Notes Category Not es Cardiology Short of Breath with exertion Chest Pain Palpitations Dizziness Gastroenterology She is due for colonoscopy. Last was per Dr. Bautista, [facility], tubular adenoma. Examination Category Sub-Category Detail Notes Category Not es General Examination HEENT: unremarkable Heart: RSR Lungs: clear to auscultatio n, rattling cough Abdomen: soft and nontender, no organomegaly or masses Extremities: no leg edema, legs w ith blotchy appearance bilaterally General Appearance: NAD Skin: normal, no rash Neurologic Exam: Intact, gait normal Neck: supple, no lymphaden opathy Oral cavity: no lesions, mucosa m oist and WNL, no erythema Peripheral pulses: normal Back: mild dorsal kyphosis Chest: normal shape and exp ansion Consultation Request Notes Referral Date Referring Provider Referred Provider Not es 03/12/2025 Damien, J Arthur , hx colon c arcinoma with partial colectomy, tubular adenoma
--- OUTSIDE RECORDS SUMMARY | 2025-05-22 09:15 | XMS_ITS ---
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 Name Role Phone Abhishek Quezada Primary Care Provider Kailey Oseguera Unavailable [phone] Allergies No Known Allergies Results Component Value Reference Range Notes CBC Venipuncture (in house) Reviewed date:05/22/2025 03:11:23 PM Interpretation: Performing Lab: Notes/Report: wbc 3.3 3.5 - 10 lymph 28.1 15 - 50 mid 6.2 2 - 15 gran 65.7 35 - 80 rbc 5.07 3.5 - 5.5 hgb 14.1 11.5 - 16.5 hct 41.6 35 - 55 mcv 82.0 75 - 100 mch 27.8 25 - 35 mchc 33.9 31 - 38 platlet 114 100 - 400 P-Vitamin B12 Reviewed date:05/23/2025 12:52:12 PM Interpretation:>2000 Performing Lab: Notes/Report: Test performed by [facility] [address] [place], [place] [address] [place] [address] Da Borrero MD, Tobacco Sizer CLIA: [id number] Vitamin B12 >2000 232-1245 pg/mL P-Folate Reviewed date:05/23/2025 12:53:10 PM Interpretation:19.2 Performing Lab: Notes/Report: Test performed by [facility] [address] [place] [address] [place] [address] Da Borrero MD, Tobacco Sizer CLIA: [id number] Folate 19.20 >4.59 ng/mL P-T4 Free (thyroxine) Reviewed date:05/23/2025 12:53:34 PM Interpretation:1.56 Performing Lab: Notes/Report: Test performed by [facility] [address] , [place] [address] Da Borrero MD, Tobacco Sizer CLIA: [id number] Thyroxine Free (free T4) 1.56 0.86-1.76 ng/dL P-Iron Reviewed date:05/23/2025 12:51:13 PM Interpretation:75 Performing Lab: Notes/Report: Test performed by [facility] , [place] [address] Da Borrero MD, Tobacco Sizer CLIA: [id number] Iron 75 37-145 ug/dL P-TSH Reviewed date:05/23/2025 12:52:37 PM Interpretation:1.75 Performing Lab: Notes/Report: Test performed by [facility] [address] , [place] [address] Da Borrero MD, Tobacco Sizer CLIA: [id number] TSH 1.75 0.43-5.25 mU/L REASON FOR VISIT not feeling well Medications Medication SIG (Take, Route, Frequency, Duration) Notes Start Date End Date Status Evista 60 MG 1 tab(s) orally once a day; Duration: 90 days Active amLODIPine Besylate 2.5 MG 1 tablet Oral ly Once a day; Duration: 30 days Active Glimepiride 1 mg 1 tablet orally once daily; Duration: 30 days Active Pantoprazole Sodium 40 MG 1 tab(s) orall y once a day; Duration: 30 days Active Levothyroxine Sodium 25 MCG 1 tab(s) ora lly once a day; Duration: 30 days Active Fluticasone Propionate 50 MCG/ACT 1 spray in each nostril Nasally once daily; Duration: 30 day(s) 12/15/2024 Active metFORMIN HCl 500 mg TAKE 1 TABLET BY [facility] ONCE A DAY; Duration: 28 Active Ondansetron 4 MG 1 tablet on the tong ue and allow to dissolve Orally three times a day as needed; Duration: 20 day(s) 12/08/2024 Active Sertraline HCl 100 MG 1 tablet Orally On ce a day; Duration: 30 days Active Triamterene-HCTZ 37.5-25 MG 1 tab orally once a day; Duration: 30 days Active Aspirin Adult Low Dose 81 MG 1 tab(s) orally once a day Active Nitroglycerin 0.4 MG 1 tab(s) sublingual ly every 5 minutes as needed 11/23/2022 Active Thiamine HCl 250 MG as directed Orally o nce daily Active MiraLax 17 GM/SCOOP as directed Orally Active Align 4 MG 1 cap(s) orally once a day 09/04/2020 Active Valsartan 80 MG 1 tablet Orally twic e a day; Duration: 90 days 02/20/2025 Active Potassium Chloride ER 10 mEq 1 capsule by mouth 3 times a day; Duration: 90 days Active Problems Problem Type SNOMED Code ICD Code Onset Dates Problem Status W/U Status Risk Notes Problem Anemia (234800893) Anemia (D64.9) Active confirmed Problem Hypothyroidism (22307849) Adult hypothyroidism (E03.9) Active confirmed Problem Folate deficiency anemia (09828123) Folate deficiency anemia, unspecified (D52.9) Active confirmed Problem Chronic insomnia (923102851) Chronic insomnia (F51.04) Active confirmed Vital Signs Blood pressure systolic 130 mm Hg 05/22/20 25 Blood pressure diastolic 82 mm Hg 025 Heart Rate 82 /min 05/22/2025 Height 65.25 in 05/22/2025 Weight 151 lbs 05/22/2025 BMI 24.93 kg/m2 05/22/2025 Encounters Encounter Location Date Provider Diagnosis [facility] [address] [place], [place] [id number] 05/22/2025 Kailey Oseguera Anemia D64.9 ; Adult hypothyroidism E03.9 ; Folate deficiency anemia, unspecified D52.9 ; Chronic insomnia F51.04 and Chronic fatigue R53.82 Assessments Encounter Date Diagnosis (ICD Code) Assessment Notes Treatment Notes Treatment Clinical Notes Section Notes 05/22/2025 Anemia (ICD-10 - D64.9) We will get some labs today and call with the results. She is to drink tons of water since she has been outside in the heat a lot lately. 05/22/2025 Adult hypothyroidism (ICD-10 - E03.9) 05/22/2025 Folate deficiency anemia, unspecified (ICD-10 - D52.9) 05/22/2025 Chronic insomnia (ICD-10 - F51.04) will try OTC sleep aide ; discussed sleep hygiene 05/22/2025 Chronic fatigue (ICD-10 - R53.82) Plan Of Treatment Treatment Notes Assessment Notes Anemia We will get some lab s today and call with the results. She is to drink tons of water since she has been outside in the heat a lot lately. Chronic insomnia will try OTC sleep a tonya ; discussed sleep hygiene Next Appt Details Follow Up: keepappt; will ca ll results of labs, Reason: Provider Name:Abhishek Hooker er, 12/13/2025 01:45:00 PM, [address] [facility] [address], [address] , [place], [place], [id number], Progress Notes * MILTON CADETDOB:[birth year] (69 yo F)Acc No.[id number]:05/22/2025 Progress Notes Patient: Ryanne MILTON VILLALOBOS Provider: MARIA ALEJANDRA Taveras :1955 A ge:69 Y S ex:Female Date:05/22/2025 Address:[address] [place] [address], [facility], [id number] Pcp:Abhishek Quezada Subjective: * Chief Complaints: * 1 . Not feeling well. * HPI: E NT/respiratory: Pt here today with c/o cough,dizziness, short of breath and body aches since yesterday. Pt states that she been tried for about a month. after much conversation her notes that she has bee going out in the evening and working in her garden for sometime over 1 hour. 69 year old female presents with c/o cough s ometimes, clear spit. c/o nasal congestion. c/o Short of Breath. c/o headache. c/o dizziness. c/o body aches aching all over . Denies : sore throat. D enies : Fever. D enies : ear pain. D enies : rhinorrhea. D enies : post nasal drainage. D enies : facial pain/pressure.?Denies : epistaxis. D enies : Chest Pain. D enies : chest congestion. D enies : smoking. G astroenterology: c/o Abdominal Pain. c/o Nausea. c/o Diarrhea n o blood, watery. c/o Abdominal Distension. c/o Bloating. Denies : Acid Reflux. D enies : Heartburn. D enies : Vomiting. D enies : Fever. * ROS: D ERMATOLOGY: no R elliott. n o H shahriar. G ASTROENTEROLOGY: no N ausea. n o V omiting. D iarrhea y es.? U ROLOGY: no D ifficulty urinating. n [...] Heart Stent x 1 2015, Hernia Repair- [facility] , Colectomy 12/2018, [place] stent mRCA 2016, Colonoscopy, [facility], Dr. Bautista. 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 * Hospitalization/Major Diagno stic Procedure: C onstipation, Low Iron- [facility] 05/15-. * Family History: F ather: , heart disease, htn, stroke. M other: alive, osteoporosis, dementia.?2 brother(s) , 2 sister(s) - healthy. 2 son(s) - healthy. . * Social History: C affeine: yes, frequency:1-2/week. Exercise: yes, pilates. Home smoke detector use: yes. Marital Status: . New since last visit: none. 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 Past smoking status: no. [...] each nostril Nasally once daily , Taking metFORMIN HCl 500 mg Tablet TAKE 1 TABLET BY MOUTH ONCE A DAY , Taking Sertraline HCl 100 MG Tablet 1 tablet Orally Once a day , Taking Triamterene-HCTZ 37.5-25 MG Tablet 1 tab orally once a day , Taking Pantoprazole Sodium 40 MG Tablet Delayed Release 1 tab(s) orally once a day , Taking Levothyroxine Sodium 25 MCG Tablet 1 tab(s) orally once a day , Taking amLODIPine Besylate 2.5 MG Tablet 1 tablet Orally Once a day , Taking Glimepiride 1 mg Tablet 1 tablet orally once daily , Taking Evista 60 MG Tablet 1 tab(s) orally once a day , Taking Valsartan 80 MG Tablet 1 tablet Orally twice a day , Taking Potassium Chloride ER 10 mEq Capsule Extended Release 1 capsule by mouth 3 times a day , Taking MiraLax 17 GM/SCOOP Powder as directed Orally , Medication List reviewed and reconciled with the patient * Allergies: N .K.D.A. Objective: * Vitals: W t: 151, Temp: 97.7, BP: 130/82, HR: 82, O2 Sat: 95% on ra, Nurse: traci, Ht: 65.25, BMI:24.93. * Examination: G eneral Examination: General Appearance: N AD, appears healthy, alert, pleasant, Color good. H EENT: n ormal, PERRLA, TM's normal. O ral cavity: n ormal, mucosa moist and WNL. N kellie: n o lymphadenopathy. H eart: R RR. L ungs: n ormal, clear to auscultation. A bdomen: n ormal, bowel sounds present, soft, no organomegaly or masses, nontender. S kin: n ormal, no rash. P eripheral pulses: n ormal (2+) bilaterally.?Extremities: n o leg edema. Assessment: * Assessment: 1. A nemia - D64.9 (Primary) 2 . A dult hypothyroidism - E03.9 ?3. F olate deficiency anemia, unspecified - D52.9 4 . C hronic insomnia - F51.04 5 . C hronic fatigue - R53.82 Plan: * Treatment: Value Reference Range V itamin B12 >2000 H 232-1245 - pg/mL * Kailey Oseguera 05/23/2025 12:51:23 PM EDT >I spoke with pt and reported results; to keed Dr. Quezada and Dr. Gray appts; to have colonoscopy in June ?LAB: P-Folate (Collection Date & Time - 05/22/2025 01:34 PM)?19.2* Value Reference Range F olate 19.20 >4.59 - ng/mL * Kailey Oseguera 05/23/2025 12:41:03 PM EDT >I spoke with pt and reported results ?LAB: P-Iron (Collection Date & Time - 05/22/2025 01:34 PM)?75* Value Reference Range I stephanie 75 37-145 - ug/dL * Kailey Oseguera 05/23/2025 12:50:23 PM EDT >I spoke with pt and reported results' she will keep appts with Dr. Quezada and Dr. Gray; reviewed past CBC's with her Notes: We will get some labs today and call with the results. She is to drink tons of water since she has been outside in the heat a lot lately. ??2.?Adult hypothyroidism?LAB: P-T4 Free (thyroxine) (Collection Date & Time - 05/22/2025 01:34 PM)? 1.56* Value Reference Range T hyroxine Free (free T4) 1.56 0.86-1.76 - ng/d L * Kailey Oseguera 05/23/2025 12:53:19 PM EDT >I spoke with pt and reported results ?LAB: P-TSH (Collection Date & Time - 05/22/2025 01:34 PM)?1.75* Value Reference Range T SH 1.75 0.43-5.25 - mU/L * Kailey Oseguera 05/23/2025 12:52:20 PM EDT >I spoke with pt and reported results 3.?Chronic insomnia? Notes: will try OTC sleep aide ; discussed sleep hygiene?? * Labs: * L ab: CBC Venipuncture (in house) (Collection Date & Time - 05/22/2025) Value Reference Range w bc 3.3 3.5 - 10 * l ymph 28.1 15 - 50 * m id 6.2 2 - 15 * g ran 65.7 35 - 80 * r bc 5.07 3.5 - 5.5 * h gb 14.1 11.5 - 16.5 * h ct 41.6 35 - 55 * m cv 82.0 75 - 100 * m ch 27.8 25 - 35 * m chc 33.9 31 - 38 * p latlet 114 100 - 400 * Nella Brown 05/22/2025 0 2:05:44 PM EDT > Provider reviewed results while patient in office.Kailey Oseguera 05/22/2025 03:11:20 PM EDT > * Procedure Codes: G 2211 Complex e/[place], [address] CBC WITH AUTO DIFF * Follow Up: saba bhagat; will call results of labs * Images: Billing Information: * Visit Code: 81340 Office Visit, Est Pt., Level 4. * Procedure Codes: G2211 Complex e/[place]. [address] CBC WITH AUTO DIFF. * Electronic signature of Veronique Oseguera APRN on 07/26/2025 at 02:57 PM EDT Sign off status: Pending * Provider: MARIA ALEJANDRA Taveras Date: 0 05/22/2025 Generated for Ligia bonilla/Misty/eTransmitting on: 0 07/26/2025 02:57 PM EDT History and Physical Notes * HPI (History of Present Illness) Category Sub-Category Detail Notes Category Not es ENT/respiratory sore throat facial pain/pressure ear pain Short of Breath Chest Pain cough sometimes, clear spi t Fever post nasal drainage headache chest congestion epistaxis rhinorrhea nasal congestion smoking dizziness body aches aching all over Gastroenterology Fever Vomiting Abdominal Pain Diarrhea no blood, watery Nausea Abdominal Distension Heartburn Acid Reflux Bloating Examination Category Sub-Category Detail Notes Category Not es General Examination HEENT: normal, PERRLA, TM's normal Heart: RRR Lungs: normal, clear to aus cultation Abdomen: normal, bowel sounds present, soft, no organomegaly or masses, nontender Extremities: no leg edema General Appearance: NAD, appears healthy , alert, pleasant, Color good Skin: normal, no rash Neck: no lymphadenopathy Oral cavity: normal, mucosa moist and WNL Peripheral pulses: normal (2+) bilatera lly
--- OUTSIDE RECORDS SUMMARY | 2025-06-11 09:00 | XMS_ITS ---
Author Organization [facility] Address 1210 [facility] [address] [place] [id number] Care Team Providers Care City Jailer Name Role Phone Abhishek Quezada Primary Care Provider [phone] Allergies No Known Allergies Results Component Value Reference Range Notes Glycohemoglobin A1c (in hous e) Reviewed date:06/13/2025 01:12:01 PM Interpretation:6.7 Performing Lab: Notes/Report: 6.7 glycohemoglobin 6.7% 5 - 6.5 % P-Basic Metabolic Panel (BMP ) Reviewed date:06/13/2025 01:12:01 PM Interpretation:Normal Performing Lab: Notes/Report: Test performed by [facility] [address] [place] [address] , [address], [place] [address] Da Borrero MD, Lacquer Pin Press Operator CLIA: [id number] Sodium 136 135-145 mmol/L Potassium 4.0 3.5-5.3 mmol/L Chloride 102 97-108 mmol/L CO2 25 20-32 mmol/L Glucose 86 65-99 mg/dL BUN 19 8-23 mg/dL Creatinine 0.76 0.50-1.00 mg/dL Calcium 9.0 8.6-10.4 mg/dL eGFR by Creatinine 83 >59 mL/min/1.73m2 REASON FOR VISIT 3 month ckup, Needs labs, colon cancer screening, & diabetic eye exam Medications Medication SIG (Take, Route, Frequency, Duration) Notes Start Date End Date Status Sertraline HCl 100 MG 1 tablet Orally On ce a day; Duration: 30 days Active Triamterene-HCTZ 37.5-25 MG 1 tab orally once a day; Duration: 30 days Active Levothyroxine Sodium 25 MCG 1 tab(s) orally once a day; Duration: 30 days Active metFORMIN HCl 500 mg 1 tablet orally onc e a day; Duration: 30 days Active amLODIPine Besylate 2.5 MG 1 tablet Orally Once a day; Duration: 30 days Active Evista 60 MG 1 tab(s) orally once a day; Duration: 90 days Active Valsartan 80 MG 1 tablet Orally twic e a day; Duration: 90 days 02/20/2025 Active Potassium Chloride ER 10 mEq 1 capsule by mouth 3 times a day; Duration: 90 days Active MiraLax 17 GM/SCOOP as directed Orally Active Pantoprazole Sodium 40 MG 1 tab(s) orall y once a day; Duration: 30 days Active Align 4 MG 1 cap(s) orally once a day 09/04/2020 Active Ondansetron 4 MG 1 tablet on the tong ue and allow to dissolve Orally three times a day as needed; Duration: 20 day(s) 12/08/2024 Not-Taking Nitroglycerin 0.4 MG 1 tab(s) sublingual ly every 5 minutes as needed 11/23/2022 Active Fluticasone Propionate 50 MCG/ACT 1 spray in each nostril Nasally once daily; Duration: 30 day(s) 12/15/2024 Active Glimepiride 1 mg 1 tablet orally once daily; Duration: 30 days Active Aspirin Adult Low Dose 81 MG 1 tab(s) orally once a day Active NIFEdipine ER 30 MG 1 tablet on an empty stomach Orally Once a day Active Thiamine HCl 250 MG as directed Orally o nce daily Active Vital Signs Blood pressure systolic 120 mm Hg 06/11/20 25 Blood pressure diastolic 80 mm Hg 025 Heart Rate 75 /min 06/11/2025 Height 65.25 in 06/11/2025 Weight 154.2 lbs 06/11/2025 BMI 25.46 kg/m2 06/11/2025 Encounters Encounter Location Date Provider Diagnosis [facility] [address] [place] [id number] 06/11/2025 Abhishek Quezada Type 2 diabetes maddy itus without complication, without long-term current use of insulin E11.9 ; H/O heart artery stent Z95.5 ; Hypothyroidism E03.9 and BMI 25.0-25.9,adult Z68.25 Assessments Encounter Date Diagnosis (ICD Code) Assessment Notes Treatment Notes Treatment Clinical Notes Section Notes 06/11/2025 Type 2 diabetes mellitus without complication, without long-term current use of insulin (ICD-10 - E11.9) 06/11/2025 H/O heart artery stent (ICD-10 - Z95.5) 06/11/2025 Hypothyroidism (ICD-10 - E03.9) 06/11/2025 BMI 25.0-25.9,adult (ICD-10 - Z68.25) Plan Of Treatment Next Appt Details Follow Up: 3 Months, Reason: Provider Name:Abhishek Hooker er, 12/13/2025 01:45:00 PM, [address] [facility], [address], [place], [place], [id number], Progress Notes * MILTON CADETDOB:[birth year] (69 yo F)Acc No.[id number]:06/11/2025 Progress Notes Patient: Ryanne CHAVEZMILTON LONG Provider: Abhishek Quezada M.D. :1955 A ge:69 Y S ex:Female Date:06/11/2025 Address:[address] [place] [address], [facility], [id number] Subjective: * Chief Complaints: * 1 . 3 month ckup. 2. Needs labs, colon cancer screening, & diabetic eye exam. * HPI: C ardiology: The patient is here for a check up on Hypertension and Diabetes. Cardiac history reviewed today.? She thinks she has 3 stents total. Denies : Chest Pain. D enies : Short of Breath. D enies : Dizziness. D enies : Palpitations. G astroenterology: Has colonoscopy scheduled 06/18/25. * ROS: D ERMATOLOGY: no R elliott. 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 Celaya, [place] stent mRCA 2016. * Surgical History: H eart Stent x 2 2014, Heart Stent x 1 2015, Hernia Repair- [facility] , Colectomy 12/2018, [place] stent mRCA 2016, Colonoscopy, [facility], Dr. Bautista. 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 * Hospitalization/Major Diagno stic Procedure: C onstipation, Low Iron- [facility] 05/15-. * Family History: F ather: , heart disease, htn, stroke. M other: alive, osteoporosis, dementia.?2 brother(s) , 2 sister(s) - healthy. 2 son(s) - healthy. . * Social History: C affeine: yes, frequency:1-2/week. Exercise: yes, pilates. Home smoke detector use: yes. Marital Status: . New since last visit: none. 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 Past smoking status: no. Occup. exposure: none. Recreational drug use: no. Alcohol: socially, Type:wine , Frequency: daily ,Years: , Determination:. Travel ouside [place]: no. * Medications: T aking NIFEdipine ER 30 MG Tablet Extended Release 24 Hour 1 tablet on an empty stomach Orally Once a day , Taking Thiamine HCl 250 MG Tablet as directed Orally once daily , Taking Aspirin Adult Low Dose 81 MG Tablet Delayed Release 1 tab(s) orally once a day , Taking Nitroglycerin 0.4 MG Tablet Sublingual 1 tab(s) sublingually every 5 minutes as needed , Taking Align 4 MG Capsule 1 cap(s) orally once a day , Taking Fluticasone Propionate 50 MCG/ACT Suspension 1 spray in each nostril Nasally once daily , Taking Glimepiride 1 mg Tablet 1 tablet orally once daily , Taking Evista 60 MG Tablet 1 tab(s) orally once a day , Taking Valsartan 80 MG Tablet 1 tablet Orally twice a day , Taking Potassium Chloride ER 10 mEq Capsule Extended Release 1 capsule by mouth 3 times a day , Taking MiraLax 17 GM/SCOOP Powder as directed Orally , Taking Pantoprazole Sodium 40 MG Tablet Delayed Release 1 tab(s) orally once a day , Taking Levothyroxine Sodium 25 MCG Tablet 1 tab(s) orally once a day , Taking metFORMIN HCl 500 mg Tablet 1 tablet orally once a day , Taking Sertraline HCl 100 MG Tablet 1 tablet Orally Once a day , Taking Triamterene- HCTZ 37.5-25 MG Tablet 1 tab orally once a day , Taking amLODIPine Besylate 2.5 MG Tablet 1 tablet Orally Once a day , Not-Taking Ondansetron 4 MG Tablet Disintegrating 1 tablet on the tongue and allow to dissolve Orally three times a day as needed * Allergies: N .K.D.A. Objective: * Vitals: W t: 154.2, Temp: 98.2, BP: 120/80, HR: 75, O2 Sat: 99% on RA, Nurse: PHILIP, Ht: 65.25, BMI:25.46. * Examination: G eneral Examination: General Appearance: [...] blotchy appearance bilaterally. Assessment: * Assessment: 1. T ype 2 diabetes mellitus without complication, without long-term current use of insulin - E11.9 (Primary) 2 . H /O heart artery stent - Z95.5 3 . H ypothyroidism - E03.9 4 . B WY 25.0-25.9,adult - Z68.25 Plan: * Treatment: Value Reference Range B UN 19 8-23 - mg/dL * C alcium 9.0 8.6-10.4 - mg/dL * C hloride 102 97-108 - mmol/L * C O2 25 20-32 - mmol/L * C reatinine 0.76 0.50-1.00 - mg/dL * G lucose 86 65-99 - mg/dL * P otassium 4.0 3.5-5.3 - mmol/L * S odium 136 135-145 - mmol/L * e GFR by Creatinine 83 >59 - mL/min/1.73m2 * Silvia Ward 06/13/2025 0 1:11:50 PM EDT > See phone encounter * Labs: * L ab: Glycohemoglobin A1c (in house) (Collection Date & Time - 06/11/2025) 6 .7 Value Reference Range g lycohemoglobin 6.7% 5 - 6.5 % * Becky Recinos 06/11/2025 01 :27:43 PM EDT > Silvia Ward 06/13/2025 01:11:50 PM EDT > See phone encounter * Procedure Codes: G 2211 Complex e/[place], [address] GLYCATED HEMOGLOBIN TEST, Modifiers: QW , 3044F HG A1C LEVEL LT 7.0%, 1036F TOBACCO NON-USER, G8420 BMI<30 AND >=22 CALC & DOCU, G8783 BP SCR PRFRM RCMDD DEFIND SCR INTVL, G8752 MOST RECENT SYSTOLIC BP < 140MM HG, G8754 MOST RECENT DIASTOLIC BP < 90MM HG * Follow Up: 3 Months * Images: Billing Information: * Visit Code: 83527 Office Visit, Est Pt., Level 4. * Procedure Codes: G2211 Complex [place]. [address] GLYCATED HEMOGLOBIN TEST. Modifiers: QW 3044F HG A1C LEVEL LT 7.0%. 1036F TOBACCO NON-USER. G8420 BMI<30 AND >=22 CALC & DOCU. G8783 BP SCR PRFRM RCMDD DEFIND SCR INTVL. G8752 MOST RECENT SYSTOLIC BP < 140MM HG. G8754 MOST RECENT DIASTOLIC BP < 90MM HG. * Electronic signature of Abhishek Quezada MD on 07/26/2025 at 02:58 PM EDT Sign off status: Pending * Provider: Abhishek Quezada M.D. Date: 0 06/11/2025 Generated for Ligia bonilla/Misty/Hamidaitting on: 0 07/26/2025 02:58 PM EDT History and Physical Notes * HPI (History of Present Illness) Category Sub-Category Detail Notes Category Not es Cardiology Short of Breath Chest Pain Palpitations Dizziness Examination Category Sub-Category Detail Notes Category Not [...]
--- OUTSIDE RECORDS SUMMARY | 2025-07-26 14:56 | XMS_ITS | Patient Health Record ---
Author Organization [facility] Address [address] [facility] [address] [place] [id number] Care Team Providers Care Vp Analytics Name Role Phone Abhishek Quezada Primary Care Provider Kailey Oseguera Unavailable [phone] Allergies No Known Allergies Results Component Value Reference Range Notes CBC Fingerstick (in house) Reviewed date:12/15/2024 12:45:10 [...] - 38 plat 120 100 - 400 P-TSH Reviewed date:05/23/2025 12:52:37 PM Interpretation:1.75 Performing Lab: Notes/Report: Test performed by [facility] [address] [place] [address] , [address], [place] [address] Da Borrero MD, Crime Scene Photographer CLIA: [id number] TSH 1.75 0.43-5.25 mU/L P-Iron Reviewed date:05/23/2025 12:51:13 PM Interpretation:75 Performing Lab: Notes/Report: Test performed by [facility] [address] [place] [address] , [place] [address] Da Borrero MD, Crime Scene Photographer CLIA: [id number] Iron 75 37-145 ug/dL P-T4 Free (thyroxine) Reviewed date:05/23/2025 12:53:34 PM Interpretation:1.56 Performing Lab: Notes/Report: Test performed by [facility] [address] [place] [address] , [address], [place] [address] Da Borrero MD, Crime Scene Photographer CLIA: [id number] Thyroxine Free (free T4) 1.56 0.86-1.76 ng/dL P-Folate Reviewed date:05/23/2025 12:53:10 PM Interpretation:19.2 Performing Lab: Notes/Report: Test performed by [facility] [address] , [address], [place] [address] Da Borrero MD, Crime Scene Photographer CLIA: [id number] Folate 19.20 >4.59 ng/mL P-Vitamin B12 Reviewed date:05/23/2025 12:52:12 PM Interpretation:>2000 Performing Lab: Notes/Report: Test performed by [facility] [address] [place] [address] , [address], [place] [id number] Da Borrero MD, Crime Scene Photographer CLIA: [id number] Vitamin B12 >2000 232-1245 pg/mL CBC Venipuncture (in house) Reviewed date:05/22/2025 03:11:23 [...] Notes/Report: glycohemoglobin 6.6% 5 - 6.5 % CBC Venipuncture (in house) Reviewed date:03/12/2025 04:37:25 [...] - 38 platlet 114 100 - 400 P-Comprehensive Metabolic Pa kole (CMP) Reviewed date:03/16/2025 03:55:44 PM Interpretation:satisfactory Performing Lab: Notes/Report: Test performed by [facility] [address] [place] [address] , [address], [place] [address] Da Borrero MD, Crime Scene Photographer CLIA: [id number] Sodium 137 135-145 mmol/L Potassium 4.1 3.5-5.3 [...] Interpretation:Normal Performing Lab: Notes/Report: Test performed by [facility] [address] [place] [address] , [address], [place] [address] Da Borrero MD, Crime Scene Photographer CLIA: [id number] Albumin/Creatinine Ratio, Urine <8.28 0-30 ug/mg Microalbumin, Urine, Random <0.3 Creatinine, Urine 36.2 H-CBC Reviewed date:12/05/2024 08:44:09 AM Interpretation: Performing Lab: Notes/Report: WBC 1.5 4.8-10.8 K/mm3 RBC 4.43 4.20-5.40 M/mm3 HGB 12.5 12.2-16.2 g/dL Delta: 13.9 o n 12/04/24 HCT 36.4 37.0-47.0 % MCV 82.2 81-99 [...] 0.0 0.0-0.4 K/mm3 BA# 0.0 0-0.2 K/mm3 H-CMP Reviewed date:12/05/2024 08:44:10 AM Interpretation: Performing [...] AGRATIO 1.4 1.1-1.8 ALP 54 38-126 U/L H-Sputum Culture with Gram S ham Reviewed [...] LAB IF FURTHER IDENTIFICATION IS CUSPU NEEDED. Mammogram Reviewed date:02/28/2025 12:13:58 PM Interpretation:Negative Performing Lab: Notes/Report: Negative CBC Fingerstick (in house) Reviewed date:12/08/2024 01:11:32 [...] - 38 plat 108 100 - 400 P-Basic Metabolic Panel (BMP ) Reviewed date:12/11/2024 06:06:57 PM Interpretation:satisfactory Performing Lab: Notes/Report: Test performed by [facility] , [address], [place] [address] Da Borrero MD, Crime Scene Photographer CLIA: [id number] Sodium 134 135-145 mmol/L Potassium 3.9 3.5-5.3 mmol/L Chloride 98 97-108 mmol/L CO2 22 22-32 mmol/L Glucose 74 65-99 mg/dL BUN 18 8-23 mg/dL Creatinine 0.99 0.50-1.00 mg/dL Calcium 9.4 8.6-10.4 mg/dL eGFR by Creatinine 61 >59 mL/min/1.73m2 Glycohemoglobin A1c (in hous e) Reviewed date:06/13/2025 01:12:01 PM Interpretation:6.7 Performing Lab: Notes/Report: 6.7 glycohemoglobin 6.7% 5 - 6.5 % P-Basic Metabolic Panel (BMP ) Reviewed date:06/13/2025 01:12:01 PM Interpretation:Normal Performing Lab: Notes/Report: Test performed by [facility] [address] [place] [address] , [address], [place] [address] Da Borrero MD, Crime Scene Photographer CLIA: [id number] Sodium 136 135-145 mmol/L Potassium 4.0 3.5-5.3 mmol/L Chloride 102 97-108 mmol/L CO2 25 20-32 mmol/L Glucose 86 65-99 mg/dL BUN 19 8-23 mg/dL Creatinine 0.76 0.50-1.00 mg/dL Calcium 9.0 8.6-10.4 mg/dL eGFR by Creatinine 83 >59 mL/min/1.73m2 H-CBC Reviewed date:11/30/2024 08:36:51 AM Interpretation: Performing [...] Duration) Notes Start Date End Date Status Align 4 MG 1 cap(s) orally once a day 09/04/2020 Active Sertraline HCl 100 MG 1 tablet Orally On ce a day; Duration: 30 days Active Ondansetron 4 MG 1 tablet on the tong ue and allow to dissolve Orally three times a day as needed; Duration: 20 day(s) 12/08/2024 Not-Taking Triamterene-HCTZ 37.5-25 MG 1 tab orally once a day; Duration: 30 days Active Aspirin Adult Low Dose 81 MG 1 tab(s) orally once a day Active Levothyroxine Sodium 25 MCG 1 tab(s) orally once a day; Duration: 30 days Active Nitroglycerin 0.4 MG 1 tab(s) sublingual ly every 5 minutes as needed 11/23/2022 Active metFORMIN HCl 500 mg 1 tablet orally onc e a day; Duration: 30 days Active Evista 60 MG 1 tab(s) orally once a day; Duration: 90 days Active Valsartan 80 MG 1 tablet Orally twic e a day; Duration: 90 days 02/20/2025 Active Fluticasone Propionate 50 MCG/ACT 1 spray in each nostril Nasally once daily; Duration: 30 day(s) Active amLODIPine Besylate 2.5 MG 1 tablet Orally Once a day; Duration: 30 days Active Potassium Chloride ER 10 mEq 1 capsule by mouth 3 times a day; Duration: 90 days Active NIFEdipine ER 30 MG 1 tablet on an empty stomach Orally Once a day Active MiraLax 17 GM/SCOOP as directed Orally Active Glimepiride 1 mg 1 tablet orally vinay y; Duration: 90 days Active Thiamine HCl 250 MG as directed Orally o nce daily Active Pantoprazole Sodium 40 MG 1 tab(s) orall y once a day; Duration: 30 days Active Immunizations Vaccine Route Administration Date Status Comme nts xFlu shot- 6months-36 months of zir-UAGV-BDDF-trivalent Unknown 09/29/2016 Administered xAdministration of injection Unknown 09/29/2016 Administered xAdministration of injection Unknown 09/29/2016 Administered Tetanus Tdap-Adacel (over 7yrs) IM Intramuscular 12/19/2018 Administered Prevnar (PCV13) IM Intramuscular 12/19/2018 Administered Prevnar (PCV13) Unknown 12/19/2018 Administered Fluzone Quad (6months&older) IM Intramuscular 09/12/2018 Administered DT, 7 YEARS OR OLDER Unknown 01/08/1997 Administered COVID 19 Pfizer Unknown 01/08/2021 Administered COVID 19 Pfizer Unknown 02/05/2021 Administered COVID 19 Moderna Unknown 10/20/2021 Administered Problems Problem Type SNOMED Code ICD Code Onset Dates Problem Status W/U Status Risk Notes Problem Hyponatremia (85156617) Hyponatremia (E87.1) Active confirmed Problem Aphasia (42076113) Aphasia (R47.01) Active conf irmed Problem Anemia (050949637) Anemia (D64.9) Active confir med Problem Essential hypertension (95275324) Essential hypertension (I10) Active confirmed Problem Arthropathy (837304603) Arthropathy (M12.9) Active confirmed Problem History of anemia (517351005) History of anemia (Z86.2) Active confirmed Problem Memory loss (61546238) Memory loss (R41.3) Active confirmed Problem Hearing loss (16530335) Hearing loss (H91.90) Active confirmed Problem Urinary tract infectious disease (disorder) (82645760) Urinary tract infection, site not specified (N39.0) Active confirmed Problem Infection caused by Escherichia coli (23056800) Unspecified Escherichia coli [E. coli] as the cause of diseases classified elsewhere (B96.20) Active confirmed Problem Folate deficiency anemia (49734733) Folate deficiency anemia, unspecified (D52.9) Active confirmed Problem Idiopathic hypotension (469813566) Idiopathic hypotension (I95.0) Active confirmed Problem Chronic rhinitis (73216194) Chronic rhinitis (J31.0) Active confirmed Problem Localized, primary osteoarthritis of the hand (363629444) Primary osteoarthritis, right hand (M19.041) Active confirmed Problem Lack of coordination (885170860) Other lack of coordination (R27.8) Active confirmed Problem Constipation (42211998) Constipation, unspecified constipation type (K59.00) Active confirmed Problem Acquired hypothyroidism (954575852) Acquired hypothyroidism (E03.9) Active confirmed Problem Bilateral tinnitus (4115885646988) Tinnitus of both ears (H93.13) Active confirmed Problem Hypothyroidism (19186942) Hypothyroidism (E03.9) Active confirmed Problem Chronic fatigue syndrome (53768350) Chronic fatigue (R53.82) Active confirmed Problem Thrombocytopenia (576949128) Thrombocytopenia (D69.6) Active confirmed Problem Atherosclerotic heart disease of hughes coronary artery without angina pectoris (995256141112874) Coronary artery disease involving hughes coronary artery of hughes heart without angina pectoris (I25.10) Active confirmed Problem Type II diabetes mellitus without complication (837418317) T2DM (type 2 diabetes mellitus) (E11.9) Active confirmed Problem Iron deficiency anemia due to chronic blood loss (997387250) Iron deficiency anemia due to chronic blood loss (D50.0) Active confirmed Problem Neutropenia (397213937) Neutropenia (D70.9) Active confirmed Problem Dysphagia (39281729) Pharyngoesophageal dysphagia (R13.14) Active confirmed Problem Type II diabetes mellitus without complication (006215114) Type 2 diabetes mellitus without complication, without long-term current use of insulin (E11.9) Active confirmed Problem Leukopenia (14541386) Leukopenia, unspecified type (D72.819) Active confirmed Problem Localized, primary osteoarthritis of the hand (482163301) Primary osteoarthritis of left hand (M19.042) Active confirmed Problem History of placement of stent for coronary artery disease (situation) (242676522) H/O heart artery stent (Z95.5) Active confirmed Problem Iron deficiency anemia secondary to inadequate dietary iron intake (721617638) Iron deficiency anemia secondary to inadequate dietary iron intake (D50.8) Active confirmed Problem Hypothyroidism (61348461) Adult hypothyroidism (E03.9) Active confirmed Problem Osteopenia (818089534) Osteopenia, unspecified location (M85.80) Active confirmed Problem Malignant neoplasm of colon (582481051) Colon carcinoma (C18.9) Active confirmed Problem Sensorineural hearing loss, bilateral (452322461) Sensorineural hearing loss (SNHL) of both ears (H90.3) Active confirmed Problem Abnormal gait (61788023) Gait instability (R26.81) Active confirmed Problem Seasonal allergic rhinitis (701426717) Seasonal allergic rhinitis, unspecified trigger (J30.2) Active confirmed Problem Vasculitis (14362652) Vasculitis (I77.6) Active confirmed Problem History of partial resection of colon (152375822) History of partial colectomy (Z90.49) Active confirmed Problem Primary hypertension (47683178) Primary hypertension (I10) Active confirmed Problem Cerebral infarction (329493244) Small vessel cerebrovascular accident (CVA) (I63.9) Active confirmed Problem Cough (finding) (29984132) Cough, unspecified type (R05.9) Active confirmed Problem Chronic insomnia (462895658) Chronic insomnia (F51.04) Active confirmed Vital Signs Heart Rate 75 /min 06/11/2025 Blood pressure diastolic 80 mm Hg 06/11/2025 Height 65.25 in 06/11/2025 Blood pressure systolic 120 mm Hg 06/11/2025 Weight 154.2 lbs 06/11/2025 BMI 25.46 kg/m2 06/11/2025 Encounters Encounter Location Date Provider Diagnosis Lorenzo Foreman0 [address] [place] [id number] 12/08/2024 Abhishek Quezada History of influenza Z87.09 ; Acute cough R05.1 ; Hyponatremia E87.1 and Nausea R11.0 [facility] [address] [place] [id number] 12/15/2024 Abhishek Quezada Influenza A J10.1 ; Cough, unspecified type R05.9 ; H/O heart artery stent Z95.5 and Chronic rhinitis J31.0 [facility] [address] [place] [id number] 01/08/2025 Abhishek Quezada Type 2 diabetes mellitus without complication, without long-term current use of insulin E11.9 ; Primary hypertension I10 ; H/O heart artery stent Z95.5 and Leukopenia, unspecified type D72.819 [facility] [address] [place] [id number] 03/12/2025 Abhishek Quezada History of partial colectomy Z90.49 ; History of anemia Z86.2 ; Type 2 diabetes mellitus without complication, without long-term current use of insulin E11.9 ; Memory loss R41.3 ; History of colon polyps Z86.0100 ; Essential hypertension I10 and BMI 25.0-25.9,adult Z68.25 [facility] [address] [place] [id number] 05/22/2025 Kailey Oseguera Anemia D64.9 ; Adult hypothyroidism E03.9 ; Folate deficiency anemia, unspecified D52.9 ; Chronic insomnia F51.04 and Chronic fatigue R53.82 [facility] [address] [place] [id number] 06/11/2025 Abhishek Quezada Type 2 diabetes mellitus without complication, without long-term current use of insulin E11.9 ; H/O heart artery stent Z95.5 ; Hypothyroidism E03.9 and BMI 25.0-25.9,adult Z68.25 [facility] [address] [place] [id number] 06/25/2025 Abhishek Quezada [facility] [address] [place], [place] [id number] 12/04/2024 Abhishek Quezada [facility] [address] [place], [place] [id number] 02/20/2025 Abhishek [facility] [address] [place], [place] [id number] 05/09/2025 Abhishek Quezada Essential hypertensi on I10 [facility] [address] [place], [place] [id number] 06/13/2025 Abhishek Quezada Assessments Encounter Date Diagnosis (ICD Code) Assessment Notes Treatment Notes Treatment Clinical Notes Section Notes 12/08/2024 Acute cough (ICD-10 - R05.1) 12/08/2024 [...] Z90.49) 05/09/2025 Essential hypertension (ICD-10 - I10) 05/22/2025 Anemia (ICD-10 - D64.9) We will get some labs today and call with the results. She is to drink tons of water since she has been outside in the heat a lot lately. 05/22/2025 Adult hypothyroidism (ICD-10 - E03.9) 06/11/2025 Type 2 diabetes mellitus without complication, without long-term current use of insulin (ICD-10 - E11.9) 06/11/2025 H/O heart artery stent (ICD-10 - Z95.5) 06/11/2025 Hypothyroidism (ICD-10 - E03.9) 05/22/2025 Folate deficiency anemia, unspecified (ICD-10 - D52.9) 01/08/2025 H/O heart artery stent (ICD-10 - Z95.5) 03/12/2025 Type 2 diabetes mellitus without complication, without long-term current use of insulin (ICD-10 - E11.9) 12/15/2024 H/O heart artery stent (ICD-10 - Z95.5) 12/08/2024 Hyponatremia (ICD-10 - E87.1) 12/08/2024 Nausea (ICD-10 - R11.0) 12/15/2024 Chronic rhinitis (ICD-10 - J31.0) 01/08/2025 Leukopenia, unspecified type (ICD-10 - D72.819) 03/12/2025 Memory loss (ICD-10 - R41.3) 06/11/2025 BMI 25.0-25.9,adult (ICD-10 - Z68.25) 05/22/2025 Chronic insomnia (ICD-10 - F51.04) will try OTC sleep aide ; discussed sleep hygiene 03/12/2025 History of colon polyps (ICD-10 - Z86.0100) 05/22/2025 Chronic fatigue (ICD-10 - R53.82) 03/12/2025 Essential hypertension (ICD-10 - I10) 03/12/2025 BMI 25.0-25.9,adult (ICD-10 - Z68.25) 12/08/2024 Other Discharge summary with available lab/diagnosti c imaging results obtained and reviewed. Plan Of Treatment Next Appt Details Provider Name:Abhishek Hooker , 12/13/2025 01:45:00 PM, [address] [facility], [address], [place], [place], [id number], Insurance Providers Payer Name Payer Address Payer Phone Subscriber Number Group Number Insured Name Patient Relationship to Insured Coverage Start Date Coverage End Date MEDICARE PART B [address] [address] [place] [id number] [phone] [id number] MILTON LEBLANC Self - patient is the insured AET MEDICARE [address] [place] [address] [id number] MILTON LEBLANC Self - patient is the insured Medical (General) History Medical History History ICD Code Hypertension Hiatal Hernia Seasonal Allergies Depression Out patient transfusion 2 units PRBC 201 9 Pfizer covid vaccine x2 Dec/Jan Type 2 Diabetes dx 10/21/2021, A1c=8.1 CVA left occipital lobe and right thalam us 03/07/2022 Lyme encephalopathy 04/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 Celaya DE stent mRCA 2016 Surgical History Surgery Date(Month/Year) Heart Stent x 2 2014 Heart Stent x 1 2016 Hernia Repair- [facility] Colectomy 12/2018 DE stent mRCA 2017 Colonoscopy, [facility], Dr. Bautista. tubular maikel pieter 01/12/2023 Hospitalization History Reason Date(Month/Year) Constipation, Low Iron- [facility] 05/15- 8
--- OUTSIDE RECORDS SUMMARY | 2025-07-26 14:57 | XMS_ITS ---
Author Organization Unknown TREATMENT PLAN [facility] Start Date Provider Encounter for Check-up [id number] [facility]
--- OUTSIDE RECORDS SUMMARY | 2025-07-26 14:57 | XMS_ITS | Encounter Summary ---
Author Organization Healthcare Address [address] [place] [address] Care Team Providers Care Metalworker Name Role Phone Lazarus Quezada MD Primary Care Provider [phone] Encounter Details Date Type Department Care Team (Late st Contact Info) Description 04/28/2023 Ophth Exam [facility] [address] [place] [address] Irwin Farias MD [address] [place] [address] Social History Tobacco Use Types [...] drink first t yenni in the morning (EYE-CELL ASSEMBLY PINNER) to steady your nerves or to get [...] documented as of this encounter Care Teams Metalworker Relationship Specialty Start Date End Date Lazarus Quezada MD [address] [place] [address] PCP - General 03/14/21 documented as of this encounter
--- OUTSIDE RECORDS SUMMARY | 2025-07-26 14:58 | XMS_ITS | Clinical Summary ---
Author Organization Healthcare Address [address] [place] [address] Care Team Providers Care Hogshead Inspector Name Role Phone Lazarus Quezada MD Primary Care Provider [phone] Allergies No known active allergies Medications [...] or split. 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 Essential hypertension 03/08/2022 Mixed hyperlipidemia 03/08/2022 Coronary artery disease invo lving pilot station coronary artery of pilot station heart without angina pectoris 03/08/2022 History of coronary artery stent placement 03/08 Alcohol use disorder, mild, abuse 03/08/2022 History of colon cancer 03/08/2022 Diabetes 03/08/2022 Status post administration o f tPA [...] Problem Noted Date Diagnosed Date Resolved Date Altered mental status, unspe cified altered mental status type 04/27/2023 07/22/2025 Hypertensive encephalopathy 03/10/2022 03/10/2022 Carotid atherosclerosis, bilateral 03/08/2022 03/10/2022 Intracranial atherosclerosis 03/08/2022 03/10/2022 Overweight (BMI 25.0-29.9) 03/08/2022 0 07/22/2025 Acute encephalopathy 03/08/2022 022 Hypomagnesemia 03/08/2022 03/10/2022 [...] drink first t yenni in the morning (EYE-VENEER STOCK GRADER) to steady your nerves or to get [...] 50 + Years (2 of 2 - PPSV23, PCV20, or PCV21) 02/13/2019 12/19/2018 [facility]-Diabetes: Hemoglobin A1C 09/04/2022 03/07/2022 [id number]-65 Vaccine ( - 2024- season) 2025 10/20/2021, 02/05/2021, 01/08/2021 [facility]-Influenza Vaccine (#1) 2025 [...] ORDERABLES Final Re sult [facility] [address] [place] [id number] * (ABNORMAL) Hemoglobin A1c (03/07/2022 9:21 PM [...] Adults <6.0% Children and Adolescents <7.5% Source: [place] [employer]. Standards of medical care in diabetes,2017. Diabetes Care.2017:40 (suppl 1):S1-S135. HbA1c assay performed by an ion-exchange chromatography method that is certified traceable to the DCCT. us Ruslan Amato MD LAB BLOOD ORDERABLES Final Result [facility] [address] [place] [id number] from Last 3 Months or Most Recently Relevant to Health Maintenance Additional Health Concerns Infection Onset Date Last Indicated Lyme disease 04/27/2023 04/27/2023 Insurance MEDICARE [employer] Advance Directives * Full Code (Latest Code Status on File) Date Activated Date Inactivated Comments 04/27/2023 4:03 PM 04/29/2023 6:29 PM Question Answer Comments Patient has decision-making capacity? Yes Care Teams Hogshead Inspector Relationship Specialty Start Date End Date Lazarus Quezada MD [address] [place] [address] PCP - General 03/14/21
[2025-07-26 15:30] LABS: Hematocrit 39.3 % (37.0-47.0); Hemoglobin 13.0 g/dL (12.2-16.2); Immature Granulocytes % 9.3 %; Mean Corpuscular HGB Conc 33.1 g/dL (31.8-35.4); Mean Corpuscular Hemoglobin 27.5 pg (27.0-31.2); Mean Corpuscular Volume 83.1 fl (81-99); Nucleated Red Blood Cells % 0 %; Platelet Count 110 K/mm3 (142-424); Red Blood Count 4.73 M/mm3 (4.20-5.40); Red Cell Distribution Width-SD 48.1 fL; White Blood Count 3.1 K/mm3 (4.8-10.8)
[2025-07-26 17:26] LABS: Anisocytosis 1+; Macrocytosis 1+; Microcytosis 1+; Ovalocytes 1+; Poikilocytosis 1+; Total Cells Counted 100
[2025-07-26 17:27] LABS: Polychromasia 1+; Tear Drop Cells 1+
== END 2025-07-26 23:59 | disposition home or self-care (01) ==
LOC: LAB 14:34
PROVIDERS: PCP Family Medicine; Visit Provider Internal Medicine Medical Oncology
DX: Z85.038 Personal history of other malignant neoplasm of large intestine (principal)
CPT/HCPCS: 36415; 85007; 85025

== ENCOUNTER 2025-08-23 08:46 | Day surgery (SDC) | payer MEDICARE, SELFPAY ==
[2025-06-15 12:23] VITALS: BMI 24.2
--- NOTE | 2025-06-18 05:34 | EXP.HP ---
History of Present Illness *Admission Date: 06/18/25 *History of present illness: Mrs. Bauer is a 69-year-old female who is here for follow-up screening/surveillance colonoscopy. In December 2018, she had a colonoscopy with me and had a circumferential apple core colon cancer of the transverse colon and underwent extended right hemicolectomy. She also had a pedunculated rectosigmoid polyp that was a tubulovillous adenoma and 7 additional adenomatous colon polyps. The patient's last colonoscopy was in December 2022 (Paul Bautista M.D.) and was poorly prepped. The examination is deemed medically necessary for screening/surveillance colonoscopy. The patient has been seen, interviewed and examined prior to the procedure by both myself and the anesthesia provider. [facility] Disclaimer: The information contained in this section may have been updated after the patient was seen, as this information can be updated by other users. Medical History MCI (mild cognitive impairment) with memory loss Multifactorial etiology. She is not interested on empiric therapy with memantine or cholinesterase inhibitor at this time. Advised to decrease/quit alcohol intake. Continue thiamine daily. 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 Hypothyroid Diabetes mellitus, type 2 Allergies History of heart attack History of anemia Memory loss Likely multifactorial in the setting of newly diagnosed diabetes, newly diagnosed and now untreated moderate to severe ESPERANZA with hypoxemia, daily alcohol intake, hypertension, CAD with coronary stents, CVA. At risk for MCI with progression to dementia, especially vascular dementia. Excessive drinking alcohol Nocturnal hypoxemia Cerebrovascular accident March 2022, hypertensive encephalopathy, acute left occipital infarct, acute right thalamic infarct seen and evaluated at [facility]. Fecal impaction in rectum Hypokalemia Anemia Proctitis Surgical History History of partial colectomy History of coronary artery stent placement History of cardiac cath History of surgery STENTS X4 History of repair of hiatal hernia History of colon resection Family History (Updated 06/15/25 @ 12:20 by Sarah Cha RN) Other Coronary artery disease Dementia Hypertension Stroke Social History (Updated 06/15/25 @ 12:21 by Sarah Cha, RN) Smoking Status: Never smoker alcohol intake: current alcohol intake frequency: 3 or more drinks per day substance use type: denies use current occupational status: employed Travel in the last 8 weeks?: None household members: spouse housing: house current occupation: [employer] current occupational exposures/hazards: No caffeine: No Contact w/someone who lives/traveled outside [place] past 30 days?: No Exposure to someone with infectious disease in past 14 days?: No Do you have a fever (greater than 100.4 F or 38 C)?: No Have you tested positive for COVID-19?: No Exposed to someone with COVID-19 in past 14 days?: No Do you have a sore throat?: No Do you have a cough?: No Do you have any weakness?: No Are you experiencing any nausea/vomitting?: No Do you have any diarrhea?: No Are you experiencing any unusual bleeding?: No Do you have any muscle aches/pain?: No Do you have any abdominal pain?: No Are you experiencing loss of taste or smell?: No Other Medical History Have you received the Flu Vaccine for this season: No Have you received the Pneumonia Vaccine: No Review of Systems Review of Systems Review of systems (narrative): Negative *Cardiovascular Comments: Negative *Gastrointestinal Comments: Negative *Genitourinary Comments: Negative *Musculoskeletal Comments: Negative *Neurologic Comments: Negative Meds Home Medications and Allergies Home Medications ?Medication ?Instructions ?Recorded ?Confirmed ?Type glimepiride 1 mg tablet 1 mg PO DAILY 04/14/23 06/15/25 History levothyroxine 25 mcg tablet 25 mcg PO DAILY 04/14/23 06/15/25 History pantoprazole 40 mg tablet,delayed 40 mg PO DAILY 04/14/23 06/15/25 History release raloxifene 60 mg tablet 60 mg PO DAILY 04/14/23 06/15/25 History sertraline 100 mg tablet 100 mg PO HS 04/14/23 06/15/25 History triamterene 37.5 1 tab PO DAILY 04/14/23 06/15/25 History mg-hydrochlorothiazide 25 mg tablet aspirin 81 mg tablet,delayed 81 mg PO DAILY 04/19/23 06/15/25 History release (Adult Low Dose Aspirin) metformin 500 mg tablet 500 mg PO BIDWMEAL 04/23/23 06/15/25 History amlodipine 2.5 mg tablet 2.5 mg PO DAILY 06/07/24 06/15/25 History potassium chloride 10 mEq 10 meq PO TID #90 caps 11/30/24 06/15/25 Rx capsule,extended release albuterol sulfate 90 mcg/actuation 2 puff inhalation QID PRN 12/05/24 06/15/25 Rx aerosol inhaler shortness of breath or wheezing #8.5 grams valsartan 160 mg tablet See Rx Instructions PO BID 01/12/25 06/15/25 History fluticasone propionate 50 1 spray intranasal DAILY 01/25/25 06/15/25 History mcg/actuation nasal spray,suspension ondansetron 4 mg disintegrating 4 mg PO DAILY PRN N/V 01/25/25 06/15/25 History tablet nifedipine 30 mg tablet,extended 30 mg PO DAILY 04/16/25 06/15/25 History release thiamine HCl (vitamin B1) 100 mg 150 mg (1.5 x 100 mg) PO ONCE #90 04/16/25 06/15/25 Rx tablet tabs sodium,potassium,mag sulfates 17.5 See Rx Instructions PO .COMPLEX 06/04/25 06/15/25 Rx gram-3.13 gram-1.6 gram oral soln #354 mL (Suprep Bowel Prep Kit) New Prescriptions to Start Prescriptions: Allergies Allergy/AdvReac Type Severity Reaction Status Date / Time No Known Allergies Allergy Verified 06/15/25 12:14 Exam Data for Last 24 hours I & O for Last 24 hours: Intake & Output 06/15/25 06/16/25 06/17/25 06/18/25 23:59 23:59 23:59 23:59 Weight 150 lb *Routine HEENT Exam Head: Present normocephalic Eye: Present EOMI and PERRL ENT: Present mucous membranes moist *Routine Neck Exam Neck: Present supple *Routine Respiratory Exam Respiratory: Present CTA bilaterally *Routine Cardiovascular Exam Cardiovascular: Present RRR *Routine Abdominal Exam Abdominal: Present soft and normoactive bowel sounds; Absent tenderness *Routine Rectal Exam Rectal:: deferred *Routine Genitalia Exam Genitalia:: deferred *Routine Extremities Exam Extremities: Absent cyanosis, clubbing or edema *Routine Skin Exam Skin: Present warm; Absent rash *Routine Neurological Exam Neurological: Present alert and oriented X3 Assessment and Plan *Assessment and plan (1) Personal history of colon cancer: Status: Acute Category: Medical Code(s): Z85.038 - Personal history of other malignant neoplasm of large intestine (2) Personal history of adenomatous and serrated colon polyps: Status: Acute Category: Medical Code(s): Z86.0101 - Personal history of adenomatous and serrated colon polyps Plan A/P: 1. Personal history of colon cancer and personal history of adenomatous polyps is the preprocedural diagnosis. The patient will be anesthetized/sedated using MAC sedation. The patient has been seen and examined. Cardiac and lung assessment prior to the examination is stable. Proceed with planned screening/surveillance colonoscopy.
--- NOTE | 2025-08-22 10:55 | EXP.HP ---
History of Present Illness *Admission Date: 08/23/25 *History of present illness: Mrs. Bauer is a 69-year-old female who is here for screening/surveillance colonoscopy. The patient did have a colonoscopy with me in December 2018 and was found to have an apple core circumferential colon cancer in the transverse colon (colonic adenocarcinoma) and she did undergo extended right hemicolectomy. She did have 8 additional colon polyps that were adenomatous. Her last colonoscopy was in December 2022 (Paul Bautista M.D.) and there was profound lack of relaxation and moderate bowel preparation with recommended repeat surveillance in 1 year. A single tubular adenoma was removed. The examination is deemed medically necessary for screening/surveillance colonoscopy. The patient has been seen, interviewed and examined prior to the procedure by both myself and the anesthesia provider. [facility] Disclaimer: The information contained in this section may have been updated after the patient was seen, as this information can be updated by other users. Medical History MCI (mild cognitive impairment) with memory loss Multifactorial etiology. She is not interested on empiric therapy with memantine or cholinesterase inhibitor at this time. Advised to decrease/quit alcohol intake. Continue thiamine daily. 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 Hypothyroid Diabetes mellitus, type 2 Allergies History of heart attack History of anemia Memory loss Likely multifactorial in the setting of newly diagnosed diabetes, newly diagnosed and now untreated moderate to severe ESPERANZA with hypoxemia, daily alcohol intake, hypertension, CAD with coronary stents, CVA. At risk for MCI with progression to dementia, especially vascular dementia. Excessive drinking alcohol Nocturnal hypoxemia Cerebrovascular accident March 2022, hypertensive encephalopathy, acute left occipital infarct, acute right thalamic infarct seen and evaluated at [facility]. Fecal impaction in rectum Hypokalemia Anemia Proctitis Surgical History History of partial colectomy History of coronary artery stent placement History of cardiac cath History of surgery STENTS X4 History of repair of hiatal hernia History of colon resection Family History Other Coronary artery disease Dementia Hypertension Stroke Social History Smoking Status: Never smoker alcohol intake: current alcohol intake frequency: 3 or more drinks per day substance use type: denies use current occupational status: employed Travel in the last 8 weeks?: None household members: spouse housing: house current occupation: [employer] current occupational exposures/hazards: No caffeine: No Have you lived/traveled outside US in past 30 days?: No Contact w/someone who lives/traveled outside US past 30 days?: No Exposure to someone with infectious disease in past 14 days?: No Do you have a fever (greater than 100.4 F or 38 C)?: No Have you tested positive for COVID-19?: No Exposed to someone with COVID-19 in past 14 days?: No Do you have a sore throat?: No Do you have a cough?: No Do you have any weakness?: No Do you have any diarrhea?: No Are you experiencing any unusual bleeding?: No Do you have any muscle aches/pain?: No Do you have any abdominal pain?: No Are you experiencing loss of taste or smell?: No Other Medical History Have you received the Flu Vaccine for this season: No Have you received the Pneumonia Vaccine: No Review of Systems Review of Systems Review of systems (narrative): Negative *Cardiovascular Comments: Negative *Gastrointestinal Comments: Negative *Genitourinary Comments: Negative *Musculoskeletal Comments: Negative *Neurologic Comments: Negative Meds Home Medications and Allergies Home Medications ?Medication ?Instructions ?Recorded ?Confirmed ?Type glimepiride 1 mg tablet 1 mg PO DAILY 04/14/23 08/23/25 History levothyroxine 25 mcg tablet 25 mcg PO DAILY 04/14/23 08/23/25 History pantoprazole 40 mg tablet,delayed 40 mg PO DAILY 04/14/23 08/23/25 History release raloxifene 60 mg tablet (Evista) 60 mg PO DAILY 04/14/23 08/23/25 History sertraline 100 mg tablet 100 mg PO HS 04/14/23 08/23/25 History triamterene 37.5 1 tab PO DAILY 04/14/23 08/23/25 History mg-hydrochlorothiazide 25 mg tablet aspirin 81 mg tablet,delayed 81 mg PO DAILY 04/19/23 08/23/25 History release (Adult Low Dose Aspirin) metformin 500 mg tablet 500 mg PO BIDWMEAL 04/23/23 08/23/25 History amlodipine 2.5 mg tablet 2.5 mg PO DAILY 06/07/24 08/23/25 History potassium chloride 10 mEq 10 meq PO TID #90 caps 11/30/24 08/23/25 Rx capsule,extended release albuterol sulfate 90 mcg/actuation 2 puff inhalation QID PRN 12/05/24 08/23/25 Rx aerosol inhaler shortness of breath or wheezing #8.5 grams fluticasone propionate 50 1 spray intranasal DAILY 01/25/25 08/23/25 History mcg/actuation nasal spray,suspension thiamine HCl (vitamin B1) 100 mg 150 mg PO DAILY 08/21/25 08/23/25 History tablet New Prescriptions to Start Prescriptions: Allergies Allergy/AdvReac Type Severity Reaction Status Date / Time No Known Allergies Allergy Verified 08/23/25 09:19 Exam *Routine HEENT Exam Head: Present normocephalic Eye: Present EOMI and PERRL ENT: Present mucous membranes moist *Routine Neck Exam Neck: Present supple *Routine Respiratory Exam Respiratory: Present CTA bilaterally *Routine Cardiovascular Exam Cardiovascular: Present RRR *Routine Abdominal Exam Abdominal: Present soft and normoactive bowel sounds; Absent tenderness *Routine Rectal Exam Rectal:: deferred *Routine Genitalia Exam Genitalia:: deferred *Routine Extremities Exam Extremities: Absent cyanosis, clubbing or edema *Routine Skin Exam Skin: Present warm; Absent rash *Routine Neurological Exam Neurological: Present alert and oriented X3 Assessment and Plan *Assessment and plan (1) Personal history of colon cancer: Status: Acute Category: Medical Code(s): Z85.038 - Personal history of other malignant neoplasm of large intestine (2) Personal history of adenomatous and serrated colon polyps: Status: Acute Category: Medical Code(s): Z86.0101 - Personal history of adenomatous and serrated colon polyps (3) Screening for colon cancer: Status: Acute Category: Medical Code(s): Z12.11 - Encounter for screening for malignant neoplasm of colon Plan A/P: 1. Personal history of colon cancer and personal history of adenomatous colon polyps is the preprocedural diagnosis. The patient will be anesthetized/sedated using MAC sedation. The patient has been seen and examined. Cardiac and lung assessment prior to the examination is stable. Proceed with planned screening/surveillance colonoscopy.
--- NOTE | 2025-08-23 06:56 | HMH.PROCNOTE ---
[facility] Procedure Note Date: 08/23/25 Time: 10:16 Procedure Note:: Colonoscopy Procedure Report: Colonoscopy with cold snare polypectomy and Endo Clip placement Endoscopist: Robbin Sheldon II, MD Referring physician: Arthur Quezada MD Date of Procedure: August 23, 2025 Equipment: Olympus [id number] adult colonoscope Sedation: MAC sedation Indication: Mrs. Bauer is a 69-year-old female who is here for screening/surveillance colonoscopy. The patient did have a colonoscopy with oh in December 2018 and was found to have an apple core circumferential colon cancer in the transverse colon (colonic adenocarcinoma) and she did undergo extended right hemicolectomy ([facility]). She did have 8 additional colon polyps that were adenomatous. Her last colonoscopy was in December 2022 (Paul Bautista M.D.) and there was profound lack of relaxation and moderate bowel preparation with recommended repeat surveillance in 1 year. A single tubular adenoma was removed. The patient reports no abdominal pain, weight loss, change in her bowel habits or rectal bleeding. She reports no family history of colon cancer. She does have some chronic constipation. The examination is deemed medically necessary for screening/surveillance colonoscopy. Procedure: Prior to the procedure, a history and physical exam was performed, and patient's medications and allergies were reviewed. The risks, benefits and alternatives of the sedation and procedure were discussed with the patient. All questions were answered and informed consent was obtained. The patient was brought to the procedure room. Patient identification and proposed procedure were verified by the physician and the nurse. The patient was placed in a left lateral decubitus position and the scope was passed under direct vision. Throughout the procedure, the patient's blood pressure, pulse, and oxygen saturations were monitored continuously. The colonoscopy was accomplished without difficulty. The patient tolerated the procedure well. Findings: On digital rectal examination there was normal rectal tone. There were no external hemorrhoids. The colonoscope was introduced through the anal canal to the rectum and advanced to the ileocolonic anastomosis. The scope was advanced a short distance into the terminal ileum which appeared normal. The scope was then withdrawn into the colon. The anastomotic site was an end to end anastomosis and appeared healthy with no anastomotic erosions. The remaining transverse colon and mucosa was grossly normal. There were scattered diverticuli throughout the descending and sigmoid colon (LEFT colon). There was a single polyp in the sigmoid colon that was 8 to 9 mm and removed via cold snare polypectomy. There was minor heme so the polypectomy site was closed with 2 endoclips. The rectum itself was normal. Upon retroflexion within the rectum there were grade 1-2 internal hemorrhoids. The preparation was excellent throughout with [place] Preparation Score of 9. Impression: 1. Sigmoid colon polyp (8 to 9 mm) 2. Left-sided diverticulosis 3. Prior extended right hemicolectomy with normal end-to-end ileocolonic anastomosis 4. Grade 1-2 internal hemorrhoids Plan: I will follow-up the polyp histology and recommend repeat screening/surveillance colonoscopy again in 5 years. I will discuss the findings with the patient and family.
[2025-08-23 09:17] VITALS: BP 158/99; PULSE 75; RESP 18; TEMP 36.7; O2SAT 98
[2025-08-23] MEDS: LACTATED RINGERS 1000ML 1,000 ML 50 ML IV (09:18)
--- NOTE | 2025-08-23 09:52 | EXP.ANES.CKL ---
[facility] Disclaimer: The information contained in this section may have been updated after the patient was seen, as this information can be updated by other users. Medical History MCI (mild cognitive impairment) with memory loss Multifactorial etiology. She is not interested on empiric therapy with memantine or cholinesterase inhibitor at this time. Advised to decrease/quit alcohol intake. Continue thiamine daily. 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 Hypothyroid Diabetes mellitus, type 2 Allergies History of heart attack History of anemia Memory loss Likely multifactorial in the setting of newly diagnosed diabetes, newly diagnosed and now untreated moderate to severe ESPERANZA with hypoxemia, daily alcohol intake, hypertension, CAD with coronary stents, CVA. At risk for MCI with progression to dementia, especially vascular dementia. Excessive drinking alcohol Nocturnal hypoxemia Cerebrovascular accident March 2022, hypertensive encephalopathy, acute left occipital infarct, acute right thalamic infarct seen and evaluated at [facility]. Fecal impaction in rectum Hypokalemia Anemia Proctitis Surgical History History of partial colectomy History of coronary artery stent placement History of cardiac cath History of surgery STENTS X4 History of repair of hiatal hernia History of colon resection Family History Other Coronary artery disease Dementia Hypertension Stroke Social History Smoking Status: Never smoker alcohol intake: current alcohol intake frequency: 3 or more drinks per day substance use type: denies use current occupational status: employed Travel in the last 8 weeks?: None household members: spouse housing: house current occupation: [employer] current occupational exposures/hazards: No caffeine: No Have you lived/traveled outside US in past 30 days?: No Contact w/someone who lives/traveled outside US past 30 days?: No Exposure to someone with infectious disease in past 14 days?: No Do you have a fever (greater than 100.4 F or 38 C)?: No Have you tested positive for COVID-19?: No Exposed to someone with COVID-19 in past 14 days?: No Do you have a sore throat?: No Do you have a cough?: No Do you have any weakness?: No Do you have any diarrhea?: No Are you experiencing any unusual bleeding?: No Do you have any muscle aches/pain?: No Do you have any abdominal pain?: No Are you experiencing loss of taste or smell?: No [facility] Anesthesia Checklist Patient Identification Patient Identification: Arm Band Structural Data Admitted From: Home Planned Operative Procedure/s: Colonoscopy Consent for Planned Operative Procedure(s) Verified: Yes Verified Documents: Surgical Consent and History and Physical NPO Status Verified Time NPO: 00:00 Additional verifications Anesthesia Reactions: No Airway Assessment Mallampati Score:: Class II C-Spine Mobility Assessed: Yes TMJ Mobility Assessed: Yes Dentition: Good Dentition Neurological Assessment Level of Consciousness: Awake, Alert and Appropriate Anesthesia Plan Anesthesia Risk discussed: Yes Anesthesia Plan: Verified ASA Class: III Anesthesia Type: MAC
[2025-08-23 10:02] LABS: POC Glucose,Bedside 124 gm/dL (70-110)
[2025-08-23 10:18] VITALS: BP 99/68; PULSE 68; RESP 15; TEMP 36.5; O2SAT 95
[2025-08-23 10:28] VITALS: BP 97/56; PULSE 70; O2SAT 97
[2025-08-23 10:38] VITALS: BP 102/70; PULSE 69; O2SAT 97
[2025-08-23 10:48] VITALS: BP 124/84; PULSE 70; O2SAT 96
== END 2025-08-23 10:48 | disposition home or self-care (01) ==
PROVIDERS: PCP Family Medicine; Visit Provider Internal Medicine Gastroenterology
PROC: 0DJD8ZZ Inspection of Lower Intestinal Tract, Via Natural or Artificial Opening Endoscopic (ICD-10-PCS; CPT 45378; principal; 2025-08-23 10:30)
DX: Z12.11 Encounter for screening for malignant neoplasm of colon (principal); D12.5 Benign neoplasm of sigmoid colon; K57.30 Diverticulosis of large intestine without perforation or abscess without bleeding; K64.0 First degree hemorrhoids; K64.1 Second degree hemorrhoids; E03.9 Hypothyroidism, unspecified; E11.9 Type 2 diabetes mellitus without complications; G47.33 Obstructive sleep apnea (adult) (pediatric); R09.02 Hypoxemia; I10 Essential (primary) hypertension; I25.118 Atherosclerotic heart disease of native coronary artery with other forms of angina pectoris; K59.09 Other constipation; Z85.038 Personal history of other malignant neoplasm of large intestine; Z86.0101 Personal history of adenomatous and serrated colon polyps; Z79.84 Long term (current) use of oral hypoglycemic drugs; Z79.82 Long term (current) use of aspirin; Z95.5 Presence of coronary angioplasty implant and graft; Z90.49 Acquired absence of other specified parts of digestive tract
CPT/HCPCS: 45385; 82962; 88305; J2003; J2704; J7120

== ENCOUNTER 2025-10-30 11:41 | Outpatient (CLI) | payer MEDICARE, SELFPAY ==
--- OUTSIDE RECORDS SUMMARY | 2025-10-30 11:45 | XMS_ITS | Clinical Summary ---
Author Organization Healthcare Address [address] [place] [address] Care Team Providers Care Associate Manager Name Role Phone Lazarus Quezada MD Primary Care Provider [phone] Allergies No known active allergies Medications glimepiride [...] or split. 30 tablet 2 Active White Petrolatum-Change Manager al Oil (artificial tears) ophthalmic ointment Apply [...] hyperlipidemia 03/08/2022 Coronary artery disease invo lving chilkoot coronary artery of chilkoot heart without angina pectoris 03/08/2022 History of [...] drink first t yenni in the morning (EYE-ARTERIAL EMBALMER) to steady your nerves or to get [...] Screening 1955 [facility]-Medicare Annual Wellness (AWV) 1955 [facility]-/Child/Adol SDOH Screenings 1953 Diabetes: Dental Exam 1963 [facility]- SDOH Screenings 1971 [facility]-Adult SDOH Screenings 1971 CT Colonography 1998 Colonoscopy 1998 FIT-DNA 1998 FIT 1998 FOBT 1998 Sigmoidoscopy 1998 [facility]-Colorectal Cancer Screening 1998 [facility]-Breast Cancer Screening 2003 [facility]-RSV Vaccine: 60+ Years o r (1 - Risk 50-74 years 1-dose series) 2003 [facility]-Zoster Vaccines (2 of 3) 11/24/2016 09/29/2016 [facility]-Pneumococcal Vaccine: 50 + Years (2 of 2 - PPSV23, PCV20, or PCV21) 02/13/2019 12/19/2018 [facility]-Diabetes: Hemoglobin A1C 09/04/2022 03/07/2022 [id number] Vaccine ( - 2024- season) 2025 10/20/2021, 02/05/2021, 01/08/2021 [facility]-Influenza Vaccine (#1) 2025 09/29/2016 [facility]-DTaP,Tdap,and Td Vaccine s (2 - Td or Tdap) 12/19/2028 12/19/2018, 01/08/1997 [facility]-Hepatitis C Screening Completed 2022, 03/07/2022, 01/04/2020 HPV Vaccines (No Doses Required) Completed [facility]-HIB Vaccines Aged Out No longer e [...] track( 022 2:56 PM EDT) Yes Coreen Agosto, aircraft captain Procedure Name Priority Date/Time Associated Diagnosis Comments [...] ORDERABLES Final Re sult [facility] [address] [place] [id number] * (ABNORMAL) Hemoglobin A1c (03/07/2022 9:21 PM [...] Adults <6.0% Children and Adolescents <7.5% Source: [place] [employer]. Standards of medical care in diabetes,2017. Diabetes Care.2017:40 (suppl 1):S1-S135. HbA1c assay performed by an ion-exchange chromatography method that is certified traceable to the DCCT. Ruslan Amato MD LAB BLOOD ORDERABLES Final Result [facility] [address] [place] [address] from Last 3 Months or Most Recently Relevant to Health Maintenance Additional Health Concerns Infection Onset Date Last Indicated Lyme disease 04/27/2023 04/27/2023 Insurance MEDICARE AET[employer] Advance Directives * Full Code (Latest Code Status on File) Date Activated Date Inactivated Comments 04/27/2023 4:03 PM 04/29/2023 6:29 PM Question Answer Comments Patient has decision-making capacity? Yes Care Teams Associate Manager Relationship Specialty Start Date End Date Lazarus Quezada MD [facility] [id number] PCP - General 03/14/21
--- OUTSIDE RECORDS SUMMARY | 2025-10-30 11:45 | XMS_ITS | Encounter Summary ---
Author Organization Healthcare Address [address] [place] [address] Care Team Providers Care Spout Liner Name Role Phone Lazarus Quezada MD Primary Care Provider [phone] Encounter Details Date Type Department Care Team (Late st Contact Info) Description 04/28/2023 Ophth Exam [facility] [address] [place] [id number] Irwin Farias [id number] Social History Tobacco Use Types Packs/Day [...] drink first t yenni in the morning (EYE-SOLE BLACKER) to steady your nerves or to get [...] documented as of this encounter Care Teams Spout Liner Relationship Specialty Start Date End Date Lazarus Quezada MD [facility] [address] PCP - General 03/14/21 documented as of this encounter
[2025-10-30 12:03] LABS: Hematocrit 44.1 % (37.0-47.0); Hemoglobin 14.4 g/dL (12.2-16.2); Immature Granulocytes % 7.0 %; Mean Corpuscular HGB Conc 32.7 g/dL (31.8-35.4); Mean Corpuscular Hemoglobin 27.3 pg (27.0-31.2); Mean Corpuscular Volume 83.5 fl (81-99); Nucleated Red Blood Cells % 0 %; Platelet Count 120 K/mm3 (142-424); Red Blood Count 5.28 M/mm3 (4.20-5.40); Red Cell Distribution Width-SD 45.1 fL; White Blood Count 4.0 K/mm3 (4.8-10.8)
[2025-10-30 12:33] LABS: RBC Morphology Normal; Total Cells Counted 100
[2025-10-30 12:58] LABS: Alanine Aminotransferase 19 U/L (12-78); Albumin Level 4.9 g/dl (3.5-5.0); Albumin/Globulin Ratio 2.0 (1.1-1.8); Alkaline Phosphatase 57 U/L (38-126); Anion Gap 10.8 mEq/L (5-15); Aspartate Amino Transferase 29 U/L (14-36); Bilirubin,Total 0.5 mg/dl (0.2-1.3); Blood Urea Nitrogen 22 mg/dl (7-17); Calcium 10.1 mg/dl (8.4-10.2); Carbon Dioxide 32 mmol/L (22.0-30.0); Chloride 98 mmol/L (98-107); Creatinine,Serum 1.00 mg/dl (0.52-1.04); Estimated Glomerular Filt Rate 55 ml/min (>60); GFR (African American) 66 ML/MIN (>60); Globulin 2.5 g/dL (1.3-3.2); Glucose 80 mg/dl (74-100); Potassium 3.8 mmoL/L (3.5-5.1); Sodium 137 mmol/L (136-145); Total Protein,Serum 7.4 g/dl (6.3-8.2)
== END 2025-10-30 23:59 | disposition home or self-care (01) ==
LOC: LAB 11:42
PROVIDERS: PCP Family Medicine; Visit Provider Internal Medicine Medical Oncology
DX: D69.6 Thrombocytopenia, unspecified (principal)
CPT/HCPCS: 36415; 80053; 85007; 85025